=== PATIENT | female | born 1950 | race Caucasian/White ===

== ENCOUNTER 2020-01-30 09:11 | Outpatient (CLI) | payer MEDICARE, SELFPAY ==
--- NOTE | ~2020-01-30 | NM_ITS ---
NM stress w perf spect multi Procedure: The patient was stressed using Modified Stephon protocol. Prior to the end of exercise 30.8 mCi Tc 99m IV administered. Rest imaging performed following administration of 10.5 mCi Tc 99m IV. Images were reformatted into short axis, horizontal and vertical long axis sections for visual and q uantitative analysis. Indication: Chest pain Comparison: None Findings: Computer assisted qualitative and quantitative analysis of the immediate and delayed images revealed normal left ventricular perfusion without evidence of fixed or reversible perfusion abnorma lity to suggest ischemia or infarction. Normal left ventricular cavity size, wall motion and ejectio n fraction. Left ventricular ejection fraction measures 82%. Impression: 1: No scintigraphic evidence of resting or stress induced perfusion abnormality. 2: Normal left ventricle ejection fraction measuring 82%. Reviewed, dictated and finalized at location B. F NUCLEAR MEDICINE TECHNOLOGIST Impression: 1: No scintigraphic evidence of resting or stress induced perfusion abnormality . 2: Normal left ventricle ejection fraction measuring 82%.
--- NOTE | 2020-01-30 09:55 | EST_ITS ---
Patient Info Name: Vanessa Pak Age: 70 years : 1950 Gender: Female Ht: 66 in Wt: 174 lbs BSA: 1.94 m2 Exam Date: 01/30/2020 11:11 AM Exam Location: [facility] Stress Patient Status: Outpatient Admit Date: 01/30/2020 Staff Ordering Physician: Anjum Ball PA-C Attending Provider: Anjum Ball PA-C Exercise Technologist: Mayra Easton RDCS Exercise Physician: Uriah Sawyer DO Exam Type: CA stress test treadmill w NM Study Info Indications R07.9 - Chest pain, unspecified R42 - Dizziness and giddiness A pharmacological stress test was performed. Summary 1. 1. Negative Stephon exercise stress test for ischemic ST changes by ECG criteria. 2. 2. Mildly reduced functional capacity, achieving 7 METs of workload. 3. 3. Baseline hypertension. 4. 4. Appropriate HR response to exercise. 5. 5. Appropriate HR recovery at 1 minute post exercise. 6. 6. Nuclear scan to follow and will be reported separately. Please correlate with it. 7. 7. Patient informed of the above results. Protocol: Stephon Stress ECG Details Stage: REST Duration (min): 3 min : 13 sec Speed (mph): 0.0 Grade (%): 0 HR (bpm): 59 SBP (mmHg): 144 DBP (mmHg): 83 METS: --- Stage: REST Duration (min): 21 min : 32 sec Speed (mph): 0.0 Grade (%): 0 HR (bpm): 80 SBP (mmHg): 144 DBP (mmHg): 83 METS: --- Stage: STAGE 1 Duration (min): 1 min : 0 sec Speed (mph): 1.7 Grade (%): 10 HR (bpm): 105 SBP (mmHg): 144 DBP (mmHg): 83 METS: --- Stage: STAGE 1 Duration (min): 2 min : 0 sec Speed (mph): 1.7 Grade (%): 10 HR (bpm): 123 SBP (mmHg): 144 DBP (mmHg): 83 METS: --- Stage: STAGE 1 Duration (min): 3 min : 0 sec Speed (mph): 1.7 Grade (%): 10 HR (bpm): 128 SBP (mmHg): 196 DBP (mmHg): 92 METS: --- Stage: STAGE 2 Duration (min): 1 min : 0 sec Speed (mph): 2.5 Grade (%): 12 HR (bpm): 139 SBP (mmHg): 196 DBP (mmHg): 92 METS: --- Stage: STAGE 2 Duration (min): 2 min : 0 sec Speed (mph): 2.5 Grade (%): 12 HR (bpm): 147 SBP (mmHg): 192 DBP (mmHg): 91 METS: --- Stage: STAGE 2 Duration (min): 2 min : 0 sec Speed (mph): 2.5 Grade (%): 12 HR (bpm): 147 SBP (mmHg): 192 DBP (mmHg): 91 METS: --- Stage: RECOVERY Duration (min): 0 min : 59 sec Speed (mph): 0.0 Grade (%): 0 HR (bpm): 117 SBP (mmHg): 190 DBP (mmHg): 93 METS: --- Stage: RECOVERY Duration (min): 1 min : 59 sec Speed (mph): 0.0 Grade (%): 0 HR (bpm): 86 SBP (mmHg): 190 DBP (mmHg): 93 METS: --- Stage: RECOVERY Duration (min): 2 min : 59 sec Speed (mph): 0.0 Grade (%): 0 HR (bpm): 61 SBP (mmHg): 171 DBP (mmHg): 93 METS: --- Stage: RECOVERY Duration (min): 3 min : 59 sec Speed (mph): 0.0 Grade (%): 0 HR (bpm): 88 SBP (mmHg): 171 DBP (mmHg):
== END 2020-01-30 09:12 | disposition home or self-care (01) ==
PROVIDERS: PCP Internal Medicine; Visit Provider Physician Assistant
DX: R42 Dizziness and giddiness (principal); R07.9 Chest pain, unspecified; I10 Essential (primary) hypertension
CPT/HCPCS: 78452; 93017; A9502

== ENCOUNTER 2020-01-31 14:24 | Outpatient (CLI) | payer MEDICARE, SELFPAY ==
--- NOTE | ~2020-01-31 | XR_ITS ---
XR hip BI 2V w AP pelvis 01/31/2020 15:03 Indication: Lower abdominal pain Procedure: AP view pelvis and 3 views each hip Comparison: 04/20/2016 Findings: There is mild osteoarthritis of the hips. Pelvic rings are intact. No fracture or traumatic malalignment. Sacral foramen are symmetric. Impression: 1: Mild osteoarthritis of the hips. Reviewed, dictated and finalized at location B. RING MANAGER Impression: 1: Mild osteoarthritis of the hips.
--- NOTE | ~2020-01-31 | XR_ITS ---
EXAMINATION: XR lumbar spine 6V w bending EXAM DATE: 01/31/2020 15:03 INDICATION: Lumbar radiculopathy. TECHNIQUE: Lumber spine frontal, lateral, bilateral oblique projections. Coned down frontal and lat eral L5-S1 lumbar projections for interpretation. Additional lateral flexion and lateral extension pr ojections obtained. There is no prior study for comparison. FINDINGS: There is 3 mm retrolisthesis L1 on L2 on all the lateral projections. The vertebral bodies are otherwise aligned. There is no spondylolysis. There is mild to moderate disc disease T12-L3 and at L5-S1. There is moderate mid and lower lumbar facet arthropathy. There are no acute fractures iden tified. No spondylolysis. Paraspinal soft tissue is unremarkable. Sacrum, sacroiliac joints, sacral a rcuate lines are intact. IMPRESSION: 1. Moderate arthropathy. 2. Mild to moderate disc disease. Reviewed, dictated and finalized at location A. TE SENSING TECHNICIAN
== END 2020-01-31 14:25 | disposition home or self-care (01) ==
PROVIDERS: PCP Internal Medicine; Visit Provider Physician Assistant
DX: M54.16 Radiculopathy, lumbar region (principal); M51.36 Other intervertebral disc degeneration, lumbar region; M16.0 Bilateral primary osteoarthritis of hip
CPT/HCPCS: 72114; 73521

== ENCOUNTER 2020-04-16 08:38 | Outpatient (CLI) | payer MEDICARE, SELFPAY ==
--- NOTE | ~2020-04-16 | MM_ITS ---
EXAMINATION: MM screening diaz BI w pat HISTORY: Screening mammogram TECHNIQUE: Craniocaudal and mediolateral oblique 3-D tomosynthesis images were obtained and synthetic 2-D images were generated. CAD analysis was submitted and interpreted. COMPARISON: 03/28/2019, 03/21/2018, 03/18/2017 bilateral digital screening mammogram examinations BREAST PARENCHYMAL COMPOSITION: There are scattered areas of fibroglandular density. FINDINGS: Stable benign intramammary lymph nodes are noted. There is no evidence of suspicious mass, calcification, or architectural distortion to suggest malignancy in either breast. There has been no suspicious interval change. IMPRESSION: 1. No mammographic evidence of malignancy. 2. Recommend routine screening mammography in one year. BI-RADS Category 2: Benign finding(s). Reviewed, dictated and finalized at location A.
== END 2020-04-16 08:39 | disposition home or self-care (01) ==
LOC: ANHIMG 08:42
PROVIDERS: PCP Physician Assistant; Visit Provider Physician Assistant
DX: Z12.31 Encounter for screening mammogram for malignant neoplasm of breast (principal)
CPT/HCPCS: 77063; 77067

== ENCOUNTER 2020-11-25 11:24 | Outpatient (CLI) | payer MEDICARE, SELFPAY ==
--- NOTE | ~2020-11-25 | XR_ITS ---
XR thoracic spine min 4V DATE: 11/25/2020 11:46 INDICATION: Mid back pain. No injury TECHNIQUE: AP, lateral, swimmer views COMPARISON: None FINDINGS: Moderate degenerative disc disease at C5-6 and C6-7. There is minimal levoscoliosis of the thoracic spine. Moderate osteopenia. There is mild degenerative spurring of the thoracic spine. No fracture or dislocation or bone destruc tion. The thoracic pedicles are intact. No paraspinal soft tissue thickening. IMPRESSION: Osteopenia Mild degenerative change of the thoracic spine Reviewed, dictated and finalized at location A. ITURE SALESPERSON
== END 2020-11-25 11:25 | disposition home or self-care (01) ==
PROVIDERS: PCP Physician Assistant; Visit Provider Physician Assistant
DX: M47.813 Spondylosis without myelopathy or radiculopathy, cervicothoracic region (principal); M41.9 Scoliosis, unspecified
CPT/HCPCS: 72074

== ENCOUNTER 2021-04-18 14:35 | Outpatient (CLI) | payer MEDICARE, SELFPAY ==
--- NOTE | ~2021-04-18 | MM_ITS ---
EXAMINATION: MM screening diaz BI w pat HISTORY: Screening TECHNIQUE: Craniocaudal and mediolateral oblique 3-D tomosynthesis images were obtained and synthetic 2-D images were generated. CAD analysis was submitted and interpreted. COMPARISON: Comparison to multiple prior studies sequentially, with oldest reviewed study dated 02/22. BREAST PARENCHYMAL COMPOSITION: There are scattered areas of fibroglandular density. FINDINGS: There is no evidence of suspicious mass, calcification, or architectural distortion to sugg est malignancy in either breast. There has been no suspicious interval change. IMPRESSION: 1. No mammographic evidence of malignancy. 2. Recommend routine screening mammography in one year. BI-RADS Category 1: Negative Reviewed, dictated and finalized at location A.
== END 2021-04-18 14:36 | disposition home or self-care (01) ==
LOC: ANHIMG 14:37
PROVIDERS: PCP Physician Assistant; Visit Provider Physician Assistant
DX: Z12.31 Encounter for screening mammogram for malignant neoplasm of breast (principal)
CPT/HCPCS: 77063; 77067

== ENCOUNTER 2021-09-15 14:15 | Outpatient (CLI) | payer MEDICARE, SELFPAY ==
--- NOTE | 2021-09-15 14:51 | ECHO_ITS ---
Patient Info Name: Vanessa Pak Age: 71 years : 1950 Gender: Female Ht: 66 in Wt: 168 lbs BSA: 1.90 m2 HR: 68 bpm BP: 138 / 83 mmHg Technical Quality: Good Exam Date: 09/15/2021 2:57 PM Exam Location: [facility] Patient Status: Outpatient Admit Date: 09/15/2021 Staff Ordering Physician: Uriah Sawyer DO Public Finance Specialist: Rebecca Swenson RDCS Attending Provider: Uriah Sawyer DO Referring Physician: Silverio VILLARREAL; Exam Type: CA echo doppler color flow Study Info Indications - DYSPNEA Complete two-dimensional, color flow and Doppler transthoracic echocardiogram is performed. Summary 1. Complete two-dimensional, color flow and Doppler transthoracic echocardiogram is performed. 2. Left ventricular chamber dimension is normal. 3. Ventricular septum is sigmoid shaped. No LVOT obstuction. 4. Left ventricular systolic function is normal, estimated at 60-65%. 5. The left ventricular diastolic function is grade I diastolic dysfunction. 6. E/e' 12 is mildly elevated. 7. There is trace mitral valve regurgitation. 8. There is trace tricuspid valve regurgitation. 9. No pulmonary hypertension, estimated pulmonary arterial systolic pressure is 26 mmHg. Left Ventricle E/e' 12 is mildly elevated. Ventricular septum is sigmoid shaped. No LVOT obstuction. Left ventricular chamber dimension is normal. Left ventricular systolic function is normal, estimated at 60-65%. The left ventricular diastolic function is grade I diastolic dysfunction. Right Ventricle Right ventricular chamber dimension is normal. Right ventricular systolic function is normal. Left Atria Left atrial chamber dimension is normal. Right Atria Right atrial chamber dimension is normal. Aortic Valve The aortic valve is trileaflet. There is no aortic valve stenosis. There is no aortic valve regurgitation. Pulmonic Valve There is no pulmonic regurgitation. Mitral Valve There is no mitral valve stenosis. There is trace mitral valve regurgitation. Tricuspid Valve There is trace tricuspid valve regurgitation. No pulmonary hypertension, estimated pulmonary arterial systolic pressure is 26 mmHg. Pericardium/Pleural There is no pericardial effusion. Inferior Vena Cava Normal inferior vena cava with >50% collapse upon inspiration consistent with normal right atrial pressure, 5 mmHg. Aorta The aortic root size at the sinus of Valsalva is normal. Left Ventricular Outflow Tract Name Value Normal LVOT 2D LVOT Diameter 2.0 cm LVOT Doppler LVOT Peak Gradient 7 mmHg LVOT Mean Gradient 4 mmHg LVOT VTI 30 cm LVOT VTI/AV VTI Ratio 1.0 LVOT Stroke Volume 94 ml LVOT CO 17.4 l/min LVOT CI 9.1 l/min/m2 Pulmonic Valve Name Value Normal
== END 2021-09-15 14:16 | disposition home or self-care (01) ==
LOC: ANHCARD 14:16
PROVIDERS: PCP Physician Assistant; Visit Provider Internal Medicine Cardiovascular Disease
DX: R06.00 Dyspnea, unspecified (principal)
CPT/HCPCS: 93306

== ENCOUNTER 2021-11-17 07:51 | Outpatient (CLI) | payer MEDICARE, SELFPAY ==
--- NOTE | 2021-11-24 11:41 | WPDHOMESLEEP ---
Sleep Study - Home Unattended Date of Study: 11/17/21 <Monica Jo DO - Last Filed: 11/24/21 11:52> Ordering Provider: Uriah Sawyer DO <Monica Jo DO - Last Filed: 11/24/21 11:52> Interpreting Provider: Monica Jo DO <Monica Jo DO - Last Filed: 11/24/21 11:52> Home Sleep Study Type: Apnea Link Air <Monica Jo DO - Last Filed: 11/24/21 11:52> Height: 1.68 m <Monica Jo DO - Last Filed: 11/24/21 11:52> Weight: 77.111 kg <Monica Jo DO - Last Filed: 11/24/21 11:52> Body Mass Index: 27.4 <Monica Jo DO - Last Filed: 11/24/21 11:52> Neck Circumference (inches): 17 <Monica Jo DO - Last Filed: 11/24/21 11:52> Silt: 3 <Monica Jo DO - Last Filed: 11/24/21 11:52> Reason for Sleep Study Snoring, heart palpitations <Monica Jo DO - Last Filed: 11/24/21 11:52> Sleep History The patient is a 71-year-old female with hypertension, heart palpitations, hyperlipidemia, hypothyroidism, GERD, seasonal allergies that had a home sleep study ordered by her front desk team member due to hypersomnia. The patient denies awakening from sleep short of breath. She occasionally awakens at night with heartburn, belching or cough. She frequently snores but is rarely loud enough that others complain. She denies waking up gasping for air throughout the night. She denies having breathing problems at night observed by others. She rarely sweats excessively at night. She occasionally notices heart palpitations or irregular heartbeats during the night. She denies falling asleep during the day and while driving. She denies sleep paralysis, cataplexy and hypnagogic / hypnopompic hallucinations. She denies having trouble during the day due to sleepiness. She denies feeling afraid to fall asleep. She rarely has nightmares. She rarely remembers her dreams. She occasionally has thoughts racing through her mind. She rarely feels sad or depressed. She occasionally has anxiety. She occasionally has muscular tension in notices parts of her body jerk. She occasionally kicks during the night. She occasionally has crawling and aching feelings in her legs as well as leg pain during the night. She occasionally grinds her teeth during sleep and occasionally awakens with morning jaw pain. She is occasionally bothered by pain during the day but rarely awakened by pain during the night. She occasionally wakes up feeling stiff in the morning with sore and achy muscles. She goes to bed between 9 and 10:00 p.m. on weekdays and between 10 and 11:00 p.m. on the weekends. It takes her 30 minutes to fall asleep. She wakes up once throughout the night to urinate. She can fall back asleep within 30 minutes. She awakens at 7:30 a.m. on both weekdays and weekends. She typically gets 7 hours of sleep per night. She will not stay in bed after waking up in the morning. She is currently living alone. She is retired. She does not consume any caffeinated beverages within 2 hours of bedtime. She does not engage in physical exercise before bedtime. She will watch television before falling asleep. She will occasionally take a nap in the afternoon or the evening and is refreshing. She quit smoking cigarettes 20 years ago. She has 3 caffeinated beverages per day. She denies alcohol recreational drug use. <Monica Jo DO - Last Filed: 11/24/21 11:52> [facility] Family History Family History: Family History Sibling Family history of diabetes mellitus in first degree relative Patient's brother is in good health Mother Patient's mother is Father Patient's father is <Monica Jo DO - Last Filed: 11/24/21 11:52> Social History Social History: Social History (Reviewed 11/24/21 @ 11:46 by Monica Oliveira
[2021-11-24 11:52] VITALS: BMI 27.4
== END 2021-11-18 14:25 | disposition home or self-care (01) ==
LOC: ANHCSM 07:51
PROVIDERS: PCP Physician Assistant; Visit Provider Internal Medicine Cardiovascular Disease
DX: G47.33 Obstructive sleep apnea (adult) (pediatric) (principal); G47.10 Hypersomnia, unspecified
CPT/HCPCS: 95806

== ENCOUNTER 2021-12-22 14:42 | Emergency (ER) | payer MEDICARE, SELFPAY ==
--- NOTE | ~2021-12-22 | XR_ITS ---
XR chest 1V portable DATE: 12/22/2021 23:05 INDICATION: Weakness. Increased pressure in head and neck. TECHNIQUE: Portable upright AP chest on 12/18/2021 at 2302 hours COMPARISON: 07/26/2019 PA and lateral chest FINDINGS: Normal heart size. Is aortic tortuosity. No hilar or mediastinal enlargement. Possible 7 mm mass of right midlung, likely present on 07/18/2019. Probable calcified granuloma left upper lobe. There are calcified left hilar and aortopulmonary windo w nodes consistent with old granulomatous disease. No pulmonary infiltrate or consolidation, pleural effusion or pulmonary vascular congestion or pneumo thorax. Diffuse osteopenia. 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 ACTORY MIXER
--- NOTE | ~2021-12-22 | CT_ITS ---
EXAMINATION: CTA brain carotid EXAM DATE: 12/23/2021 00:10 INDICATION: Dizziness, worse with turning neck X 2 WEEKS. TECHNIQUE: Noncontrast head CT. Spiral CTA of the carotid arteries was performed with intravenous i njection 100 cc of Omnipaque 350. Axial, coronal, sagittal reformatted images reviewed. Additional r eformatted images created on dedicated 3-D workstation. NASCET comparable standard used to assess th e degree of arterial stenosis. Spiral CT angiogram cerebral arteries performed with the same intrave nous injection of contrast. Source images of the brain CTA transferred to dedicated workstation for 3 -D rotational image creation. Coronal, sagittal maximum intensity pixel images also reviewed. The d ose-length product (DLP) for this examination was 1721.98 mGy-cm. The exposure was tailored accordi ng to patient size, and iterative reconstruction (ASIR) was used as additional dose reduction techniq ue. There is no prior study for comparison. FINDINGS: The left vertebral artery is dominant. There is minimal right carotid arterial sclerosis. 0 % carotid bulb stenosis bilaterally. Small basilar tip infundibulum. There is no carotid or vertebral basilar arterial dissection or fibromuscular dysplasia. There are no cerebral artery aneurysms. Ther e is symmetric cerebral artery arborization. The sagittal, transverse and sigmoid sinuses enhance nor binu, no venous sinus thrombosis. Internal cerebral veins also enhance normally. There is no acute intraparenchymal hemorrhage. No evidence of intraparenchymal brain mass lesion. N o evidence of acute infarction. There is mild to moderate periventricular and subcortical hypodensity , nonspecific but probably related to small vessel ischemic disease. There is mild prominence of th e sulci and ventricles related to cerebral atrophy. There is no mass effect or midline shift. Ther e is no obstructive hydrocephalus suspected. There are no extra-axial collections. Incidental Findings: Mild to moderate cervical spondylosis. IMPRESSION: 1. No acute carotid or intracranial findings. 2. Bilateral carotid 0% stenosis. Reviewed, dictated and finalized at location A. CONDITIONING MECHANIC
[2021-12-22 14:46] VITALS: BP 176/107; PULSE 85; RESP 20; TEMP 36.3; O2SAT 100
[2021-12-22 16:39] VITALS: BP 150/83; PULSE 80; RESP 16; TEMP 36.8; O2SAT 100
[2021-12-22 20:40] VITALS: BP 149/90; PULSE 68; TEMP 37.1; O2SAT 100
--- NOTE | 2021-12-22 22:53 | ECG_ITS ---
Measurements Intervals [place] Rate: 79 P: 48 PA: 151 QRS: 3 QRSD: 83 T: 24 QT: 387 QTc: 444 Interpretive Statements SINUS RHYTHM LOW QRS VOLTAGE IN PRECORDIAL LEADS MINIMAL Q WAVES- HIGH LATERAL LEADS BASELINE ARTIFACT- I, III, AVR, AVL, AVF BORDERLINE ECG Electronically Signed On 12-23-2021 5:45:39 [employer] by Uriah Sawyer D.O.
--- NOTE | 2021-12-22 23:12 | ED.GENADULT ---
HPI - General Adult General Chief complaint: Headache Stated complaint: head fullness and tightening Time Seen by Provider: 12/22/21 22:46 History of Present Illness HPI narrative: Patient 71-year-old female presents to emergency department with plaint of headache. Patient reports that yesterday she started having occipital headaches and reports that she is also had a feeling as though she is going to pass out patient states it is worse whenever she turns her head from side to side and puts pressure on her neck. Patient reports she has had history of cervical radiculopathy and reports she had history of vertigo as well patient states this feels a little different the patient states that pain is more of an aching-like sensation reports that is not improved by anything and reports that she also noticed that her vision was a little off states that whenever she looks with both of her eyes things are little blurry but when she looks with just one eye it is normal Related Data Allergies Allergy/AdvReac Type Severity Reaction Status Date / Time sertraline Allergy Unknown Fatigue Verified 10/07/21 10:12 Review of Systems Review of Systems: A 10 system review of systems was completed on the patient and is negative except for what is stated in the HPI. Nursing and ancillary documentation was reviewed. [facility] Family History Family History Sibling Family history of diabetes mellitus in first degree relative Patient's brother is in good health Mother Patient's mother is Father Patient's father is Social History Social History Smoking status: Never smoker Second hand tobacco smoke exposure: No Alcohol intake: current Exam Narrative: GENERAL: Well-appearing, well-nourished, and in no acute distress. HEAD: Normocephalic, atraumatic. EYES: PERRLA and EOMI. ENT: Nares clear, no rhinorrhea or epistaxis. Mucous membranes moist. NECK: Supple. CHEST: Clear to auscultation. No respiratory distress. HEART: Regular rate and rhythm. No murmur heard. Normal peripheral pulses. ABDOMEN: Soft, nontender, nondistended, normal active bowel sounds. EXTREMITIES: Normal range of motion. No edema. SKIN: Warm, dry, no rash. NEURO: No focal deficits. Alert and oriented x3. PSYCH: Normal mood and affect. Course Course Emergency Course: CT head is negative CT angio head and neck is negative Patient is feeling much better at this time Vital Signs Vital signs: Vital Signs Temperature 36.3 C L 12/22/21 14:46 Pulse Rate 85 12/22/21 14:46 Respiratory Rate 20 12/22/21 14:46 Blood Pressure 176/107 H 12/22/21 14:46 Pulse Oximetry 100 12/22/21 14:46 Temperature 37.1 C 12/22/21 20:40 Pulse Rate 66 12/23/21 00:47 Respiratory Rate 16 12/23/21 00:47 Blood Pressure 125/78 12/23/21 00:47 Pulse Oximetry 100 12/23/21 00:47 Medical Decision Making Vital Signs Vital Signs: Vital Signs Temperature 36.3 C L 12/22/21 14:46 Pulse Rate 85 12/22/21 14:46 Respiratory Rate 20 12/22/21 14:46 Blood Pressure 176/107 H 12/22/21 14:46 Pulse Oximetry 100 12/22/21 14:46 Temperature 37.1 C 12/22/21 20:40 Pulse Rate 66 12/23/21 00:47 Respiratory Rate 16 12/23/21 00:47 Blood Pressure 125/78 12/23/21 00:47 Pulse Oximetry 100 12/23/21 00:47 Lab Data Result diagrams: 12/22/21 23:08 12/22/21 23:08 Labs: Lab Results 12/22/21 12/22/21 12/22/21 Range/Units 23:08 23:08 23:08 WBC 7.3 (4.5-10.0) K/mm3 RBC 4.47 (4.2-5.4) M/mm3 Hgb 14.6 (12.0-15.0) g/dL Hct 43.4 (37.0-47.0) % MCV 97.1 (80-100) fl MCH 32.7 (26-34) pg MCHC 33.6 (32-36) g/dl RDW 12.3 (11.5-14.5) % Plt Count 287 (150-375) k/mm3 MPV 9.5 (7.4-10.4) fl Immature Gran % (Auto) 0.4 (0-0.5)
[2021-12-22 23:13] VITALS: BP 144/93; PULSE 77; RESP 16; O2SAT 99
[2021-12-22] MEDS: METOCLOPRAMIDE HCL INJ 10 MG/2 ML VIAL IV PUSH (23:22)
[2021-12-22] MEDS: diphenhydrAMINE HCl INJ 50 MG/ML VIAL IV PUSH (23:22)
[2021-12-22 23:24] LABS: Basophils Percent Auto 0.6 % (0.2-1.2); Eosinophils Absolute Auto 0.1 K/mm3 (0-0.3); Hematocrit 43.4 % (37.0-47.0); Hemoglobin 14.6 g/dL (12.0-15.0); Immature Granulocyte Absolute 0.03 K/mm3 (0.00-0.031); Immature Granulocyte Percent A 0.4 % (0-0.5); Lymphocytes Absolute Auto 2.95 K/mm3 (0.9-3.2); Lymphocytes Percent Auto 40.7 % (18.3-44.2); Mean Corpuscular HGB Conc 33.6 g/dl (32-36); Mean Corpuscular Hemoglobin 32.7 pg (26-34); Mean Corpuscular Volume 97.1 fl (80-100); Mean Platelet Volume 9.5 fl (7.4-10.4); Monocytes Absolute Auto 0.5 K/mm3 (0.1-0.6); Monocytes Percent Auto 6.3 % (2.6-8.5); Neutrophils Absolute Auto 3.7 K/mm3 (1.3-6.7); Platelet Count Result 287 k/mm3 (150-375); Red Blood Count 4.47 M/mm3 (4.2-5.4); Red Cell Distribution Width 12.3 % (11.5-14.5); White Blood Count 7.3 K/mm3 (4.5-10.0)
[2021-12-22 23:26] LABS: Add Urine Microscopic? NO; Appearance Urine Clear (Clear); Bilirubin Urine Negative (Negative); Blood Urine Negative (Negative); Color Urine Yellow (Yellow); Glucose Urine UA Negative (Negative); Ketones Urine Negative (Negative); Leukocyte Esterase Ur Negative LEU/UL (Negative); Nitrate Urine Negative (Negative); Protein Urine Negative (Negative); Specific Grav Ur 1.009 (1.001-1.035); Urobilinogen Urine Negative mg/dL (<2.0)
[2021-12-22] MEDS: SODIUM CHLORIDE 0.9% IV 1,000 ML 999 ML IV CONT (23:26)
[2021-12-22 23:33] LABS: Alanine Aminotransferase 22 U/L (4-35); Alkaline Phosphatase 77 U/L (38-126); Anion Gap 10 mmol/L (8-16); Aspartate Amino Transferase 26 U/L (14-36); Bilirubin,Total 0.7 mg/dL (0.2-1.3); Blood Urea Nitrogen 10 mg/dL (7-17); Calcium 9.8 mg/dL (8.4-10.2); Carbon Dioxide 27 mmol/L (22-30); Chloride 103 mmol/L (98-107); Estimated CRCL calculation 58 ml/min; Estimated Glomerular Filt Rate > 60; Glucose 155 mg/dL (65-110); Magnesium 2.3 mg/dL (1.6-2.3); Potassium 3.3 mmol/L (3.4-5.0); Sodium 140 mmol/L (137-145)
[2021-12-22 23:36] LABS: Prothrombin Time 13.3 Seconds (11.1-14.7)
[2021-12-22 23:37] LABS: Partial Thromboplastin Time 26.6 SECONDS (22.3-36.8)
[2021-12-22 23:45] LABS: Troponin I < 0.012 ng/mL (0.000-0.034)
[2021-12-23 00:47] VITALS: BP 125/78; PULSE 66; RESP 16; O2SAT 100
[2021-12-23 01:31] VITALS: BP 131/78; PULSE 66; RESP 16; O2SAT 100
== END 2021-12-23 01:31 | disposition home or self-care (01) ==
PROVIDERS: Emergency Provider Emergency Medicine; PCP Physician Assistant
DX: R51.9 Headache, unspecified (principal)
CPT/HCPCS: 36415; 70496; 70498; 71045; 80053; 81003; 83735; 84484; 85025; 85610; 85730; 93005; 96361; 96374; 96375; 99284; J1200; J2765; J7030; Q9967

== ENCOUNTER → 2022-01-06 11:23 | Outpatient (CLI) | payer MEDICARE, SELFPAY ==
--- NOTE | ~2022-01-06 | US_ITS ---
EXAMINATION: US soft tissue upper back EXAM DATE: 01/06/2022 11:43 INDICATION: R22.2 - Localized swelling, mass and lump, trunk TECHNIQUE: Multiple grayscale and Doppler images of the right upper back area of patient's concern we re obtained (by a technologist who performed the scan) and subsequently reviewed. There is no prior study for comparison. FINDINGS: Scanning in the area of patient's concern demonstrates uniform skin thickness, unremarkable subcutane ous fat and underlying musculature. Artifact from some ribs demonstrated. IMPRESSION: 1. Unremarkable ultrasound exam. Reviewed, dictated and finalized at location B. NESS CONTINUITY CONSULTANT
== END ==
PROVIDERS: Visit Provider Physician Assistant
DX: R22.2 Localized swelling, mass and lump, trunk (principal)
CPT/HCPCS: 76604

== ENCOUNTER → 2022-02-11 09:02 | Outpatient (CLI) | payer MEDICARE, SELFPAY ==
--- NOTE | ~2022-02-11 | XR_ITS ---
EXAMINATION:XR cervical spine 4-5V DATE: 02/11/2022 09:21 INDICATION: Cervicalgia TECHNIQUE: AP, lateral, lateral swimmers, left and right oblique and odontoid views of the cervical s pine are provided. COMPARISON: None FINDINGS: Alignment is normal. Odontoid is intact. Moderate atlantoaxial osteoarthritis. Vertebral body heights are normal. Moderate disc height loss at C5-C6 and C6-C7 with small posterior endplate osteophytes r esulting in mild central canal stenosis and moderate uncovertebral osteoarthritis resulting in mild b ilateral neural foraminal stenosis at both levels. Mild disc height loss at C3-C4. Severe facet osteo arthritis on the left at C7-T1. Mild facet osteoarthritis throughout the remainder of the cervical sp ine. Prevertebral soft tissues are normal. IMPRESSION: 1. Mild to moderate cervical spondylosis. Reviewed, dictated and finalized at location A.
== END ==
PROVIDERS: PCP Physician Assistant; Visit Provider Physician Assistant
DX: M54.2 Cervicalgia (principal); M47.816 Spondylosis without myelopathy or radiculopathy, lumbar region
CPT/HCPCS: 72050

== ENCOUNTER 2022-02-20 15:47 | Outpatient (CLI) | payer MEDICARE, SELFPAY ==
--- NOTE | ~2022-02-20 | MR_ITS ---
EXAMINATION: MR cervical spine wo con EXAM DATE: 02/20/2022 16:57 INDICATION: M54.12 - Radiculopathy, cervical region. TECHNIQUE: Multi-sequential, multiplanar MR images of the cervical spine were obtained without contra st. Axial T2, axial T2 MERGE sequence. Sagittal T1, T2, T2 fat saturation images also obtained. Th ere is no prior study for comparison. FINDINGS: There is moderate disc disease at C5-6 and 6-7, mild to moderate at C3-4. The vertebral joss dies are aligned in the AP dimension. The spinal cord signal intensity and intrinsic morphology is no rmal. Cervicomedullary junction is normal in appearance. There is a small bone island in the T3 verte bral body. Level by level evaluation: C2-C3: Disc does not extend beyond the endplate margin. Uncovertebral joint arthropathy: None. Facet joint arthropathy: Mild. Neural foraminal stenosis: No stenosis. Central canal stenosis: No stenosis. C3-C4: Mild to moderate left, mild right Uncovertebral joint arthropathy: Mild to moderate. Facet joint arthropathy: Mild to moderate left, mild right. Neural foraminal stenosis: No stenosis. Central canal stenosis: No stenosis. C4-C5: There is a mild diffuse disc bulge. Uncovertebral joint arthropathy: Mild bilateral. Facet joint arthropathy: Moderate right, mild to moderate left. Neural foraminal stenosis: No stenosis. Central canal stenosis: No stenosis. C5-C6: There is a mild diffuse disc bulge. Uncovertebral joint arthropathy: Mild to moderate right, mild left. Facet joint arthropathy: Mild bilateral. Neural foraminal stenosis: Mild bilateral. Central canal stenosis: No stenosis. C6-C7: There is a mild diffuse disc bulge. Uncovertebral joint arthropathy: Mild to moderate left, mild right. Facet joint arthropathy: Mild to moderate left, mild right. Neural foraminal stenosis: Moderate left. Central canal stenosis: No stenosis. C7-T1: Disc does not extend beyond the endplate margin. Uncovertebral joint arthropathy: Moderate left, mild right. Facet joint arthropathy: Moderate left, mild right. Neural foraminal stenosis: Mild to moderate left. Central canal stenosis: No stenosis. IMPRESSION: 1. Mild to moderate cervical spondylosis as detailed above. Reviewed, dictated and finalized at location G.
== END 2022-02-20 15:48 | disposition home or self-care (01) ==
LOC: ANHIMG 15:54
PROVIDERS: PCP Physician Assistant; Visit Provider Physician Assistant
DX: M54.12 Radiculopathy, cervical region (principal); M47.812 Spondylosis without myelopathy or radiculopathy, cervical region
CPT/HCPCS: 72141

== ENCOUNTER 2022-05-19 09:10 | Outpatient (CLI) | payer MEDICARE, SELFPAY ==
--- NOTE | ~2022-05-19 | MM_ITS ---
EXAMINATION: MM screening [facility] BI w pat HISTORY: Screening mammogram TECHNIQUE: Craniocaudal and mediolateral oblique 3-D tomosynthesis images were obtained and synthetic 2-D images were generated. CAD analysis was submitted and interpreted. COMPARISON: 04/18/2021, 04/16/2020, 03/28/2019 bilateral screening mammogram examinations BREAST PARENCHYMAL COMPOSITION: There are scattered areas of fibroglandular density. FINDINGS: There is no evidence of suspicious mass, calcification, or architectural distortion to sugg est malignancy in either breast. There has been no suspicious interval change. IMPRESSION: 1. No mammographic evidence of malignancy. 2. Recommend routine screening mammography in one year. BI-RADS Category 1: Negative Reviewed, dictated and finalized at location A.
== END 2022-05-19 09:11 | disposition home or self-care (01) ==
PROVIDERS: PCP Physician Assistant; Visit Provider Physician Assistant
DX: Z12.31 Encounter for screening mammogram for malignant neoplasm of breast (principal)
CPT/HCPCS: 77063; 77067

== ENCOUNTER → 2022-07-30 07:10 | Outpatient (CLI) | payer MEDICARE, SELFPAY ==
--- NOTE | ~2022-07-30 | MR_ITS ---
EXAMINATION: MR brain/brain stem wo/w con DATE: 07/30/2022 08:52 INDICATION: Right occipital headache. Cerebral infarction, unspecified. TECHNIQUE: Magnetic resonance imaging (MRI) of the brain and brainstem was performed without and with 15 mL MultiHance intravenous contrast. COMPARISON: Head CT 12/22/2021 FINDINGS: There is a developmental venous anomaly in left frontal lobe. There are scattered areas of nonspecific increased T2-weighted signal intensity in the cerebral white matter. There is no intracra nial hemorrhage, acute infarction, or abnormal intracranial mass lesion. The ventricles are normal in size. The orbits are normal. There is mild mucosal thickening in the ethmoid sinuses. The mastoid ai r cells are normal. IMPRESSION: 1. Moderate nonspecific cerebral white matter disease, which likely represents chronic small vessel i schemic disease. Reviewed, dictated and finalized at location A. IMPRESSION: 1. Moderate nonspecific cerebral white matter disease, which likely represents chronic small vessel ischemic disease.
== END ==
PROVIDERS: PCP Physician Assistant
DX: Z86.73 Personal history of transient ischemic attack (TIA), and cerebral infarction without residual deficits (principal); R90.82 White matter disease, unspecified
CPT/HCPCS: 70553; A9577

== ENCOUNTER 2023-02-15 00:25 | Day surgery (SDC) | payer MEDICARE, SELFPAY ==
[2023-02-03 12:43] VITALS: BMI 27.0
[2023-02-15 09:27] VITALS: BP 138/75; PULSE 68; RESP 20; TEMP 36.3; O2SAT 99
[2023-02-15] MEDS: LACTATED RINGERS 1,000 ML 150 ML IV CONT (09:36)
--- NOTE | 2023-02-15 09:54 | WPDANESEPPF ---
Anes - Initial Pre Proc Eval Procedure: Operation Date: 02/15/23 10:30 Proposed Procedures p Screening Colonoscopy - Jos Perry MD Date/Time: 02/15/23 09:54 Surgeon: Jos Perry MD Pre Op Diagnosis: neoplasm screening Patient Data Age: 73 Gender: F Height: 1.68 m Weight: 75 kg Last Vital Signs Temp 97.4 F L 02/15/23 09:27 Pulse 68 02/15/23 09:27 Resp 20 02/15/23 09:27 BP 138/75 02/15/23 09:27 Pulse Ox 99 02/15/23 09:27 O2 Del Method Room Air 02/15/23 09:27 Allergies Allergy/AdvReac Type Severity Reaction Status Date / Time sertraline Allergy Unknown Fatigue Verified 02/15/23 09:23 Home Medications Medication Instructions Recorded Confirmed Type loratadine 10 mg tablet (Claritin) 10 mg PO DAILY 02/11/22 02/03/23 History pravastatin 40 mg tablet 40 mg PO DAILY #90 tabs 05/06/22 02/03/23 Rx omeprazole 20 mg capsule,delayed See Rx Instructions .Route 08/13/22 02/03/23 Rx release .COMPLEX #90 caps levothyroxine 50 mcg tablet 50 mcg PO DAILY #90 tabs 09/18/22 02/03/23 Rx lisinopril 20 mg tablet See Rx Instructions .Route 12/15/22 02/03/23 Rx .COMPLEX #90 tabs aspirin 81 mg tablet,delayed 81 mg PO DAILY 12/28/22 02/03/23 History release (Adult Low Dose Aspirin) Patient hx anesthesia problems: none Family hx anesthesia problems: none Results Review: All pre-operative results and documents have been reviewed as part of the pre-operative evaluation. [facility] Family History Family History Sibling Family history of diabetes mellitus in first degree relative Patient's brother is in good health Mother Patient's mother is Father Patient's father is Social History Social History Smoking status: Former smoker Second hand tobacco smoke exposure: No Alcohol intake: current Lack of Transportation: No Lack of Food: Never True Current Housing: I Have Housing Concerned About Future Housing: No Difficulty Paying Gas/Electric Bills: No Difficulty Paying for Meds: No Currently Unemployed: No Education: High School Diploma/GED Difficulty w/ Childcare or Family Care: No Anes - Eval Final PreProcedure Day of Procedure 02/15/23 09:54 Patient weight: normal Heart: regular rate and rhythm Lungs: clear to auscultation Airway: Mallampati scale class II Neurological: alert and oriented Last oral intake: >/= 8 hours ASA classification: III Emergent: no Anesthetic plan: proceed Anesthesia type and monitoring: general GIVS and standard monitoring Results Review: All pre-operative results and documents have been reviewed as part of the pre-operative evaluation. Informed Consent: The patient's anesthetic plan and its attendant risks and benefits were discussed with the patient/family/POA. Questions were solicited and answers provided to the satisfaction of the patient/family/POA.
--- NOTE | 2023-02-15 09:56 | PM.HPGS ---
History of Present Illness History of Present Illness Consent: Risks, benefits, and alternatives have been discussed and questions answered. Patient agrees to proceed with procedure. Chief complaint: neoplasm screening Narrative: Vanessa Pak is a 73 year old female with colon polyp in 2018 Review of Systems Constitutional: Constitutional: Denies headache(s) and Denies weakness Eyes: Eyes: Denies blurry vision ENT: Reports Normal hearing present, Denies headache(s) and Denies neck pain Cardiovascular: Cardiovascular: Denies chest pain and Denies dyspnea Respiratory: Respiratory: Denies dyspnea Gastrointestinal: Gastrointestinal: Reports no additional gastrointestinal complaints Genitourinary: Genitourinary: Denies dysuria Musculoskeletal: Musculoskeletal: Denies neck pain Integumentary/Breasts: Skin/Breast: Denies dry skin Neurologic: Reports Normal hearing present, Denies headache(s) and Denies weakness Psychiatric: Psychiatric: Denies anxiety Endocrine: Endocrine: Denies change in body appearance Hematologic/Lymphatic: Hematologic/Lymphatic: Denies easy bleeding Allergic/Immunologic: Allergic/Immunologic: Denies urticaria [facility] Past Medical History Medical History (Updated 02/15/23 @ 09:57 by Jos Perry MD) Colon cancer screening Family History Family History Sibling Family history of diabetes mellitus in first degree relative Patient's brother is in good health Mother Patient's mother is Father Patient's father is Social History Social History Smoking status: Former smoker Second hand tobacco smoke exposure: No Alcohol intake: current Lack of Transportation: No Lack of Food: Never True Current Housing: I Have Housing Concerned About Future Housing: No Difficulty Paying Gas/Electric Bills: No Difficulty Paying for Meds: No Currently Unemployed: No Education: High School Diploma/GED Difficulty w/ Childcare or Family Care: No Meds Home Medications and Allergies Home Medications Medication Instructions Recorded Confirmed Type loratadine 10 mg tablet (Claritin) 10 mg PO DAILY 02/11/22 02/03/23 History pravastatin 40 mg tablet 40 mg PO DAILY #90 tabs 05/06/22 02/03/23 Rx omeprazole 20 mg capsule,delayed See Rx Instructions .Route 08/13/22 02/03/23 Rx release .COMPLEX #90 caps levothyroxine 50 mcg tablet 50 mcg PO DAILY #90 tabs 09/18/22 02/03/23 Rx lisinopril 20 mg tablet See Rx Instructions .Route 12/15/22 02/03/23 Rx .COMPLEX #90 tabs aspirin 81 mg tablet,delayed 81 mg PO DAILY 12/28/22 02/03/23 History release (Adult Low Dose Aspirin) Allergies Allergy/AdvReac Type Severity Reaction Status Date / Time sertraline Allergy Unknown Fatigue Verified 02/15/23 09:23 Vital Signs Vital Signs - 24 hr 02/15/23 09:27 Temperature 97.4 F L Pulse Rate 68 Respiratory Rate 20 Blood Pressure 138/75 Pulse Oximetry 99 Oxygen Delivery Room Air Exam Const: General: comfortable and no acute distress HENMT: Face/Nose/Sinus: Normal nares present Eyes: General: appearance normal, both eyes and all related structures Neck: Neck: no JVD Resp: Auscultation: clear to auscultation bilaterally Cardio: Rate: regular rate Rhythm: regular rhythm GI: Inspection: non-distended GI Palp: Yes Soft to palpation Skin: General skin exam: normal color Neuro: General: gait normal Speech: normal speech Extrem: General: normal to inspection Psych: Mental Status: mental status grossly normal Assessment and Plan Assessment and plan (1) Colon cancer screening: Code(s): Z12.11 - Encounter for screening for malignant neoplasm of colon Status: Acute Assessment and Plan: colonoscopy
[2023-02-15 10:18] VITALS: BP 100/53; PULSE 70; RESP 20; O2SAT 98
[2023-02-15 10:28] VITALS: BP 106/55; PULSE 64; RESP 20; O2SAT 100
[2023-02-15 10:38] VITALS: BP 108/67; PULSE 62; RESP 20; O2SAT 99
== END 2023-02-15 10:56 | disposition home or self-care (01) ==
PROVIDERS: PCP Physician Assistant; Visit Provider Internal Medicine Gastroenterology
PROC: 0DJD8ZZ Inspection of Lower Intestinal Tract, Via Natural or Artificial Opening Endoscopic (ICD-10-PCS; CPT 45378; principal; 2023-02-15 10:30)
DX: Z12.11 Encounter for screening for malignant neoplasm of colon (principal); D12.5 Benign neoplasm of sigmoid colon; K57.30 Diverticulosis of large intestine without perforation or abscess without bleeding; K64.8 Other hemorrhoids; Z79.82 Long term (current) use of aspirin; Z87.891 Personal history of nicotine dependence
CPT/HCPCS: 45380; 88305; J2704; J7120

== ENCOUNTER → 2023-09-20 11:39 | Outpatient (CLI) | payer MEDICARE, SELFPAY ==
--- NOTE | ~2023-09-20 | XR_ITS ---
Left Knee Technique: AP, lateral, and sunrise views were obtained. Clinical History: Pain Findings: No fracture or dislocation is seen. Osseous alignment is anatomic. There is minimal spurrin g at the patella and intercondylar notch. Soft tissues are unremarkable. No joint effusion is seen. Impression: Minimal degenerative spurring, as above. Reviewed, dictated and finalized at location M. Impression: Minimal degenerative spurring, as above.
== END ==
PROVIDERS: PCP Physician Assistant; Visit Provider Physician Assistant
DX: M25.762 Osteophyte, left knee (principal)
CPT/HCPCS: 73562

== ENCOUNTER 2023-12-01 08:05 | Outpatient (CLI) | payer MEDICARE, SELFPAY ==
--- NOTE | ~2023-12-01 | MM_ITS ---
EXAMINATION: MM screening [facility] BI w pat HISTORY: Screening mammogram TECHNIQUE: Craniocaudal and mediolateral oblique 3-D tomosynthesis images were obtained and synthetic 2-D images were generated. CAD analysis was submitted and interpreted. COMPARISON: 05/19/2022, 04/18/2021, 04/16/2020 BREAST PARENCHYMAL COMPOSITION: There are scattered areas of fibroglandular density. FINDINGS: No suspicious mass, calcification, or architectural distortion are identified in either blaise ast to suggest malignancy. There has been no suspicious interval change. IMPRESSION: 1. No mammographic evidence of malignancy. 2. Recommend routine screening mammography in one year. BI-RADS Category 1: Negative Reviewed, dictated and finalized at location A. 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
== END 2023-12-01 08:06 | disposition home or self-care (01) ==
LOC: ANHIMG 08:09
PROVIDERS: PCP Physician Assistant; Visit Provider Physician Assistant
DX: Z12.31 Encounter for screening mammogram for malignant neoplasm of breast (principal)
CPT/HCPCS: 77063; 77067

== ENCOUNTER 2024-02-15 07:59 | Outpatient (CLI) | payer MEDICARE, SELFPAY ==
--- NOTE | ~2024-02-15 | MR_ITS ---
MRI of the left knee Clinical history: Medial meniscal tear Technique: Coronal proton density and proton density-weighted images, sagittal proton-density and T2 fat-sat images, and axial proton-density fat-saturated images were acquired. Findings: Anterior and posterior cruciate ligaments are intact. Medial collateral ligament and the la teral collateral ligament complex are intact. Popliteus tendon is intact. Medial and lateral menisci are intact, without definite tear. There is mild diffuse chondral thinning of the medial compartment. Articular cartilage in the lateral compartment is well preserved. There is extensive grade IV chondromalacia patella at the apex and la teral facet. Femoral trochlear cartilage is well preserved. Extensor mechanism intact. No significant joint effusion or Anderson's cyst. 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 No definite ligamentous injury or meniscal tear seen. Reviewed, dictated and finalized at [facility]. 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 No definite ligamentous injury or meniscal tear seen.
== END 2024-02-15 08:00 ==
LOC: MICIMG 08:00
PROVIDERS: PCP Physician Assistant; Visit Provider Orthopaedic Surgery
DX: M22.42 Chondromalacia patellae, left knee (principal)
CPT/HCPCS: 73721

== ENCOUNTER 2024-06-30 07:25 | Outpatient (CLI) | payer MEDICARE, SELFPAY ==
--- NOTE | ~2024-06-30 | XR_ITS ---
EXAMINATION: XR thoracic spine 2V DATE: 06/30/2024 07:53 INDICATION: Upper back pain. TECHNIQUE: 2 views of the thoracic spine were obtained. COMPARISON: Thoracic spine radiographs 11/25/2020 FINDINGS: There is 7 degrees levocurvature of thoracic spine. Vertebral body heights are normal. Ther e is mildly decreased disc height at many levels. There are endplate osteophytes at most levels. IMPRESSION: 1. Mild thoracic spondylosis. Reviewed, dictated and finalized at location A.
[2024-06-30 08:09] LABS: Cholesterol 198 mg/dL (0-200); HDL Direct 50 mg/dL; Triglycerides 147 mg/dL (<150)
[2024-06-30 08:20] LABS: LDL Cholesterol Direct 115 mg/dL
[2024-07-03 19:48] LABS: Red Blood Cell Folate 497 ng/mL RBC (>280)
[2024-07-05 09:44] LABS: Methylmalonic Acid 201 nmol/L (69-390)
[2024-07-05 13:13] LABS: Vitamin D 1,25 (OH)2 Total 40 pg/mL (18-72); Vitamin D2 1,25 (OH)2 14 pg/mL; Vitamin D3 1,25 (OH)2 26 pg/mL
== END 2024-06-30 07:26 | disposition home or self-care (01) ==
PROVIDERS: PCP Physician Assistant; Visit Provider Psychiatry & Neurology Neurology
DX: R06.00 Dyspnea, unspecified (principal); M43.04 Spondylolysis, thoracic region; E55.9 Vitamin D deficiency, unspecified; G44.209 Tension-type headache, unspecified, not intractable; G47.33 Obstructive sleep apnea (adult) (pediatric); M18.11 Unilateral primary osteoarthritis of first carpometacarpal joint, right hand; M54.81 Occipital neuralgia; E66.3 Overweight
CPT/HCPCS: 36415; 72070; 80061; 82607; 82652; 82747; 83921; 84443

== ENCOUNTER 2024-07-11 13:47 | Outpatient (CLI) | payer MEDICARE, SELFPAY ==
--- NOTE | ~2024-07-11 | US_ITS ---
EXAMINATION: US carotid duplex BI DATE: 07/11/2024 14:59 INDICATION: Cervicalgia TECHNIQUE: Grayscale, color Doppler, and pulsed Doppler images of the cervical carotid arteries were obtained. The degree of vessel stenosis is placed in one of the following categories: normal, <50%, 5 0-69%, >=70% but less than near-occlusion, near-occlusion, or total occlusion. Note that percent sten osis relative to normal distal artery lumen diameter is indirectly measured from velocity measurement s as described by Shilo, et al. Radiology 2003; 229:340-346. Notes: Normal: Peak systolic velocity <125 centimeters/sec and no plaque <50%. Peak systolic velocity <125 ( EDV <40; ICA/CCA PSV ratio <2.0; used these factors only a tandem lesions or low cardiac output or co ntralateral disease) 50-69 %: PSV 125-230 (EDV 40-100; ratio 2-4) >= 70% but less than near occlusion: PSV greater than 230 (EDV > 100; ratio> 4.0) Near Occlusion: PSV that is variable; markedly narrowed lumen Occlusion: Absent flow on color/spectral Doppler and no lumen on little scale. COMPARISON: None. FINDINGS: RIGHT: The right common carotid artery (CCA) peak systolic velocity (PSV) is 87 cm/s. The right internal car otid artery (ICA) PSV is 63 cm/s. The right ICA end-diastolic velocity (EDV) is 22 cm/s. The right IC A/CCA PSV ratio is 0.7. The external carotid artery (ECA) PSV is 93 cm/s. There is antegrade flow in the right vertebral artery. LEFT: The left CCA PSV is 74 cm/s. The left ICA PSV is 62 cm/s. The left ICA EDV is 20 cm/s. The left ICA/C CA PSV ratio is 0.8. The ECA PSV is 67 cm/s. There is antegrade flow in the left vertebral artery. IMPRESSION: 1. Less than 50% stenosis in the right internal carotid artery by sonographic criteria. 2. Less than 50% stenosis in the left internal carotid artery by sonographic criteria. Reviewed, dictated and finalized at location B. IMPRESSION: 1. Less than 50% stenosis in the right internal carotid artery by sonographic yessica galo. 2. Less than 50% stenosis in the left internal carotid artery by sonographic nikunj [place].
== END 2024-07-11 13:48 | disposition home or self-care (01) ==
PROVIDERS: PCP Physician Assistant; Visit Provider Psychiatry & Neurology Neurology
DX: I65.23 Occlusion and stenosis of bilateral carotid arteries (principal); G47.33 Obstructive sleep apnea (adult) (pediatric); G44.209 Tension-type headache, unspecified, not intractable; M18.11 Unilateral primary osteoarthritis of first carpometacarpal joint, right hand; M54.81 Occipital neuralgia; M54.2 Cervicalgia
CPT/HCPCS: 93880

== ENCOUNTER 2024-08-29 12:27 | Outpatient (CLI) | payer MEDICARE, SELFPAY ==
--- NOTE | ~2024-08-29 | MM_ITS ---
EXAMINATION: MM diagnostic diaz LT w pat HISTORY: Left breast pain TECHNIQUE: Additional 3-D tomosynthesis images of the left breast were performed and synthetic 2-D im ages were generated. CAD analysis was submitted and interpreted. COMPARISON: Comparison to multiple prior studies sequentially, with oldest reviewed study dated 03/21. BREAST PARENCHYMAL COMPOSITION: Not dense: There are scattered areas of fibroglandular density. FINDINGS: There are no suspicious masses, calcifications or architectural distortion in the left trang st suggest malignancy. IMPRESSION: 1. No evidence for malignancy in the left breast. 2. Routine yearly screening mammogram and regular clinical breast examination are recommended. BI-RADS CATEGORY 1 - NEGATIVE Reviewed, dictated and finalized at location B. IMPRESSION: 1. No evidence for malignancy in the left breast. 2. Routine yearly screening mammogram and regular clinical breast examination a re recommended. BI-RADS CATEGORY 1 - NEGATIVE
== END 2024-08-29 12:28 | disposition home or self-care (01) ==
LOC: ANHIMG 12:29
PROVIDERS: PCP Nurse Practitioner; Visit Provider Nurse Practitioner
DX: N64.4 Mastodynia (principal)
CPT/HCPCS: 77061; 77065; G0279

== ENCOUNTER 2025-01-22 09:46 | Outpatient (CLI) | payer MEDICARE, SELFPAY ==
--- NOTE | ~2025-01-22 | MM_ITS ---
EXAMINATION: MM screening [facility] BI w pat HISTORY: Screening mammogram TECHNIQUE: Craniocaudal and mediolateral oblique 3-D tomosynthesis images were obtained and synthetic 2-D images were generated. CAD analysis was submitted and interpreted. COMPARISON: 08/29/2024, 12/01/2023, 05/19/2022 BREAST PARENCHYMAL COMPOSITION:Not Dense. There are scattered areas of fibroglandular density. FINDINGS: No suspicious mass, calcification, or architectural distortion are identified in either blaise ast to suggest malignancy. There has been no suspicious interval change. IMPRESSION: No mammographic evidence of malignancy. Recommend routine screening mammography in one year. BI-RADS Category 2: Benign finding(s). Reviewed, dictated and finalized at location . RENAL
--- OUTSIDE RECORDS SUMMARY | 2025-01-22 10:42 | XMS_ITS | Encounter Summary ---
Author Organization [facility] Address 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
--- OUTSIDE RECORDS SUMMARY | 2025-01-22 10:42 | XMS_ITS | Encounter Summary ---
Author Organization [facility] Address [address] [place] [address] Care Team Providers Care Java Web Services Developer Name Role Phone Yolie Johnson MD Primary Care Provider [phone] Encounter Details Date Type Department Care Team (Late st Contact Info) Description 03/21/2008 Outpatient Historical [facility] Internal Medicine - [facility] [id number] [facility] [address] [place] [address] Yolie Johnson MD Proteinuria Social History Tobacco Use Types Packs/Day Years Used Date Smoking Tobacco: Never Assessed Comments Unknown Sex and Gender Information Value Date Recorded Sex Assigned at Not on file 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 [facility] 03/21/2008 9:27 PM CDT 03/21/2008 10:15 PM CDT us Yolie Johnson MD MICROBIOLOGY - GENERAL ORDERABLE S Final Result [facility] [address] [place] [address] documented in this encounter Visit Diagnoses Diagnosis Proteinuria documented in this encounter Care Teams Java Web Services Developer Relationship Specialty Start Date End Date Yolie Johnson MD PCP - General 04/24/08 documented as of this encounter
--- OUTSIDE RECORDS SUMMARY | 2025-01-22 10:42 | XMS_ITS | Encounter Summary ---
Author Organization [facility] Address [address] [place] [address] Care Team Providers Care Trash Hauler Name Role Phone Yolie Johnson MD Primary Care Provider [phone] Encounter Details Date Type Department Care Team (Late st Contact Info) Description 03/21/2008 Outpatient Historical [facility] Internal Medicine - [facility] [address] [id number] [facility] [address] [place] [address] Yolie Johnson MD Social History Tobacco Use Types Packs/Day Years Used Date Smoking Tobacco: Never Assessed Comments Unknown Sex and Gender Information Value Date Recorded Sex Assigned at Not on file 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
--- OUTSIDE RECORDS SUMMARY | 2025-01-22 10:42 | XMS_ITS | Encounter Summary ---
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 [address] D.O.B: 1950 SSN: [id number] Parent/Guardian if applicable: Patient Insurance: BLUE CROSS BLUE SHIELD ID#: [id number] Group#: ORDER(S) #: [id number] density/mammogram bi-lat-2 views BEST TO CALL WORK. BEST TIME TO CALL: ANYTIME. MAY WE LEAVE MESSAGE AT THAT NUMBER: YES, LEAVE MESSAGE. PLEASE SCHEDULE THE APPOINTMENT AT THE FOLLOWING LOCATION: [facility]. TEST PRIORITY: 2 - 7 DAYS. ORDERING PHYSICIAN: TAZ JOHNSON MD OFFICE SUPERVISOR HISTOLOGY & PHONE: Vianney Miner ORDER PRINTED BY: JUL 05, 2007 Giulia Chopra T 11:41 a FOR SCHEDULING USE ONLY: FIRST ATTEMPT Date:JUL 05, 2007 Giulia Chopra T 12:24 p Spoke with Patient. JUL 05, 2007 Giulia Chopra T 12:24 p TEST SCHEDULE [facility] LOCATION. APPOINTMENT DATE : 08/17/2007 The appointment was scheduled by Giulia Chopra T at [phone] JUL 05, 2007 Giulia Chopra T 12:24 p Pre-authorization number: BC/BS NN documented in this encounter Plan of Treatment Not on file documented as of this encounter Visit Diagnoses Not on filedocumented in this encounter Care Teams Adobe Cq Developer Relationship Specialty Start Date End Date Taz Johnson MD PCP - General 04/24/08 documented as of this encounter
--- OUTSIDE RECORDS SUMMARY | 2025-01-22 10:42 | XMS_ITS | Encounter Summary ---
Author Organization [facility] Address [address] [place] [address] Care Team Providers Care Build Technician Name Role Phone Yolie Johnson MD Primary Care Provider [phone] Encounter Details Date Type Department Care Team (Late st Contact Info) Description 11/30/2006 Outpatient Historical [facility] ([facility] Internal Medicine - [facility] [address] [id number] [facility] [address] [place] [address] Yolie Johnson MD Social History Tobacco Use Types Packs/Day Years Used Date Smoking Tobacco: Never Assessed Comments Unknown Sex and Gender Information Value Date Recorded Sex Assigned at Not on file 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 Gender Identity Not on file Sexual Orientation Not on file documented as of this encounter Last Filed Vital Signs Vital Sign Reading Time Taken Comments Blood Pressure 130/78 11/30/2006 1:45 PM PAINT PREP TECHNICIAN Pulse 84 11/30/2006 1:45 PM PAINT PREP TECHNICIAN Temperature - - Respiratory Rate - - Oxygen Saturation - - Inhaled Oxygen Concentration - - Weight 78.9 kg (174 lb) 11/30/2006 1:45 PM PAINT PREP TECHNICIAN Height - - Body Mass Index - - documented in this encounter Plan of Treatment Not on file documented as of this encounter Visit Diagnoses Not on filedocumented in this encounter Care Teams Build Technician Relationship Specialty Start Date End Date Yolie Johnson MD PCP - General 04/24/08 documented as of this encounter
--- OUTSIDE RECORDS SUMMARY | 2025-01-22 10:42 | XMS_ITS | Referral Summary ---
Author Organization [facility] Address [address] [place] [address] Care Team Providers Care Enterprise Software Engineer Name Role Phone Anjum Ball PA-C Primary Care Provide r Source Comments [facility] and Associated Physician Practices is amultiple site organization consisting of ambulatory clinics and hospital sitesin [place], [place] and [place]. This disclosure is being madepursuant to the Care Everywhere program and may not contain all information available regarding this patient. Last updated 18.[facility] [employer] Social History Tobacco Use Types Packs/Day Years Used Date Smoking Tobacco: Never Assessed Sex and Gender Information Value Date Recorded Sex Assigned at Not on file Gender Identity Not on file Sexual Orientation Not on file Last Filed Vital Signs Vital Sign Reading Time Taken Comments Blood Pressure 103/66 08/14/2014 10:25 AM CDT Pulse - - Temperature - - Respiratory Rate - - Oxygen Saturation - - Inhaled Oxygen Concentration - - Weight 83 kg (183 lb) 08/14/2014 10:25 AM CDT Height 167.6 cm (5' 6 ) 08/14/2014 10:25 AM CDT Body Mass Index 29.54 08/14/2014 10:25 AM CDT Plan of Treatment Not on file Care Teams Enterprise Software Engineer Relationship Specialty Start Date End Date Anjum Ball PA-C [address] [place] [address] PCP - General 03/04/23
--- OUTSIDE RECORDS SUMMARY | 2025-01-22 10:42 | XMS_ITS | Encounter Summary ---
Author Organization [facility] Address [address] [place] [address] Care Team Providers Care Cdl Instructor Name Role Phone Yolie Johnson MD Primary Care Provider [phone] Encounter Details Date Type Department Care Team (Late st Contact Info) Description 03/21/2008 Outpatient Historical [facility] Internal Medicine - [facility] [address] [address] [facility] [address] [place] [address] Yolie Johnson MD Social History Tobacco Use Types Packs/Day Years Used Date Smoking Tobacco: Never Assessed Comments Unknown Sex and Gender Information Value Date Recorded Sex Assigned at Not on file 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
--- OUTSIDE RECORDS SUMMARY | 2025-01-22 10:42 | XMS_ITS | Encounter Summary ---
Author Organization [facility] Address [address] [place] [address] Care Team Providers Care Granulator Machine Operator Name Role Phone Yolie Johnson MD Primary Care Provider [phone] Encounter Details Date Type Department Care Team (Late st Contact Info) Description 06/24/2007 Outpatient Historical [facility] Internal Medicine - 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 Gender Identity Not on file Sexual Orientation Not on file documented as of this encounter Last Filed Vital Signs Vital Sign Reading Time Taken Comments Blood Pressure 130/84 06/24/2007 8:20 AM CDT Pulse 68 06/24/2007 8:20 AM CDT Temperature 36.6 C (97.8 F) 06/24/2007 8:20 AM CDT Respiratory Rate - - Oxygen Saturation - - Inhaled Oxygen Concentration - - Weight 79.8 kg (176 lb) 06/24/2007 8:20 AM CDT Height - - Body Mass Index - - documented in this encounter Plan of Treatment Not on file documented as of this encounter Visit Diagnoses Not on filedocumented in this encounter Care Teams Granulator Machine Operator Relationship Specialty Start Date End Date Yolie Johnson MD PCP - General 04/24/08 documented as of this encounter
--- OUTSIDE RECORDS SUMMARY | 2025-01-22 10:42 | XMS_ITS | Encounter Summary ---
Author Organization [facility] Address [address] Attn: Epic Prelude ADT [place] [address] Care Team Providers Care Family Practice Physician Assistant Name Role Phone Yolie Johnson MD Primary Care Provider [phone] Encounter Details Date Type Department Care Team (Latest Contact Info) Description 03/21/2008 Orders Only Yolie Johnson MD Social History Tobacco Use Types Packs/Day Years Used Date Smoking Tobacco: Never Assessed Comments Unknown Sex and Gender Information Value Date Recorded Sex Assigned at Not on file 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 NITRITE: nitrites were negative. UROBILINOGEN urobilinogen was normal. PROTEIN: protein was trace. pH: pH was 7. U/A BLOOD: blood was negative. SPECIFIC GRAVITY: specific gravity was 1.015. KETONES: ketones were negative. BILIRUBIN: bilirubin was negative. GLUCOSE: glucose was negative. MILO- notify OK. Have symptoms subsided? If so, OK to close out note Electronically Signed by: Mira Ramsey on Wednesday, April 02, 2008 * Smartzer cortical[employer]io Transcriptions - 05/04/2008 11:11 AM CDT PULSE: 70 Right Radial, Regular BLOOD PRESSURE: 128/90 Right Arm Sitting TEMPERATURE: 98.7??f Oral WEIGHT: 187lbs NURSE NAME: Mira Ramsey ALLERGIES: Allergies are as listed. TOBACCO USE Patient does not currently use tobacco. MEDICATIONS: Medication list current. CHIEF COMPLAINT dizzy HISTORY: HISTORY OF PRESENT ILLNESS: DIZZINESS: The onset of symptoms have been acute. The frequency is variable. The symptoms began approximately 1 to 2 weeks ago. The duration is for only few minutes. The patient feels the surroundings are spinning, feels of balance. No obvious triggers. sometimes associated with nausea. Had severe episode today- 9 hours ago - still with slight residual. Todays is the first time associated with visual distortion. Left eye- looked like yellow jagged lines. right eye felt like being pulled. UTI: The symptoms began days ago. increased odor to urine, darker. Occasional burning with urination CURRENT MEDICATION LIST: CALCIUM + D ORAL TABLET 600-200 MG-UNIT, 1 Every Day ACIPHEX ORAL TABLET ENTERIC COATED 20 MG, 1 Every Day CLARITIN ORAL TABLET 10 MG, 1 po qd prn ALEVE ORAL TABLET 220 MG, prn ROS: EYES: HAS VISUAL DISTORTION OF LINES OR OBJECTS, see HISTORY OF PRESENT ILLNESS. ENT: TINNITUS NOTED ON THE RIGHT, VERTIGO NOTED, no significant sinus congestion or pain, no epistaxis, soreness of the tongue, dysphagia, or hoarseness. gradual decrease in hearing CARDIAC: No chest pain, palpitations, orthopnea, dyspnea on exertion, or paroxysmal nocturnal dyspnea. RESPIRATORY: No dyspnea, cough, hemoptysis or wheezing. : See HISTORY OF PRESENT ILLNESS. NEUROLOGIC: See HISTORY OF PRESENT ILLNESS. PAST MEDICAL HISTORY: Hx of Migraines SOCIAL HISTORY: PHYSICAL EXAMINATION: CONSTITUTIONAL: GENERAL APPEARANCE: In no acute distress. EYES: PUPILS: Pupils equal and reactive. small but room bright FUNDUSCOPIC EXAM: FUNDUS POORLY VISUALIZED BILATERALLY DUE TO SMALL PUPILS. EARS, NOSE, MOUTH AND THROAT: EARS: Tympanic membranes shiny without retraction. Canals unremarkable. Hearing grossly normal. NOSE (AND SINUS): No abnormality of the nose or sinuses is noted. ORAL: Normal oropharynx. NECK/THYROID: No enlargement, tenderness, or mass in the thyroid noted. RESPIRATORY: Clear to auscultation and percussion. Normal respiratory effort. CARDIOVASCULAR: CARDIAC: Regular rhythm. No murmurs, rubs, or gallops. EDEMA/VARICOSITIES OF EXTREMITIES: No edema. GASTROINTESTINAL: ABDOMEN: No CVA tenderness. LIVER/SPLEEN/KIDNEY: No hepatomegaly or tenderness is noted, no splenomegaly. NEUROLOGIC: CRANIAL NERVES: propulsion motor and generator repairer II-XII grossly intact. DEEP TENDON REFLEXES: Deep tendon reflexes 2+/4 and symmetrical. No cerebellar signs present. Positive George Alphonso Lillye PSYCHIATRIC: Judgment appropriate. Oriented. Normal memory. Mood and affect appropriate. ASSESSMENT/PLAN: 780.4-VERTIGO/DIZZINESS /tinnitus MEDICATIONS: MECLIZINE HCL ORAL TABLET 25 MG, 1 Every Eight Hours, 30 Dispensed, status: NEW PRESCRIPTION, 03/21/2008. LAB ORDERS: Order number: [id number] Test Ordered: MRI BRAIN W/CONTRAST 599.0-URINARY TRACT INFECTION MEDICATIONS: BACTRIM DS ORAL TABLET 800-160 MG, 1 Two Times A Day, 14 Dispensed, status: NEW PRESCRIPTION, 03/21/2008. Electronically Signed by: Yolie Johnson MD on Friday, March 21, 2008 documented in this encounter Plan of Treatment Not on file documented as of this encounter Visit Diagnoses Not on filedocumented in this encounter Care Teams Family Practice Physician Assistant Relationship Specialty Start Date End Date Yolie Johnson MD PCP - General 04/24/08 documented as of this encounter
--- OUTSIDE RECORDS SUMMARY | 2025-01-22 10:42 | XMS_ITS | Encounter Summary ---
Author Organization [facility] Address [address] [place] [address] Care Team Providers Care Slasher Operator Name Role Phone Yolie Johnson MD Primary Care Provider [phone] Encounter Details Date Type Department Care Team (Latest Contact Info) Description 06/24/[address] 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 Gender Identity Not on file Sexual Orientation Not on file documented as of this encounter Plan of Treatment Not on file documented as of this encounter Procedures Procedure Name Priority Date/Time Associated Diagnosis Comments URINALYSIS W/REFLEX MICROSCOPIC Routine 06/24/2007 9:20 AM CDT TSH Routine 06/24/2007 9:20 AM CDT GLUCOSE LEVEL Routine 06/24/2007 9:20 AM CDT LIPID PANEL Routine 06/24/2007 9:20 AM CDT documented in this encounter Results * URINALYSIS (06/24/2007 9:20 AM CDT) COLOR UA Pale Yellow INTERFAC E SYSTEM CLARITY UA Clear Clear INTERFACE SYSTEM SPECIFIC GRAVITY UA 1.005 1.001 - 1.035 INTERFACE SYSTEM PH UA 7.5 5.0 - 8.0 INTERFACE SYSTEM LEUKOCYTE ESTERASE UA Negative Negative INTERFACE SYSTEM NITRITE UA Negative Negative INTERFACE SYSTEM PROTEIN UA Negative Negative INTERFACE SYSTEM GLUCOSE UA Negative Negative INTERFACE SYSTEM KETONES UA Negative Negative INTERFACE SYSTEM UROBILINOGEN UA <1 <=1 mg/dL INTE RFACE SYSTEM BILIRUBIN UA Negative Negative INTERFA CE SYSTEM BLOOD UA Negative Negative INTERFACE SYSTEM 06/24/2007 9:20 AM CDT Yolie Johnson MD URINE ORDERABLES Edited Performing Organization Address City/[facility] Phone Number INTERFACE SYSTEM Refer to clinic/hospital department * TSH (06/24/2007 9:20 AM CDT) TSH 3.56 0.27 - 4.20 uU/mL INTERFACE SYSTEM 06/24/2007 9:20 AM CDT Yolie Johnson MD CHEMISTRY ORDERABLES Edited Performing Organization Address [facility] Phone Number INTERFACE SYSTEM Refer to clinic/hospital department * (ABNORMAL) GLUCOSE LEVEL (06/24/2007 9:20 AM CDT) GLUCOSE 107(H) 65 - 99 mg/dL INTERFACE SYSTEM 06/24/2007 9:20 AM CDT Yolie Johnson MD CHEMISTRY ORDERABLES Edited Performing Organization Address [facility] Phone Number INTERFACE SYSTEM Refer to clinic/hospital department * (ABNORMAL) LIPID PANEL (06/24/2007 9:20 AM CDT) CHOLESTEROL 254(H) 100 - 199 mg/dL INTERFACE SYSTEM TRIGLYCERIDE 194(H) 10 - 149 mg/dL INTERFACE SYSTEM HDL 48 40 - 59 mg/dL INTERFACE SYSTEM CHOL/HDL RATIO 5.3(H) 2.0 - 5.0 INTER FACE SYSTEM LDL CALCULATED 167(H) <=99 mg/dL INTERFACE SYSTEM LIPID PANEL COMMENT See Below INTERFACE SYSTEM Comment: The adult ATP and pediatric NCEP classifications for lipids are available on the [facility] Intranet at: http://lyman school for boysHihoCodereast georgia regional medical centerVipshop/unity/sjmmclab.nsf Select: Lab Policies and Procedures Select: Reference Ranges - Lipids 06/24/2007 9:20 AM CDT us Yolie Johnson MD CHEMISTRY ORDERABLES Edited INTERFACE SYSTEM Refer to clinic/hospital department documented in this encounter Visit Diagnoses Diagnosis Other and unspecified hyperlipidemia- Primary documented in this encounter Care Teams Slasher Operator Relationship Specialty Start Date End Date Yolie Johnson MD PCP - General 04/24/08 documented as of this encounter
--- OUTSIDE RECORDS SUMMARY | 2025-01-22 10:42 | XMS_ITS | Encounter Summary ---
Author Organization [facility] Address [address] [place] [address] Care Team Providers Care Shoes Hand Sewer Name Role Phone Yolie Johnson MD Primary Care Provider [phone] Encounter Details Date Type Department Care Team (Latest Contact Info) Description 12/05/2007 Outpatient Historical [facility] Yolie Johnson MD Pathologic Fracture, Unspecified Site; Unspecified Osteoporosis Social History Tobacco Use Types Packs/Day Years Used Date Smoking Tobacco: Never Assessed Comments Unknown Sex and Gender Information Value Date Recorded Sex Assigned at Not on file Legal Sex Female 3:30 AM SAFETY SPEC Gender Identity Not on file Sexual Orientation Not on file documented as of this encounter Plan of Treatment Not on file documented as of this encounter Visit Diagnoses Diagnosis Pathologic fracture, unspecified site Osteoporosis, unspecified documented in this encounter Care Teams Shoes Hand Sewer Relationship Specialty Start Date End Date Yolie Johnson MD PCP - General 04/24/08 documented as of this encounter
--- OUTSIDE RECORDS SUMMARY | 2025-01-22 10:42 | XMS_ITS | Encounter Summary ---
Author Organization [facility] Address [address] [facility] Attn: Epic Prelude ADT [place] [address] Care Team Providers Care Commercial Housekeeper Name Role Phone Yolie Johnson MD Primary Care Provider [phone] Encounter Details Date Type Department Care Team (Latest Contact Info) Description 11/30/2006 Orders Only Yolie Johnson MD Social History Tobacco Use Types Packs/Day Years Used Date Smoking Tobacco: Never Assessed Comments Unknown Sex and Gender Information Value Date Recorded Sex Assigned at Not on file 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 MEDICATIONS: Medication list current. CHIEF COMPLAINT Complains of abdominal pain located in the left upper quadrant. HISTORY: HISTORY OF PRESENT ILLNESS: denisse shopping several days before xmas- sofia t over and felt a tearing sensation like tearing paper in right upper abdominal area. Very painful- had to go home and lie down. Still having intermittently with certain movements, rolling over in bed, sometimes after eating. ABDOMINAL PAIN: The abdominal pain began approximately 2 weeks ago. The location of the pain is in the left upper quadrant. The quality is tearing. The severity is marked. The symptoms are improving.Pain is associated with eating, is associated with emotional upset. Pain is relieved by resting. The patient has associated symptoms of bowel changes, has associated symptoms of loose stools. Therapies tried include Tylenol. did not try Aleve- has been having indigestion and reflux CURRENT MEDICATION LIST: CALCIUM + D ORAL TABLET 600-200 MG-UNIT, 1 Every Day FOSAMAX ORAL TABLET 70 MG, once weekly as directed with 8 oz water. Remain uprigh, and no other oral intaket for 30 minutes,-STOPPED TAKING DUE TO INDIGESTION AND REFLUX WITH ONLY PARTIAL RELIEVE CURRENT ALLERGY LIST: ANTIHISTAMINE ROS: GENERAL: No change in weight, no change in appetite. CARDIAC: No chest pain, palpitations, orthopnea, dyspnea on exertion, or paroxysmal nocturnal dyspnea. RESPIRATORY: No dyspnea, cough, hemoptysis or wheezing. GI: HAS ABDOMINAL PAIN, HAS FREQUENT HEARTBURN, HAS HEPATITIS, HAS BEEN REGURGITATING, no pain on swallowing, no trouble swallowing. PHYSICAL EXAMINATION: CONSTITUTIONAL: GENERAL APPEARANCE: In no acute distress. NECK/THYROID: Trachea midline. No thyroid enlargement, tenderness, or mass. No supraclavicular or cervical adenopathy. RESPIRATORY: Clear to auscultation and percussion. Normal respiratory effort. CARDIOVASCULAR: CARDIAC: Regular rhythm. No murmurs, rubs, or gallops. LYMPHATICS: No lymphadenopathy in the neck. GASTROINTESTINAL: ABDOMEN: Normal bowel sounds, No CVA tenderness, no masses are noted, TENDERNESS NOTED IN THE EPIGASTRIC AREA, no left upper quadrant tenderness. MUSCULOSKELETAL EXAM: SPINE/RIBS/PELVIS: TENDER LEFT RIBS.ANTERIOR JUST BELOW BREAST ASSESSMENT/PLAN: 530.81-GASTROESOPHAGEAL REFLUX (GERD) intolerant to Prilosec- caused abdominal pain in past. MEDICATIONS: ACIPHEX ORAL TABLET ENTERIC COATED 20 MG, 1 Every Day, 30 Dispensed, 30 samples given, status: NEW PRESCRIPTION, 11/30/2006. 733.00-OSTEOPOROSIS Hold Fosamax for now. consider alternative such as Actonel if Gerd resolves on Aciphex or other PPI 789.02-ABDOMINAL PAIN, LEFT UPPER QUADRANT muscular vs rib. Recommend Tylenol, restricting activities. Give a few weeks to resolve Electronically Signed by: Yolie Johnson MD on Thursday, November 30, 2006 documented in this encounter Plan of Treatment Not on file documented as of this encounter Visit Diagnoses Not on filedocumented in this encounter Care Teams Commercial Housekeeper Relationship Specialty Start Date End Date Yolie Johnson MD PCP - General 04/24/08 documented as of this encounter
--- OUTSIDE RECORDS SUMMARY | 2025-01-22 10:42 | XMS_ITS | Encounter Summary ---
Author Organization [facility] Address [address] [place] [address] Care Team Providers Care Editor Magazine Name Role Phone Yolie Johnson MD Primary Care Provider [phone] Encounter Details Date Type Department Care Team (Late st Contact Info) Description 12/20/2006 Orders Only [facility] Internal Medicine - [facility] [address] [address] [facility] [address] [place] [address] Leila Mackey, ANP [address] [place] [address] Social History Tobacco Use Types Packs/Day Years Used Date Smoking Tobacco: Never Assessed Comments Unknown Sex and Gender Information Value Date Recorded Sex Assigned at Not on file 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 LAST VISIT: 11/30/06 ALTERNATIVE PHONE NUMBER: [phone] work WHO CALLED: Patient called. CURRENT ALLERGY LIST: ANTIHISTAMINE SECTION 1: REQUESTED ACTION ted 12/20/06 at 12:26 pm: MEDICATION REQUEST: MEDICATIONS: ACIPHEX ORAL TABLET ENTERIC COATED 20 MG, 1 Every Day, 30 Dispensed, 30 samples given, status: NEW PRESCRIPTION, 11/30/2006. Written prescription for 90 day supply.Please mail to pt. DOCTOR`S RESPONSE: [email or web address] 12/20/06 at 12:43 pm MEDICATIONS: Call in to Pharmacy ACIPHEX ORAL TABLET ENTERIC COATED 20 MG, 1 Every Day, 90 Dispensed, 3 Fills, status: CONTINUED, 12/20/2006. printed and signed. FINAL ACTION: dg 12/20/06 at 01:34 pm ADDITIONAL COMMENTS: mailed Electronically Signed by: Sabra Painting on Wednesday, December 20, 2006 documented in this encounter Plan of Treatment Not on file documented as of this encounter Visit Diagnoses Not on filedocumented in this encounter Care Teams Editor Magazine Relationship Specialty Start Date End Date Yolie Johnson MD PCP - General 04/24/08 documented as of this encounter
--- OUTSIDE RECORDS SUMMARY | 2025-01-22 10:42 | XMS_ITS | Clinical Summary ---
Author Organization [facility] Address [address] [facility] [place] [address] Care Team Providers Care Historian Research Assistant Name Role Phone Anjum Ball PA-C Primary Care Provide r Source Comments [facility],non-owned Affiliates and Associated Physician Practices is amultiple site organization consisting of ambulatory clinics and hospital sitesin [place], [place], [place] and [place]. This disclosure is being madepursuant to the Care Everywhere program and may not contain all information available regarding this patient. Last updated 18.[facility] [place] [facility] Social History Tobacco Use Types Packs/Day Years [...] 08/14/2014 10:25 AM CDT Plan of Treatment Health Maintenance Due Date Last Done Comments BONE DENSITY TESTING 1950 COLOGUARD (AGES 45-75) - COL ON CA SCREENING 1949 COLON MONITORING 1949 COLONOSCOPY - COLON CA SCREENING 1949 CT COLONOGRAPHY - COLON CA SCREENING 1950 Colorectal Cancer Screening 1949 FIT - COLON CA SCREENING 1949 FLEX SIG - COLON CA SCREENING 1949 LIPID TESTING 1949 MAMMOGRAM 1949 HEPATITIS C SCREENING 01/23/1967 DTAP/TDAP/TD VACCINES (1 - Tdap) 01/28/1968 PNEUMOCOCCAL VACCINE 50+ (1 of 1 - PCV) 1999 ZOSTER VACCINE (1 of 2) 1999 Respiratory Syncytial Virus (RSV) Vaccine Pt: or over 60 yrs (1 - 1-dose 75+ series) 01/28/2024 COVID-19 VACCINE (1 - 2023-2 5 season) 2024 INFLUENZA VACCINE (#1) 2024 DEPRESSION SCREENING 11/29/2024 HEPATITIS B VACCINE Aged Out No longe r eligible based on patient's age to complete this topic HIB VACCINE Aged Out No longer eligi ble based on patient's age to complete this topic HPV VACCINE Aged Out No longer eligi ble based on patient's age to complete this topic MENINGOCOCCAL (Group B) VACCINE Aged Out No longer eligible based on patient's age to complete this topic MENINGOCOCCAL VACCINE Aged Out No roderick miguelito eligible based on patient's age to complete this topic Care Teams Historian Research Assistant Relationship Specialty Start Date End Date Anjum Ball PA-C [address] [place] [address] PCP - General 03/04/23
--- OUTSIDE RECORDS SUMMARY | 2025-01-22 10:42 | XMS_ITS | Encounter Summary ---
Author Organization [facility] Address [address] [place] [address] Care Team Providers Care Lithographic Artist Name Role Phone Justin Barreto MD Primary Care Provider Unavail Anjum Grubbs PA-C Primary Care Provide r Encounter Details Date Type Department Care Team (Late st Contact Info) Description 07/29/2022 Lab Requisition [facility] [address] [place] [address] [place] [address] Social History Tobacco Use Types Packs/Day Years Used Date Smoking Tobacco: Never Assessed Sex and Gender Information Value Date Recorded Sex Assigned at Not on file Gender Identity Not on file Sexual Orientation Not on file documented as of this encounter Plan of Treatment Not on file documented as of this encounter Procedures Procedure Name Priority Date/Time Associated Diagnosis Comments DERMATOPATHOLOGY Routine 07/28/2022 3:33 AM CDT documented in this encounter Results * DERMATOPATHOLOGY (07/28/2022 3:33 AM CDT) Case Report Dermatopathology Report Case: [id number] Authorizing Provider: Milton Burns MD Collected: 07/28/2022 03:33 AM Ordering Location: [facility] Received: 07/29/2022 12:18 PM Pathologist: Pooja Thacker MD Specimen: Skin, right med cheek 2:08 PM CDT DERMATOPATHOLOGY LABORATORY Final Diagnosis Specimen A. SKIN, right med cheek: INTRADERMAL MELANOCYTIC NEVUS (D22.39) 2 2:08 PM CDT DERMATOPATHOLOGY LABORATORY Clinical History R/O Dysplastic Nevus 2 2:08 PM CDT DERMATOPATHOLOGY LABORATORY Gross Description Specimen A: Received is one formalin filled container labeled with the patient's name and designated right med cheek. The specimen consists of a shave biopsy measuring [id number]. Jar 0. 2 2:08 PM CDT DERMATOPATHOLOGY LABORATORY Microscopic Description Specimen A. SKIN, right med cheek: There are nests of cytologically bland melanocytes within the dermis that mature with depth. 2 2:08 PM CDT DERMATOPATHOLOGY LABORATORY Disclaimer An external and internal positive and negative controls are appropriate for the histochemical, immunohistochemical and immunofluorescence stain(s) in this case (if any), except where stated explicitly. The performance characteristics of the stain(s) cited in this report were developed and its performance characteristic determined by the Dermatopathology Laboratory at [facility], directed by Dr. Koki Benjamin. These tests need not be, and therefore are not, approved by the [place] Food and Drug Administration. The tests are used for clinical purposes. Billing Codes Specimen Charges Stain Charges 77655 1 2 2:08 PM CDT DERMATOPATHOLOGY LABORATORY Embedded Images 2 2:08 PM CDT DERMATOPATHOLOGY LABORATORY Pathology/Cytolo gy TISSUE SPECIMEN FROM SKIN / Unknown 07/28/2022 3:33 AM CDT 07/29/2022 12:18 PM CDT Milton Burns MD LAB - PATHOLOGY/CYTO LOGY ORDERABLES DERMATOPATHOLOGY LABORATORY [facility] - Department of Dermatology [address], [address] [phone] documented in this encounter Visit Diagnoses Not on filedocumented in this encounter Care Teams Lithographic Artist Relationship Specialty Start Date End Date Justin Barreto MD NEED INFORMATION UPDATED PCP - General 12/07/19 03/03/23 Anjum Ball PA-C [address] [place] [address] PCP - General 03/04/23 documented as of this encounter
--- OUTSIDE RECORDS SUMMARY | 2025-01-22 10:42 | XMS_ITS | Patient Health Summary ---
Author Organization [facility] Address [address] [place] [address] Care Team Providers Care Account Specialist Name Role Phone Anjum Ball PA-C Primary Care Provide r Note from [facility],non-owned Affiliates and Associated Physician Practices is amultiple site organization consisting of ambulatory clinics and hospital sitesin [place], [place], [place] and [place]. This disclosure is being madepursuant to the Care Everywhere program and may not contain all information available regarding this patient. Last updated 18.[facility] [employer] Social History Tobacco Use Types Packs/Day Years [...] Mass Index 29.54 08/14/2014 10:25 AM CDT Procedures * DERMATOPATHOLOGY(Performed 07/28/2022) * DERMATOPATHOLOGY(Performed 09/07/2017) * DERMATOPATHOLOGY(Performed 06/21/2013) Results * DERMATOPATHOLOGY (07/28/2022 3:33 AM CDT) Only the most recent of3 resultswithin the time period is included. Case Report Dermatopathology Report Case: [id number] Authorizing Provider: Milton Burns MD Collected: 07/28/2022 03:33 AM Ordering Location: [facility] Received: 07/29/2022 12:18 PM Pathologist: Pooja Thacker MD Specimen: Skin, right med cheek 2 2:08 PM CDT DERMATOPATHOLOGY LABORATORY Final Diagnosis Specimen A. SKIN, right med cheek: INTRADERMAL MELANOCYTIC NEVUS (D22.39) 2 2:08 PM CDT DERMATOPATHOLOGY LABORATORY Clinical History R/O Dysplastic Nevus 2 2:08 PM CDT DERMATOPATHOLOGY LABORATORY Gross Description Specimen A: Received is one formalin filled container labeled with the patient's name and designated right med cheek. The specimen consists of a shave biopsy measuring [id number]. Jar 0. 2 2:08 PM CDT DERMATOPATHOLOGY [...] characteristic determined by the Dermatopathology Laboratory at [facility], directed by Dr. Koki Benjamin. These tests need not be, and therefore are not, approved by the [place] Food and Drug Administration. The tests are used for clinical purposes. Billing Codes Specimen Charges Stain Charges 13516 1 2 2:08 PM CDT DERMATOPATHOLOGY LABORATORY Embedded Images 2 2:08 PM CDT DERMATOPATHOLOGY LABORATORY Pathology/Cytolo gy TISSUE SPECIMEN FROM SKIN / Unknown 07/28/2022 3:33 AM CDT 07/29/2022 12:18 PM CDT Milton Burns MD LAB - PATHOLOGY/CYTO LOGY ORDERABLES DERMATOPATHOLOGY LABORATORY [facility] - Department of Dermatology [address] [place] [address], [facility] [phone] Care Teams Account Specialist Relationship Specialty Start Date End Date Anjum Ball PA-C [address] [place] [address] PCP - General 03/04/23
--- OUTSIDE RECORDS SUMMARY | 2025-01-22 10:42 | XMS_ITS | Encounter Summary ---
Author Organization [facility] Address 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
--- OUTSIDE RECORDS SUMMARY | 2025-01-22 10:43 | XMS_ITS | Encounter Summary ---
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
--- OUTSIDE RECORDS SUMMARY | 2025-01-22 10:43 | XMS_ITS | Encounter Summary ---
Author Organization [employer] Address [address] [place] [address] Care Team Providers Care Private Pilot Name Role Phone Yolie Johnson MD Primary Care Provider Encounter Details Date Type Department Care Team (Late st Contact Info) Description 10/14/2005 Outpatient Historical [facility] [place] [address] [id number] [place] [address] [place] [address] Social History Tobacco Use Types Packs/Day Years Used Date Smoking Tobacco: Never Assessed Comments Unknown Sex and Gender Information Value Date Recorded Sex Assigned at Not on file 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
--- OUTSIDE RECORDS SUMMARY | 2025-01-22 10:43 | XMS_ITS | Encounter Summary ---
Author Organization [facility] Address [address] [place] [address] Care Team Providers Care Design Printing Machine Set Up Operator Name Role Phone Yolie Johnson MD Primary Care Provider [phone] Encounter Details Date Type Department Care Team (Late st Contact Info) Description 01/12/2003 Outpatient Historical [facility] Internal Medicine - [facility] [address] [place] [address] Yolie Johnson MD Social History Tobacco Use Types Packs/Day Years Used Date Smoking Tobacco: Never Assessed Comments Unknown Sex and Gender Information Value Date Recorded Sex Assigned at Not on file 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
--- OUTSIDE RECORDS SUMMARY | 2025-01-22 10:43 | XMS_ITS | Encounter Summary ---
Author Organization [facility] Address 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
--- OUTSIDE RECORDS SUMMARY | 2025-01-22 10:43 | XMS_ITS | CONTINUITY OF CARE DOCUMENT ---
Author Name gee, gee Address Unknown Organization [facility] Address [address] [address] [place] [address] Phone [phone] Care Team Providers Care Rock Loader Name Role Phone David Hancock MD Unavailable SHEMAR BETANCOURT MD Unavailable SHEMAR BETANCOURT MD Unavailable [phone] PROBLEMS Condition Status Date Provider Notes VERTIGO-02/05 CAROTID NEG active ? Mathew Huerta RN HTN-02/05 NUC NEG active ? Mathew Huerta RN SHORTNESS OF BREATH-02/05 ECHO EF 60 active ? Mathew Huerta RN HYPERCHOLESTEROLEMIA active David Hancock MD CHEST PAIN-NORMAL STRESS TEST active David Hancock MD HYPOTHYROIDISM active ? David Hancock MD ENCOUNTERS Date Type Provider Location Encounter Diag nosis - In-person encounter Office Visit David Hancock MD [facility] - In-person encounter Office Visit David Hancock MD [facility] CHEST PAIN-NORMAL STRESS TEST - In-person encounter Office Visit David Hancock MD [facility] CHEST PAIN-NORMAL STRESS TESTHYPERCHOLESTEROLEMIA - In-person encounter Office Visit David Hancock MD [facility] - In-person encounter Office Visit David Hancock MD [facility] - In-person encounter Office Visit David Hancock MD [facility] - In-person encounter Office Visit David Hancock MD [facility] - In-person encounter Office Visit David Hancock MD [facility] HYPOTHYROIDISMVERTIGO-02/05 CAROTID NEGHTN-02/05 NUC NEGSHORTNESS OF BREATH-02/05 ECHO EF 60 VITAL SIGNS Date Observation Value Provider blood pressure, diastolic 96 mm[Hg] Chavez Huerta RN blood pressure, systolic 141 mm[Hg] Mathew Huerta RN pulse rate 76 /min Mathew Huerta RN oxygen saturation, oximetry 98 % Mathew Huerta RN respiratory rate E&M 16 /min Mathew otero RN Body Mass Index (Ratio) 30.40 kg/m2 Mathew Huerta RN weight E&M 182 [lb_av] Mathew Huerta RN Body Mass Index (Ratio) 30.06 kg/m2 Todd i Jess blood pressure, diastolic 88 mm[Hg] Ke rri Jess blood pressure, systolic 133 mm[Hg] Benja ri Taylorer pulse rate 82 /min Lian Estefany lder oxygen saturation, oximetry 98 % Lian Jess respiratory rate E&M 17 /min Lian G yasmin weight E&M 180 [lb_av] Lian Estefany lder Body Mass Index (Ratio) 29.56 kg/m2 Todd i Uriahnephoebe blood pressure, diastolic 77 mm[Hg] Ke rri Froylanuenenfelder blood pressure, systolic 126 mm[Hg] Benja ri Froylanuenenfelder pulse rate 69 /min Lian Maurie lder oxygen saturation, oximetry 98 % Lian Taylorer respiratory rate E&M 17 /min Lian G ninfanfkatieer weight E&M 177 [lb_av] Lian Maurie lder height E&M 65 [in_i] Lian Merazrafaelguy lder blood pressure, diastolic 92 mm[Hg] Isidro gacria Jess blood pressure, systolic 132 mm[Hg] Benja sheldon Uriahluisphoebe pulse rate 64 /min Lian Allison lder oxygen saturation, oximetry 98 % iLan Jess respiratory rate E&M 18 /min Lian Morillo daviefuentesphoebe weight E&M 177.0 [lb_av] Lian Froylanjerodabby worthington blood pressure, diastolic 84 mm[Hg] Chavez Huerta RN blood pressure, systolic 136 mm[Hg] Mathew Huerta RN pulse rate 79 /min Mathew Huerta RN oxygen saturation, oximetry 96 % Mathew Huerta RN respiratory rate E&M 16 /min Mathew otero RN weight E&M 182 [lb_av] Mathew Huerta RN blood pressure, diastolic, left arm 96 mm [Hg] Mathew Huerta RN blood pressure, systolic, left arm 137 mm [Hg] Mathew Huerta RN blood pressure, diastolic, right arm 81 m m[Hg] Mathew Huerta RN blood pressure, systolic, right arm 119 m m[Hg] Mathew Huerta RN blood pressure, diastolic 96 mm[Hg] Chavez Huerta RN blood pressure, systolic 137 mm[Hg] Mathew Huerta RN pulse rate 76 /min Mathew Huerta RN oxygen saturation, oximetry 98 % Mathew Huerta RN respiratory rate E&M 16 /min Mathew otero RN weight E&M 180 [lb_av] Mathew Huerta RN blood pressure, diastolic, left arm 81 mm [Hg] Blas Mandmitry blood pressure, systolic, left arm 119 mm [Hg] Blas Manacop blood pressure, diastolic 81 mm[Hg] Lima boyce [place] blood pressure, systolic 119 mm[Hg] Aubrey nikhil [facility] pulse rate 87 /min [facility], [facility]xim[facility] 97 % [facility] respiratory rate E&M 16 /min [facility] weight E&M 188 [lb_av] Blas Zamudio blood pressure, diastolic 85 mm[Hg] Chavez Huerta RN blood pressure, systolic 127 mm[Hg] Mathew Huerta RN pulse rate 85 /min Mathew Huerta RN oxygen saturation, oximetry 97 % Mathew Huerta RN respiratory rate E&M 16 /min Mathew otero RN weight E&M 187 [lb_av] Mathew Huerta RN RESULTS Date Observation Value Provider Reference Range Interpretation Location platelet count 337 10*3/mm3 [facility] hematocrit, blood 42.7 % [facility] thyroid stimulating hormone, serum 2.730 u[IU]/mL [facility] alanine aminotransferase (SGPT), serum 36 1/L [facility] aspartate aminotransferase (SGOT), serum 47 1/L [facility] blood glucose, random 92 mg/dL [facility] creatinine, serum 0.77 mg/dL [facility] urea nitrogen, blood 16 mg/dL [facility] potassium, serum 4.2 mmol/L [facility] sodium, serum 144 mmol/L [facility] platelet count 289 10*3/mm3 [facility] hematocrit, blood 41.9 % [facility] triglyceride, serum, fasting 110 mg/dL [facility] HDL cholesterol, serum 45 mg/dL [facility] lipoprotein, beta, serum, point, quantitative, calculated 109 mg/dL [facility] cholesterol, serum 176 mg/dL [facility] alanine aminotransferase (SGPT), serum 32 1/L [facility] aspartate aminotransferase (SGOT), serum 23 1/L [facility] creatinine, serum 0.77 mg/dL [facility] potassium, serum 4.8 mmol/L [facility] sodium, serum 147 mmol/L [facility] platelet count 284 10*3/mm3 [facility] hematocrit, blood 41.3 % [facility] HISTORY OF MEDICATION USE Medication Status Instructions Dates Provider Indications Com ments DICLOFENAC SODIUM 50 MG ORAL TABLET DELAYED RELEASE active daily Mathew Huerta RN MULTIVITAMINS TABS active take one a day Lian Mercado CYCLOBENZAPRINE HCL 10 MG ORAL TABLET completed one tab at hs - Lian Mercado ETODOLAC 400 MG ORAL TABLET completed one tab twice daily - Lian Mercado PRAVASTATIN SODIUM 40 MG ORAL TABLET completed ONE TAB. DAILY - Mathew Huerta RN NORVASC 5 MG ORAL TABLET completed one tablet daily - Mathew Huerta RN CALCIUM CARBONATE TABLET completed one tab. daily - Mathew Huerta RN MECLIZINE HCL TABS completed 25 mg tid - Blas Manacogamaliel CALCIUM TABS completed 1 tablet by mouth daily - Blas Manacogamaliel VITAMIN D TABS completed 1 tablet by mouth daily - Mathwe Huerta RN VITAMIN E CAPSULE completed 1 capsule by mouth daily - Mathew Huerta RN CLARITIN TABLET completed as directed - Mathew Huerta RN AMLODIPINE BESYLATE 5 MG ORAL TABLET completed 1 tablet by mouth daily - Mathew Huerta RN LEVOTHYROXINE SODIUM 50 MCG ORAL TABLET active 1 tablet by mouth daily Blas Zamudio NAPROXEN TABS completed 2 tablets by mouth daily - Mathew Huerta RN OMEPRAZOLE 20 MG ORAL CAPSULE DELAYED RELEASE active 1 capsule by mouth daily Blas Zamudio SOCIAL HISTORY Date Observation Value Provider social history reviewed E&M reviewed Mathew Huerta RN social history reviewed E&M reviewed David Hancock MD drug use none David Hancock MD smoking status never smoker Lian Kruseluisstevie herrera social history reviewed E&M reviewed David Hancock MD drug use none David Hancock MD passive cigarette sm [place] exposure no Lian Mercado smoking status former smoker David Hancock MD social history reviewed E&M reviewed Mathew Huerta RN social history reviewed E&M reviewed Mathew Huerta RN social history reviewed E&M reviewed Mathew Huerta RN social history reviewed E&M reviewed Mathew Huerta RN drug use none David Hancock MD social history E&M Marital Statu s: L che alone E thnicity: Mathew Huerta RN social history reviewed E&M reviewed Mathew Huerta RN physical exercise, frequency, days per week no [employer] caffeine use, averag e drinks per day yes [employer] alcohol use, average drinks per day social basis only [employer] number of years as a smoker less than 10 years [facility] smoking status Quit [facility] MENTAL STATUS Date Observation Value Provider assessment of judgme nt and insight E&M Alert and oriented to time, place and person. Mood and affect are normal. Mathew Huerta RN assessment of judgme nt and insight E&M Alert and oriented to time, place and person. Mood and affect are normal. David Hancock MD assessment of judgme nt and insight E&M Alert and oriented to time, place and person. Mood and affect are normal. David Hancock MD assessment of judgme nt and insight E&M Alert and oriented to time, place and person. Mood and affect are normal. Mathew Huerta RN assessment of judgme nt and insight E&M Alert and oriented to time, place and person. Mood and affect are normal. Mathew Huerta RN assessment of judgme nt and insight E&M Alert and oriented to time, place and person. Mood and affect are normal. Mathew Huerta RN assessment of judgme nt and insight E&M Alert and oriented to time, place and person. Mood and affect are normal. Mathew Huerta RN assessment of judgme nt and insight E&M Alert and oriented to time, place and person. Mood and affect are normal. Mathew Huerta RN INSURANCE PROVIDERS Payer name Policy type / Coverage type [place] [employer] party ID [facility] [id number] TREATMENT PLAN Date Name Performer chest pain : B P today: 141/96 P rior BP: 133/88 (07/10/2013) Labs Reviewed: C reat: 0.77 (07/12/2013) C hol: 176 (07/12/2013) HDL: 45 (07/12/2013) LDL: 109 (07/12/2013) T (07/12/2013) David Hancock MD chest pain : B P today: 141/96 Prior BP: 133/88 (07/10/2013) N uclear Stress Findings: 1. Normal Stephon protocol exercise tolerance test. 2 . Normal left ventricular size and function with a calculated ejection fraction of 73%. 3 . Myocardial scintigraphy is normal without evidence for previous myocardial infarction or reversible ischemia. - GC (04/25/2013) C arotid Doppler/Duplex: Normal GC (02/12/2010) C HOL: 176 (07/12/2013) LDL: 109 (07/12/2013) HDL: 45 (07/12/2013) T (07/12/2013) H CT: 41.9 (07/12/2013) Platelets: 289 (07/12/2013) C reat: 0.77 (07/12/2013) Na+: 147 (07/12/2013) K+: 4.8 (07/12/2013) David Hancock MD chest pain : T he following medications were removed from the medication list: Pravastatin Sodium 40 Mg Tabs (Pravastatin sodium) ..... One tab. daily BP today: 141/96 Prior BP: 133/88 (07/10/2013) C HOL: 176 (07/12/2013) LDL: 109 (07/12/2013) HDL: 45 (07/12/2013) T (07/12/2013) David Hancock MD Follow Up: H er updated medication list for this problem includes: Levothyroxine Sodium 50 Mcg Tabs (Levothyroxine sodium) ..... 1 tablet by mouth daily David Hancock MD Follow Up: H er updated medication list for this problem includes: Pravastatin Sodium 40 Mg Tabs (Pravastatin sodium) ..... One tab. daily BP today: 133/88 Prior BP: 126/77 (04/17/2013) David Hancock MD follow up: H er updated medication list for this problem includes: Pravastatin Sodium 40 Mg Tabs (Pravastatin sodium) ..... One tab. daily BP today: 126/77 Prior BP: 132/92 (07/04/2012) David Hancock MD follow up: B P today: 126/77 P rior BP: 132/92 (07/04/2012) David Hancock MD follow up: H er updated medication list for this problem includes: Levothyroxine Sodium 50 Mcg Tabs (Levothyroxine sodium) ..... 1 tablet by mouth daily David Hancock MD follow up David Hancock MD follow up: O rders: E KG ([id number]) BP today: 126/77 Prior BP: 132/92 (07/04/2012) N uclear Stress Findings: 1. Normal Stephon protocol exercise tolerance test. 2 . Normal left ventricular size and function with a calculated ejection fraction of 50%. 3 . Myocardial scintigraphy is normal without evidence for previous myocardial infarction or reversible ischemia. GC (02/12/2010) H CT: 41.3 (04/15/2012) Platelets: 284 (04/15/2012) David Hancock MD routine-echo prior : H er updated medication list for this problem includes: Levothyroxine Sodium 50 Mcg Tabs (Levothyroxine sodium) ..... 1 tablet by mouth daily David Hancock MD routine-echo prior : B P today: 132/92 Prior BP: 136/84 (04/11/2012) H CT: 41.3 (04/15/2012) Platelets: 284 (04/15/2012) N uclear Stress Findings: 1. Normal Stephon protocol exercise tolerance test. 2 . Normal left ventricular size and function with a calculated ejection fraction of 50%. 3 . Myocardial scintigraphy is normal without evidence for previous myocardial infarction or reversible ischemia. (02/12/2010) E chocardiogram: Normal left ventricular size. Normal left ventricular systolic function. Left ventricular ejection fraction is estimated at 60%. Normal left ventricular wall thickness. There is E to A wave reversal consistent with impaired LV relaxation. There is trace mitral valve regurgitation. There is mild tricuspid regurgitation. Estimated peak pulmonary artery systolic pressure is 26 mmHg. IVC is normal in size. (02/12/2010) David Hancock MD routine-echo prior : B P today: 132/92 P rior BP: 136/84 (04/11/2012) David Hancock MD routine-echo prior : B P today: 132/92 Prior BP: 136/84 (04/11/2012) N uclear Stress Findings: 1. Normal Stephon protocol exercise tolerance test. 2 . Normal left ventricular size and function with a calculated ejection fraction of 50%. 3 . Myocardial scintigraphy is normal without evidence for previous myocardial infarction or reversible ischemia. (02/12/2010) E chocardiogram: Normal left ventricular size. Normal left ventricular systolic function. Left ventricular ejection fraction is estimated at 60%. Normal left ventricular wall thickness. There is E to A wave reversal consistent with impaired LV relaxation. There is trace mitral valve regurgitation. There is mild tricuspid regurgitation. Estimated peak pulmonary artery systolic pressure is 26 mmHg. IVC is normal in size. (02/12/2010) H CT: 41.3 (04/15/2012) Platelets: 284 (04/15/2012) David Hancock MD routine: H er updated medication list for this problem includes: Levothyroxine Sodium 50 Mcg Tabs (Levothyroxine sodium) ..... 1 tablet by mouth daily David Hancock MD routine: T he following medications were removed from the medication list: Norvasc 5 Mg Tabs (Amlodipine besylate) ..... One tablet daily BP today: / Prior BP: 137/96 (04/06/2011) Nuclear Stress Findings: 1. Normal Stephon protocol exercise tolerance test. 2 . Normal left ventricular size and function with a calculated ejection fraction of 50%. 3 . Myocardial scintigraphy is normal without evidence for previous myocardial infarction or reversible ischemia. (02/12/2010) E chocardiogram: Normal left ventricular size. Normal left ventricular systolic function. Left ventricular ejection fraction is estimated at 60%. Normal left ventricular wall thickness. There is E to A wave reversal consistent with impaired LV relaxation. There is trace mitral valve regurgitation. There is mild tricuspid regurgitation. Estimated peak pulmonary artery systolic pressure is 26 mmHg. IVC is normal in size. (02/12/2010) David Hancock MD routine: T he following medications were removed from the medication list: Norvasc 5 Mg Tabs (Amlodipine besylate) ..... One tablet daily Prior BP: 137/96 (04/06/2011) Orders: Guy KG ([id number]) David Hancock MD routine: T he following medications were removed from the medication list: Calcium Tabs (Calcium carbonate tabs) ..... One tab. daily Norvasc 5 Mg Tabs (Amlodipine besylate) ..... One tablet daily BP today: / Prior BP: 137/96 (04/06/2011) N uclear Stress Findings: 1. Normal Stephon protocol exercise tolerance test. 2 . Normal left ventricular size and function with a calculated ejection fraction of 50%. 3 . Myocardial scintigraphy is normal without evidence for previous myocardial infarction or reversible ischemia. (02/12/2010) E chocardiogram: Normal left ventricular size. Normal left ventricular systolic function. Left ventricular ejection fraction is estimated at 60%. Normal left ventricular wall thickness. There is E to A wave reversal consistent with impaired LV relaxation. There is trace mitral valve regurgitation. There is mild tricuspid regurgitation. Estimated peak pulmonary artery systolic pressure is 26 mmHg. IVC is normal in size. (02/12/2010) David Hancock MD follow up: H er updated medication list for this problem includes: Levothyroxine Sodium 50 Mcg Tabs (Levothyroxine sodium) ..... 1 tablet by mouth daily David Hancock MD follow up: T he following medications were removed from the medication list: Amlodipine Besylate 5 Mg Tabs (Amlodipine besylate) ..... 1 tablet by mouth daily BP today: 137/96 Prior BP: 119/81 (02/18/2010) N uclear Stress Findings: 1. Normal Stephon protocol exercise tolerance test. 2 . Normal left ventricular size and function with a calculated ejection fraction of 50%. 3 . Myocardial scintigraphy is normal without evidence for previous myocardial infarction or reversible ischemia. (02/12/2010) E chocardiogram: Normal left ventricular size. Normal left ventricular systolic function. Left ventricular ejection fraction is estimated at 60%. Normal left ventricular wall thickness. There is E to A wave reversal consistent with impaired LV relaxation. There is trace mitral valve regurgitation. There is mild tricuspid regurgitation. Estimated peak pulmonary artery systolic pressure is 26 mmHg. IVC is normal in size. (02/12/2010) David Hancock MD follow up: T he following medications were removed from the medication list: Amlodipine Besylate 5 Mg Tabs (Amlodipine besylate) ..... 1 tablet by mouth daily BP today: 137/96 P rior BP: 119/81 (02/18/2010) David Hancock MD follow up: T he following medications were removed from the medication list: Amlodipine Besylate 5 Mg Tabs (Amlodipine besylate) ..... 1 tablet by mouth daily Her updated medication list for this problem includes: Calcium Tabs (Calcium carbonate tabs) ..... One tab. daily BP today: 137/96 Prior BP: 119/81 (02/18/2010) N uclear Stress Findings: 1. Normal Stephon protocol exercise tolerance test. 2 . Normal left ventricular size and function with a calculated ejection fraction of 50%. 3 . Myocardial scintigraphy is normal without evidence for previous myocardial infarction or reversible ischemia. (02/12/2010) E chocardiogram: Normal left ventricular size. Normal left ventricular systolic function. Left ventricular ejection fraction is estimated at 60%. Normal left ventricular wall thickness. There is E to A wave reversal consistent with impaired LV relaxation. There is trace mitral valve regurgitation. There is mild tricuspid regurgitation. Estimated peak pulmonary artery systolic pressure is 26 mmHg. IVC is normal in size. (02/12/2010) David Hancock MD Test results: H er updated medication list for this problem includes: Levothyroxine Sodium 50 Mcg Tabs (Levothyroxine sodium) ..... 1 tablet by mouth daily David Hancock MD Test results: H er updated medication list for this problem includes: Amlodipine Besylate 5 Mg Tabs (Amlodipine besylate) ..... 1 tablet by mouth daily BP today: 119/81 Prior BP: 127/85 (2010) N uclear Stress Findings: 1. Normal Stephon protocol exercise tolerance test. 2 . Normal left ventricular size and function with a calculated ejection fraction of 50%. 3 . Myocardial scintigraphy is normal without evidence for previous myocardial infarction or reversible ischemia. (02/12/2010) E chocardiogram: Normal left ventricular size. Normal left ventricular systolic function. Left ventricular ejection fraction is estimated at 60%. Normal left ventricular wall thickness. There is E to A wave reversal consistent with impaired LV relaxation. There is trace mitral valve regurgitation. There is mild tricuspid regurgitation. Estimated peak pulmonary artery systolic pressure is 26 mmHg. IVC is normal in size. (02/12/2010) David Hancock MD Test results: H er updated medication list for this problem includes: Amlodipine Besylate 5 Mg Tabs (Amlodipine besylate) ..... 1 tablet by mouth daily BP today: 119/81 P rior BP: 127/85 (2010) David Hancock MD Test results: T he following medications were removed from the medication list: Calcium Tabs (Calcium tabs) ..... 1 tablet by mouth daily Her updated medication list for this problem includes: Amlodipine Besylate 5 Mg Tabs (Amlodipine besylate) ..... 1 tablet by mouth daily BP today: 119/81 Prior BP: 127/85 (2010) N uclear Stress Findings: 1. Normal Stephon protocol exercise tolerance test. 2 . Normal left ventricular size and function with a calculated ejection fraction of 50%. 3 . Myocardial scintigraphy is normal without evidence for previous myocardial infarction or reversible ischemia. (02/12/2010) E chocardiogram: Normal left ventricular size. Normal left ventricular systolic function. Left ventricular ejection fraction is estimated at 60%. Normal left ventricular wall thickness. There is E to A wave reversal consistent with impaired LV relaxation. There is trace mitral valve regurgitation. There is mild tricuspid regurgitation. Estimated peak pulmonary artery systolic pressure is 26 mmHg. IVC is normal in size. GC (02/12/2010) David Hancock MD vertigo: H er updated medication list for this problem includes: Amlodipine Besylate 5 Mg Tabs (Amlodipine besylate) ..... 1 tablet by mouth daily BP today: 127/85 David Hancock MD vertigo: H er updated medication list for this problem includes: Amlodipine Besylate 5 Mg Tabs (Amlodipine besylate) ..... 1 tablet by mouth daily BP today: 127/85 Prior BP: / () David Hancock MD vertigo: H er updated medication list for this problem includes: Levothyroxine Sodium 50 Mcg Tabs (Levothyroxine sodium) ..... 1 tablet by mouth daily David Hancock MD Date Name Carotid Duplex Bilat eral Stress Test - Nuclea r Complete Echo HISTORY OF PROCEDURES Procedure Date Procedure Name Provider Procedure Notes S tatus EKG David Hancock MD completed EKG David Hancock MD completed
--- OUTSIDE RECORDS SUMMARY | 2025-01-22 10:43 | XMS_ITS | Encounter Summary ---
Author Organization [facility] Address [address] [place] [address] Care Team Providers Care Drywall Taper Helper Name Role Phone Yolie Johnson MD Primary Care Provider [phone] Encounter Details Date Type Department Care Team (Late st Contact Info) Description 01/13/2006 Outpatient Historical [facility] Internal Medicine - [facility] [id number] [facility] [address] [place] [address] Yolie Johnson MD Social History Tobacco Use Types Packs/Day Years Used Date Smoking Tobacco: Never Assessed Comments Unknown Sex and Gender Information Value Date Recorded Sex Assigned at Not on file Legal Sex 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 Gender Identity Not on file Sexual Orientation Not on file documented as of this encounter Last Filed Vital Signs Vital Sign Reading Time Taken Comments Blood Pressure 130/74 01/13/2006 1:50 PM METAL TECHNICIAN Pulse 76 01/13/2006 1:50 PM METAL TECHNICIAN Temperature - - Respiratory Rate - - Oxygen Saturation - - Inhaled Oxygen Concentration - - Weight 77.1 kg (170 lb) 01/13/2006 1:50 PM METAL TECHNICIAN Height - - Body Mass Index - - documented in this encounter Plan of Treatment Not on file documented as of this encounter Visit Diagnoses Not on filedocumented in this encounter Care Teams Drywall Taper Helper Relationship Specialty Start Date End Date Yolie Johnson MD PCP - General 04/24/08 documented as of this encounter
--- OUTSIDE RECORDS SUMMARY | 2025-01-22 10:43 | XMS_ITS | Encounter Summary ---
Author Organization [facility] Address [address] [place] [address] Care Team Providers Care Newspaper Publisher Name Role Phone Yolie Johnson MD Primary Care Provider [phone] Encounter Details Date Type Department Care Team (Late st Contact Info) Description 01/25/2001 Outpatient Historical [facility] Internal Medicine - [facility] [address] [address] [facility] [address] [place] [address] Yolie Johnson MD Social History Tobacco Use Types Packs/Day Years Used Date Smoking Tobacco: Never Assessed Comments Unknown Sex and Gender Information Value Date Recorded Sex Assigned at Not on file Legal Sex Female 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
--- OUTSIDE RECORDS SUMMARY | 2025-01-22 10:43 | XMS_ITS | Encounter Summary ---
Author Organization [facility] [employer] Address [address] [place] [address] Care Team Providers Care Demonstrator Sewing Techniques Name Role Phone Yolie Johnson MD Primary Care Provider [phone] Encounter Details Date Type Department Care Team (Late st Contact Info) Description 12/15/2008 Outpatient Historical [facility] Yolie Johnson MD [facility] [employer] [place] [address] Abdominal Pain, Epigastric Social History Tobacco Use Types Packs/Day Years Used Date Smoking Tobacco: Never Assessed Comments No Sex and Gender Information Value Date Recorded Sex Assigned at Not on file Legal Sex Female 3:30 AM CONNIE SCRATCHER Gender Identity Not on file Sexual Orientation Not on file documented as of this encounter Plan of Treatment Not on file documented as of this encounter Visit Diagnoses Diagnosis Abdominal pain, epigastric documented in this encounter Care Teams Demonstrator Sewing Techniques Relationship Specialty Start Date End Date Yolie Johnson MD PCP - General 04/24/08 documented as of this encounter
--- OUTSIDE RECORDS SUMMARY | 2025-01-22 10:43 | XMS_ITS | Encounter Summary ---
Author Organization [facility] Address [address] [place] [address] Care Team Providers Care Negative Checker Name Role Phone Taz Johnson MD Primary Care Provider [phone] Encounter Details Date Type Department Care Team (Late st Contact Info) Description 12/13/2008 Outpatient Historical [facility] Taz Johnson MD [facility] [place] [address] Other Screening Mammogram Social History Tobacco Use Types Packs/Day Years Used Date Smoking Tobacco: Never Assessed Comments No Sex and Gender Information Value Date Recorded Sex Assigned at Not on file Legal Sex Female 3:30 AM FOAM RUBBER MIXER Gender Identity Not on file Sexual Orientation Not on file documented as of this encounter Plan of Treatment Not on file documented as of this encounter Procedures Procedure Name Priority Date/Time Associated Diagnosis Comments MAMMO SCREEN BILAT W OR WO CAD Routine 12/13/2008 2:42 PM FOAM RUBBER MIXER documented in this encounter Results * MAMMO DIGITAL SCREEN BILAT (12/13/2008 2:42 PM FOAM RUBBER MIXER) Anatomical Region Laterality Modality Breast Bilateral Other 12/13/2008 2:42 PM FOAM RUBBER MIXER Narrative 12/17/2008 10:50 PM FOAM RUBBER MIXER [facility] [address] [place], [place] [address] Admit Date: 12/13/2008 VANESSA PAK Sex: F Admit Prov: TAZ JOHNSON Date: 1950 Primary Care Prov: TAZ JOHNSON CMRN: [id number] [id number] Ordering Prov: TAZ JOHNSON Accession Number: [id number] Interpretation BILATERAL SCREENING DIGITAL MAMMOGRAMS WITH COMPUTER ASSISTED DIAGNOSIS History: Annual screening study. Comparison is made to 02/21/04. The images were reviewed using the CAD system. The breast parenchyma has scattered fibroglandular densities. No new dominant masses, suspicious calcifications or areas of parenchymal asymmetry or distortion are identified. Impression: Stable screening mammogram Recommend routine followup Overall assessment: BIRADS category 1 - Negative Assessment BIRADS: 1-Negative Recommendation: Normal interval follow-up Dictated by: YANE POSADA Electronically signed by: YANE POSADA 12/17/2008 22:49 Transcribed: 12/17/2008 22:32 AMK Procedure Note Yane Posada - 12/17/[address] [address] Admit Date: 12/13/2008 VANESSA PAK Sex: F Admit Prov: TAZ JOHNSON Date: 1950 Primary Care Prov: TAZ JOHNSON Tamra CMRN: [id number] [id number] [facility] Ordering Prov: TAZ JOHNSON Interpretation BILATERAL SCREENING DIGITAL MAMMOGRAMS WITH COMPUTER ASSISTEDDIAGNOSIS History: Annual screening study. Comparison is made to 02/21/04. The images were reviewed using theCAD system. The breast parenchyma has scattered fibroglandulardensities. No new dominant masses, suspicious calcifications or areas ofparenchymal asymmetry or distortion are identified. Impression: Stable screening mammogram Recommend routine followup Overall assessment: BIRADS category 1 - Negative Assessment BIRADS: 1-Negative Recommendation: Normal interval follow-up Dictated by: YANE POSADA Electronically signed by: YANE POSADA 12/17/2008 22:49 Transcribed: 12/17/2008 22:32 AMK us Taz Johnson MD MAMMO ORDERABLES Final Result documented in this encounter Visit Diagnoses Diagnosis Other screening mammogram documented in this encounter Care Teams Negative Checker Relationship Specialty Start Date End Date Taz Johnson MD PCP - General 04/24/08 documented as of this encounter
--- OUTSIDE RECORDS SUMMARY | 2025-01-22 10:43 | XMS_ITS | Encounter Summary ---
Author Organization [facility] Address [address] [place] [address] Care Team Providers Care Casting Machine Operator Automatic Name Role Phone Yolie Johnson MD Primary Care Provider [phone] Encounter Details Date Type Department Care Team (Late st Contact Info) Description 02/21/1999 Outpatient Historical [facility] Internal Medicine - [facility] [address] [address] [facility] [address] [place] [address] Yolie Johnson MD Social History Tobacco Use Types Packs/Day Years Used Date Smoking Tobacco: Never Assessed Comments Unknown Sex and Gender Information Value Date Recorded Sex Assigned at Not on file Legal Sex Female 3:30 AM MEDICAL CHEMIST Gender Identity Not on file Sexual Orientation Not on file documented as of this encounter Plan of Treatment Not on file documented as of this encounter Visit Diagnoses Not on filedocumented in this encounter Care Teams Casting Machine Operator Automatic Relationship Specialty Start Date End Date Yolie Johnson MD PCP - General 04/24/08 documented as of this encounter
--- OUTSIDE RECORDS SUMMARY | 2025-01-22 10:43 | XMS_ITS | Encounter Summary ---
Author Organization [facility] Address [address] [place] [address] Care Team Providers Care Machine Scallop Cutter Name Role Phone Yolie Johnson MD Primary Care Provider [phone] Encounter Details Date Type Department Care Team (Late st Contact Info) Description 04/03/2003 Outpatient Historical [facility] Internal Medicine - [facility] [address] [id number] [facility] [address] [place] [address] Yolie Johnson MD Social History Tobacco Use Types Packs/Day Years Used Date Smoking Tobacco: Never Assessed Comments Unknown Sex and Gender Information Value Date Recorded Sex Assigned at Not on file Legal Sex Female 3:30 AM CIVIL ENGINEERING PROFESSOR Gender Identity Not on file Sexual Orientation Not on file documented as of this encounter Plan of Treatment Not on file documented as of this encounter Visit Diagnoses Not on filedocumented in this encounter Care Teams Machine Scallop Cutter Relationship Specialty Start Date End Date Yolie Johnson MD PCP - General 04/24/08 documented as of this encounter
--- OUTSIDE RECORDS SUMMARY | 2025-01-22 10:43 | XMS_ITS | Encounter Summary ---
Author Organization [facility] Address [address] [place] [address] Care Team Providers Care Department Store General Manager Name Role Phone Yolie Johnson MD Primary Care Provider [phone] Encounter Details Date Type Department Care Team (Late st Contact Info) Description 07/19/2000 Outpatient Historical [facility] Internal Medicine - [facility] [address] [address] [facility] [address] [place] [address] Yolie Johnson MD Social History Tobacco Use Types Packs/Day Years Used Date Smoking Tobacco: Never Assessed Comments Unknown Sex and Gender Information Value Date Recorded Sex Assigned at Not on file Legal Sex Female 3:30 AM MACHINE OPERATIONS SUPERVISOR Gender Identity Not on file Sexual Orientation Not on file documented as of this encounter Plan of Treatment Not on file documented as of this encounter Visit Diagnoses Not on filedocumented in this encounter Care Teams Department Store General Manager Relationship Specialty Start Date End Date Yolie Johnson MD PCP - General 04/24/08 documented as of this encounter
--- OUTSIDE RECORDS SUMMARY | 2025-01-22 10:43 | XMS_ITS | Encounter Summary ---
Author Organization [facility] Address [address] [place] [address] Care Team Providers Care Commercial Attache Name Role Phone Yolie Johnson MD Primary Care Provider [phone] Encounter Details Date Type Department Care Team (Late st Contact Info) Description 03/17/1999 Outpatient Historical [facility] Internal Medicine - [place] [address] [address] [facility] [address] [place] [address] Yolie Johnson MD Social History Tobacco Use Types Packs/Day Years Used Date Smoking Tobacco: Never Assessed Comments Unknown Sex and Gender Information Value Date Recorded Sex Assigned at Not on file Legal Sex Female 3:30 AM IRRIGATION FOREMAN Gender Identity Not on file Sexual Orientation Not on file documented as of this encounter Plan of Treatment Not on file documented as of this encounter Visit Diagnoses Not on filedocumented in this encounter Care Teams Commercial Attache Relationship Specialty Start Date End Date Yolie Johnson MD PCP - General 04/24/08 documented as of this encounter
--- OUTSIDE RECORDS SUMMARY | 2025-01-22 10:43 | XMS_ITS | Encounter Summary ---
Author Organization [facility] Address [address] [place] [address] Care Team Providers Care Manager Public Name Role Phone Yolie Johnson MD Primary Care Provider [phone] Encounter Details Date Type Department Care Team (Late st Contact Info) Description 05/18/2000 Outpatient Historical [facility] Internal Medicine - [facility] [address] [address] [facility] [address] [place] [address] Yolie Johnson MD Social History Tobacco Use Types Packs/Day Years Used Date Smoking Tobacco: Never Assessed Comments Unknown Sex and Gender Information Value Date Recorded Sex Assigned at Not on file Legal Sex Female 3:30 AM CUSTOMER ENERGY SPECIALIST Gender Identity Not on file Sexual Orientation Not on file documented as of this encounter Plan of Treatment Not on file documented as of this encounter Visit Diagnoses Not on filedocumented in this encounter Care Teams Manager Public Relationship Specialty Start Date End Date Yolie Johnson MD PCP - General 04/24/08 documented as of this encounter
--- OUTSIDE RECORDS SUMMARY | 2025-01-22 10:43 | XMS_ITS | Encounter Summary ---
Author Organization [facility] Address [address] [place] [address] Care Team Providers Care Watch Electrician Name Role Phone Yolie Johnson MD Primary Care Provider [phone] Encounter Details Date Type Department Care Team (Late st Contact Info) Description 06/30/2001 Outpatient Historical [facility] Internal Medicine - [facility] [address] [address] [facility] [address] [place] [address] Yolie Johnson MD Social History Tobacco Use Types Packs/Day Years Used Date Smoking Tobacco: Never Assessed Comments Unknown Sex and Gender Information Value Date Recorded Sex Assigned at Not on file Legal Sex Female 3:30 AM SOCIAL WORKER PSYCHIATRIC Gender Identity Not on file Sexual Orientation Not on file documented as of this encounter Plan of Treatment Not on file documented as of this encounter Visit Diagnoses Not on filedocumented in this encounter Care Teams Watch Electrician Relationship Specialty Start Date End Date Yolie Johnson MD PCP - General 04/24/08 documented as of this encounter
--- OUTSIDE RECORDS SUMMARY | 2025-01-22 10:43 | XMS_ITS | Encounter Summary ---
Author Organization [facility] Address [address] [place] [address] Care Team Providers Care Data Typist Name Role Phone Yolie Johnson MD Primary Care Provider [phone] Encounter Details Date Type Department Care Team (Late st Contact Info) Description 05/18/2000 Outpatient Historical [facility] Internal Medicine - [facility] [address] [address] [facility] [address] [place] [address] Yolie Johnson MD Social History Tobacco Use Types Packs/Day Years Used Date Smoking Tobacco: Never Assessed Comments Unknown Sex and Gender Information Value Date Recorded Sex Assigned at Not on file Legal Sex Female 3:30 AM BEAD WIRE INSULATOR Gender Identity Not on file Sexual Orientation Not on file documented as of this encounter Plan of Treatment Not on file documented as of this encounter Visit Diagnoses Not on filedocumented in this encounter Care Teams Data Typist Relationship Specialty Start Date End Date Yolie Johnson MD PCP - General 04/24/08 documented as of this encounter
--- OUTSIDE RECORDS SUMMARY | 2025-01-22 10:43 | XMS_ITS | Encounter Summary ---
Author Organization [facility] Address [address] [place] [address] Care Team Providers Care Vibration Engineer Name Role Phone Yolie Johnson MD Primary Care Provider [phone] Encounter Details Date Type Department Care Team (Latest Contact Info) Description 12/14/2002 Outpatient Historical [facility] Yolie Johnson MD BONE & CARTILAGE DIS NOS (Primary Dx) Social History Tobacco Use Types Packs/Day Years Used Date Smoking Tobacco: Never Assessed Comments Unknown Sex and Gender Information Value Date Recorded Sex Assigned at Not on file Legal Sex Female 3:30 AM COMIC WRITER Gender Identity Not on file Sexual Orientation Not on file documented as of this encounter Plan of Treatment Not on file documented as of this encounter Visit Diagnoses Diagnosis Disorder of bone and cartilage, unspecified- Primary documented in this encounter Care Teams Vibration Engineer Relationship Specialty Start Date End Date Yolie Johnson MD PCP - General 04/24/08 documented as of this encounter
--- OUTSIDE RECORDS SUMMARY | 2025-01-22 10:43 | XMS_ITS | Encounter Summary ---
Author Organization [facility] Address [address] [place] [address] Care Team Providers Care Filter Worker Name Role Phone Yolie Johnson MD Primary Care Provider [phone] Encounter Details Date Type Department Care Team (Late st Contact Info) Description 12/27/2001 Outpatient Historical [facility] Internal Medicine - [facility] [address] [address] [facility] [address] [place] [address] Yolie Johnson MD Social History Tobacco Use Types Packs/Day Years Used Date Smoking Tobacco: Never Assessed Comments Unknown Sex and Gender Information Value Date Recorded Sex Assigned at Not on file Legal Sex Female 3:30 AM BUILDING SERVICEMAN Gender Identity Not on file Sexual Orientation Not on file documented as of this encounter Plan of Treatment Not on file documented as of this encounter Visit Diagnoses Not on filedocumented in this encounter Care Teams Filter Worker Relationship Specialty Start Date End Date Yolie Johnson MD PCP - General 04/24/08 documented as of this encounter
--- OUTSIDE RECORDS SUMMARY | 2025-01-22 10:43 | XMS_ITS | Encounter Summary ---
Author Organization [facility] Address [address] [place] [address] Care Team Providers Care Cd Manufacturing Supervisor Name Role Phone Yolie Johnson MD Primary Care Provider [phone] Encounter Details Date Type Department Care Team (Late st Contact Info) Description 06/23/[address] [facility] Internal Medicine - [facility] [address] [address] [facility] [address] [place] [address] Yolie Johnson MD Social History Tobacco Use Types Packs/Day Years Used Date Smoking Tobacco: Never Assessed Comments Unknown Sex and Gender Information Value Date Recorded Sex Assigned at Not on file Legal Sex Female 3:30 AM HEATING UNIT MECHANIC Gender Identity Not on file Sexual Orientation Not on file documented as of this encounter Plan of Treatment Not on file documented as of this encounter Visit Diagnoses Not on filedocumented in this encounter Care Teams Cd Manufacturing Supervisor Relationship Specialty Start Date End Date Yolie Johnson MD PCP - General 04/24/08 documented as of this encounter
--- OUTSIDE RECORDS SUMMARY | 2025-01-22 10:43 | XMS_ITS | Encounter Summary ---
Author Organization [facility] Address [address] [place] [address] Care Team Providers Care Tennis Coach Name Role Phone Yolie Johnson MD Primary Care Provider [phone] Encounter Details Date Type Department Care Team (Late st Contact Info) Description 01/17/1999 Outpatient Historical [facility] Internal Medicine - [facility] [address] [address] [facility] [address] [place] [address] Yolie Johnson MD Social History Tobacco Use Types Packs/Day Years Used Date Smoking Tobacco: Never Assessed Comments Unknown Sex and Gender Information Value Date Recorded Sex Assigned at Not on file Legal Sex Female 3:30 AM LEAD CUSTOMER SERVICE REPRESENTATIVE Gender Identity Not on file Sexual Orientation Not on file documented as of this encounter Plan of Treatment Not on file documented as of this encounter Visit Diagnoses Not on filedocumented in this encounter Care Teams Tennis Coach Relationship Specialty Start Date End Date Yolie Johnson MD PCP - General 04/24/08 documented as of this encounter
--- OUTSIDE RECORDS SUMMARY | 2025-01-22 10:43 | XMS_ITS | Encounter Summary ---
Author Organization [facility] Address [address] [place] [address] Care Team Providers Care Best Second Jobs Name Role Phone Yolie Johnson MD Primary Care Provider [phone] Encounter Details Date Type Department Care Team (Late st Contact Info) Description 06/30/2006 Outpatient Historical [facility] Internal Medicine - [facility] [address] [address] [facility] [address] [place] [address] Yolie Johnson MD Social History Tobacco Use Types Packs/Day Years Used Date Smoking Tobacco: Never Assessed Comments Unknown Sex and Gender Information Value Date Recorded Sex Assigned at Not on file Legal Sex Female 3:30 AM UNDERBASTER Gender Identity Not on file Sexual Orientation Not on file documented as of this encounter Last Filed Vital Signs Vital Sign Reading Time Taken Comments Blood Pressure 132/82 06/30/2006 3:30 PM CDT Pulse 72 06/30/2006 3:30 PM CDT Temperature - - Respiratory Rate - - Oxygen Saturation - - Inhaled Oxygen Concentration - - Weight 78.9 kg (174 lb) 06/30/2006 3:30 PM CDT Height - - Body Mass Index - - documented in this encounter Plan of Treatment Not on file documented as of this encounter Visit Diagnoses Not on filedocumented in this encounter Care Teams Best Second Jobs Relationship Specialty Start Date End Date Yolie Johnson MD PCP - General 04/24/08 documented as of this encounter
--- OUTSIDE RECORDS SUMMARY | 2025-01-22 10:43 | XMS_ITS | Encounter Summary ---
Author Organization [facility] Address [address] [place] [address] Care Team Providers Care Block Machine Operator Name Role Phone Yolie Johnson MD Primary Care Provider [phone] Encounter Details Date Type Department Care Team (Late st Contact Info) Description 09/30/1999 Outpatient Historical [facility] Internal Medicine - [facility] [address] [address] [facility] [address] [place] [address] Yolie Johnson MD Social History Tobacco Use Types Packs/Day Years Used Date Smoking Tobacco: Never Assessed Comments Unknown Sex and Gender Information Value Date Recorded Sex Assigned at Not on file Legal Sex Female 3:30 AM INSTRUMENT TECH Gender Identity Not on file Sexual Orientation Not on file documented as of this encounter Plan of Treatment Not on file documented as of this encounter Visit Diagnoses Not on filedocumented in this encounter Care Teams Block Machine Operator Relationship Specialty Start Date End Date Yolie Johnson MD PCP - General 04/24/08 documented as of this encounter
--- OUTSIDE RECORDS SUMMARY | 2025-01-22 10:43 | XMS_ITS | Encounter Summary ---
Author Organization [facility] Address [address] [place] [address] Care Team Providers Care Business Initiatives Manager Name Role Phone Yolie Johnson MD Primary Care Provider [phone] Encounter Details Date Type Department Care Team (Late st Contact Info) Description 11/18/2004 Outpatient Historical [facility] Internal Medicine - [facility] [address] [address] [facility] [address] [place] [address] Yolie Johnson MD Social History Tobacco Use Types Packs/Day Years Used Date Smoking Tobacco: Never Assessed Comments Unknown Sex and Gender Information Value Date Recorded Sex Assigned at Not on file Legal Sex Female 3:30 AM BERRY PICKER Gender Identity Not on file Sexual Orientation Not on file documented as of this encounter Plan of Treatment Not on file documented as of this encounter Visit Diagnoses Not on filedocumented in this encounter Care Teams Business Initiatives Manager Relationship Specialty Start Date End Date Yolie Johnson MD PCP - General 04/24/08 documented as of this encounter
--- OUTSIDE RECORDS SUMMARY | 2025-01-22 10:43 | XMS_ITS | Encounter Summary ---
Author Organization [facility] Address [address] [place] [address] Care Team Providers Care Retail And Promotions Coordinator Name Role Phone Yolie Johnson MD Primary Care Provider [phone] Encounter Details Date Type Department Care Team (Late st Contact Info) Description 12/18/2008 Outpatient Historical [facility] Yolie Johnson MD [facility] [employer] [place] [address] Abdominal Pain, Epigastric Social History Tobacco Use Types Packs/Day Years Used Date Smoking Tobacco: Never Assessed Comments No Sex and Gender Information Value Date Recorded Sex Assigned at Not on file Legal Sex Female 3:30 AM BOAT DIESEL MOTOR MECHANIC Gender Identity Not on file Sexual Orientation Not on file documented as of this encounter Plan of Treatment Not on file documented as of this encounter Visit Diagnoses Diagnosis Abdominal pain, epigastric documented in this encounter Care Teams Retail And Promotions Coordinator Relationship Specialty Start Date End Date Yolie Johnson MD PCP - General 04/24/08 documented as of this encounter
--- OUTSIDE RECORDS SUMMARY | 2025-01-22 10:43 | XMS_ITS | Encounter Summary ---
Author Organization [facility] Address [address] [place] [address] Care Team Providers Care Digital Content Producer Name Role Phone Yolie Johnson MD Primary Care Provider [phone] Encounter Details Date Type Department Care Team (Late st Contact Info) Description 04/17/2005 Outpatient Historical [facility] Internal Medicine - [facility] [address] [id number] [facility] [address] [place] [address] Yolie Johnson MD Social History Tobacco Use Types Packs/Day Years Used Date Smoking Tobacco: Never Assessed Comments Unknown Sex and Gender Information Value Date Recorded Sex Assigned at Not on file Legal Sex Female 3:30 AM INTERVENTIONAL CARDIOLOGIST Gender Identity Not on file Sexual Orientation Not on file documented as of this encounter Plan of Treatment Not on file documented as of this encounter Visit Diagnoses Not on filedocumented in this encounter Care Teams Digital Content Producer Relationship Specialty Start Date End Date Yolie Johnson MD PCP - General 04/24/08 documented as of this encounter
--- OUTSIDE RECORDS SUMMARY | 2025-01-22 10:43 | XMS_ITS | Encounter Summary ---
Author Organization [facility] Address [address] [place] [address] Care Team Providers Care Dumping Machine Operator Name Role Phone Yolie Johnson MD Primary Care Provider [phone] Encounter Details Date Type Department Care Team (Latest Contact Info) Description 10/14/2005 Outpatient Historical [facility] Yolie Johnson MD OSTEOPOROSIS NOS (Primary Dx) Social History Tobacco Use Types Packs/Day Years Used Date Smoking Tobacco: Never Assessed Comments Unknown Sex and Gender Information Value Date Recorded Sex Assigned at Not on file Legal Sex Female 3:30 AM DRAPERY INSPECTOR Gender Identity Not on file Sexual Orientation Not on file documented as of this encounter Plan of Treatment Not on file documented as of this encounter Visit Diagnoses Diagnosis Osteoporosis, unspecified- Primary documented in this encounter Care Teams Dumping Machine Operator Relationship Specialty Start Date End Date Yolie Johnson MD PCP - General 04/24/08 documented as of this encounter
--- OUTSIDE RECORDS SUMMARY | 2025-01-22 10:43 | XMS_ITS | Encounter Summary ---
Author Organization [facility] Address [address] [place] [address] Care Team Providers Care Regional Planner Name Role Phone oYlie Johnson MD Primary Care Provider [phone] Encounter Details Date Type Department Care Team (Late st Contact Info) Description 03/16/2001 Outpatient Historical Division of Neurology [address] [place], [place] [id number] Eros Hood MD [address] [facility] [address] [place] [address] Social History Tobacco Use Types Packs/Day Years Used Date Smoking Tobacco: Never Assessed Comments Unknown Sex and Gender Information Value Date Recorded Sex Assigned at Not on file Legal Sex Female 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
--- OUTSIDE RECORDS SUMMARY | 2025-01-22 10:43 | XMS_ITS | Encounter Summary ---
Author Organization [facility] Address [address] [place] [address] Care Team Providers Care Veterinary Hospital Attendant Name Role Phone Yolie Johnson MD Primary Care Provider [phone] Encounter Details Date Type Department Care Team (Late st Contact Info) Description 12/08/2002 Outpatient Historical [facility] Internal Medicine - [facility] [address] [address] [facility] [address] [place] [address] Yolie Johnson MD Social History Tobacco Use Types Packs/Day Years Used Date Smoking Tobacco: Never Assessed Comments Unknown Sex and Gender Information Value Date Recorded Sex Assigned at Not on file Legal Sex Female 3:30 AM WASTEWATER SUPERVISOR Gender Identity Not on file Sexual Orientation Not on file documented as of this encounter Plan of Treatment Not on file documented as of this encounter Visit Diagnoses Not on filedocumented in this encounter Care Teams Veterinary Hospital Attendant Relationship Specialty Start Date End Date Yolie Johnson MD PCP - General 04/24/08 documented as of this encounter
--- OUTSIDE RECORDS SUMMARY | 2025-01-22 10:43 | XMS_ITS | Encounter Summary ---
Author Organization [facility] Address [address] [place] [address] Care Team Providers Care Senior Chemical Process Engineer Name Role Phone Yolie Johnson MD Primary Care Provider [phone] Encounter Details Date Type Department Care Team (Late st Contact Info) Description 09/14/2000 Outpatient Historical [facility] Internal Medicine - [facility] [address] [address] [facility] [address] [place] [address] Yolie Johnson MD Social History Tobacco Use Types Packs/Day Years Used Date Smoking Tobacco: Never Assessed Comments Unknown Sex and Gender Information Value Date Recorded Sex Assigned at Not on file Legal Sex Female 3:30 AM TRIMMING DEPARTMENT BLOCKER Gender Identity Not on file Sexual Orientation Not on file documented as of this encounter Plan of Treatment Not on file documented as of this encounter Visit Diagnoses Not on filedocumented in this encounter Care Teams Senior Chemical Process Engineer Relationship Specialty Start Date End Date Yolie Johnson MD PCP - General 04/24/08 documented as of this encounter
--- OUTSIDE RECORDS SUMMARY | 2025-01-22 10:43 | XMS_ITS | Encounter Summary ---
Author Organization [facility] Address [address] [place] [address] Care Team Providers Care Strategic Sourcing Specialist Name Role Phone Yolie Johnson MD Primary Care Provider [phone] Encounter Details Date Type Department Care Team (Late st Contact Info) Description 02/24/2005 Outpatient Historical [facility] Yolie Johnson MD SCREENING MAMM-MAILG NEOPL-OTHER (Primary Dx) Social History Tobacco Use Types Packs/Day Years Used Date Smoking Tobacco: Never Assessed Comments Unknown Sex and Gender Information Value Date Recorded Sex Assigned at Not on file Legal Sex Female 3:30 AM SALES SERVICE SUPERVISOR Gender Identity Not on file Sexual Orientation Not on file documented as of this encounter Plan of Treatment Not on file documented as of this encounter Visit Diagnoses Diagnosis Other screening mammogram- Primary documented in this encounter Care Teams Strategic Sourcing Specialist Relationship Specialty Start Date End Date Yolie Johnosn MD PCP - General 04/24/08 documented as of this encounter
--- OUTSIDE RECORDS SUMMARY | 2025-01-22 10:43 | XMS_ITS | Encounter Summary ---
Author Organization [facility] Address [address] [place] [address] Care Team Providers Care Printed Products Assembler Name Role Phone Yolie Johnson MD Primary Care Provider [phone] Encounter Details Date Type Department Care Team (Late st Contact Info) Description 11/04/2005 Outpatient Historical [facility] Yolie Johnson MD CERVICAL DISC DISPLACMNT (Primary Dx) Social History Tobacco Use Types Packs/Day Years Used Date Smoking Tobacco: Never Assessed Comments Unknown Sex and Gender Information Value Date Recorded Sex Assigned at Not on file Legal Sex Female 3:30 AM MANAGER CONTINUOUS IMPROVEMENT Gender Identity Not on file Sexual Orientation Not on file documented as of this encounter Plan of Treatment Not on file documented as of this encounter Visit Diagnoses Diagnosis Displacement of cervical intervertebral disc without myelopathy- Primary documented in this encounter Care Teams Printed Products Assembler Relationship Specialty Start Date End Date Yolie Johnson MD PCP - General 04/24/08 documented as of this encounter
--- OUTSIDE RECORDS SUMMARY | 2025-01-22 10:43 | XMS_ITS | Encounter Summary ---
Author Organization [facility] Address [address] [place] [address] Care Team Providers Care Flow Worker Name Role Phone Yolie Johnson MD Primary Care Provider [phone] Encounter Details Date Type Department Care Team (Late st Contact Info) Description 10/31/2002 Outpatient Historical [facility] Internal Medicine - [facility] [address] [address] [facility] [address] [place] [address] Yolie Johnson MD Social History Tobacco Use Types Packs/Day Years Used Date Smoking Tobacco: Never Assessed Comments Unknown Sex and Gender Information Value Date Recorded Sex Assigned at Not on file Legal Sex Female 3:30 AM NETWORK ACCOUNT MANAGER Gender Identity Not on file Sexual Orientation Not on file documented as of this encounter Plan of Treatment Not on file documented as of this encounter Visit Diagnoses Not on filedocumented in this encounter Care Teams Flow Worker Relationship Specialty Start Date End Date Yolie Johnson MD PCP - General 04/24/08 documented as of this encounter
--- OUTSIDE RECORDS SUMMARY | 2025-01-22 10:43 | XMS_ITS | Encounter Summary ---
Author Organization [facility] Address [address] [place] [address] Care Team Providers Care Cigarette Tester Name Role Phone Yolie Johnson MD Primary Care Provider [phone] Encounter Details Date Type Department Care Team (Late st Contact Info) Description 10/14/2005 Outpatient Historical [facility] Yolie Ortega MD Social History Tobacco Use Types Packs/Day Years Used Date Smoking Tobacco: Never Assessed Comments Unknown Sex and Gender Information Value Date Recorded Sex Assigned at Not on file Legal Sex Female 3:30 AM INVENTORY AUDIT CLERK Gender Identity Not on file Sexual Orientation Not on file documented as of this encounter Plan of Treatment Not on file documented as of this encounter Visit Diagnoses Not on filedocumented in this encounter Care Teams Cigarette Tester Relationship Specialty Start Date End Date Yolie Johnson MD PCP - General 04/24/08 documented as of this encounter
--- OUTSIDE RECORDS SUMMARY | 2025-01-22 10:43 | XMS_ITS | Encounter Summary ---
Author Organization [facility] Address [address] [place] [address] Care Team Providers Care Skiver Machine Name Role Phone Yolie Johnson MD Primary Care Provider [phone] Encounter Details Date Type Department Care Team (Late st Contact Info) Description 03/03/2005 Outpatient Historical [facility] Dev Marquez MD [address] [place] [address] [place] [address] SCREENING MAL NEOP-COLON (Primary Dx) Social History Tobacco Use Types Packs/Day Years Used Date Smoking Tobacco: Never Assessed Comments Unknown Sex and Gender Information Value Date Recorded Sex Assigned at Not on file Legal Sex Female 3:30 AM SUPERVISOR POST WAVE Gender Identity Not on file Sexual Orientation Not on file documented as of this encounter Plan of Treatment Not on file documented as of this encounter Visit Diagnoses Diagnosis Special screening for malignant neoplasms, colon- Primary documented in this encounter Care Teams Skiver Machine Relationship Specialty Start Date End Date Yolie Johnson MD PCP - General 04/24/08 documented as of this encounter
--- OUTSIDE RECORDS SUMMARY | 2025-01-22 10:43 | XMS_ITS | Clinical Summary ---
Author Organization [facility] Address [facility] [place] [address] Care Team Providers Care Industrial Furnace Fabricator Name Role Phone Anjum Ball PA-C Primary Care Provider [phone] Allergies No known active allergies Medications levothyroxine (SYNTHROID) 50 MCG tablet Take 1 tablet (50 mcg total) by mouth daily. 06/02/2022 Active lisinopril (PRINIVIL) 20 MG tablet Take 1 tablet (20 mg total) by mouth daily. 07/03/2022 Active omeprazole (PRILOSEC) 20 MG capsule Take 1 capsule (20 mg total) by mouth daily. 05/16/2022 Active pravastatin (PRAVACHOL) 40 MG tablet Take 1 tablet (40 mg total) by mouth daily. 05/06/2022 Active ASPIRIN LOW DOSE 81 MG tabletIndication s:Cerebrovascula r accident (CVA), unspecified mechanism (CMS/HCC HHS/HCC) TAKE 1 TABLET BY MOUTH EVERY DAY 90 tablet 3 05/26/2023 Active Active Problems Problem Noted Date Diagnosed Date Myofascial pain syndrome 10/06/2022 Family History Medical History Relation Comments Stroke Neg Hx Social History Tobacco Use Types Packs/Day Years Used Date Smoking Tobacco: Former Cigarettes Q uit: 1970 Passive Smoke Exposure: Past Smokeless Tobacco: Former Tobacco Cessation:Counseling Given: Yes Alcohol Use Standard Drinks/Week Comments Not Currently 0 (1 standard drink = 0.6 oz pur e alcohol) PHQ-2 Answer Date Recorded Patient Health Questionnaire-2 Score 0 01/20/2024 Comments Unknown Sex and Gender Information Value Date Recorded Sex Assigned at Not on file Legal Sex Female 11:34 AM CDT Gender Identity Not on file Sexual Orientation Not on file Last Filed Vital Signs Vital Sign Reading Time Taken Comments Blood Pressure 143/81 01/20/2024 2:14 PM HOUSE SERVANT Pulse 91 01/20/2024 2:14 PM HOUSE SERVANT Temperature 36.2 C (97.1 F) 01/20/2024 2:14 PM HOUSE SERVANT Respiratory Rate 18 10/06/2022 1:08 PM HOUSE SERVANT Oxygen Saturation 97% 01/20/2024 2:14 PM HOUSE SERVANT Inhaled Oxygen Concentration - - Weight 79.4 kg (175 lb) 01/20/2024 2:14 PM HOUSE SERVANT Height 167.6 cm (5' 6 ) 01/20/2024 2:14 PM HOUSE SERVANT Body Mass Index 28.25 01/20/2024 2:14 PM HOUSE SERVANT Plan of Treatment Health Maintenance Due Date Last Done Comments Colorectal Cancer Screening Colonoscopy (10 Years) 1950 Hepatitis C 1968 Annual Medicare Wellness Visit 2014 Zoster Vaccines (2 of 3) 09/26/2014 08/01/2014 DTaP, Tdap and Td Vaccines (2 - Td or Tdap) 11/25/2019 11/25/2009, 1999 RSV Immunization or 60+ Years (1 - 1-dose 75+ series) 01/28/2024 COVID-19 Vaccine ( season) 2024 03/16/2022, 09/22/2021, 02/11/2021, Additional history exists Influenza Adult (#1) 2024 08/08/2019, 07/26/2017, 07/30/2015, Additional history exists PHQ-2 (Physician [place]) 11/29/2024 01/20/2024 PHQ-2 (Physician [place]) 01/20/2025 01/20/2024 Dexa Scan (General) Completed 12/02/2009 Pneumococcal Vaccine: 65+ Years Completed 03/16/2022 Meningococcal B Vaccine Aged Out No l onger eligible based on patient's age to complete this topic Meningococcal Vaccine Aged Out No roderick miguelito eligible based on patient's age to complete this topic RSV Immunizations Under 20 Months Aged Out No longer eligible based on patient's age to complete this topic Insurance [employer] Care Teams Industrial Furnace Fabricator Relationship Specialty Start Date End Date Anjum Ball PA-C [address] [facility] [address] [place] [address] PCP - General PHYSICIAN MARKER DELIVERY 07/20/22
--- OUTSIDE RECORDS SUMMARY | 2025-01-22 10:43 | XMS_ITS | Encounter Summary ---
Author Organization [facility] Address 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
--- OUTSIDE RECORDS SUMMARY | 2025-01-22 10:43 | XMS_ITS | Encounter Summary ---
Author Organization [facility] Address [address] [place] [address] Care Team Providers Care Lamination Builder Name Role Phone Yolie Johnson MD Primary Care Provider [phone] Encounter Details Date Type Department Care Team (Late st Contact Info) Description 01/31/2002 Outpatient Historical [facility] Internal Medicine - [facility] [address] [address] [facility] [address] [place] [address] Yolie Johnson MD Social History Tobacco Use Types Packs/Day Years Used Date Smoking Tobacco: Never Assessed Comments Unknown Sex and Gender Information Value Date Recorded Sex Assigned at Not on file Legal Sex Female 3:30 AM PEDIATRIC PHYSICIAN ASSISTANT Gender Identity Not on file Sexual Orientation Not on file documented as of this encounter Plan of Treatment Not on file documented as of this encounter Visit Diagnoses Not on filedocumented in this encounter Care Teams Lamination Builder Relationship Specialty Start Date End Date Yolie Johnson MD PCP - General 04/24/08 documented as of this encounter
--- OUTSIDE RECORDS SUMMARY | 2025-01-22 10:43 | XMS_ITS | Encounter Summary ---
Author Organization [facility] Address [address] [place] [address] Care Team Providers Care Sole Leveler Name Role Phone Yolie Johnson MD Primary Care Provider [phone] Encounter Details Date Type Department Care Team (Late st Contact Info) Description 02/03/2006 Outpatient Historical [facility] Internal Medicine - [facility] [address] [address] [facility] [address] [place] [address] Yolie Johnson MD Social History Tobacco Use Types Packs/Day Years Used Date Smoking Tobacco: Never Assessed Comments Unknown Sex and Gender Information Value Date Recorded Sex Assigned at Not on file Legal Sex Female 3:30 AM SUPERVISOR INSECTICIDE Gender Identity Not on file Sexual Orientation Not on file documented as of this encounter Last Filed Vital Signs Vital Sign Reading Time Taken Comments Blood Pressure 132/82 02/03/2006 1:50 PM SUPERVISOR INSECTICIDE Pulse 82 02/03/2006 1:50 PM SUPERVISOR INSECTICIDE Temperature - - Respiratory Rate - - Oxygen Saturation - - Inhaled Oxygen Concentration - - Weight 78 kg (172 lb) 02/03/2006 1:50 PM SUPERVISOR INSECTICIDE Height - - Body Mass Index - - documented in this encounter Plan of Treatment Not on file documented as of this encounter Visit Diagnoses Not on filedocumented in this encounter Care Teams Sole Leveler Relationship Specialty Start Date End Date Yolie Johnson MD PCP - General 04/24/08 documented as of this encounter
--- OUTSIDE RECORDS SUMMARY | 2025-01-22 10:43 | XMS_ITS | Encounter Summary ---
Author Organization [facility] Address [address] [place] [address] Care Team Providers Care Waterproofer Helper Name Role Phone Yolie Johnson MD Primary Care Provider [phone] Encounter Details Date Type Department Care Team (Late st Contact Info) Description 02/21/2004 Outpatient Historical [facility] Yolie Johnson MD SCREENING MAMM-MAILG NEOPL-OTHER (Primary Dx) Social History Tobacco Use Types Packs/Day Years Used Date Smoking Tobacco: Never Assessed Comments Unknown Sex and Gender Information Value Date Recorded Sex Assigned at Not on file Legal Sex Female 3:30 AM INTERVENTION SPECIALIST Gender Identity Not on file Sexual Orientation Not on file documented as of this encounter Plan of Treatment Not on file documented as of this encounter Visit Diagnoses Diagnosis Other screening mammogram- Primary documented in this encounter Care Teams Waterproofer Helper Relationship Specialty Start Date End Date Yolie Johnson MD PCP - General 04/24/08 documented as of this encounter
--- OUTSIDE RECORDS SUMMARY | 2025-01-22 10:43 | XMS_ITS | Encounter Summary ---
Author Organization [facility] Address [address] [place] [address] Care Team Providers Care Business Continuity Manager Name Role Phone Taz Johnson MD Primary Care Provider [phone] Encounter Details Date Type Department Care Team (Latest Contact Info) Description 03/28/2008 Outpatient Historical [facility] Taz Johnson MD Dizziness and Giddiness Social History Tobacco Use Types Packs/Day Years Used Date Smoking Tobacco: Never Assessed Comments Unknown Sex and Gender Information Value Date Recorded Sex Assigned at Not on file Legal Sex Female 3:30 AM TUNNEL FORM PLACING SUPERVISOR Gender Identity Not on file Sexual Orientation Not on file documented as of this encounter Plan of Treatment Not on file documented as of this encounter Procedures Procedure Name Priority Date/Time Associated Diagnosis Comments MRI BRAIN W WO CONTRAST Routine 03/28/2008 4:04 PM CDT POC CREATININE Routine 03/28/2008 3:59 PM CDT documented in this encounter Results * MRI BRAIN W WO CONTRAST (03/28/2008 4:04 PM CDT) Anatomical Region Laterality Modality Head Other 03/28/2008 4:04 PM CDT Narrative 03/29/2008 12:55 PM CDT [facility] [address], [place] [address] Admit Date: 03/28/2008 VANESSA PARRY Sex: F Admit Prov: TAZ JOHNSON Date: 1950 Primary Care Prov: TAZ JOHNSON CMRN: [id number] Room: [facility] SSN: [id number] IMAGING SERVICES Ordering Prov: N/A Accession Number: [id number] Interpretation MRI OF BRAIN WITHOUT AND WITH IV CONTRAST 03/28/2008 History: Dizziness, vertigo, bilateral intermittent hearing loss. Findings: Routine brain and dedicated IAC sequences were performed demonstrating normal signal and appearance of the brain parenchyma, with normal sized ventricles. No mass, shift, ischemia, or abnormal enhancement is seen, including in the temporal bone regions. The major arterial flow voids are present. Impression: Exam within normal limits. . Dictated by: KATE CASTILLO 03/28/2008 16:51 Electronically signed by: KATE CASTILLO 03/29/2008 12:55 Transcribed: 03/28/2008 21:09 SJ Procedure Note Kate Castillo - 03/29/2008 [facility] [address], [place] [address] Admit Date: 03/28/2008 MELLISA VANESSA M Sex: F Admit Prov: TAZ JOHNSON Date: 1950 Primary Care Prov: TAZ JOHNSON CMRN: [id number] [id number] IM[facility] Ordering Prov: N/A Interpretation MRI OF BRAIN WITHOUT AND WITH IV CONTRAST 03/28/2008 History: Dizziness, vertigo, bilateral intermittent hearing loss. Findings: Routine brain and dedicated IAC sequences were performed demonstrating normal signal and appearance of the brain parenchyma,with normal sized ventricles. No mass, shift, ischemia, or abnormalenhancement is seen, including in the temporal bone regions. The major arterialflow voids are present. Impression: Exam within normal limits. . Dictated by: KATE CASTILLO 03/28/2008 16:51 Electronically signed by: KATE CASTILLO 03/29/2008 12:55 Transcribed: 03/28/2008 21:09 SJ us Taz Johnson MD MR ORDERABLES Final Result * POC CREATININE (03/28/2008 3:59 PM CDT) CREATININE POC 1.1 0.6 - 1.3 mg/dL [facility] Capillary blood specimen (specimen) 03/28/2008 3:59 PM CDT 03/28/2008 3:59 PM CDT us Taz Johnson MD POINT OF CARE TESTING Final Resu lt [facility] [address] [place] [address] documented in this encounter Visit Diagnoses Diagnosis Dizziness and giddiness documented in this encounter Care Teams Business Continuity Manager Relationship Specialty Start Date End Date Taz Johnson MD PCP - General 04/24/08 documented as of this encounter
--- OUTSIDE RECORDS SUMMARY | 2025-01-22 10:43 | XMS_ITS | Encounter Summary ---
Author Organization [facility] Address [address] [place] [address] Care Team Providers Care Paper Final Inspector Name Role Phone Yolie Johnson MD Primary Care Provider [phone] Encounter Details Date Type Department Care Team (Latest Contact Info) Description 12/11/1999 Outpatient Historical [facility] Jose Eden Unspecified hearing loss (Primary Dx) Social History Tobacco Use Types Packs/Day Years Used Date Smoking Tobacco: Never Assessed Comments Unknown Sex and Gender Information Value Date Recorded Sex Assigned at Not on file Legal Sex Female 3:30 AM MARKET RESEARCH ASSOCIATE Gender Identity Not on file Sexual Orientation Not on file documented as of this encounter Plan of Treatment Not on file documented as of this encounter Visit Diagnoses Diagnosis Unspecified hearing loss- Primary documented in this encounter Care Teams Paper Final Inspector Relationship Specialty Start Date End Date Yolie Johnson MD PCP - General 04/24/08 documented as of this encounter
--- OUTSIDE RECORDS SUMMARY | 2025-01-22 10:43 | XMS_ITS | Clinical Summary ---
Author Organization [facility] [facility] Address [address] [facility] [place] [address] Phone Care Team Providers Care [employer] Principal Name Role Phone Yolie Johnson MD Primary Care Provider [phone] Allergies Active Allergy Reactions Criticality Noted Date Comments Antihistamines Other (See Comments) 05/15/2005 Medications CLARITIN 10 MG TAB 1 po qd prn 30.00 0 7 Active naproxen (NAPROSYN) 500 mg Oral tablet Take 1 Tab by mouth 2 times daily with meals. 30 Tab 2 1 Active fluticasone (FLONASE) 50 mcg/spray Both Nostril SpSnIndications :Allergic rhinitis Administer 2 Sprays in each nostril daily. 1 Bottle 1 1 Active levothyroxine (SYNTHROID) 50 mcg Oral tablet Take 1 Tab by mouth daily. 90 Tab 3 1 Active omeprazole (PRILOSEC) 20 mg Oral CpDR Take 1 Cap by mouth daily. 90 Cap 3 1 Active pravastatin (PRAVACHOL) 40 mg Oral tablet Take 1 Tab by mouth Daily LATE. 90 Tab 3 1 Active Active Problems Patient Care Coordination No te Formatting of this note migh t be different from the original. GI: Dr. Marquez Problem Noted Date Diagnosed Date Stress incontinence 02/16/2011 Vitamin D deficiency 02/05/2010 Hypothyroidism 01/08/2010 Proteinuria 03/21/2008 Allergic rhinitis, cause unspecified 10/07/2005 Esophageal reflux 05/15/2005 Other and unspecified hyperlipidemia 05/15/2005 Osteoporosis, unspecified 05/15/2005 Resolved Problems Problem Noted Date Diagnosed Date Resolved Date Colon polyp 10/09/2010 01/13/2011 Overview (10/13/2010): Tubular adenoma Urinary tract infection, site not specified 03/21/2008 12/12/2008 Breast screening, unspecified 06/24/2007 12/12/2008 Routine gynecological examination 06/24/2007 12/12/2008 Screening examination for venereal disease 06/24/2007 12/12/2008 Abdominal pain, left upper quadrant 11/30/2006 12/12/2008 Dizziness and giddiness 06/30/200611/29 Glossitis 02/03/2006 12/12/2008 Encounter for long-term (cur rent) use of other medications 02/03/2006 12/12/2008 Acute conjunctivitis, unspecified 01/13/2006 12/12/2008 Overview (03/19/2008): OS Examination for medicolegal reason 10/07/2005 12/12/2008 Disturbance of skin sensation 05/15/2005 12/12/2008 Carpal tunnel syndrome 05/15/200512/12 Chest pain, unspecified 05/15/200508/29 Diverticulosis of colon (wit hoflorencia mention of hemorrhage) 05/15/2005 01/08/2010 Unspecified hemorrhoids with out mention of complication 05/15/2005 12/12/2008 Immunizations Immunization Administration Dates Next Due (ADACEL/BOOSTRIX)(10 YR UP) TDAP VACCINE, 0.5ML, IM 11/25/2009 (TDVAX)(7 YRS UP) TETANUS AN D DIPHTHERIA TOXOIDS, ADSORBED (2 LF OF TETANUS TOXOID AND 2 LF OF DIPHTHERIA TOXOID), 0.5ML (PF), IM 1999 Influenza Seasonal Unspecified Formulation IM Family History Medical History Relation Name Comments Heart Disease Brother 1 Cancer Brother 2 cancer polyps i n colon Healthy Daughter Cancer Father Other Father Cancer Mother lymphoma Diabetes Sister Hypertension Sister Relation Name Status Comments Brother 1 Alive Brother 2 Alive Daughter Alive Father Mother Sister Alive Social History Tobacco Use Types Packs/Day Years Used Date Smoking Tobacco: Former Smokeless Tobacco: Never Alcohol Use Standard Drinks/Week Comments Yes 0.8 (1 standard drink = 0.6 oz p ure alcohol) Comments No Sex and Gender Information Value Date Recorded Sex Assigned at Not on file Legal Sex Female 3:30 AM CABLE BRAIDER Gender Identity Not on file Sexual Orientation Not on file Last Filed Vital Signs Vital Sign Reading Time Taken Comments Blood Pressure 126/88 02/16/2011 12:05 PM CDT Pulse 80 02/16/2011 12:05 PM CDT Temperature 37.1 C (98.7 F) 01/13/2011 12:48 PM CABLE BRAIDER Respiratory Rate - - Oxygen Saturation - - Inhaled Oxygen Concentration - - Weight 83.9 kg (185 lb) 02/16/2011 12:05 PM CDT Height 165.1 cm (5' 5 ) 02/16/2011 12:05 PM CDT Body Mass Index 30.79 02/16/2011 12:05 PM CDT Plan of Treatment Health Maintenance Due Date Last Done Comments FIT-DNA Q 3 years 1994 FIT/FOBT Q 1 year 1994 Flex Sig/CT Colonography Q 5 years 1994 PNEUMOCOCCAL VACCINE 65+ YEA RS (1 of 1 - PCV) 1999 ZOSTER VACCINE (1 of 2) 1999 OSTEOPOROSIS SCREENING 12/02/2011 12/02/2009 COLORECTAL SCREENING 10/18/2013 10/18/2010, 11/29/19 03 Colorectal Cancer Screening 10/18/2013 DTAP/TDAP/TD VACCINES (2 - Td or Tdap) 11/25/2019, 1999 RSV VACCINE (60+ or ) (1 - 1-dose 75+ series) 01/28/2024 INFLUENZA VACCINE (#1) 2024 09/05/2010 Preventative Visit- Commercial 11/29/2024 02/16/2011 , 09/14/2000 Procedures Procedure Name Priority Date/Time Associated Diagnosis Comments XR DEXA BONE DENSITY AXIAL 1 OR MORE SITES Routine 12/02/2009 10:42 AM CABLE BRAIDER Unspecified Osteoporosis from Last 3 Months or Most Recently Relevant to Health Maintenance Results * XR DEXA BONE DENSITY AXIAL 1 OR MORE SITES (12/02/2009 10:42 AM CABLE BRAIDER) Anatomical Region Laterality Modality Digital Radiogra phy 12/02/2009 10:4 1 AM CABLE BRAIDER Impressions 12/02/2009 10:52 AM CABLE BRAIDER IMPRESSION: Lumbar spine: This patient's bone mineral density of the spine is osteoporotic when compared to the normal range of young adults and present fracture risk is considered to be moderate. Hips: This patient's bone mineral density of the hip is osteopenic but normal for age when compared to the normal range of young adults and present fracture risk is considered to be low. Comments: None. Detailed report to follow. Dictated by Dr. Twin Thao MD FAC Narrative 12/02/2009 10:52 AM CABLE BRAIDER Examination: Bone Density Study (DEXA) Clinical History: 59 year-old postmenopausal female with osteoporosis. Monitor for change in bone density. Findings: Comparison values to prior exams: Lumbar Spine ( L 1-4 ) bone mineral density is 0.83 g/sq cm and corresponds to a T-score of -2.9. The prior spine bone mineral density on 12/05/2007 was 0.82 g/sq cm and represents an increase of 0.01 g/sq cm or 1.2 %. Left femoral neck bone mineral density is 0.85 g/sq cm and corresponds to a T- score of -1.4. The prior femoral neck bone mineral density on 12/05/2007 was 0.83 g/sq cm and represents an increase of 0.017 g/sq cm or 2.1 %. Right femoral neck bone mineral density is 0.83 g/sq cm and corresponds to a T- score of -1.5. The prior femoral neck bone mineral density on 12/05/2007 was 0.82 g/sq cm and represents an increase of 0.003 g/sq cm or point for %. Average femoral neck bone mineral density is 0.84 g/sq cm and corresponds to a T-score of -1.4. Procedure Note Twin Thao MD - 12/02/2009 Examination: Bone Density Study (DEXA) Clinical History: 59 year-old postmenopausal female with osteoporosis.Monitor for change in bone density. Findings: Comparison values to prior exams: Lumbar Spine ( L 1-4 ) bone mineral density is 0.83 g/sq cm andcorresponds to a T-score of -2.9. The prior spine bone mineral density on 12/05/2007 was 0.82 g/sq cm andrepresents an increase of 0.01 g/sq cm or 1.2 %. Left femoral neck bone mineral density is 0.85 g/sq cm and corresponds toa T- score of -1.4. The prior femoral neck bone mineral density on 12/05/2007 was 0.83 g/sq cm andrepresents an increase of 0.017 g/sq cm or 2.1 %. Right femoral neck bone mineral density is 0.83 g/sq cm and corresponds toa T- score of -1.5. The prior femoral neck bone mineral density on 12/05/2007 was 0.82 g/sq cm andrepresents an increase of 0.003 g/sq cm or point for %. Average femoral neck bone mineral density is 0.84 g/sq cm and correspondsto a T- score of -1.4. IMPRESSION IMPRESSION: Lumbar spine: This patient's bone mineral density of the spine isosteoporotic when compared to the normal range of young adults and present fracture risk is considered to bemoderate. Hips: This patient's bone mineral density of the hip is osteopenic butnormal for age when compared to the normal range of young adults and present fracture risk is consideredto be low. Comments: None. Detailed report to follow. Dictated by Dr. Twin Thao MD [facility] us Yolie Johnson MD DIAGNOSTIC IMAGING ORDERABLES Final Result from Last 3 Months or Most Recently Relevant to Health Maintenance Insurance Care Teams [employer] Principal Relationship Specialty Start Date End Date Yolie Johnson MD PCP - General 04/24/08
--- OUTSIDE RECORDS SUMMARY | 2025-01-22 10:43 | XMS_ITS | Encounter Summary ---
Author Organization [employer] Address [address] [place] [address] Care Team Providers Care Horticultural Farm Manager Name Role Phone Yolie Johnson MD Primary Care Provider [phone] Encounter Details Date Type Department Care Team (Late st Contact Info) Description 12/01/1999 Outpatient [facility] Division of Neurology [address] [place] [address]., [address] [address] Jose Penaloza Social History Tobacco Use Types Packs/Day Years Used Date Smoking Tobacco: Never Assessed Comments Unknown Sex and Gender Information Value Date Recorded Sex Assigned at Not on file Legal Sex Female 3:30 AM GAUGE CHECKER Gender Identity Not on file Sexual Orientation Not on file documented as of this encounter Plan of Treatment Not on file documented as of this encounter Visit Diagnoses Not on filedocumented in this encounter Care Teams Horticultural Farm Manager Relationship Specialty Start Date End Date Yolie Johnson MD PCP - General 04/24/08 documented as of this encounter
--- OUTSIDE RECORDS SUMMARY | 2025-01-22 10:43 | XMS_ITS | Encounter Summary ---
Author Organization [facility] Address [address] [place] [address] Care Team Providers Care Office Machine Servicer Name Role Phone Yolie Johnson MD Primary Care Provider [phone] Encounter Details Date Type Department Care Team (Late st Contact Info) Description 09/10/2000 Outpatient Historical [facility] Internal Medicine - [facility] [address] [id number] [facility] [address] [place] [address] Yolie Johnson MD Social History Tobacco Use Types Packs/Day Years Used Date Smoking Tobacco: Never Assessed Comments Unknown Sex and Gender Information Value Date Recorded Sex Assigned at Not on file Legal Sex Female 3:30 AM INSULATION ESTIMATOR Gender Identity Not on file Sexual Orientation Not on file documented as of this encounter Plan of Treatment Not on file documented as of this encounter Visit Diagnoses Not on filedocumented in this encounter Care Teams Office Machine Servicer Relationship Specialty Start Date End Date Yolie Johnson MD PCP - General 04/24/08 documented as of this encounter
--- OUTSIDE RECORDS SUMMARY | 2025-01-22 10:43 | XMS_ITS | Encounter Summary ---
Author Organization [facility] Address [address] [place] [address] Care Team Providers Care Sweatband Shaper Name Role Phone Yolie Johnson MD Primary Care Provider Encounter Details Date Type Department Care Team (Late st Contact Info) Description 06/08/2003 Outpatient Historical [facility] Internal Medicine - [facility] [address] [address] [facility] [address] [place] [address] Yolie Johnson MD Social History Tobacco Use Types Packs/Day Years Used Date Smoking Tobacco: Never Assessed Comments Unknown Sex and Gender Information Value Date Recorded Sex Assigned at Not on file Legal Sex Female 3:30 AM WEB PRODUCTION DESIGNER Gender Identity Not on file Sexual Orientation Not on file documented as of this encounter Plan of Treatment Not on file documented as of this encounter Visit Diagnoses Not on filedocumented in this encounter Care Teams Sweatband Shaper Relationship Specialty Start Date End Date Yolie Johnson MD PCP - General 04/24/08 documented as of this encounter
--- OUTSIDE RECORDS SUMMARY | 2025-01-22 10:43 | XMS_ITS | Encounter Summary ---
Author Organization [facility] Address [address] [place] [address] Care Team Providers Care Cold Mill Operator Name Role Phone Yolie Johnson MD Primary Care Provider Encounter Details Date Type Department Care Team (Late st Contact Info) Description 05/16/2004 Outpatient Historical [facility] Internal Medicine - [facility] [address] [address] [facility] [address] [place] [address] Yolie Johnson MD Social History Tobacco Use Types Packs/Day Years Used Date Smoking Tobacco: Never Assessed Comments Unknown Sex and Gender Information Value Date Recorded Sex Assigned at Not on file Legal Sex Female 3:30 AM INSTRUCTIONAL SYSTEMS SPECIALIST Gender Identity Not on file Sexual Orientation Not on file documented as of this encounter Plan of Treatment Not on file documented as of this encounter Visit Diagnoses Not on filedocumented in this encounter Care Teams Cold Mill Operator Relationship Specialty Start Date End Date Yolie Johnson MD PCP - General 04/24/08 documented as of this encounter
--- OUTSIDE RECORDS SUMMARY | 2025-01-22 10:43 | XMS_ITS | Encounter Summary ---
Author Organization [facility] Address [address] [place] [address] Care Team Providers Care Teradata Solution Architect Name Role Phone Yolie Johnson MD Primary Care Provider [phone] Encounter Details Date Type Department Care Team (Late st Contact Info) Description 05/22/2003 Outpatient Historical [facility] Internal Medicine - [facility] [address] [address] [facility] [address] [place] [address] Yolie Johnson MD Social History Tobacco Use Types Packs/Day Years Used Date Smoking Tobacco: Never Assessed Comments Unknown Sex and Gender Information Value Date Recorded Sex Assigned at Not on file Legal Sex Female 3:30 AM WATCHMAKING TEACHER Gender Identity Not on file Sexual Orientation Not on file documented as of this encounter Plan of Treatment Not on file documented as of this encounter Visit Diagnoses Not on filedocumented in this encounter Care Teams Teradata Solution Architect Relationship Specialty Start Date End Date Yolie Johnson MD PCP - General 04/24/08 documented as of this encounter
--- OUTSIDE RECORDS SUMMARY | 2025-01-22 10:43 | XMS_ITS | Encounter Summary ---
Author Organization [facility] Address [address] [place] [address] Care Team Providers Care Candle Molder Machine Name Role Phone Yolie Johnson MD Primary Care Provider [phone] Encounter Details Date Type Department Care Team (Late st Contact Info) Description 10/07/2005 Outpatient Historical [facility] Internal Medicine - [facility] [address] [address] [facility] [address] [place] [address] Yolie Johnson MD Social History Tobacco Use Types Packs/Day Years Used Date Smoking Tobacco: Never Assessed Comments Unknown Sex and Gender Information Value Date Recorded Sex Assigned at Not on file Legal Sex Female 3:30 AM TANK WASHER Gender Identity Not on file Sexual Orientation Not on file documented as of this encounter Last Filed Vital Signs Vital Sign Reading Time Taken Comments Blood Pressure 124/76 10/07/2005 2:15 PM TANK WASHER Pulse 68 10/07/2005 2:15 PM TANK WASHER Temperature - - Respiratory Rate - - Oxygen Saturation - - Inhaled Oxygen Concentration - - Weight 74.4 kg (164 lb) 10/07/2005 2:15 PM TANK WASHER Height - - Body Mass Index - - documented in this encounter Plan of Treatment Not on file documented as of this encounter Visit Diagnoses Not on filedocumented in this encounter Care Teams Candle Molder Machine Relationship Specialty Start Date End Date Yolie Johnson MD PCP - General 04/24/08 documented as of this encounter
== END 2025-01-22 09:47 | disposition home or self-care (01) ==
LOC: ANHIMG 09:48
PROVIDERS: PCP Internal Medicine; Visit Provider Nurse Practitioner
DX: Z12.31 Encounter for screening mammogram for malignant neoplasm of breast (principal)
CPT/HCPCS: 77063; 77067

== ENCOUNTER 2025-01-24 14:28 | Outpatient (CLI) | payer MEDICARE, SELFPAY ==
--- NOTE | ~2025-01-24 | XR_ITS ---
EXAMINATION: XR chest 2V Exam Date/Time: 01/24/2025 14:35 TENON MACHINE OPERATOR HISTORY: R07.9 - Chest pain, unspecified Comparison: 12/22/2021. RESULT: Lines, tubes, and devices: None. Lungs and pleura: Scattered calcified granulomas, otherwise clear. Cardiomediastinal silhouette: Stable. Cause for lymph node. Other: No acute osseous or upper abdominal finding. IMPRESSION: No acute cardiopulmonary process. Reviewed, dictated and finalized at location K. N MACHINE OPERATOR
--- OUTSIDE RECORDS SUMMARY | 2025-01-24 16:36 | XMS_ITS | Encounter Summary ---
Author Organization [facility] Address [address] [place] [address] Care Team Providers Care Edge Trimming Machine Operator Name Role Phone Yolie Johnson MD Primary Care Provider [phone] Encounter Details Date Type Department Care Team (Late st Contact Info) Description 07/19/2000 Outpatient Historical [facility] Internal Medicine - [facility] [address] [address] [facility] [address] [place] [address] Yolie Johnson MD Social History Tobacco Use Types Packs/Day Years Used Date Smoking Tobacco: Never Assessed Comments Unknown Sex and Gender Information Value Date Recorded Sex Assigned at Not on file Legal Sex Female 3:30 AM ATHLETE MARKETING AGENT Gender Identity Not on file Sexual Orientation Not on file documented as of this encounter Plan of Treatment Not on file documented as of this encounter Visit Diagnoses Not on filedocumented in this encounter Care Teams Edge Trimming Machine Operator Relationship Specialty Start Date End Date Yolie Johnson MD PCP - General 04/24/08 documented as of this encounter
--- OUTSIDE RECORDS SUMMARY | 2025-01-24 16:36 | XMS_ITS | Encounter Summary ---
Author Organization [facility] Address [address] [facility] [place] [address] Care Team Providers Care Funeral Prearrangement Counselor Name Role Phone Justin Barreto MD Primary Care Provider Unavail Anjum Grubbs PA-C Primary Care Provide r Encounter Details Date Type Department Care Team (Late st Contact Info) Description 07/29/2022 Lab Requisition [facility] DermPath Lab [address] [place] [address] [place] [address] Social History Tobacco Use Types Packs/Day Years [...] AM CDT) Case Report Dermatopathology Report Case: [id number] Authorizing Provider: Milton Burns MD Collected: 07/28/2022 03:33 AM Ordering Location: [facility] Received: 07/29/2022 12:18 PM Pathologist: [...] specimen consists of a shave biopsy measuring [id number]. Jar 0. 2 2:08 PM CDT DERMATOPATHOLOGY [...] characteristic determined by the Dermatopathology Laboratory at [facility], directed by Dr. Koki Benjamin. These tests need not be, and therefore are not, approved by the [place] Food and Drug Administration. The tests are used for clinical purposes. Billing Codes Specimen Charges Stain Charges 71723 1 2 2:08 PM CDT DERMATOPATHOLOGY LABORATORY Embedded Images 2 2:08 PM CDT DERMATOPATHOLOGY LABORATORY Pathology/Cytolo gy TISSUE SPECIMEN FROM SKIN / Unknown 07/28/2022 3:33 AM CDT 07/29/2022 12:18 PM CDT Milton Burns MD LAB - PATHOLOGY/CYTO LOGY ORDERABLES DERMATOPATHOLOGY LABORATORY [facility] - Department of Dermatology [address], [address] [phone] documented in this encounter Visit Diagnoses Not on filedocumented in this encounter Care Teams Funeral Prearrangement Counselor Relationship Specialty Start Date End Date Justin Barreto MD NEED INFORMATION UPDATED PCP - General 12/07/19 03/03/23 Anjum Ball PA-C [address] [place] [address] PCP - General 03/04/23 documented as of this encounter
--- OUTSIDE RECORDS SUMMARY | 2025-01-24 16:36 | XMS_ITS | Clinical Summary ---
Author Organization [facility] Address [address] [facility] [place] [address] Care Team Providers Care Rehabilitation Aide Name Role Phone Anjum Ball PA-C Primary Care Provide r Source Comments [facility],non-owned Affiliates and Associated Physician Practices is amultiple site organization consisting of ambulatory clinics and hospital sitesin [place], [place], [place] and [place]. This disclosure is being madepursuant to the Care Everywhere program and may not contain all information available regarding this patient. Last updated 18.[facility] [place] Social History Tobacco Use Types Packs/Day Years [...] age to complete this topic Care Teams Rehabilitation Aide Relationship Specialty Start Date End Date Anjum Ball PA-C [address] [place] [address] PCP - General 03/04/23
--- OUTSIDE RECORDS SUMMARY | 2025-01-24 16:36 | XMS_ITS | Encounter Summary ---
Author Organization [facility] Address [address] [place] [address] Care Team Providers Care Director Of Ancillary Services Name Role Phone Yolie Johnson MD Primary Care Provider [phone] Encounter Details Date Type Department Care Team (Late st Contact Info) Description 03/17/1999 Outpatient Historical [facility] Internal Medicine - [facility] [address] [address] [facility] [address] [place] [address] Yolie Johnson MD Social History Tobacco Use Types Packs/Day Years Used Date Smoking Tobacco: Never Assessed Comments Unknown Sex and Gender Information Value Date Recorded Sex Assigned at Not on file Legal Sex Female 3:30 AM SPRING REPAIRER HELPER HAND Gender Identity Not on file Sexual Orientation Not on file documented as of this encounter Plan of Treatment Not on file documented as of this encounter Visit Diagnoses Not on filedocumented in this encounter Care Teams Director Of Ancillary Services Relationship Specialty Start Date End Date Yolie Johnson MD PCP - General 04/24/08 documented as of this encounter
--- OUTSIDE RECORDS SUMMARY | 2025-01-24 16:36 | XMS_ITS | Continuity of Care Document ---
Author Organization [facility] Address [address] [facility] [address] [place] [address] Phone Care Team Providers Care Chemical Tank Worker Name Role Phone Sherry PT, MSSilvestre Unavailable Unavailable Procedures Procedure Date PT RE-EVALUATION THERAPEUTIC EXERCISES MANUAL THERAPY HOT/COLD PACK ELECTRIC STIMULATION UNATT Theraband, per yard THERAPEUTIC EXERCISES MANUAL THERAPY ELECTRIC STIMULATION UNATT THERAPEUTIC EXERCISES MANUAL THERAPY ELECTRIC STIMULATION UNATT Advance Directives Directive Yes / No Effective Date File Name No Information Encounters Encounter Description Practice Location Reason(s) For Visit Diagnoses Date Provider Providers Copied on Encounter [facility], [address] [place] [address], [id number], tel:[phone] [place] No Information 2 Sherry Rivers. [address] [facility], [facility] [address], [place], [place], [facility], [place]. tel: [phone] Referring Provider: Curt Cao, [address] [place] [address], [address]. tel:[phone] [facility], [address] [place] [address], [id number], tel:[phone] [place] No Information 2 Sherry Rivers. [address] [facility], [address], [place], [address], . tel:[phone] Referring Provider: Curt Cao, [address] [place], [address]. tel:[phone] [place] [place], [address] [facility] [address], [place], [place], [id number], [place] tel:[phone] [place] Cervicalgia 2 Sherry Rivers. [address] [facility], [facility] [address], [place], [address], . tel:[phone] Referring Provider: Curt Cao, [address] [place], [address]. tel:[phone] Family History Family Member Type Diagnosis Age At Onset No Information Payers Payer name Insurance type Covered democrat ID Authormary rodríguez(s) [facility] [id number] Social History Type Description Quantity Date Captured Comments Sex Female Smoking Status No Information Chief Complaint And Reason For Visit No Information Reason For Referral Reason For Referral No Information History Of Present Illness Encounter Date Complaint History Of Prese nt Illness No Information Functional Status Date Functional Assessmen t No Information Instructions Date Instruction Additional Infor mation No Information Assessments Type Assessment Date No Information Patient Care Teams Name Effective Dates (start - stop) Status Members No Information
--- OUTSIDE RECORDS SUMMARY | 2025-01-24 16:36 | XMS_ITS | Referral Summary ---
Author Organization [facility] Address [address] [facility] [place] [address] Care Team Providers Care Oracle Ebs Developer Name Role Phone Anjum Ball PA-C Primary Care Provide r Source Comments [facility] Affiliates and Associated Physician Practices is amultiple site organization consisting of ambulatory clinics and hospital sitesin [place], [place], [place] and [place]. This disclosure is being madepursuant to the Care Everywhere program and may not contain all information available regarding this patient. Last updated 18.[facility] [employer] Social History Tobacco Use Types Packs/Day Years [...] of Treatment Not on file Care Teams Oracle Ebs Developer Relationship Specialty Start Date End Date Anjum Ball PA-C [address] [place] [address] PCP - General 03/04/23
--- OUTSIDE RECORDS SUMMARY | 2025-01-24 16:36 | XMS_ITS | Encounter Summary ---
Author Organization [facility] Address [address] [place] [address] Care Team Providers Care Bull Float Finisher Name Role Phone Yolie Johnson MD Primary Care Provider [phone] Encounter Details Date Type Department Care Team (Late st Contact Info) Description 03/21/2008 Outpatient Historical [facility] Internal Medicine - [facility] [address] [address] [facility] [address] [place] [address] Yolie Johnson MD Social History Tobacco Use Types Packs/Day Years Used Date Smoking Tobacco: Never Assessed Comments Unknown Sex and Gender Information Value Date Recorded Sex Assigned at Not on file Legal Sex Female 3:30 AM LAWNMOWER 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
--- OUTSIDE RECORDS SUMMARY | 2025-01-24 16:36 | XMS_ITS | Encounter Summary ---
Author Organization [facility] Address [address] [place] [address] Care Team Providers Care Handkerchief Folder Name Role Phone Yolie Johnson MD Primary Care Provider [phone] Encounter Details Date Type Department Care Team (Late st Contact Info) Description 11/30/2006 Outpatient Historical [facility] Internal Medicine - [facility] [address] [address] [facility] [address] [place] [address] Yolie Johnson MD Social History Tobacco Use Types Packs/Day Years Used Date Smoking Tobacco: Never Assessed Comments Unknown Sex and Gender Information Value Date Recorded Sex Assigned at Not on file Legal Sex Female 3:30 AM SAFETY INSPECTOR Gender Identity Not on file Sexual Orientation Not on file documented as of this encounter Last Filed Vital Signs Vital Sign Reading Time Taken Comments Blood Pressure 130/78 11/30/2006 1:45 PM SAFETY INSPECTOR Pulse 84 11/30/2006 1:45 PM SAFETY INSPECTOR Temperature - - Respiratory Rate - - Oxygen Saturation - - Inhaled Oxygen Concentration - - Weight 78.9 kg (174 lb) 11/30/2006 1:45 PM SAFETY INSPECTOR Height - - Body Mass Index - - documented in this encounter Plan of Treatment Not on file documented as of this encounter Visit Diagnoses Not on filedocumented in this encounter Care Teams Handkerchief Folder Relationship Specialty Start Date End Date Yolie Johnson MD PCP - General 04/24/08 documented as of this encounter
--- OUTSIDE RECORDS SUMMARY | 2025-01-24 16:36 | XMS_ITS | Clinical Summary ---
Author Organization [facility] Address [facility] [place] [address] Care Team Providers Care Shagger Name Role Phone Anjum Ball PA-C Primary Care Provider [phone] Allergies No known active allergies Medications levothyroxine [...] Comments Blood Pressure 143/81 01/20/2024 2:14 PM SEMICONDUCTOR WAFERS MARKER Pulse 91 01/20/2024 2:14 PM SEMICONDUCTOR WAFERS MARKER Temperature 36.2 C (97.1 F) 01/20/2024 2:14 PM SEMICONDUCTOR WAFERS MARKER Respiratory Rate 18 10/06/2022 1:08 PM SEMICONDUCTOR WAFERS MARKER Oxygen Saturation 97% 01/20/2024 2:14 PM SEMICONDUCTOR WAFERS MARKER Inhaled Oxygen Concentration - - Weight 79.4 kg (175 lb) 01/20/2024 2:14 PM SEMICONDUCTOR WAFERS MARKER Height 167.6 cm (5' 6 ) 01/20/2024 2:14 PM SEMICONDUCTOR WAFERS MARKER Body Mass Index 28.25 01/20/2024 2:14 PM SEMICONDUCTOR WAFERS MARKER Plan of Treatment Health Maintenance Due Date [...] 07/26/2017, 07/30/2015, Additional history exists PHQ-2 (Physician Ambler) 11/29/2024 01/20/2024 PHQ-2 (Physician Ambler) 01/20/2025 01/20/2024 Dexa Scan (General) Completed 12/02/2009 [...] complete this topic Insurance AET[employer] Care Teams Shagger Relationship Specialty Start Date End Date Anjum Ball PA-C [address] [facility] [address] [place] [address] PCP - General PHYSICIAN CVT RN 07/20/22
--- OUTSIDE RECORDS SUMMARY | 2025-01-24 16:36 | XMS_ITS | Encounter Summary ---
Author Organization [facility] Address [address] [place] [address] Care Team Providers Care Welding Equipment Repairer Name Role Phone Yolie Johnson MD Primary Care Provider [phone] Encounter Details Date Type Department Care Team (Late st Contact Info) Description 03/21/2008 Outpatient Historical [facility] Internal Medicine - [facility] [address] [address] [facility] [address] [place] [address] Yolie Johnson MD Social History Tobacco Use Types Packs/Day Years Used Date Smoking Tobacco: Never Assessed Comments Unknown Sex and Gender Information Value Date Recorded Sex Assigned at Not on file Legal Sex Female 3:30 AM EQUIPMENT OPERATOR Gender Identity Not on file Sexual Orientation Not on file documented as of this encounter Plan of Treatment Not on file documented as of this encounter Visit Diagnoses Not on filedocumented in this encounter Care Teams Welding Equipment Repairer Relationship Specialty Start Date End Date Yolie Johnson MD PCP - General 04/24/08 documented as of this encounter
--- OUTSIDE RECORDS SUMMARY | 2025-01-24 16:36 | XMS_ITS | Encounter Summary ---
Author Organization [facility] Address [address] [facility] Attn: Epic Prelude ADT [place] [address] Care Team Providers Care Chip Tester Name Role Phone Yolie Johnson MD Primary Care Provider [phone] Encounter Details Date Type Department Care Team (Latest Contact Info) Description 03/21/2008 Orders Only Yolie Johnson MD Social History Tobacco Use Types Packs/Day Years Used Date Smoking Tobacco: Never Assessed Comments Unknown Sex and Gender Information Value Date Recorded Sex Assigned at Not on file Legal Sex Female 3:30 AM PRIMARY CARE PHYSICIAN Gender Identity Not on file Sexual Orientation Not on file documented as of this encounter Progress Notes * [facility], [employer] Transcriptions - 05/04/2008 11:11 AM CDT NURSE [...] Ramsey on Wednesday, April 02, 2008 * [facility] [employer] Transcriptions - 05/04/2008 11:11 AM CDT PULSE: [...] is noted, no splenomegaly. NEUROLOGIC: CRANIAL NERVES: pick pulling machine tender II-XII grossly intact. DEEP TENDON REFLEXES: Deep tendon reflexes 2+/4 and symmetrical. No cerebellar signs present. Positive George Alphonso Lillye PSYCHIATRIC: Judgment appropriate. Oriented. Normal memory. Mood and affect appropriate. ASSESSMENT/PLAN: 780.4-VERTIGO/DIZZINESS /tinnitus MEDICATIONS: MECLIZINE HCL ORAL TABLET 25 MG, 1 Every Eight Hours, 30 Dispensed, status: NEW PRESCRIPTION, 03/21/2008. LAB ORDERS: Order number: [id number] Test Ordered: MRI BRAIN W/CONTRAST 599.0-URINARY TRACT INFECTION MEDICATIONS: BACTRIM DS ORAL TABLET 800-160 MG, 1 Two Times A Day, 14 Dispensed, status: NEW PRESCRIPTION, 03/21/2008. Electronically Signed by: Yolie Johnson MD on Friday, March 21, 2008 documented in this encounter Plan of Treatment Not on file documented as of this encounter Visit Diagnoses Not on filedocumented in this encounter Care Teams Chip Tester Relationship Specialty Start Date End Date Yolie Johnson MD PCP - General 04/24/08 documented as of this encounter
--- OUTSIDE RECORDS SUMMARY | 2025-01-24 16:36 | XMS_ITS | Encounter Summary ---
Author Organization [employer] Address [address] [place] [address] Care Team Providers Care Lawyers Name Role Phone Yolie Johnson MD Primary Care Provider [phone] Encounter Details Date Type Department Care Team (Late st Contact Info) Description 12/18/2008 Outpatient Historical [facility] Yolie Johnson MD [employer] [facility] [place] [place] [address] Abdominal Pain, Epigastric Social History Tobacco Use Types Packs/Day Years Used Date Smoking Tobacco: Never Assessed Comments No Sex and Gender Information Value Date Recorded Sex Assigned at Not on file Legal Sex Female 3:30 AM COUNTER INTELLIGENCE AGENT Gender Identity Not on file Sexual Orientation Not on file documented as of this encounter Plan of Treatment Not on file documented as of this encounter Visit Diagnoses Diagnosis Abdominal pain, epigastric documented in this encounter Care Teams Lawyers Relationship Specialty Start Date End Date Yolie Johnson MD PCP - General 04/24/08 documented as of this encounter
--- OUTSIDE RECORDS SUMMARY | 2025-01-24 16:36 | XMS_ITS | Encounter Summary ---
Author Organization [facility] Address [address] [place] [address] Care Team Providers Care Educational Aid Name Role Phone Yolie Johnson MD Primary Care Provider [phone] Encounter Details Date Type Department Care Team (Late st Contact Info) Description 06/30/2006 Outpatient Historical [facility] Internal Medicine - [facility] [address] [address] [facility] [address] [place] [address] Yolie Johnson MD Social History Tobacco Use Types Packs/Day Years Used Date Smoking Tobacco: Never Assessed Comments Unknown Sex and Gender Information Value Date Recorded Sex Assigned at Not on file Legal Sex Female 3:30 AM SENIOR UNIX ADMINISTRATOR Gender Identity Not on file Sexual Orientation [...] on filedocumented in this encounter Care Teams Educational Aid Relationship Specialty Start Date End Date Yolie Johnson MD PCP - General 04/24/08 documented as of this encounter
--- OUTSIDE RECORDS SUMMARY | 2025-01-24 16:36 | XMS_ITS | Encounter Summary ---
Author Organization [employer] [facility] Address [address] [place] [address] Care Team Providers Care Monument Carver Name Role Phone Yolie Johnson MD Primary [...] on file Legal Sex Female 3:30 AM CAR MANAGER Gender Identity Not on file Sexual Orientation Not on file documented as of this encounter Plan of Treatment Not on file documented as of this encounter Visit Diagnoses Diagnosis Pathologic fracture, unspecified site Osteoporosis, unspecified documented in this encounter Care Teams Monument Carver Relationship Specialty Start Date End Date Yolie Johnson MD PCP - General 04/24/08 documented as of this encounter
--- OUTSIDE RECORDS SUMMARY | 2025-01-24 16:36 | XMS_ITS | Encounter Summary ---
Author Organization [facility] Address [address] [place] [address] Care Team Providers Care Executive Account Manager Name Role Phone Yolie Johnson MD Primary Care Provider [phone] Encounter Details Date Type Department Care Team (Late st Contact Info) Description 06/24/2007 Outpatient Historical [facility] Internal Medicine - [facility] [address] [address] [facility] [address] [place] [address] Yolie Johnson MD Social History Tobacco Use Types Packs/Day Years Used Date Smoking Tobacco: Never Assessed Comments Unknown Sex and Gender Information Value Date Recorded Sex Assigned at Not on file Legal Sex Female 3:30 AM DRUM SPRAYER Gender Identity Not on file Sexual Orientation [...] on filedocumented in this encounter Care Teams Executive Account Manager Relationship Specialty Start Date End Date Yolie Johnson MD PCP - General 04/24/08 documented as of this encounter
--- OUTSIDE RECORDS SUMMARY | 2025-01-24 16:36 | XMS_ITS | Encounter Summary ---
Author Organization [facility] Address [address] [place] [address] Care Team Providers Care Nutrition Aide Name Role Phone Yolie Johnson MD Primary Care Provider Encounter Details Date Type Department Care Team (Late st Contact Info) Description 03/21/2008 Outpatient Historical [facility] Internal Medicine - [facility] [address] [address] [facility] [address] [place] [address] Yolie Johnson MD Proteinuria Social History Tobacco Use Types Packs/Day Years Used Date Smoking Tobacco: Never Assessed Comments Unknown Sex and Gender Information Value Date Recorded Sex Assigned at Not on file Legal Sex Female 3:30 AM ADAPTIVE PHYSICAL EDUCATION TEACHER Gender Identity Not on file Sexual Orientation Not on file documented as of this encounter Plan of Treatment Not on file documented as of this encounter Procedures Procedure Name Priority Date/Time Associated Diagnosis Comments URINE CULTURE Routine 03/21/2008 9:27 PM CDT documented in this encounter Results * URINE CULTURE (03/21/2008 9:27 PM CDT) PRELIMINARY REPORT Pending [facility] FINAL REPORT Polymicrobial growth present consistent with urethral elizabeth and/or colonizing bacteria. [facility] 03/21/2008 9:27 PM CDT 03/21/2008 10:15 PM CDT us Yolie Johnson MD MICROBIOLOGY - GENERAL ORDERABLE S Final Result [facility] [address] [place] [address] documented in this encounter Visit Diagnoses Diagnosis Proteinuria documented in this encounter Care Teams Nutrition Aide Relationship Specialty Start Date End Date Yolie Johnson MD PCP - General 04/24/08 documented as of this encounter
--- OUTSIDE RECORDS SUMMARY | 2025-01-24 16:36 | XMS_ITS | Continuity of Care Document ---
Author Organization [facility] Address [address] [place] [address] Phone Care Team Providers Care Cnc Field Service Engineer Name Role Phone Martinez OD, Twin Unavailable Unavailable Advance Directives Directive Yes / No Effective Date File Name No Information Encounters Encounter Description Practice Location Reason(s) For Visit Diagnoses Date Provider Providers Copied on Encounter [facility], [address], [place], [place], [id number], [place] tel:[phone] No Information 5-200 6 Martinez OD Twin. [address] [facility] , [address], [place], [address], [place]. tel:[phone] Family History Family Member Type Diagnosis Age At Onset No Information Payers Payer name Insurance type Covered libertarian ID Authoriza tion(s) No Information Social History Type Description Quantity Date Captured [...]
--- OUTSIDE RECORDS SUMMARY | 2025-01-24 16:36 | XMS_ITS | Encounter Summary ---
Author Organization [facility] Address [address] [place] [address] Care Team Providers Care Blast Furnace Checker Name Role Phone Yolie Johnson MD Primary Care Provider [phone] Encounter Details Date Type Department Care Team (Late st Contact Info) Description 01/17/[address] [facility] Internal Medicine - [facility] [address] [address] [facility] [address] [place] [address] Yolie Johnson MD Social History Tobacco Use Types Packs/Day Years Used Date Smoking Tobacco: Never Assessed Comments Unknown Sex and Gender Information Value Date Recorded Sex Assigned at Not on file Legal Sex Female 3:30 AM EMERGENCY DETAIL DRIVER Gender Identity Not on file Sexual Orientation Not on file documented as of this encounter Plan of Treatment Not on file documented as of this encounter Visit Diagnoses Not on filedocumented in this encounter Care Teams Blast Furnace Checker Relationship Specialty Start Date End Date Yolie Johnson MD PCP - General 04/24/08 documented as of this encounter
--- OUTSIDE RECORDS SUMMARY | 2025-01-24 16:36 | XMS_ITS | Encounter Summary ---
Author Organization [facility] Address [address] [place] [address] Care Team Providers Care Director Of Collections Name Role Phone Taz Johnson MD Primary Care Provider [phone] Encounter Details Date Type Department Care Team (Late st Contact Info) Description 12/13/2008 Outpatient Historical [facility] Taz Johnson MD [facility] [place] [address] Other Screening Mammogram Social History Tobacco Use Types Packs/Day Years Used Date Smoking Tobacco: Never Assessed Comments No Sex and Gender Information Value Date Recorded Sex Assigned at Not on file Legal Sex Female 3:30 AM HARMONICA MAKER Gender Identity Not on file Sexual Orientation Not on file documented as of this encounter Plan of Treatment Not on file documented as of this encounter Procedures Procedure Name Priority Date/Time Associated Diagnosis Comments MAMMO SCREEN BILAT W OR WO CAD Routine 12/13/2008 2:42 PM HARMONICA MAKER documented in this encounter Results * MAMMO DIGITAL SCREEN BILAT (12/13/2008 2:42 PM HARMONICA MAKER) Anatomical Region Laterality Modality Breast Bilateral Other 12/13/2008 2:42 PM HARMONICA MAKER Narrative 12/17/2008 10:50 PM HARMONICA MAKER [facility] [address] [place], [place] [address] Admit Date: 12/13/2008 VANESSA PAK Sex: F Admit Prov: TAZ JOHNSON Date: 1950 Primary Care Prov: TAZ JOHNSON CMRN: [id number] [id number] [facility] Ordering Prov: TAZ JOHNSON Accession Number: [id number] Interpretation BILATERAL SCREENING DIGITAL MAMMOGRAMS WITH COMPUTER [...] AMK Procedure Note Yane Posada - 12/17/[address] [address] Admit Date: 12/13/2008 VANESSA PAK Sex: F Admit Prov: TAZ JOHNSON Date: 1950 Primary Care Prov: TAZ JOHNSON Tamra CMRN: [id number] [facility] [id number] IM[facility]ING SERVICES Ordering Prov: TAZ JOHNSON Interpretation [...] mammogram documented in this encounter Care Teams Director Of Collections Relationship Specialty Start Date End Date Taz Johnson MD PCP - General 04/24/08 documented as of this encounter
--- OUTSIDE RECORDS SUMMARY | 2025-01-24 16:36 | XMS_ITS | Encounter Summary ---
Author Organization [facility] Address [address] [facility] Attn: Epic Prelude ADT [place] [address] Care Team Providers Care Case Making Machine Operator Name Role Phone Yolie Johnson MD Primary Care Provider [phone] Encounter Details Date Type Department Care Team (Latest Contact Info) Description 11/30/2006 Orders Only Yolie Johnson MD Social History Tobacco Use Types Packs/Day Years Used Date Smoking Tobacco: Never Assessed Comments Unknown Sex and Gender Information Value Date Recorded Sex Assigned at Not on file Legal Sex Female 3:30 AM MANAGER MEMBERSHIP Gender Identity Not on file Sexual Orientation [...] on filedocumented in this encounter Care Teams Case Making Machine Operator Relationship Specialty Start Date End Date Yolie Johnson MD PCP - General 04/24/08 documented as of this encounter
--- OUTSIDE RECORDS SUMMARY | 2025-01-24 16:36 | XMS_ITS | Encounter Summary ---
Author Organization [facility] Address [address] [place] [address] Care Team Providers Care Automation Architect Name Role Phone Yolie Johnson MD Primary Care Provider [phone] Encounter Details Date Type Department Care Team (Late st Contact Info) Description 01/24/2007 Outpatient Historical [facility] Yolie Johnson MD Abdominal Pain, Left Upper Quadrant (Primary Dx) Social History Tobacco Use Types Packs/Day Years Used Date Smoking Tobacco: Never Assessed Comments Unknown Sex and Gender Information Value Date Recorded Sex Assigned at Not on file Legal Sex Female 3:30 AM LEADLIGHTER Gender Identity Not on file Sexual Orientation Not on file documented as of this encounter Plan of Treatment Not on file documented as of this encounter Visit Diagnoses Diagnosis Abdominal pain, left upper quadrant- Primary documented in this encounter Care Teams Automation Architect Relationship Specialty Start Date End Date Yolie Johnson MD PCP - General 04/24/08 documented as of this encounter
--- OUTSIDE RECORDS SUMMARY | 2025-01-24 16:36 | XMS_ITS | Encounter Summary ---
Author Organization [facility] Address [address] [place] [address] Care Team Providers Care Control Room Supervisor Name Role Phone Yolie Johnson MD Primary Care Provider Encounter Details Date Type Department Care Team (Late st Contact Info) Description 12/20/2006 Orders Only [facility] Internal Medicine - [facility] [address] [address] [facility] [address] [place] [address] Leila Mackey, ANP [address] [facility] [address] [place] [address] Social History Tobacco Use Types Packs/Day Years Used Date Smoking Tobacco: Never Assessed Comments Unknown Sex and Gender Information Value Date Recorded Sex Assigned at Not on file Legal Sex Female 3:30 AM HEAD PUMPER Gender Identity Not on file Sexual Orientation Not on file documented as of this encounter Progress Notes * Leila Mackey, AJAY - 04/24/2008 1:24 PM CDT TIME:12:25 pm PATIENT`S HOME PHONE: PATIENT`S WORK PHONE: PATIENT`S INSURANCE: [facility] WHO TOOK THE CALL: Adali Delgado GENERAL INFORMATION PATIENT STATUS: Established Patient. LAST VISIT: 11/30/06 ALTERNATIVE PHONE NUMBER: [phone] work WHO CALLED: Patient called. CURRENT ALLERGY [...] on filedocumented in this encounter Care Teams Control Room Supervisor Relationship Specialty Start Date End Date Yolie Johnson MD PCP - General 04/24/08 documented as of this encounter
--- OUTSIDE RECORDS SUMMARY | 2025-01-24 16:36 | XMS_ITS | Encounter Summary ---
Author Organization [facility] Address [address] [place] [address] Care Team Providers Care Ironing Machine Operator Name Role Phone Yolie Johnson MD Primary Care Provider [phone] Encounter Details Date Type Department Care Team (Latest Contact Info) Description 12/11/1999 Outpatient Historical [facility] Jose Eden Unspecified hearing loss (Primary Dx) Social History Tobacco Use Types Packs/Day Years Used Date Smoking Tobacco: Never Assessed Comments Unknown Sex and Gender Information Value Date Recorded Sex Assigned at Not on file Legal Sex Female 3:30 AM GOLF COURSE SUPERINTENDENT Gender Identity Not on file Sexual Orientation Not on file documented as of this encounter Plan of Treatment Not on file documented as of this encounter Visit Diagnoses Diagnosis Unspecified hearing loss- Primary documented in this encounter Care Teams Ironing Machine Operator Relationship Specialty Start Date End Date Yolie Johnson MD PCP - General 04/24/08 documented as of this encounter
--- OUTSIDE RECORDS SUMMARY | 2025-01-24 16:36 | XMS_ITS | Encounter Summary ---
Author Organization [facility] Address [address] [place] [address] Care Team Providers Care Farm Equipment Operator Name Role Phone Yolie Johnson MD Primary Care Provider [phone] Encounter Details Date Type Department Care Team (Latest Contact Info) Description 06/24/2007 Outpatient Historical [facility] Internal Medicine - [facility] [address] [address] [facility] [address] [place] [address] Yolie Johnson MD Other and Unspecified Hyperlipidemia (Primary Dx) Social History Tobacco Use Types Packs/Day Years Used Date Smoking Tobacco: Never Assessed Comments Unknown Sex and Gender Information Value Date Recorded Sex Assigned at Not on file Legal Sex Female 3:30 AM SMOKING PIPES CLEANER Gender Identity Not on file Sexual Orientation [...] MD URINE ORDERABLES Edited Performing Organization Address [facility] Phone Number INTERFACE SYSTEM Refer to clinic/hospital department * TSH (06/24/2007 9:20 AM CDT) TSH 3.56 0.27 - 4.20 uU/mL INTERFACE SYSTEM 06/24/2007 9:20 AM CDT Yolie Johnson MD CHEMISTRY ORDERABLES Edited Performing Organization Address [facility] Phone Number INTERFACE SYSTEM Refer to clinic/hospital department * (ABNORMAL) GLUCOSE LEVEL (06/24/2007 9:20 AM CDT) GLUCOSE 107(H) 65 - 99 mg/dL INTERFACE SYSTEM 06/24/2007 9:20 AM CDT Yolie Johnson MD CHEMISTRY ORDERABLES Edited Performing Organization Address [facility] Phone Number INTERFACE SYSTEM Refer to [...] classifications for lipids are available on the [facility] Intranet at: [email or web address] Select: Lab Policies and Procedures Select: Reference Ranges - Lipids 06/24/2007 9:20 AM CDT us Yolie Johnson MD CHEMISTRY ORDERABLES Edited INTERFACE SYSTEM Refer to clinic/hospital department documented in this encounter Visit Diagnoses Diagnosis Other and unspecified hyperlipidemia- Primary documented in this encounter Care Teams Farm Equipment Operator Relationship Specialty Start Date End Date Yolie Johnson MD PCP - General 04/24/08 documented as of this encounter
--- OUTSIDE RECORDS SUMMARY | 2025-01-24 16:36 | XMS_ITS | Encounter Summary ---
Author Organization [facility] Address [address] [place] [address] Care Team Providers Care Child Life Assistant Name Role Phone Yolie Johnson MD Primary Care Provider [phone] Encounter Details Date Type Department Care Team (Late st Contact Info) Description 05/18/2000 Outpatient Historical [facility] Internal Medicine - [facility] [address] [address] [facility] [address] [place] [address] Yolie Johnson MD Social History Tobacco Use Types Packs/Day Years Used Date Smoking Tobacco: Never Assessed Comments Unknown Sex and Gender Information Value Date Recorded Sex Assigned at Not on file 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
--- OUTSIDE RECORDS SUMMARY | 2025-01-24 16:36 | XMS_ITS | Encounter Summary ---
Author Organization 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 [address] D.O.B: 1950 SSN: [id number] Parent/Guardian if applicable: Patient Insurance: BLUE CROSS BLUE SHIELD ID#: [id number] Group#: ORDER(S) #: [id number] density/mammogram bi-lat-2 views BEST TO CALL WORK. BEST TIME TO CALL: ANYTIME. MAY WE LEAVE MESSAGE AT THAT NUMBER: YES, LEAVE MESSAGE. PLEASE SCHEDULE THE APPOINTMENT AT THE FOLLOWING LOCATION: [facility]. TEST PRIORITY: 2 - 7 DAYS. ORDERING PHYSICIAN: TAZ JOHNSON MD OFFICE GERMAN INSTRUCTOR & PHONE: Vianney Miner ORDER PRINTED BY: JUL 05, 2007 Giulia Chopra T 11:41 a FOR SCHEDULING USE ONLY: FIRST ATTEMPT Date:JUL 05, 2007 Giulia Chopra T 12:24 p Spoke with Patient. JUL 05, 2007 Giulia Chopra T 12:24 p TEST SCHEDULE [facility] LOCATION. APPOINTMENT DATE : 08/17/2007 The appointment was scheduled by Giulia Chopra T at [phone] JUL 05, 2007 Giulia Chopra T 12:24 p Pre-authorization number: BC/BS NN documented in this encounter Plan of Treatment Not on file documented as of this encounter Visit Diagnoses Not on filedocumented in this encounter Care Teams Ceo & Founder Relationship Specialty Start Date End Date Taz Johnson MD PCP - General 04/24/08 documented as of this encounter
--- OUTSIDE RECORDS SUMMARY | 2025-01-24 16:36 | XMS_ITS | Encounter Summary ---
Author Organization [facility] Address [address] [facility] Attn: Epic Prelude ADT [place] [address] Care Team Providers Care Oil Operator Name Role Phone Yolie Johnson MD Primary Care Provider [phone] Encounter Details Date Type Department Care Team (Latest Contact Info) Description 04/17/2008 Orders Only Yolie Johnson MD Social History Tobacco Use Types Packs/Day Years Used Date Smoking Tobacco: Never Assessed Comments Unknown Sex and Gender Information Value Date Recorded Sex Assigned at Not on file Legal Sex Female 3:30 AM ACADEMIC INTERN Gender Identity Not on file Sexual Orientation Not on file documented as of this encounter Plan of Treatment Not on file documented as of this encounter Visit Diagnoses Not on filedocumented in this encounter Care Teams Oil Operator Relationship Specialty Start Date End Date Yolie Johnson MD PCP - General 04/24/08 documented as of this encounter
--- OUTSIDE RECORDS SUMMARY | 2025-01-24 16:36 | XMS_ITS | Encounter Summary ---
Author Organization [employer] Address [address] [place] [address] Care Team Providers Care Roofing Tile Sorter Name Role Phone Yolie Johnson MD Primary Care Provider [phone] Encounter Details Date Type Department Care Team (Late st Contact Info) Description 12/01/1999 Outpatient [facility] Division of Neurology [address] [place] [address]., [address] [address] Jose Penaloza Social History Tobacco Use Types Packs/Day Years Used Date Smoking Tobacco: Never Assessed Comments Unknown Sex and Gender Information Value Date Recorded Sex Assigned at Not on file Legal Sex Female 3:30 AM BUSINESS SUPPORT COORDINATOR Gender Identity Not on file Sexual Orientation Not on file documented as of this encounter Plan of Treatment Not on file documented as of this encounter Visit Diagnoses Not on filedocumented in this encounter Care Teams Roofing Tile Sorter Relationship Specialty Start Date End Date Yolie Johnson MD PCP - General 04/24/08 documented as of this encounter
--- OUTSIDE RECORDS SUMMARY | 2025-01-24 16:36 | XMS_ITS | Patient Health Summary ---
Author Organization [facility] Address [address] [place] [address] Care Team Providers Care Babcock Tester Name Role Phone Anjum Ball PA-C Primary Care Provide r Note from [facility],non-owned Affiliates and Associated Physician Practices is amultiple site organization consisting of ambulatory clinics and hospital sitesin [place], [place], [place] and [place]. This disclosure is being madepursuant to the Care Everywhere program and may not contain all information available regarding this patient. Last updated 18.[facility] [employer] Social History Tobacco Use Types Packs/Day Years [...] is included. Case Report Dermatopathology Report Case: [id number] Authorizing Provider: Milton Burns MD Collected: 07/28/2022 03:33 AM Ordering Location: [facility] DermPath Lab Received: 07/29/2022 12:18 PM [...] specimen consists of a shave biopsy measuring [id number]. Jar 0. 2 2:08 PM CDT DERMATOPATHOLOGY [...] characteristic determined by the Dermatopathology Laboratory at [facility], directed by Dr. Koki Benjamin. These tests need not be, and therefore are not, approved by the [place] Food and Drug Administration. The tests are used for clinical purposes. Billing Codes Specimen Charges Stain Charges 62518 1 2 2:08 PM CDT DERMATOPATHOLOGY LABORATORY Embedded Images 2 2:08 PM CDT DERMATOPATHOLOGY LABORATORY Pathology/Cytolo gy TISSUE SPECIMEN FROM SKIN / Unknown 07/28/2022 3:33 AM CDT 07/29/2022 12:18 PM CDT Milton Burns MD LAB - PATHOLOGY/CYTO LOGY ORDERABLES DERMATOPATHOLOGY LABORATORY [facility] - Department of Dermatology [address] [place] [address], [facility] [phone] Care Teams Babcock Tester Relationship Specialty Start Date End Date Anjum Ball PA-C [address] [place] [address] PCP - General 03/04/23
--- OUTSIDE RECORDS SUMMARY | 2025-01-24 16:36 | XMS_ITS | Encounter Summary ---
Author Organization [facility] Address 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 OPERATOR Gender Identity Not on file Sexual [...] PM CDT Narrative 03/29/2008 12:55 PM CDT [facility] [address], [place] [address] Admit Date: 03/28/2008 VANESSA PARRY Sex: F Admit Prov: TAZ JOHNSON Date: 1950 Primary Care Prov: TAZ OJHNSON CMRN: [id number] Room: [facility] SSN: [id number] IMAGING SERVICES Ordering Prov: N/A Accession Number: [id number] Interpretation MRI OF BRAIN WITHOUT AND WITH [...] SJ Procedure Note Kate Castillo - 03/29/2008 [facility] [address], [place] [address] Admit Date: 03/28/2008 MELLISA VANESSA M Sex: F Admit Prov: TAZ JOHNSON Date: 1950 Primary Care Prov: TAZ JOHNSON CMRN: [id number] [id number] IM[facility] Ordering Prov: N/A Interpretation MRI [...] CREATININE POC 1.1 0.6 - 1.3 mg/dL [facility] Capillary blood specimen (specimen) 03/28/2008 3:59 PM CDT 03/28/2008 3:59 PM CDT us Taz Johnson MD POINT OF CARE TESTING Final Resu lt [facility] [address] [place] [address] documented in this encounter Visit Diagnoses Diagnosis Dizziness and giddiness documented in this encounter Care Teams Front Maker Lockstitch Relationship Specialty Start Date End Date Taz Johnson MD PCP - General 04/24/08 documented as of this encounter
--- OUTSIDE RECORDS SUMMARY | 2025-01-24 16:36 | XMS_ITS | Encounter Summary ---
Author Organization [facility] Address [address] [place] [address] Care Team Providers Care Program Clerk Name Role Phone Yolie Johnson MD Primary Care Provider [phone] Encounter Details Date Type Department Care Team (Late st Contact Info) Description 02/03/2006 Outpatient Historical [facility] Internal Medicine - [facility] [address] [address] [facility] [address] [place] [address] Yolie Johnson MD Social History Tobacco Use Types Packs/Day Years Used Date Smoking Tobacco: Never Assessed Comments Unknown Sex and Gender Information Value Date Recorded Sex Assigned at Not on file Legal Sex Female 3:30 AM BUTTER LIQUEFIER Gender Identity Not on file Sexual Orientation Not on file documented as of this encounter Last Filed Vital Signs Vital Sign Reading Time Taken Comments Blood Pressure 132/82 02/03/2006 1:50 PM BUTTER LIQUEFIER Pulse 82 02/03/2006 1:50 PM BUTTER LIQUEFIER Temperature - - Respiratory Rate - - Oxygen Saturation - - Inhaled Oxygen Concentration - - Weight 78 kg (172 lb) 02/03/2006 1:50 PM BUTTER LIQUEFIER Height - - Body Mass Index - - documented in this encounter Plan of Treatment Not on file documented as of this encounter Visit Diagnoses Not on filedocumented in this encounter Care Teams Program Clerk Relationship Specialty Start Date End Date Yolie Johnson MD PCP - General 04/24/08 documented as of this encounter
--- OUTSIDE RECORDS SUMMARY | 2025-01-24 16:36 | XMS_ITS | Encounter Summary ---
Author Organization [employer] Address [address] [place] [address] Care Team Providers Care Tablet Tester Name Role Phone Yolie Johnson MD Primary Care Provider [phone] Encounter Details Date Type Department Care Team (Late st Contact Info) Description 12/15/2008 Outpatient Historical [facility] Yolie Johnson MD [facility] [employer] [place] [address] Abdominal Pain, Epigastric Social History Tobacco Use Types Packs/Day Years Used Date Smoking Tobacco: Never Assessed Comments No Sex and Gender Information Value Date Recorded Sex Assigned at Not on file Legal Sex Female 3:30 AM 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
--- OUTSIDE RECORDS SUMMARY | 2025-01-24 16:36 | XMS_ITS | Encounter Summary ---
Author Organization [facility] Address [address] [place] [address] Care Team Providers Care Facing Baster Jumpbasting Name Role Phone Yolie Johnson MD Primary Care Provider Encounter Details Date Type Department Care Team (Latest Contact Info) Description 12/05/2007 Outpatient Historical [facility] Yolie Ortega MD Pathologic Fracture, Unspecified Site; Other Screening Mammogram Social History Tobacco Use Types Packs/Day Years Used Date Smoking Tobacco: Never Assessed Comments Unknown Sex and Gender Information Value Date Recorded Sex Assigned at Not on file Legal Sex Female 3:30 AM COMPILATION CLERK Gender Identity Not on file Sexual Orientation Not on file documented as of this encounter Plan of Treatment Not on file documented as of this encounter Visit Diagnoses Diagnosis Pathologic fracture, unspecified site Other screening mammogram documented in this encounter Care Teams Facing Baster Jumpbasting Relationship Specialty Start Date End Date Yolie Johnson MD PCP - General 04/24/08 documented as of this encounter
--- OUTSIDE RECORDS SUMMARY | 2025-01-24 16:36 | XMS_ITS | Encounter Summary ---
Author Organization [facility] Address [address] [place] [address] Care Team Providers Care Nursing Informatics Clinical Analyst Name Role Phone Yolie Johnson MD Primary Care Provider [phone] Encounter Details Date Type Department Care Team (Late st Contact Info) Description 05/18/2000 Outpatient Historical [facility] Internal Medicine - [facility] [address] [address] [facility] [address] [place] [address] Yolie Johnson MD Social History Tobacco Use Types Packs/Day Years Used Date Smoking Tobacco: Never Assessed Comments Unknown Sex and Gender Information Value Date Recorded Sex Assigned at Not on file Legal Sex Female 3:30 AM BREAKER TABLE WORKER Gender Identity Not on file Sexual Orientation Not on file documented as of this encounter Plan of Treatment Not on file documented as of this encounter Visit Diagnoses Not on filedocumented in this encounter Care Teams Nursing Informatics Clinical Analyst Relationship Specialty Start Date End Date Yolie Johnson MD PCP - General 04/24/08 documented as of this encounter
--- OUTSIDE RECORDS SUMMARY | 2025-01-24 16:36 | XMS_ITS | Encounter Summary ---
Author Organization [facility] Address [address] [place] [address] Care Team Providers Care Highway Patrol Officer Name Role Phone Yolie Johnson MD Primary Care Provider [phone] Encounter Details Date Type Department Care Team (Late st Contact Info) Description 09/10/2000 Outpatient Historical [facility] Internal Medicine - [facility] [address] [address] [facility] [address] [place] [address] Yolie Johnson MD Social History Tobacco Use Types Packs/Day Years Used Date Smoking Tobacco: Never Assessed Comments Unknown Sex and Gender Information Value Date Recorded Sex Assigned at Not on file Legal Sex Female 3:30 AM ACLS SPECIALIST Gender Identity Not on file Sexual Orientation Not on file documented as of this encounter Plan of Treatment Not on file documented as of this encounter Visit Diagnoses Not on filedocumented in this encounter Care Teams Highway Patrol Officer Relationship Specialty Start Date End Date Yolie Johnson MD PCP - General 04/24/08 documented as of this encounter
--- OUTSIDE RECORDS SUMMARY | 2025-01-24 16:36 | XMS_ITS | Encounter Summary ---
Author Organization [facility] Address [address] [place] [address] Care Team Providers Care Snowboard Designer Name Role Phone Yolie Johnson MD Primary Care Provider [phone] Encounter Details Date Type Department Care Team (Late st Contact Info) Description 02/21/1999 Outpatient Historical [facility] Internal Medicine - [facility] [address] [address] [facility] [address] [place] [address] Yolie Johnson MD Social History Tobacco Use Types Packs/Day Years Used Date Smoking Tobacco: Never Assessed Comments Unknown Sex and Gender Information Value Date Recorded Sex Assigned at Not on file Legal Sex Female 3:30 AM PADDING MACHINE OPERATOR Gender Identity Not on file Sexual Orientation Not on file documented as of this encounter Plan of Treatment Not on file documented as of this encounter Visit Diagnoses Not on filedocumented in this encounter Care Teams Snowboard Designer Relationship Specialty Start Date End Date Yolie Johnson MD PCP - General 04/24/08 documented as of this encounter
--- OUTSIDE RECORDS SUMMARY | 2025-01-24 16:37 | XMS_ITS | Encounter Summary ---
Author Organization [facility] Address [address] [place] [address] Care Team Providers Care Machine Printer Hose Name Role Phone Yolie Johnson MD Primary Care Provider [phone] Encounter Details Date Type Department Care Team (Late st Contact Info) Description 03/16/2001 Outpatient Historical Division of Neurology [address] [place], [place] [id number] Eros Hood MD [address] [facility] [address] [place] [address] Social History Tobacco Use Types Packs/Day Years Used Date Smoking Tobacco: Never Assessed Comments Unknown Sex and Gender Information Value Date Recorded Sex Assigned at Not on file Legal Sex Female 3:30 AM PROJECT ASSISTANT Gender Identity Not on file Sexual Orientation Not on file documented as of this encounter Plan of Treatment Not on file documented as of this encounter Visit Diagnoses Not on filedocumented in this encounter Care Teams Machine Printer Hose Relationship Specialty Start Date End Date Yolie Johnson MD PCP - General 04/24/08 documented as of this encounter
--- OUTSIDE RECORDS SUMMARY | 2025-01-24 16:37 | XMS_ITS | Encounter Summary ---
Author Organization [facility] Address [address] [place] [address] Care Team Providers Care Mural Painter Name Role Phone Yolie Johnson MD Primary Care Provider [phone] Encounter Details Date Type Department Care Team (Late st Contact Info) Description 10/07/2005 Outpatient Historical [facility] Internal Medicine - [facility] [address] [address] [facility] [address] [place] [address] Yolie Johnson MD Social History Tobacco Use Types Packs/Day Years Used Date Smoking Tobacco: Never Assessed Comments Unknown Sex and Gender Information Value Date Recorded Sex Assigned at Not on file Legal Sex Female 3:30 AM FINISH SPECIALIST Gender Identity Not on file Sexual Orientation Not on file documented as of this encounter Last Filed Vital Signs Vital Sign Reading Time Taken Comments Blood Pressure 124/76 10/07/2005 2:15 PM FINISH SPECIALIST Pulse 68 10/07/2005 2:15 PM FINISH SPECIALIST Temperature - - Respiratory Rate - - Oxygen Saturation - - Inhaled Oxygen Concentration - - Weight 74.4 kg (164 lb) 10/07/2005 2:15 PM FINISH SPECIALIST Height - - Body Mass Index - - documented in this encounter Plan of Treatment Not on file documented as of this encounter Visit Diagnoses Not on filedocumented in this encounter Care Teams Mural Painter Relationship Specialty Start Date End Date Yolie Johnson MD PCP - General 04/24/08 documented as of this encounter
--- OUTSIDE RECORDS SUMMARY | 2025-01-24 16:37 | XMS_ITS | Encounter Summary ---
Author Organization [facility] Address [address] [place] [address] Care Team Providers Care Waterproofing Machine Operator Name Role Phone Yolie Johnson MD Primary Care Provider [phone] Encounter Details Date Type Department Care Team (Late st Contact Info) Description 01/12/2003 Outpatient Historical [facility] Internal Medicine - [facility] [address] [address] [facility] [address] [place] [address] Yolie Johnson MD Social History Tobacco Use Types Packs/Day Years Used Date Smoking Tobacco: Never Assessed Comments Unknown Sex and Gender Information Value Date Recorded Sex Assigned at Not on file Legal Sex Female 3:30 AM SUPERVISOR GARMENT MANUFACTURING Gender Identity Not on file Sexual Orientation Not on file documented as of this encounter Plan of Treatment Not on file documented as of this encounter Visit Diagnoses Not on filedocumented in this encounter Care Teams Waterproofing Machine Operator Relationship Specialty Start Date End Date Yolie Johnson MD PCP - General 04/24/08 documented as of this encounter
--- OUTSIDE RECORDS SUMMARY | 2025-01-24 16:37 | XMS_ITS | Encounter Summary ---
Author Organization [employer] Address [address] [place] [address] Care Team Providers Care Industrial Electrical Engineer Name Role Phone Yolie Johnson MD Primary Care Provider [phone] Encounter Details Date Type Department Care Team (Late st Contact Info) Description 10/14/2005 Outpatient Historical [facility] [place] [address] [address] [place] [address] [place] [address] Social History Tobacco Use Types Packs/Day Years Used Date Smoking Tobacco: Never Assessed Comments Unknown Sex and Gender Information Value Date Recorded Sex Assigned at Not on file Legal Sex Female 3:30 AM ART MUSEUM AIDE Gender Identity Not on file Sexual Orientation Not on file documented as of this encounter Plan of Treatment Not on file documented as of this encounter Visit Diagnoses Not on filedocumented in this encounter Care Teams Industrial Electrical Engineer Relationship Specialty Start Date End Date Yolie Johnson MD PCP - General 04/24/08 documented as of this encounter
--- OUTSIDE RECORDS SUMMARY | 2025-01-24 16:37 | XMS_ITS | Encounter Summary ---
Author Organization [facility] Address [address] [place] [address] Care Team Providers Care Small Electric Engine Technician Name Role Phone Yolie Johnson MD Primary Care Provider [phone] Encounter Details Date Type Department Care Team (Late st Contact Info) Description 01/13/2006 Outpatient Historical [facility] Internal Medicine - [facility] [address] [address] [facility] [address] [place] [address] Yolie Johnson MD Social History Tobacco Use Types Packs/Day Years Used Date Smoking Tobacco: Never Assessed Comments Unknown Sex and Gender Information Value Date Recorded Sex Assigned at Not on file Legal Sex Female 3:30 AM INSPECTOR MOTOR VEHICLES Gender Identity Not on file Sexual Orientation Not on file documented as of this encounter Last Filed Vital Signs Vital Sign Reading Time Taken Comments Blood Pressure 130/74 01/13/2006 1:50 PM INSPECTOR MOTOR VEHICLES Pulse 76 01/13/2006 1:50 PM INSPECTOR MOTOR VEHICLES Temperature - - Respiratory Rate - - Oxygen Saturation - - Inhaled Oxygen Concentration - - Weight 77.1 kg (170 lb) 01/13/2006 1:50 PM INSPECTOR MOTOR VEHICLES Height - - Body Mass Index - - documented in this encounter Plan of Treatment Not on file documented as of this encounter Visit Diagnoses Not on filedocumented in this encounter Care Teams Small Electric Engine Technician Relationship Specialty Start Date End Date Yolie Johnson MD PCP - General 04/24/08 documented as of this encounter
--- OUTSIDE RECORDS SUMMARY | 2025-01-24 16:37 | XMS_ITS | Encounter Summary ---
Author Organization [facility] Address [address] [place] [address] Care Team Providers Care Senior Quality Control Inspector Name Role Phone Yolie Johnson MD Primary Care Provider [phone] Encounter Details Date Type Department Care Team (Late st Contact Info) Description 12/27/2001 Outpatient Historical [facility] Internal Medicine - [facility] [address] [address] [facility] [address] [place] [address] Yolie Johnson MD Social History Tobacco Use Types Packs/Day Years Used Date Smoking Tobacco: Never Assessed Comments Unknown Sex and Gender Information Value Date Recorded Sex Assigned at Not on file Legal Sex Female 3:30 AM COOK'S ASSISTANT Gender Identity Not on file Sexual Orientation Not on file documented as of this encounter Plan of Treatment Not on file documented as of this encounter Visit Diagnoses Not on filedocumented in this encounter Care Teams Senior Quality Control Inspector Relationship Specialty Start Date End Date Yolie Johnson MD PCP - General 04/24/08 documented as of this encounter
--- OUTSIDE RECORDS SUMMARY | 2025-01-24 16:37 | XMS_ITS | Encounter Summary ---
Author Organization [facility] Address [address] [place] [address] Care Team Providers Care Construction Equipment Operator Name Role Phone Yolie Johnson MD Primary Care Provider [phone] Encounter Details Date Type Department Care Team (Late st Contact Info) Description 04/03/2003 Outpatient Historical [facility] Internal Medicine - [facility] [address] [address] [facility] [address] [place] [address] Yolie Johnson MD Social History Tobacco Use Types Packs/Day Years Used Date Smoking Tobacco: Never Assessed Comments Unknown Sex and Gender Information Value Date Recorded Sex Assigned at Not on file Legal Sex Female 3:30 AM ENGINEER OPERATIONS AND MAINTENANCE Gender Identity Not on file Sexual Orientation Not on file documented as of this encounter Plan of Treatment Not on file documented as of this encounter Visit Diagnoses Not on filedocumented in this encounter Care Teams Construction Equipment Operator Relationship Specialty Start Date End Date Yolie Johnson MD PCP - General 04/24/08 documented as of this encounter
--- OUTSIDE RECORDS SUMMARY | 2025-01-24 16:37 | XMS_ITS | Encounter Summary ---
Author Organization [facility] Address [address] [place] [address] Care Team Providers Care Roller Skate Assembler Name Role Phone Yolie Johnson MD Primary Care Provider [phone] Encounter Details Date Type Department Care Team (Late st Contact Info) Description 12/08/2002 Outpatient Historical [facility] Internal Medicine - [facility] [address] [address] [facility] [address] [place] [address] Yolie Johnson MD Social History Tobacco Use Types Packs/Day Years Used Date Smoking Tobacco: Never Assessed Comments Unknown Sex and Gender Information Value Date Recorded Sex Assigned at Not on file Legal Sex Female 3:30 AM SOFTWARE ASSET MANAGEMENT ANALYST Gender Identity Not on file Sexual Orientation Not on file documented as of this encounter Plan of Treatment Not on file documented as of this encounter Visit Diagnoses Not on filedocumented in this encounter Care Teams Roller Skate Assembler Relationship Specialty Start Date End Date Yolie Johnsno MD PCP - General 04/24/08 documented as of this encounter
--- OUTSIDE RECORDS SUMMARY | 2025-01-24 16:37 | XMS_ITS | Encounter Summary ---
Author Organization [facility] Address [address] [place] [address] Care Team Providers Care Senior Graphic Designer Name Role Phone Yolie Johnson MD Primary Care Provider [phone] Encounter Details Date Type Department Care Team (Late st Contact Info) Description 05/16/2004 Outpatient Historical [facility] Internal Medicine - [facility] [address] [address] [facility] [address] [place] [address] Yolie Johnson MD Social History Tobacco Use Types Packs/Day Years Used Date Smoking Tobacco: Never Assessed Comments Unknown Sex and Gender Information Value Date Recorded Sex Assigned at Not on file Legal Sex Female 3:30 AM MEDICINE ASSISTANT Gender Identity Not on file Sexual Orientation Not on file documented as of this encounter Plan of Treatment Not on file documented as of this encounter Visit Diagnoses Not on filedocumented in this encounter Care Teams Senior Graphic Designer Relationship Specialty Start Date End Date Yolie Johnson MD PCP - General 04/24/08 documented as of this encounter
--- OUTSIDE RECORDS SUMMARY | 2025-01-24 16:37 | XMS_ITS | Encounter Summary ---
Author Organization [employer] [facility] Address [address] [place] [address] Care Team Providers Care Director Packaging Name Role Phone Yolie Johnson MD Primary Care Provider [phone] Encounter Details Date Type Department Care Team (Late st Contact Info) Description 03/03/2005 Outpatient Historical [facility] Dev Marquez MD [address] [place] [address] [place] [address] SCREENING MAL NEOP-COLON (Primary Dx) Social History Tobacco Use Types Packs/Day Years Used Date Smoking Tobacco: Never Assessed Comments Unknown Sex and Gender Information Value Date Recorded Sex Assigned at Not on file Legal Sex Female 3:30 AM SHIP STEWARD Gender Identity Not on file Sexual Orientation Not on file documented as of this encounter Plan of Treatment Not on file documented as of this encounter Visit Diagnoses Diagnosis Special screening for malignant neoplasms, colon- Primary documented in this encounter Care Teams Director Packaging Relationship Specialty Start Date End Date Yolie Johnson MD PCP - General 04/24/08 documented as of this encounter
--- OUTSIDE RECORDS SUMMARY | 2025-01-24 16:37 | XMS_ITS | Encounter Summary ---
Author Organization [facility] Address [address] [place] [address] Care Team Providers Care Kennel Supervisor Name Role Phone Yolie Johnson MD Primary Care Provider [phone] Encounter Details Date Type Department Care Team (Late st Contact Info) Description 06/08/2003 Outpatient Historical [facility] Internal Medicine - [facility] [address] [address] [facility] [address] [place] [address] Yolie Johnson MD Social History Tobacco Use Types Packs/Day Years Used Date Smoking Tobacco: Never Assessed Comments Unknown Sex and Gender Information Value Date Recorded Sex Assigned at Not on file Legal Sex Female 3:30 AM VISUAL MERCHANDISING MANAGER Gender Identity Not on file Sexual Orientation Not on file documented as of this encounter Plan of Treatment Not on file documented as of this encounter Visit Diagnoses Not on filedocumented in this encounter Care Teams Kennel Supervisor Relationship Specialty Start Date End Date Yolie Johnson MD PCP - General 04/24/08 documented as of this encounter
--- OUTSIDE RECORDS SUMMARY | 2025-01-24 16:37 | XMS_ITS | Encounter Summary ---
Author Organization [facility] Address [address] [place] [address] Care Team Providers Care Interactive Media Marketing Director Name Role Phone Yolie Johnson MD Primary Care Provider [phone] Encounter Details Date Type Department Care Team (Late st Contact Info) Description 06/23/2005 Outpatient Historical [facility] Internal Medicine - [facility] [address] [address] [facility] [address] [place] [address] Yolie Johnson MD Social History [...] on filedocumented in this encounter Care Teams Interactive Media Marketing Director Relationship Specialty Start Date End Date Yolie Johnson MD PCP - General 04/24/08 documented as of this encounter
--- OUTSIDE RECORDS SUMMARY | 2025-01-24 16:37 | XMS_ITS | Encounter Summary ---
Author Organization [facility] Address [address] [place] [address] Care Team Providers Care Snowmobile Mechanic Name Role Phone Yolie Johnson MD Primary Care Provider [phone] Encounter Details Date Type Department Care Team (Late st Contact Info) Description 09/14/2000 Outpatient Historical [facility] Internal Medicine - [facility] [address] [address] [facility] [address] [place] [address] Yolie Johnson MD Social History Tobacco Use Types Packs/Day Years Used Date Smoking Tobacco: Never Assessed Comments Unknown Sex and Gender Information Value Date Recorded Sex Assigned at Not on file Legal Sex Female 3:30 AM PERFORATOR LOADER Gender Identity Not on file Sexual Orientation Not on file documented as of this encounter Plan of Treatment Not on file documented as of this encounter Visit Diagnoses Not on filedocumented in this encounter Care Teams Snowmobile Mechanic Relationship Specialty Start Date End Date Yolie Johnson MD PCP - General 04/24/08 documented as of this encounter
--- OUTSIDE RECORDS SUMMARY | 2025-01-24 16:37 | XMS_ITS | Encounter Summary ---
Author Organization [facility] Address [address] [place] [address] Care Team Providers Care Revenue Field Auditor Name Role Phone Yolie Johnson MD Primary Care Provider [phone] Encounter Details Date Type Department Care Team (Late st Contact Info) Description 06/30/2001 Outpatient Historical [facility] Internal Medicine - [facility] [address] [address] [facility] [address] [place] [address] Yolie Johnson MD Social History Tobacco Use Types Packs/Day Years Used Date Smoking Tobacco: Never Assessed Comments Unknown Sex and Gender Information Value Date Recorded Sex Assigned at Not on file Legal Sex Female 3:30 AM CONSULTING TECHNICAL DIRECTOR Gender Identity Not on file Sexual Orientation Not on file documented as of this encounter Plan of Treatment Not on file documented as of this encounter Visit Diagnoses Not on filedocumented in this encounter Care Teams Revenue Field Auditor Relationship Specialty Start Date End Date Yolie Johnson MD PCP - General 04/24/08 documented as of this encounter
--- OUTSIDE RECORDS SUMMARY | 2025-01-24 16:37 | XMS_ITS | Encounter Summary ---
Author Organization [facility] Address [address] [place] [address] Care Team Providers Care Senior Windows Administrator Name Role Phone Yolie Johnson MD Primary Care Provider [phone] Encounter Details Date Type Department Care Team (Late st Contact Info) Description 04/17/2005 Outpatient Historical [facility] Internal Medicine - [facility] [address] [address] [facility] [address] [place] [address] Yolie Johnson MD Social History Tobacco Use Types Packs/Day Years Used Date Smoking Tobacco: Never Assessed Comments Unknown Sex and Gender Information Value Date Recorded Sex Assigned at Not on file Legal Sex Female 3:30 AM COUNTRY PRINTER APPRENTICE Gender Identity Not on file Sexual Orientation Not on file documented as of this encounter Plan of Treatment Not on file documented as of this encounter Visit Diagnoses Not on filedocumented in this encounter Care Teams Senior Windows Administrator Relationship Specialty Start Date End Date Yolie Johnson MD PCP - General 04/24/08 documented as of this encounter
--- OUTSIDE RECORDS SUMMARY | 2025-01-24 16:37 | XMS_ITS | CONTINUITY OF CARE DOCUMENT ---
Author Name gee, sravanser Address Unknown Organization [facility] Address [address] [facility] [address] [place] [address] Phone [phone] Care Team Providers Care Setter Molding And Coremaking Machines Name Role Phone David Hancock MD Unavailable [phone] SHEMAR BETANCOURT MD Unavailable SHEMAR BETANCOURT MD Unavailable [phone] PROBLEMS Condition Status Date Provider Notes [...] In-person encounter Office Visit David Hancock MD [facility] - In-person encounter Office Visit David Hancock MD [facility] CHEST PAIN-NORMAL STRESS TEST - In-person encounter Office Visit David Hancock MD [facility] CHEST PAIN-NORMAL STRESS TESTHYPERCHOLESTEROLEMIA - In-person encounter Office Visit David Hancock MD [facility] - In-person encounter Office Visit David Hancock MD [facility] - In-person encounter Office Visit David Hancock MD [facility] - In-person encounter Office Visit David Hancock MD [facility] - In-person encounter Office Visit David Hancock MD [facility] HYPOTHYROIDISMVERTIGO-02/05 CAROTID NEGHTN-02/05 NUC NEGSHORTNESS OF [...] lder blood pressure, diastolic 92 mm[Hg] Isidro garcia Jess blood pressure, systolic 132 mm[Hg] Benja sheldon Uriahluisphoebe pulse rate 64 /min Lian Allison lder oxygen saturation, oximetry 98 % Lian Jess respiratory rate E&M 18 /min Lian [...] diastolic, left arm 81 mm [Hg] Blas Manmditry blood pressure, systolic, left arm 119 mm [Hg] Blas Man[place] blood pressure, diastolic 81 mm[Hg] Lima boyce [place] blood pressure, systolic 119 mm[Hg] Aubrey nikhil [place] pulse rate 87 /min [facility], [facility]xim[facility] 97 % [facility] respiratory rate E&M 16 /min [facility] weight E&M 188 [lb_av] Blas Zamudio [...] Range Interpretation Location platelet count 337 10*3/mm3 [facility] hematocrit, blood 42.7 % [facility] thyroid stimulating hormone, serum 2.730 u[IU]/mL [facility] alanine aminotransferase (SGPT), serum 36 1/L [facility] aspartate aminotransferase (SGOT), serum 47 1/L [facility] blood glucose, random 92 mg/dL [facility] creatinine, serum 0.77 mg/dL [facility] urea nitrogen, blood 16 mg/dL [facility] potassium, serum 4.2 mmol/L [facility] sodium, serum 144 mmol/L [facility] platelet count 289 10*3/mm3 [facility] hematocrit, blood 41.9 % [facility] triglyceride, serum, fasting 110 mg/dL [facility] HDL cholesterol, serum 45 mg/dL [facility] lipoprotein, beta, serum, point, quantitative, calculated 109 mg/dL [facility] cholesterol, serum 176 mg/dL [facility] alanine aminotransferase (SGPT), serum 32 1/L [...] by mouth daily - Mathew Huerta RN VITAMIN E CAPSULE completed 1 [...] as a smoker less than 10 years [facility] smoking status Quit [facility] MENTAL STATUS Date Observation Value [...] Payer name Policy type / Coverage type [employer] red [employer] ID [facility] [id number] TREATMENT PLAN Date Name Performer chest pain [...] MD follow up: O rders: E KG ([id number]) BP today: 126/77 Prior BP: 132/92 (07/04/2012) [...] Prior BP: 137/96 (04/06/2011) Orders: Guy KG ([id number]) David Hancock MD routine: T he following [...]
--- OUTSIDE RECORDS SUMMARY | 2025-01-24 16:37 | XMS_ITS | Encounter Summary ---
Author Organization [facility] Address [address] [place] [address] Care Team Providers Care Circulation Worker Name Role Phone Yolie Johnson MD Primary Care Provider [phone] Encounter Details Date Type Department Care Team (Latest Contact Info) Description 12/14/2002 Outpatient Historical [facility] Yolie Johnson MD BONE & CARTILAGE DIS NOS (Primary Dx) Social History Tobacco Use Types Packs/Day Years Used Date Smoking Tobacco: Never Assessed Comments Unknown Sex and Gender Information Value Date Recorded Sex Assigned at Not on file Legal Sex Female 3:30 AM PORTER USED CAR LOT Gender Identity Not on file Sexual Orientation Not on file documented as of this encounter Plan of Treatment Not on file documented as of this encounter Visit Diagnoses Diagnosis Disorder of bone and cartilage, unspecified- Primary documented in this encounter Care Teams Circulation Worker Relationship Specialty Start Date End Date Yolie Johnson MD PCP - General 04/24/08 documented as of this encounter
--- OUTSIDE RECORDS SUMMARY | 2025-01-24 16:37 | XMS_ITS | Encounter Summary ---
Author Organization [facility] Address [address] [place] [address] Care Team Providers Care Automotive Sales Executive Name Role Phone Yolie Johnson MD Primary Care Provider [phone] Encounter Details Date Type Department Care Team (Late st Contact Info) Description 01/25/2001 Outpatient Historical [facility] Internal Medicine - [facility] [address] [address] [facility] [address] [place] [address] Yolie Johnson MD Social History Tobacco Use Types Packs/Day Years Used Date Smoking Tobacco: Never Assessed Comments Unknown Sex and Gender Information Value Date Recorded Sex Assigned at Not on file Legal Sex Female 3:30 AM RENAL MEDICINE PHYSICIAN Gender Identity Not on file Sexual Orientation Not on file documented as of this encounter Plan of Treatment Not on file documented as of this encounter Visit Diagnoses Not on filedocumented in this encounter Care Teams Automotive Sales Executive Relationship Specialty Start Date End Date Yolie Johnson MD PCP - General 04/24/08 documented as of this encounter
--- OUTSIDE RECORDS SUMMARY | 2025-01-24 16:37 | XMS_ITS | Encounter Summary ---
Author Organization [facility] Address [address] [place] [address] Care Team Providers Care Recording Clerk Name Role Phone Yolie Johnson MD Primary Care Provider [phone] Encounter Details Date Type Department Care Team (Late st Contact Info) Description 12/11/2002 Outpatient Historical [facility] Yolie Johnson MD SCREENING MAMM-MAILG NEOPL-OTHER (Primary Dx) Social History Tobacco Use Types Packs/Day Years Used Date Smoking Tobacco: Never Assessed Comments Unknown Sex and Gender Information Value Date Recorded Sex Assigned at Not on file Legal Sex Female 3:30 AM SAFE AND VAULT INSTALLER Gender Identity Not on file Sexual Orientation Not on file documented as of this encounter Plan of Treatment Not on file documented as of this encounter Visit Diagnoses Diagnosis Other screening mammogram- Primary documented in this encounter Care Teams Recording Clerk Relationship Specialty Start Date End Date Yolie Johnson MD PCP - General 04/24/08 documented as of this encounter
--- OUTSIDE RECORDS SUMMARY | 2025-01-24 16:37 | XMS_ITS | Encounter Summary ---
Author Organization [facility] Address [address] [place] [address] Care Team Providers Care Cloud Consultant Name Role Phone Yolie Johnson MD Primary Care Provider [phone] Encounter Details Date Type Department Care Team (Late st Contact Info) Description 05/22/2003 Outpatient Historical [facility] Internal [facility] - [facility] [address] [id number] [facility] [address] [place] [address] Yolie Johnson MD Social History Tobacco Use Types Packs/Day Years Used Date Smoking Tobacco: Never Assessed Comments Unknown Sex and Gender Information Value Date Recorded Sex Assigned at Not on file Legal Sex Female 3:30 AM AUDITOR APPRAISER Gender Identity Not on file Sexual Orientation Not on file documented as of this encounter Plan of Treatment Not on file documented as of this encounter Visit Diagnoses Not on filedocumented in this encounter Care Teams Cloud Consultant Relationship Specialty Start Date End Date Yolie Johnson MD PCP - General 04/24/08 documented as of this encounter
--- OUTSIDE RECORDS SUMMARY | 2025-01-24 16:37 | XMS_ITS | Encounter Summary ---
Author Organization [facility] Address [address] [place] [address] Care Team Providers Care Painter Aircraft Name Role Phone Yolie Johnson MD Primary Care Provider Encounter Details Date Type Department Care Team (Late st Contact Info) Description 11/18/2004 Outpatient Historical [facility] Internal Medicine - [facility] [address] [address] [facility] [address] [place] [address] Yolie Johnson MD Social History Tobacco Use Types Packs/Day Years Used Date Smoking Tobacco: Never Assessed Comments Unknown Sex and Gender Information Value Date Recorded Sex Assigned at Not on file Legal Sex Female 3:30 AM RESTAURANT GREETER Gender Identity Not on file Sexual Orientation Not on file documented as of this encounter Plan of Treatment Not on file documented as of this encounter Visit Diagnoses Not on filedocumented in this encounter Care Teams Painter Aircraft Relationship Specialty Start Date End Date Yolie Johnson MD PCP - General 04/24/08 documented as of this encounter
--- OUTSIDE RECORDS SUMMARY | 2025-01-24 16:37 | XMS_ITS | Encounter Summary ---
Author Organization [facility] Address [address] [place] [address] Care Team Providers Care Contact Lens Lathe Operator Name Role Phone Yolie Johnson MD Primary Care Provider [phone] Encounter Details Date Type Department Care Team (Late st Contact Info) Description 02/24/2005 Outpatient Historical [facility] Yolie Johnson MD SCREENING MAMM-MAILG NEOPL-OTHER (Primary Dx) Social History Tobacco Use Types Packs/Day Years Used Date Smoking Tobacco: Never Assessed Comments Unknown Sex and Gender Information Value Date Recorded Sex Assigned at Not on file Legal Sex Female 3:30 AM RESIDENT ADVISOR Gender Identity Not on file Sexual Orientation Not on file documented as of this encounter Plan of Treatment Not on file documented as of this encounter Visit Diagnoses Diagnosis Other screening mammogram- Primary documented in this encounter Care Teams Contact Lens Lathe Operator Relationship Specialty Start Date End Date Yolie Johnson MD PCP - General 04/24/08 documented as of this encounter
--- OUTSIDE RECORDS SUMMARY | 2025-01-24 16:37 | XMS_ITS | Clinical Summary ---
Author Organization [facility] Address [address] [facility] [place] [address] Phone Care Team Providers Care Concrete Floater Name Role Phone Yolie Johnson MD Primary Care Provider [phone] Allergies Active Allergy Reactions Criticality Noted Date [...] on file Legal Sex Female 3:30 AM ULTRASOUND SPEC Gender Identity Not on file Sexual Orientation Not on file Last Filed Vital Signs Vital Sign Reading Time Taken Comments Blood Pressure 126/88 02/16/2011 12:05 PM CDT Pulse 80 02/16/2011 12:05 PM CDT Temperature 37.1 C (98.7 F) 01/13/2011 12:48 PM ULTRASOUND SPEC Respiratory Rate - - Oxygen Saturation - [...] OR MORE SITES Routine 12/02/2009 10:42 AM ULTRASOUND SPEC Unspecified Osteoporosis from Last 3 Months or Most Recently Relevant to Health Maintenance Results * XR DEXA BONE DENSITY AXIAL 1 OR MORE SITES (12/02/2009 10:42 AM ULTRASOUND SPEC) Anatomical Region Laterality Modality Digital Radiogra phy 12/02/2009 10:4 1 AM ULTRASOUND SPEC Impressions 12/02/2009 10:52 AM ULTRASOUND SPEC IMPRESSION: Lumbar spine: This patient's bone mineral [...] Thao MD FAC Narrative 12/02/2009 10:52 AM ULTRASOUND SPEC Examination: Bone Density Study (DEXA) Clinical History: [...] follow. Dictated by Dr. Twin Thao MD [facility] us Yolie Johnson MD DIAGNOSTIC IMAGING ORDERABLES Final Result from Last 3 Months or Most Recently Relevant to Health Maintenance Insurance Care Teams Concrete Floater Relationship Specialty Start Date End Date Yolie Johnson MD PCP - General 04/24/08
--- OUTSIDE RECORDS SUMMARY | 2025-01-24 16:37 | XMS_ITS | Encounter Summary ---
Author Organization [facility] Address [address] [place] [address] Care Team Providers Care Sterilization Specialist Name Role Phone Yolie Johnson MD Primary Care Provider [phone] Encounter Details Date Type Department Care Team (Late st Contact Info) Description 11/04/2005 Outpatient Historical [facility] Yolie Johnson MD CERVICAL DISC DISPLACMNT (Primary Dx) Social History Tobacco Use Types Packs/Day Years Used Date Smoking Tobacco: Never Assessed Comments Unknown Sex and Gender Information Value Date Recorded Sex Assigned at Not on file Legal Sex Female 3:30 AM ASIC ENGINEER Gender Identity Not on file Sexual Orientation Not on file documented as of this encounter Plan of Treatment Not on file documented as of this encounter Visit Diagnoses Diagnosis Displacement of cervical intervertebral disc without myelopathy- Primary documented in this encounter Care Teams Sterilization Specialist Relationship Specialty Start Date End Date Yolie Johnson MD PCP - General 04/24/08 documented as of this encounter
--- OUTSIDE RECORDS SUMMARY | 2025-01-24 16:37 | XMS_ITS | Encounter Summary ---
Author Organization [facility] Address [address] [place] [address] Care Team Providers Care Insulation Foreman Name Role Phone Yolie Johnson MD Primary Care Provider [phone] Encounter Details Date Type Department Care Team (Late st Contact Info) Description 01/31/2002 Outpatient Historical [facility] Internal Medicine - [facility] [address] [address] [facility] [address] [place] [address] Yolie Johnson MD Social History Tobacco Use Types Packs/Day Years Used Date Smoking Tobacco: Never Assessed Comments Unknown Sex and Gender Information Value Date Recorded Sex Assigned at Not on file Legal Sex Female 3:30 AM BROWNFIELD PROGRAM COORDINATOR Gender Identity Not on file Sexual Orientation Not on file documented as of this encounter Plan of Treatment Not on file documented as of this encounter Visit Diagnoses Not on filedocumented in this encounter Care Teams Insulation Foreman Relationship Specialty Start Date End Date Yolie Johnson MD PCP - General 04/24/08 documented as of this encounter
--- OUTSIDE RECORDS SUMMARY | 2025-01-24 16:37 | XMS_ITS | Encounter Summary ---
Author Organization [facility] Address [address] [place] [address] Care Team Providers Care Nurse Practitioner Manager Name Role Phone Yolie Johnson MD Primary Care Provider [phone] Encounter Details Date Type Department Care Team (Late st Contact Info) Description 09/30/[address] [facility] Internal Medicine - [facility] [address] [id number] [facility] [address] [place] [address] Yolie Johnson MD Social History Tobacco Use Types Packs/Day Years Used Date Smoking Tobacco: Never Assessed Comments Unknown Sex and Gender Information Value Date Recorded Sex Assigned at Not on file Legal Sex Female 3:30 AM AIRPORT RAMP SUPERVISOR Gender Identity Not on file Sexual Orientation Not on file documented as of this encounter Plan of Treatment Not on file documented as of this encounter Visit Diagnoses Not on filedocumented in this encounter Care Teams Nurse Practitioner Manager Relationship Specialty Start Date End Date Yolie Johnson MD PCP - General 04/24/08 documented as of this encounter
--- OUTSIDE RECORDS SUMMARY | 2025-01-24 16:37 | XMS_ITS | Encounter Summary ---
Author Organization [facility] Address [address] [place] [address] Care Team Providers Care Photography Spotter Name Role Phone Yolie Johnson MD Primary Care Provider [phone] Encounter Details Date Type Department Care Team (Late st Contact Info) Description 02/21/2004 Outpatient Historical [facility] Yolie Johnson MD SCREENING MAMM-MAILG NEOPL-OTHER (Primary Dx) Social History Tobacco Use Types Packs/Day Years Used Date Smoking Tobacco: Never Assessed Comments Unknown Sex and Gender Information Value Date Recorded Sex Assigned at Not on file Legal Sex Female 3:30 AM PLASTICS ENGINEER Gender Identity Not on file Sexual Orientation Not on file documented as of this encounter Plan of Treatment Not on file documented as of this encounter Visit Diagnoses Diagnosis Other screening mammogram- Primary documented in this encounter Care Teams Photography Spotter Relationship Specialty Start Date End Date Yolie Johnson MD PCP - General 04/24/08 documented as of this encounter
--- OUTSIDE RECORDS SUMMARY | 2025-01-24 16:37 | XMS_ITS | Encounter Summary ---
Author Organization [facility] Address 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
--- OUTSIDE RECORDS SUMMARY | 2025-01-24 16:37 | XMS_ITS | Encounter Summary ---
Author Organization [employer] Address 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
--- OUTSIDE RECORDS SUMMARY | 2025-01-24 16:37 | XMS_ITS | Encounter Summary ---
Author Organization [facility] Address [address] [place] [address] Care Team Providers Care Communications Station Manager Name Role Phone Yolie Johnson MD Primary Care Provider [phone] Encounter Details Date Type Department Care Team (Late st Contact Info) Description 10/31/2002 Outpatient Historical [facility] Internal Medicine - 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
--- OUTSIDE RECORDS SUMMARY | 2025-01-24 16:37 | XMS_ITS | Encounter Summary ---
Author Organization [facility] Address 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
== END 2025-01-24 14:29 | disposition home or self-care (01) ==
PROVIDERS: PCP Internal Medicine; Visit Provider Internal Medicine
DX: R07.9 Chest pain, unspecified (principal)
CPT/HCPCS: 71046

== ENCOUNTER 2025-02-22 07:43 | Outpatient (CLI) | payer MEDICARE, SELFPAY ==
--- OUTSIDE RECORDS SUMMARY | 2025-02-22 07:48 | XMS_ITS | Encounter Summary ---
Author Organization [facility] Address [address] [place] [address] Care Team Providers Care Electric Lineman Name Role Phone Yolie Johnson MD Primary Care Provider Encounter Details Date Type Department Care Team (Late st Contact Info) Description 11/30/2006 Outpatient Historical [facility] Internal Medicine - [facility] [address] [address] [facility] [address] [place] [address] Yolie Johnson MD Social History Tobacco Use Types Packs/Day Years Used Date Smoking Tobacco: Never Assessed Comments Unknown Sex and Gender Information Value Date Recorded Sex Assigned at Not on file 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 Sex Female 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 Gender Identity Not on file Sexual Orientation Not on file documented as of this encounter Last Filed Vital Signs Vital Sign Reading Time Taken Comments Blood Pressure 130/78 11/30/2006 1:45 PM ASSISTANT PRODUCTION EDITOR Pulse 84 11/30/2006 1:45 PM ASSISTANT PRODUCTION EDITOR Temperature - - Respiratory Rate - - Oxygen Saturation - - Inhaled Oxygen Concentration - - Weight 78.9 kg (174 lb) 11/30/2006 1:45 PM ASSISTANT PRODUCTION EDITOR Height - - Body Mass Index - - documented in this encounter Plan of Treatment Not on file documented as of this encounter Visit Diagnoses Not on filedocumented in this encounter Care Teams Electric Lineman Relationship Specialty Start Date End Date Yolie Johnson MD PCP - General 04/24/08 documented as of this encounter
--- OUTSIDE RECORDS SUMMARY | 2025-02-22 07:48 | XMS_ITS | Encounter Summary ---
Author Organization [facility] Address [address] [place] [address] Care Team Providers Care House Furnishings Supervisor Name Role Phone Yolie Johnson MD Primary Care Provider [phone] Encounter Details Date Type Department Care Team (Late st Contact Info) Description 05/18/2000 Outpatient Historical [facility] Internal Medicine - [facility] [address] [address] [facility] [address] [place] [address] Yolie Johnson MD Social History Tobacco Use Types Packs/Day Years Used Date Smoking Tobacco: Never Assessed Comments Unknown Sex and Gender Information Value Date Recorded Sex Assigned at Not on file 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
--- OUTSIDE RECORDS SUMMARY | 2025-02-22 07:48 | XMS_ITS | Encounter Summary ---
Author Organization [facility] Address [address] [place] [address] Care Team Providers Care Real Estate Acquisition Analyst Name Role Phone Yolie Johnson MD Primary Care Provider [phone] Encounter Details Date Type Department Care Team (Late st Contact Info) Description 03/17/1999 Outpatient Historical [facility] Internal Medicine - [facility] [address] [address] [facility] [address] [place] [address] Yolie Johnson MD Social History Tobacco Use Types Packs/Day Years Used Date Smoking Tobacco: Never Assessed Comments Unknown Sex and Gender Information Value Date Recorded Sex Assigned at Not on file 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
--- OUTSIDE RECORDS SUMMARY | 2025-02-22 07:48 | XMS_ITS | Encounter Summary ---
Author Organization [facility] Address 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
--- OUTSIDE RECORDS SUMMARY | 2025-02-22 07:48 | XMS_ITS | Clinical Summary ---
Author Organization [facility] Address [address] [facility] [place] [address] Care Team Providers Care Customs Opener Verifier Packer Name Role Phone Anjum Ball PA-C Primary Care Provide r Source Comments [facility],non-owned Affiliates and Associated Physician Practices is amultiple site organization consisting of ambulatory clinics and hospital sitesin [place], [place], [place] and [place]. This disclosure is being madepursuant to the Care Everywhere program and may not contain all information available regarding this patient. Last updated 18.[facility] Social History Tobacco Use Types Packs/Day Years [...] to complete this topic MENINGOCOCCAL (Group B) VACC INE SHARED DECISION-MAKING Aged Out No longer eligibl e based on patient's age to complete this topic MENINGOCOCCAL GROUPS A/C/Y/W VACCINE Aged Out No longer eligible b ased on patient's age to complete this topic Care Teams Customs Opener Verifier Packer Relationship Specialty Start Date End Date Anjum Ball PA-C [address] [place] [address] PCP - General 03/04/23
--- OUTSIDE RECORDS SUMMARY | 2025-02-22 07:48 | XMS_ITS | Encounter Summary ---
Author Organization [facility] Address [address] [place] [address] Care Team Providers Care Director Of Diagnostic Imaging Name Role Phone Yolie Johnson MD Primary Care Provider [phone] Encounter Details Date Type Department Care Team (Late st Contact Info) Description 11/04/2005 Outpatient Historical [facility] Yolie Johnson MD CERVICAL DISC DISPLACMNT (Primary Dx) Social History Tobacco Use Types Packs/Day Years Used Date Smoking Tobacco: Never Assessed Comments Unknown Sex and Gender Information Value Date Recorded Sex Assigned at Not on file Legal Sex Female 3:30 AM HOOP RIVETING MACHINE OPERATOR HELPER Gender Identity Not on file Sexual Orientation Not on file documented as of this encounter Plan of Treatment Not on file documented as of this encounter Visit Diagnoses Diagnosis Displacement of cervical intervertebral disc without myelopathy- Primary documented in this encounter Care Teams Director Of Diagnostic Imaging Relationship Specialty Start Date End Date Yolie Johnson MD PCP - General 04/24/08 documented as of this encounter
--- OUTSIDE RECORDS SUMMARY | 2025-02-22 07:48 | XMS_ITS | Encounter Summary ---
Author Organization [facility] Address [address] [place] [address] Care Team Providers Care Net Developer Architect Name Role Phone Yolie Johnson MD Primary Care Provider [phone] Encounter Details Date Type Department Care Team (Late st Contact Info) Description 07/19/2000 Outpatient Historical [facility] Internal Medicine - [facility] [address] [address] [facility] [address] [place] [address] Yolie Johnson MD Social History Tobacco Use Types Packs/Day Years Used Date Smoking Tobacco: Never Assessed Comments Unknown Sex and Gender Information Value Date Recorded Sex Assigned at Not on file Legal Sex Female 3:30 AM INDUSTRIAL RELATIONS WORKER Gender Identity Not on file Sexual Orientation Not on file documented as of this encounter Plan of Treatment Not on file documented as of this encounter Visit Diagnoses Not on filedocumented in this encounter Care Teams Net Developer Architect Relationship Specialty Start Date End Date Yolie Johnson MD PCP - General 04/24/08 documented as of this encounter
--- OUTSIDE RECORDS SUMMARY | 2025-02-22 07:48 | XMS_ITS | Encounter Summary ---
Author Organization [facility] Address [address] [place] [address] Care Team Providers Care Meat Team Member Name Role Phone Yolie Johnson MD Primary Care Provider [phone] Encounter Details Date Type Department Care Team (Latest Contact Info) Description 12/05/2007 Outpatient Historical [facility] Yloie Ortega MD Pathologic Fracture, Unspecified Site; Other Screening Mammogram Social History Tobacco Use Types Packs/Day Years Used Date Smoking Tobacco: Never Assessed Comments Unknown Sex and Gender Information Value Date Recorded Sex Assigned at Not on file Legal Sex Female 3:30 AM PRINCIPAL BIOSTATISTICIAN Gender Identity Not on file Sexual Orientation Not on file documented as of this encounter Plan of Treatment Not on file documented as of this encounter Visit Diagnoses Diagnosis Pathologic fracture, unspecified site Other screening mammogram documented in this encounter Care Teams Meat Team Member Relationship Specialty Start Date End Date Yolie Johnson MD PCP - General 04/24/08 documented as of this encounter
--- OUTSIDE RECORDS SUMMARY | 2025-02-22 07:48 | XMS_ITS | Encounter Summary ---
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
--- OUTSIDE RECORDS SUMMARY | 2025-02-22 07:48 | XMS_ITS | Encounter Summary ---
Author Organization [facility] Address [address] [place] [address] Care Team Providers Care Stemhole Borer Name Role Phone Yolie Johnson MD Primary Care Provider [phone] Encounter Details Date Type Department Care Team (Late st Contact Info) Description 03/21/2008 Outpatient Historical [facility] Internal Medicine - [facility] [address] [address] [facility] [address] [place] [address] Yolie Johnson MD Social History Tobacco Use Types Packs/Day Years Used Date Smoking Tobacco: Never Assessed Comments Unknown Sex and Gender Information Value Date Recorded Sex Assigned at Not on file 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
--- OUTSIDE RECORDS SUMMARY | 2025-02-22 07:48 | XMS_ITS | Encounter Summary ---
Author Organization [facility] Address [address] [place] [address] Care Team Providers Care Senior It Architect Name Role Phone Yolie Johnson MD Primary Care Provider [phone] Encounter Details Date Type Department Care Team (Late st Contact Info) Description 12/20/2006 Orders Only [facility] Internal Medicine - [facility] [address] [address] [facility] [address] [place] [address] Leila Mackey, ANP 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 LAST VISIT: 11/30/06 ALTERNATIVE PHONE NUMBER: [phone] work WHO CALLED: Patient called. CURRENT ALLERGY [...] filedocumented in this encounter Care Teams Senior It Architect Relationship Specialty Start Date End Date Yolie Johnson MD PCP - General 04/24/08 documented as of this encounter
--- OUTSIDE RECORDS SUMMARY | 2025-02-22 07:48 | XMS_ITS | Encounter Summary ---
Author Organization [facility] Address [address] [place] [address] Care Team Providers Care Supervisor Continuous Weld Pipe Mill Name Role Phone Yolie Johnson MD Primary Care Provider [phone] Encounter Details Date Type Department Care Team (Late st Contact Info) Description 01/25/2001 Outpatient Historical [facility] Internal Medicine - [facility] [address] [address] [facility] [address] [place] [address] Yolie Johnson MD Social History Tobacco Use Types Packs/Day Years Used Date Smoking Tobacco: Never Assessed Comments Unknown Sex and Gender Information Value Date Recorded Sex Assigned at Not on file 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
--- OUTSIDE RECORDS SUMMARY | 2025-02-22 07:48 | XMS_ITS | Encounter Summary ---
Author Organization [facility] Address [address] [place] [address] Care Team Providers Care Food Safety Coordinator Name Role Phone Yolie Johnson MD Primary Care Provider [phone] Encounter Details Date Type Department Care Team (Late st Contact Info) Description 12/01/1999 Outpatient [facility] Division of Neurology [address] [place] [address]., [address] [address] Jose Penaloza Social History Tobacco Use Types Packs/Day Years Used Date Smoking Tobacco: Never Assessed Comments Unknown Sex and Gender Information Value Date Recorded Sex Assigned at Not on file 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
--- OUTSIDE RECORDS SUMMARY | 2025-02-22 07:48 | XMS_ITS | Encounter Summary ---
Author Organization [facility] Address [address] [place] [address] Care Team Providers Care Band Cutting Machine Operator Name Role Phone Yolie Johnson MD Primary Care Provider [phone] Encounter Details Date Type Department Care Team (Late st Contact Info) Description 09/10/2000 Outpatient Historical [facility] Internal Medicine - 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
--- OUTSIDE RECORDS SUMMARY | 2025-02-22 07:48 | XMS_ITS | Encounter Summary ---
Author Organization [facility] Address [address] [place] [address] Care Team Providers Care Machine Tool Dresser Name Role Phone Yolie Johnson MD Primary Care Provider [phone] Encounter Details Date Type Department Care Team (Late st Contact Info) Description 03/21/2008 Outpatient Historical [facility] Internal Medicine - 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 [facility] 03/21/2008 9:27 PM CDT 03/21/2008 10:15 PM CDT us Yolie Johnson MD MICROBIOLOGY - GENERAL ORDERABLE S Final Result [facility] [address] [place] [address] documented in this encounter Visit Diagnoses Diagnosis Proteinuria documented in this encounter Care Teams Machine Tool Dresser Relationship Specialty Start Date End Date Yolie Johnson MD PCP - General 04/24/08 documented as of this encounter
--- OUTSIDE RECORDS SUMMARY | 2025-02-22 07:48 | XMS_ITS | Encounter Summary ---
Author Organization [facility] Address [address] 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 [address] D.O.B: 1950 SSN: [id number] Parent/Guardian if applicable: Patient Insurance: BLUE CROSS BLUE SHIELD ID#: [id number] Group#: ORDER(S) #: [id number] density/mammogram bi-lat-2 views BEST TO CALL WORK. BEST TIME TO CALL: ANYTIME. MAY WE LEAVE MESSAGE AT THAT NUMBER: YES, LEAVE MESSAGE. PLEASE SCHEDULE THE APPOINTMENT AT THE FOLLOWING LOCATION: [facility]. TEST PRIORITY: 2 - 7 DAYS. ORDERING PHYSICIAN: TAZ JOHNSON MD OFFICE MACHINE SET UP TECHNICIAN & PHONE: Vianney Miner ORDER PRINTED BY: JUL 05, 2007 Giulia Chopra T 11:41 a FOR SCHEDULING USE ONLY: FIRST ATTEMPT Date:JUL 05, 2007 Giulia Chopra T 12:24 p Spoke with Patient. JUL 05, 2007 Giulia Chopra T 12:24 p TEST SCHEDULE [facility] LOCATION. APPOINTMENT DATE : 08/17/2007 The appointment was scheduled by Giulia Chopra T at [phone] JUL 05, 2007 Giulia Chopra T 12:24 p Pre-authorization number: BC/BS NN documented in this encounter Plan of Treatment Not on file documented as of this encounter Visit Diagnoses Not on filedocumented in this encounter Care Teams China Painter Relationship Specialty Start Date End Date Taz Johnson MD PCP - General 04/24/08 documented as of this encounter
--- OUTSIDE RECORDS SUMMARY | 2025-02-22 07:48 | XMS_ITS | Encounter Summary ---
Author Organization [facility] Address 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
--- OUTSIDE RECORDS SUMMARY | 2025-02-22 07:48 | XMS_ITS | Encounter Summary ---
Author Organization [facility] Address [address] [place] [address] Care Team Providers Care Whitewasher Name Role Phone Yolie Johnson MD Primary Care Provider [phone] Encounter Details Date Type Department Care Team (Latest Contact Info) Description 06/24/[address] 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 Gender Identity Not on file Sexual [...] URINE ORDERABLES Edited Performing Organization Address [facility] Phone Number INTERFACE SYSTEM Refer to clinic/hospital department * TSH (06/24/2007 9:20 AM CDT) TSH 3.56 0.27 - 4.20 uU/mL INTERFACE SYSTEM 06/24/2007 9:20 AM CDT Yolie Johnson MD CHEMISTRY ORDERABLES Edited Performing Organization Address [facility] Phone Number INTERFACE SYSTEM Refer to clinic/hospital department * (ABNORMAL) GLUCOSE LEVEL (06/24/2007 9:20 AM CDT) GLUCOSE 107(H) 65 - 99 mg/dL INTERFACE SYSTEM 06/24/2007 9:20 AM CDT Yolie Johnson MD CHEMISTRY ORDERABLES Edited Performing Organization Address [facility] Phone Number INTERFACE SYSTEM Refer to [...] classifications for lipids are available on the [facility] Intranet at: [email or web address] [email or web address] Mediumatrium health navicent the medical centerDirect [email or web address] Select: Lab Policies and Procedures Select: Reference Ranges - Lipids 06/24/2007 9:20 AM CDT us Yolie Johnson MD CHEMISTRY ORDERABLES Edited INTERFACE SYSTEM Refer to clinic/hospital department documented in this encounter Visit Diagnoses Diagnosis Other and unspecified hyperlipidemia- Primary documented in this encounter Care Teams Whitewasher Relationship Specialty Start Date End Date Yolie Johnson MD PCP - General 04/24/08 documented as of this encounter
--- OUTSIDE RECORDS SUMMARY | 2025-02-22 07:48 | XMS_ITS | Encounter Summary ---
Author Organization [facility] Address [address] [place] [address] Care Team Providers Care Varitype Operator Name Role Phone Yolie Johnson MD Primary Care Provider [phone] Encounter Details Date Type Department Care Team (Late st Contact Info) Description 05/18/2000 Outpatient Historical [facility] Internal Medicine - [facility] [address] [address] [facility] [address] [place] [address] Yolie Johnson MD Social History Tobacco Use Types Packs/Day Years Used Date Smoking Tobacco: Never Assessed Comments Unknown Sex and Gender Information Value Date Recorded Sex Assigned at Not on file Legal Sex Female 3:30 AM RADIOLOGY ASSISTANT Gender Identity Not on file Sexual Orientation Not on file documented as of this encounter Plan of Treatment Not on file documented as of this encounter Visit Diagnoses Not on filedocumented in this encounter Care Teams Varitype Operator Relationship Specialty Start Date End Date Yolie Johnson MD PCP - General 04/24/08 documented as of this encounter
--- OUTSIDE RECORDS SUMMARY | 2025-02-22 07:48 | XMS_ITS | Encounter Summary ---
Author Organization [facility] Address [address] [facility] [place] [address] Care Team Providers Care Automatic Toe Laster Name Role Phone Justin Barreto MD Primary Care Provider Unavail Anjum Grubbs PA-C Primary Care Provide r Encounter Details Date Type Department Care Team (Late st Contact Info) Description 07/29/2022 Lab Requisition [facility] [address] [place] [address] [place] [address] Social History Tobacco Use Types Packs/Day Years [...] AM CDT) Case Report Dermatopathology Report Case: [id number] Authorizing Provider: Milton Burns MD Collected: 07/28/2022 03:33 AM Ordering Location: [facility] Received: 07/29/2022 12:18 PM Pathologist: [...] specimen consists of a shave biopsy measuring [id number]. Jar 0. 2 2:08 PM CDT DERMATOPATHOLOGY [...] characteristic determined by the Dermatopathology Laboratory at [facility], directed by Dr. Koki Benjamin. These tests need not be, and therefore are not, approved by the [place] Food and Drug Administration. The tests are used for clinical purposes. Billing Codes Specimen Charges Stain Charges 30487 1 2 2:08 PM CDT DERMATOPATHOLOGY LABORATORY Embedded Images 2 2:08 PM CDT DERMATOPATHOLOGY LABORATORY Pathology/Cytolo gy TISSUE SPECIMEN FROM SKIN / Unknown 07/28/2022 3:33 AM CDT 07/29/2022 12:18 PM CDT Milton Burns MD LAB - PATHOLOGY/CYTO LOGY ORDERABLES DERMATOPATHOLOGY LABORATORY [facility] - Department of Dermatology [address] [phone] documented in this encounter Visit Diagnoses Not on filedocumented in this encounter Care Teams Automatic Toe Laster Relationship Specialty Start Date End Date Justin Barreto MD NEED INFORMATION UPDATED PCP - General 12/07/19 03/03/23 Anjum Ball PA-C [address] [place] [address] PCP - General 03/04/23 documented as of this encounter
--- OUTSIDE RECORDS SUMMARY | 2025-02-22 07:48 | XMS_ITS | Encounter Summary ---
Author Organization [facility] Address [address] [place] [address] Care Team Providers Care Medical Communication Specialist Name Role Phone Yolie Johnson MD Primary Care Provider [phone] Encounter Details Date Type Department Care Team (Late st Contact Info) Description 03/21/2008 Outpatient Historical [facility] Internal Medicine - [facility] [address] [address] [facility] [address] [place] [address] Yolie Johnson MD Social History Tobacco Use Types Packs/Day Years Used Date Smoking Tobacco: Never Assessed Comments Unknown Sex and Gender Information Value Date Recorded Sex Assigned at Not on file 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
--- OUTSIDE RECORDS SUMMARY | 2025-02-22 07:48 | XMS_ITS | Encounter Summary ---
Author Organization [facility] Address [address] [place] [address] Care Team Providers Care Wet Pan Mixer Name Role Phone Yolie Johnson MD Primary Care Provider [phone] Encounter Details Date Type Department Care Team (Late st Contact Info) Description 06/30/2006 Outpatient Historical [facility] Internal Medicine - [facility] [address] [address] [facility] [address] [place] [address] oYlie Johnson MD Social History Tobacco Use Types Packs/Day Years Used Date Smoking Tobacco: Never Assessed Comments Unknown Sex and Gender Information Value Date Recorded Sex Assigned at Not on file Legal Sex Female 3:30 AM CLEANING HANDYMAN Gender Identity Not on file Sexual Orientation [...] on filedocumented in this encounter Care Teams Wet Pan Mixer Relationship Specialty Start Date End Date Yolie Johnson MD PCP - General 04/24/08 documented as of this encounter
--- OUTSIDE RECORDS SUMMARY | 2025-02-22 07:48 | XMS_ITS | Encounter Summary ---
Author Organization [facility] Address [address] [place] [address] Care Team Providers Care Supervisor Kennel Name Role Phone Yolie Johnson MD Primary Care Provider [phone] Encounter Details Date Type Department Care Team (Late st Contact Info) Description 09/30/1999 Outpatient Historical [facility] Internal Medicine - [facility] [address] [address] [facility] [address] [place] [address] Yolie Johnson MD Social History Tobacco Use Types Packs/Day Years Used Date Smoking Tobacco: Never Assessed Comments Unknown Sex and Gender Information Value Date Recorded Sex Assigned at Not on file 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
--- OUTSIDE RECORDS SUMMARY | 2025-02-22 07:48 | XMS_ITS | Encounter Summary ---
Author Organization [employer] [facility] Address 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
--- OUTSIDE RECORDS SUMMARY | 2025-02-22 07:48 | XMS_ITS | Encounter Summary ---
Author Organization [facility] Address [address] [place] [address] Care Team Providers Care Reporting Specialist Name Role Phone Yolie Johnson MD Primary Care Provider [phone] Encounter Details Date Type Department Care Team (Late st Contact Info) Description 09/14/2000 Outpatient Historical [facility] Internal Medicine - 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
--- OUTSIDE RECORDS SUMMARY | 2025-02-22 07:48 | XMS_ITS | Encounter Summary ---
Author Organization [facility] Address [address] [facility] Attn: Epic Prelude ADT DARSHAN RANDALL [address] Care Team Providers Care Clinic Licensed Practical Nurse Name Role Phone Yolie Johnson MD Primary Care Provider [phone] Encounter Details Date Type Department Care Team (Latest Contact Info) Description 03/21/2008 Orders Only Yolie Johnson MD Social History Tobacco Use Types Packs/Day Years Used Date Smoking Tobacco: Never Assessed Comments Unknown Sex and Gender Information Value Date Recorded Sex Assigned at Not on file Legal Sex Female 3:30 AM TRANSFER COORDINATOR Gender Identity Not on file Sexual Orientation Not on file documented as of this encounter Progress Notes * Nasty Gal, [employer] Transcriptions - 05/04/2008 11:11 AM CDT NURSE [...] Ramsey on Wednesday, April 02, 2008 * Nasty Gal [employer] Transcriptions - 05/04/2008 11:11 AM CDT PULSE: [...] is noted, no splenomegaly. NEUROLOGIC: CRANIAL NERVES: java xml developer II-XII grossly intact. DEEP TENDON REFLEXES: Deep tendon reflexes 2+/4 and symmetrical. No cerebellar signs present. Positive George Alphonso Lillye PSYCHIATRIC: Judgment appropriate. Oriented. Normal memory. Mood and affect appropriate. ASSESSMENT/PLAN: 780.4-VERTIGO/DIZZINESS /tinnitus MEDICATIONS: MECLIZINE HCL ORAL TABLET 25 MG, 1 Every Eight Hours, 30 Dispensed, status: NEW PRESCRIPTION, 03/21/2008. LAB ORDERS: Order number: [id number] Test Ordered: MRI BRAIN W/CONTRAST 599.0-URINARY TRACT INFECTION MEDICATIONS: BACTRIM DS ORAL TABLET 800-160 MG, 1 Two Times A Day, 14 Dispensed, status: NEW PRESCRIPTION, 03/21/2008. Electronically Signed by: Yolie Johnson MD on Friday, March 21, 2008 documented in this encounter Plan of Treatment Not on file documented as of this encounter Visit Diagnoses Not on filedocumented in this encounter Care Teams Clinic Licensed Practical Nurse Relationship Specialty Start Date End Date Yolie Johnson MD PCP - General 04/24/08 documented as of this encounter
--- OUTSIDE RECORDS SUMMARY | 2025-02-22 07:48 | XMS_ITS | Encounter Summary ---
Author Organization [facility] Address [address] [place] [address] Care Team Providers Care Veterinary Practice Manager Name Role Phone Yolie Johnson MD Primary Care Provider [phone] Encounter Details Date Type Department Care Team (Late st Contact Info) Description 01/13/2006 Outpatient Historical [facility] Internal Medicine - [facility] [address] [address] [facility] [address] [place] [address] Yolie Johnson MD Social History Tobacco Use Types Packs/Day Years Used Date Smoking Tobacco: Never Assessed Comments Unknown Sex and Gender Information Value Date Recorded Sex Assigned at Not on file Legal Sex Female 3:30 AM CREDIT CONSULTANT Gender Identity Not on file Sexual Orientation Not on file documented as of this encounter Last Filed Vital Signs Vital Sign Reading Time Taken Comments Blood Pressure 130/74 01/13/2006 1:50 PM CREDIT CONSULTANT Pulse 76 01/13/2006 1:50 PM CREDIT CONSULTANT Temperature - - Respiratory Rate - - Oxygen Saturation - - Inhaled Oxygen Concentration - - Weight 77.1 kg (170 lb) 01/13/2006 1:50 PM CREDIT CONSULTANT Height - - Body Mass Index - - documented in this encounter Plan of Treatment Not on file documented as of this encounter Visit Diagnoses Not on filedocumented in this encounter Care Teams Veterinary Practice Manager Relationship Specialty Start Date End Date Yolie Johnson MD PCP - General 04/24/08 documented as of this encounter
--- OUTSIDE RECORDS SUMMARY | 2025-02-22 07:48 | XMS_ITS | Encounter Summary ---
Author Organization [facility] Address [address] [place] [address] Care Team Providers Care Associate Vice President Name Role Phone Yolie Johnson MD Primary Care Provider [phone] Encounter Details Date Type Department Care Team (Late st Contact Info) Description 02/21/1999 Outpatient Historical [facility] Internal Medicine - [facility] [address] [address] [facility] [address] [place] [address] Yolie Johnson MD Social History Tobacco Use Types Packs/Day Years Used Date Smoking Tobacco: Never Assessed Comments Unknown Sex and Gender Information Value Date Recorded Sex Assigned at Not on file Legal Sex Female 3:30 AM FLEX O WRITER OPERATOR Gender Identity Not on file Sexual Orientation Not on file documented as of this encounter Plan of Treatment Not on file documented as of this encounter Visit Diagnoses Not on filedocumented in this encounter Care Teams Associate Vice President Relationship Specialty Start Date End Date Yolie Johnson MD PCP - General 04/24/08 documented as of this encounter
--- OUTSIDE RECORDS SUMMARY | 2025-02-22 07:48 | XMS_ITS | Encounter Summary ---
Author Organization [facility] Address [address] [place] [address] Care Team Providers Care Environmental Protection Officer Name Role Phone Yolie Johnson MD Primary Care Provider [phone] Encounter Details Date Type Department Care Team (Late st Contact Info) Description 06/24/[address] 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
--- OUTSIDE RECORDS SUMMARY | 2025-02-22 07:48 | XMS_ITS | Encounter Summary ---
Author Organization [facility] Address [address] [place] [address] Care Team Providers Care Covered Buckle Assembler Name Role Phone Yolie Johnson MD Primary Care Provider [phone] Encounter Details Date Type Department Care Team (Late st Contact Info) Description 02/03/2006 Outpatient Historical [facility] Internal Medicine - 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/OUTBOARD Gender Identity Not on file Sexual Orientation Not on file documented as of this encounter Last Filed Vital Signs Vital Sign Reading Time Taken Comments Blood Pressure 132/82 02/03/2006 1:50 PM MOTORBOAT MECHANIC INBOARD/OUTBOARD Pulse 82 02/03/2006 1:50 PM MOTORBOAT MECHANIC INBOARD/OUTBOARD Temperature - - Respiratory Rate - - Oxygen Saturation - - Inhaled Oxygen Concentration - - Weight 78 kg (172 lb) 02/03/2006 1:50 PM MOTORBOAT MECHANIC INBOARD/OUTBOARD Height - - Body Mass Index - - documented in this encounter Plan of Treatment Not on file documented as of this encounter Visit Diagnoses Not on filedocumented in this encounter Care Teams Covered Buckle Assembler Relationship Specialty Start Date End Date Yolie Johnson MD PCP - General 04/24/08 documented as of this encounter
--- OUTSIDE RECORDS SUMMARY | 2025-02-22 07:49 | XMS_ITS | Encounter Summary ---
Author Organization [facility] Address [address] [place] [address] Care Team Providers Care Photoengraving Apprentice Name Role Phone Yolie Johnson MD Primary Care Provider [phone] Encounter Details Date Type Department Care Team (Late st Contact Info) Description 10/14/2005 Outpatient Historical [facility] Yolie Ortega MD Social History Tobacco Use Types Packs/Day Years Used Date Smoking Tobacco: Never Assessed Comments Unknown Sex and Gender Information Value Date Recorded Sex Assigned at Not on file Legal Sex Female 3:30 AM SCREEN ROLLER Gender Identity Not on file Sexual Orientation Not on file documented as of this encounter Plan of Treatment Not on file documented as of this encounter Visit Diagnoses Not on filedocumented in this encounter Care Teams Photoengraving Apprentice Relationship Specialty Start Date End Date Yolie Johnson MD PCP - General 04/24/08 documented as of this encounter
--- OUTSIDE RECORDS SUMMARY | 2025-02-22 07:49 | XMS_ITS | Encounter Summary ---
Author Organization [employer] Address [address] [place] [address] Care Team Providers Care Scrum Master Name Role Phone Yolie Johnson MD Primary Care Provider [phone] Encounter Details Date Type Department Care Team (Late st Contact Info) Description 10/14/2005 Outpatient Historical [facility] [place] [address] [place] [address] [place] [address] [place] [address] Social History Tobacco Use Types Packs/Day Years Used Date Smoking Tobacco: Never Assessed Comments Unknown Sex and Gender Information Value Date Recorded Sex Assigned at Not on file 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
--- OUTSIDE RECORDS SUMMARY | 2025-02-22 07:49 | XMS_ITS | Encounter Summary ---
Author Organization [facility] Address 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
--- OUTSIDE RECORDS SUMMARY | 2025-02-22 07:50 | XMS_ITS | Encounter Summary ---
Author Organization [employer] Address [address] [place] [address] Care Team Providers Care Fiber Optics Engineer Name Role Phone Yolie Johnson MD Primary Care Provider [phone] Encounter Details Date Type Department Care Team (Late st Contact Info) Description 12/18/2008 Outpatient Historical [facility] Yolie Johnson MD [facility] [place] [address] Abdominal Pain, Epigastric Social History Tobacco Use Types Packs/Day Years Used Date Smoking Tobacco: Never Assessed Comments No Sex and Gender Information Value Date Recorded Sex Assigned at Not on file Legal Sex Female 3:30 AM 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
--- OUTSIDE RECORDS SUMMARY | 2025-02-22 07:50 | XMS_ITS | Encounter Summary ---
Author Organization [employer] [facility] Address [address] [place] [address] Care Team Providers Care Molecular Biology Director Name Role Phone Yolie Johnson MD Primary Care Provider [phone] Encounter Details Date Type Department Care Team (Late st Contact Info) Description 03/03/2005 Outpatient Historical [facility] Dev Marquez MD [address] [place] [address] [place] [address] SCREENING MAL NEOP-COLON (Primary Dx) Social History Tobacco Use Types Packs/Day Years Used Date Smoking Tobacco: Never Assessed Comments Unknown Sex and Gender Information Value Date Recorded Sex Assigned at Not on file Legal Sex Female 3:30 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
--- OUTSIDE RECORDS SUMMARY | 2025-02-22 07:50 | XMS_ITS | Encounter Summary ---
Author Organization [facility] Address [address] [place] [address] Care Team Providers Care Inventory Control Coordinator Name Role Phone Yolie Johnson MD Primary Care Provider [phone] Encounter Details Date Type Department Care Team (Late st Contact Info) Description 01/12/2003 Outpatient Historical [facility] Internal Medicine - [facility] [address] [address] [facility] [address] [place] [address] Yolie Johnson MD Social History Tobacco Use Types Packs/Day Years Used Date Smoking Tobacco: Never Assessed Comments Unknown Sex and Gender Information Value Date Recorded Sex Assigned at Not on file Legal Sex Female 3:30 AM COLLECTION SYSTEMS FOREMAN Gender Identity Not on file Sexual Orientation Not on file documented as of this encounter Plan of Treatment Not on file documented as of this encounter Visit Diagnoses Not on filedocumented in this encounter Care Teams Inventory Control Coordinator Relationship Specialty Start Date End Date Yolie Johnson MD PCP - General 04/24/08 documented as of this encounter
--- OUTSIDE RECORDS SUMMARY | 2025-02-22 07:50 | XMS_ITS | Encounter Summary ---
Author Organization [facility] Address [address] [place] [address] Care Team Providers Care Pony Rougher Name Role Phone Yolie Johnson MD Primary Care Provider [phone] Encounter Details Date Type Department Care Team (Late st Contact Info) Description 05/16/2004 Outpatient Historical [facility] Internal Medicine - [facility] [address] [address] [facility] [address] [place] [address] Yolie Johnson MD Social History Tobacco Use Types Packs/Day Years Used Date Smoking Tobacco: Never Assessed Comments Unknown Sex and Gender Information Value Date Recorded Sex Assigned at Not on file Legal Sex Female 3:30 AM HEALTH EVALUATOR Gender Identity Not on file Sexual Orientation Not on file documented as of this encounter Plan of Treatment Not on file documented as of this encounter Visit Diagnoses Not on filedocumented in this encounter Care Teams Pony Rougher Relationship Specialty Start Date End Date Yolie Johnson MD PCP - General 04/24/08 documented as of this encounter
--- OUTSIDE RECORDS SUMMARY | 2025-02-22 07:50 | XMS_ITS | Encounter Summary ---
Author Organization [facility] Address [address] [place] [address] Care Team Providers Care Respite Coordinator Name Role Phone Yolie Johnson MD Primary Care Provider [phone] Encounter Details Date Type Department Care Team (Late st Contact Info) Description 12/27/2001 Outpatient Historical [facility] Internal Medicine - [facility] [address] [address] [facility] [address] [place] [address] Yolie Johnson MD Social History Tobacco Use Types Packs/Day Years Used Date Smoking Tobacco: Never Assessed Comments Unknown Sex and Gender Information Value Date Recorded Sex Assigned at Not on file Legal Sex Female 3:30 AM SOA ENGINEER Gender Identity Not on file Sexual Orientation Not on file documented as of this encounter Plan of Treatment Not on file documented as of this encounter Visit Diagnoses Not on filedocumented in this encounter Care Teams Respite Coordinator Relationship Specialty Start Date End Date Yolie Johnson MD PCP - General 04/24/08 documented as of this encounter
--- OUTSIDE RECORDS SUMMARY | 2025-02-22 07:50 | XMS_ITS | Encounter Summary ---
Author Organization [facility] Address [address] [place] [address] Care Team Providers Care Chemical Project Engineer Name Role Phone Yolie Johnson MD Primary Care Provider [phone] Encounter Details Date Type Department Care Team (Late st Contact Info) Description 11/18/2004 Outpatient Historical [facility] Internal Medicine - [facility] [address] [address] [facility] [address] [place] [address] Yolie Johnson MD Social History Tobacco Use Types Packs/Day Years Used Date Smoking Tobacco: Never Assessed Comments Unknown Sex and Gender Information Value Date Recorded Sex Assigned at Not on file Legal Sex Female 3:30 AM BUILDING PERFORMANCE SPECIALIST Gender Identity Not on file Sexual Orientation Not on file documented as of this encounter Plan of Treatment Not on file documented as of this encounter Visit Diagnoses Not on filedocumented in this encounter Care Teams Chemical Project Engineer Relationship Specialty Start Date End Date Yolie Johnson MD PCP - General 04/24/08 documented as of this encounter
--- OUTSIDE RECORDS SUMMARY | 2025-02-22 07:50 | XMS_ITS | Encounter Summary ---
Author Organization [facility] Address [address] [place] [address] Care Team Providers Care Manager Spring Name Role Phone Taz Johnson MD Primary Care Provider [phone] Encounter Details Date Type Department Care Team (Latest Contact Info) Description 03/28/2008 Outpatient Historical [facility] Taz Johnson MD Dizziness and Giddiness Social History Tobacco Use Types Packs/Day Years Used Date Smoking Tobacco: Never Assessed Comments Unknown Sex and Gender Information Value Date Recorded Sex Assigned at Not on file Legal Sex Female 3:30 AM ADON Gender Identity Not on file Sexual Orientation [...] PM CDT Narrative 03/29/2008 12:55 PM CDT [facility] [address] [place] [place], [place] [address] Admit Date: 03/28/2008 VANESSA PARRY Sex: F Admit Prov: TAZ JOHNSON Date: 1950 Primary Care Prov: TAZ JOHNSON CMRN: [id number] Room: [facility] SSN: [id number] IMAGING SERVICES Ordering Prov: N/A Accession Number: [id number] Interpretation MRI OF BRAIN WITHOUT AND WITH [...] SJ Procedure Note Kate Castillo - 03/29/2008 [facility] [address] [place], [place] [address] Admit Date: 03/28/2008 MELLISA VANESSA M Sex: F Admit Prov: TAZ JOHNSON Date: 1950 Primary Care Prov: TAZ JOHNSON CMRN: [id number] [id number] Ordering Prov: N/A Interpretation MRI [...] CREATININE POC 1.1 0.6 - 1.3 mg/dL [facility] Capillary blood specimen (specimen) 03/28/2008 3:59 PM CDT 03/28/2008 3:59 PM CDT us Taz Johnson MD POINT OF CARE TESTING Final Resu lt [facility] [address] [place] [address] documented in this encounter Visit Diagnoses Diagnosis Dizziness and giddiness documented in this encounter Care Teams Manager Spring Relationship Specialty Start Date End Date Taz Johnson MD PCP - General 04/24/08 documented as of this encounter
--- OUTSIDE RECORDS SUMMARY | 2025-02-22 07:50 | XMS_ITS | Encounter Summary ---
Author Organization [facility] Address [address] [place] [address] Care Team Providers Care Compliance Intern Name Role Phone Yolie Johnson MD Primary Care Provider [phone] Encounter Details Date Type Department Care Team (Late st Contact Info) Description 01/31/2002 Outpatient Historical [facility] Internal Medicine - [facility] [address] [address] [facility] [address] [place] [address] Yolie Johnson MD Social History Tobacco Use Types Packs/Day Years Used Date Smoking Tobacco: Never Assessed Comments Unknown Sex and Gender Information Value Date Recorded Sex Assigned at Not on file Legal Sex Female 3:30 AM OPERATIONAL COMMUNICATION CHIEF Gender Identity Not on file Sexual Orientation Not on file documented as of this encounter Plan of Treatment Not on file documented as of this encounter Visit Diagnoses Not on filedocumented in this encounter Care Teams Compliance Intern Relationship Specialty Start Date End Date Yolie Johnson MD PCP - General 04/24/08 documented as of this encounter
--- OUTSIDE RECORDS SUMMARY | 2025-02-22 07:50 | XMS_ITS | Encounter Summary ---
Author Organization [facility] Address [address] [place] [address] Care Team Providers Care Plastics Nurse Name Role Phone Yolie Johnson MD Primary Care Provider [phone] Encounter Details Date Type Department Care Team (Late st Contact Info) Description 12/11/2002 Outpatient Historical [facility] Yolie Johnson MD SCREENING MAMM-MAILG NEOPL-OTHER (Primary Dx) Social History Tobacco Use Types Packs/Day Years Used Date Smoking Tobacco: Never Assessed Comments Unknown Sex and Gender Information Value Date Recorded Sex Assigned at Not on file Legal Sex Female 3:30 AM CUSTOMER SERVICE ASSOCIATE Gender Identity Not on file Sexual Orientation Not on file documented as of this encounter Plan of Treatment Not on file documented as of this encounter Visit Diagnoses Diagnosis Other screening mammogram- Primary documented in this encounter Care Teams Plastics Nurse Relationship Specialty Start Date End Date Yolie Johnson MD PCP - General 04/24/08 documented as of this encounter
--- OUTSIDE RECORDS SUMMARY | 2025-02-22 07:50 | XMS_ITS | Clinical Summary ---
Author Organization [employer] Bridget Corral Address [address] [facility] [place] [address] Phone Care Team Providers Care Trimming Operator Name Role Phone Yolie Johnson MD Primary Care Provider [phone] Allergies Active Allergy Reactions Criticality Noted Date [...] on file Legal Sex Female 3:30 AM DRY HEAT ROOM ATTENDANT Gender Identity Not on file Sexual Orientation Not on file Last Filed Vital Signs Vital Sign Reading Time Taken Comments Blood Pressure 126/88 02/16/2011 12:05 PM CDT Pulse 80 02/16/2011 12:05 PM CDT Temperature 37.1 C (98.7 F) 01/13/2011 12:48 PM DRY HEAT ROOM ATTENDANT Respiratory Rate - - Oxygen Saturation - [...] Colonography Q 5 years 1994 PNEUMOCOCCAL VACCINE 50+ YEA RS (1 of 1 - PCV) [...] OR MORE SITES Routine 12/02/2009 10:42 AM DRY HEAT ROOM ATTENDANT Unspecified Osteoporosis from Last 3 Months or Most Recently Relevant to Health Maintenance Results * XR DEXA BONE DENSITY AXIAL 1 OR MORE SITES (12/02/2009 10:42 AM DRY HEAT ROOM ATTENDANT) Anatomical Region Laterality Modality Digital Radiogra phy 12/02/2009 10:4 1 AM DRY HEAT ROOM ATTENDANT Impressions 12/02/2009 10:52 AM DRY HEAT ROOM ATTENDANT IMPRESSION: Lumbar spine: This patient's bone mineral [...] Thao MD FAC Narrative 12/02/2009 10:52 AM DRY HEAT ROOM ATTENDANT Examination: Bone Density Study (DEXA) Clinical History: [...] follow. Dictated by Dr. Twin Thao MD [facility] us Yolie Johnson MD DIAGNOSTIC IMAGING ORDERABLES Final Result from Last 3 Months or Most Recently Relevant to Health Maintenance Insurance Care Teams Trimming Operator Relationship Specialty Start Date End Date Yolie Johnson MD PCP - General 04/24/08
--- OUTSIDE RECORDS SUMMARY | 2025-02-22 07:50 | XMS_ITS | Encounter Summary ---
Author Organization [facility] Address [address] [place] [address] Care Team Providers Care Margin Clerk Name Role Phone Yolie Johnson MD Primary Care Provider [phone] Encounter Details Date Type Department Care Team (Late st Contact Info) Description 12/08/2002 Outpatient Historical [facility] Internal Medicine - [facility] [address] [address] [facility] [address] [place] [address] Yolie Johnson MD Social History Tobacco Use Types Packs/Day Years Used Date Smoking Tobacco: Never Assessed Comments Unknown Sex and Gender Information Value Date Recorded Sex Assigned at Not on file Legal Sex Female 3:30 AM HEAD CHOPPER Gender Identity Not on file Sexual Orientation Not on file documented as of this encounter Plan of Treatment Not on file documented as of this encounter Visit Diagnoses Not on filedocumented in this encounter Care Teams Margin Clerk Relationship Specialty Start Date End Date Yolie Johnson MD PCP - General 04/24/08 documented as of this encounter
--- OUTSIDE RECORDS SUMMARY | 2025-02-22 07:50 | XMS_ITS | Encounter Summary ---
Author Organization [facility] Address [address] Attn: Epic Prelude ADT [place] [address] Care Team Providers Care Education Intern Name Role Phone Yolie Johnson MD Primary Care Provider [phone] Encounter Details Date Type Department Care Team (Latest Contact Info) Description 04/17/2008 Orders Only Yolie Johnson MD Social History Tobacco Use Types Packs/Day Years Used Date Smoking Tobacco: Never Assessed Comments Unknown Sex and Gender Information Value Date Recorded Sex Assigned at Not on file Legal Sex Female 3:30 AM POMOLOGY TEACHER Gender Identity Not on file Sexual Orientation Not on file documented as of this encounter Plan of Treatment Not on file documented as of this encounter Visit Diagnoses Not on filedocumented in this encounter Care Teams Education Intern Relationship Specialty Start Date End Date Yolie Johnson MD PCP - General 04/24/08 documented as of this encounter
--- OUTSIDE RECORDS SUMMARY | 2025-02-22 07:50 | XMS_ITS | Encounter Summary ---
Author Organization [facility] Address [address] [place] [address] [address] Team [address] Care Ct Manager Name Role Phone Yolie Johnson MD Primary Care Provider [phone] Encounter Details Date Type Department Care Team (Late st Contact Info) Description 06/08/2003 Outpatient Historical [facility] Internal Medicine - [facility] [address] [address] [facility] [address] [place] [address] Yolie Johnson MD Social History Tobacco Use Types Packs/Day Years Used Date Smoking Tobacco: Never Assessed Comments Unknown Sex and Gender Information Value Date Recorded Sex Assigned at Not on file Legal Sex Female 3:30 AM HEDGE FUND PRINCIPAL Gender Identity Not on file Sexual Orientation Not on file documented as of this encounter Plan of Treatment Not on file documented as of this encounter Visit Diagnoses Not on filedocumented in this encounter Care Teams Ct Manager Relationship Specialty Start Date End Date Yolie Johnson MD PCP - General 04/24/08 documented as of this encounter
--- OUTSIDE RECORDS SUMMARY | 2025-02-22 07:50 | XMS_ITS | Encounter Summary ---
Author Organization [facility] Address [address] [place] [address] Care Team Providers Care Biology Internship Name Role Phone Yolie Johnson MD Primary [...] on file Legal Sex Female 3:30 AM SEWAGE DISPOSAL ENGINEER Gender Identity Not on file Sexual Orientation Not on file documented as of this encounter Plan of Treatment Not on file documented as of this encounter Visit Diagnoses Diagnosis Other screening mammogram- Primary documented in this encounter Care Teams Biology Internship Relationship Specialty Start Date End Date Yolie Johnson MD PCP - General 04/24/08 documented as of this encounter
--- OUTSIDE RECORDS SUMMARY | 2025-02-22 07:50 | XMS_ITS | Encounter Summary ---
Author Organization [facility] Address [address] [place] [address] Care Team Providers Care Supervisor Boatbuilders Wood Name Role Phone Yolie Johnson MD Primary Care Provider Encounter Details Date Type Department Care Team (Late st Contact Info) Description 10/31/2002 Outpatient Historical [facility] Internal Medicine - [facility] [address] [facility] [address] [place] [address] Yolie oJhnson MD Social History Tobacco Use Types Packs/Day Years Used Date Smoking Tobacco: Never Assessed Comments Unknown Sex and Gender Information Value Date Recorded Sex Assigned at Not on file Legal Sex Female 3:30 AM PROFESSOR OF FOOD BIOCHEMISTRY Gender Identity Not on file Sexual Orientation Not on file documented as of this encounter Plan of Treatment Not on file documented as of this encounter Visit Diagnoses Not on filedocumented in this encounter Care Teams Supervisor [employer]builders Wood Relationship Specialty Start Date End Date Yolie Johnson MD PCP - General 04/24/08 documented as of this encounter
--- OUTSIDE RECORDS SUMMARY | 2025-02-22 07:50 | XMS_ITS | Encounter Summary ---
Author Organization [facility] Address [address] [place] [address] Care Team Providers Care Medical Device Sales Representative Name Role Phone Yolie Johnson MD Primary Care Provider [phone] Encounter Details Date Type Department Care Team (Late st Contact Info) Description 03/16/2001 Outpatient Historical Division of Neurology [address] [place], [place] [address] Eros Hood MD [address] [facility] [address] [place] [address] Social History Tobacco Use Types Packs/Day Years Used Date Smoking Tobacco: Never Assessed Comments Unknown Sex and Gender Information Value Date Recorded Sex Assigned at Not on file Legal Sex Female 3:30 AM LINING FOLDER Gender Identity Not on file Sexual Orientation Not on file documented as of this encounter Plan of Treatment Not on file documented as of this encounter Visit Diagnoses Not on filedocumented in this encounter Care Teams Medical Device Sales Representative Relationship Specialty Start Date End Date Yolie Johnson MD PCP - General 04/24/08 documented as of this encounter
--- OUTSIDE RECORDS SUMMARY | 2025-02-22 07:50 | XMS_ITS | Encounter Summary ---
Author Organization [facility] Address [address] [place] [address] Care Team Providers Care Analog Design Engineer Name Role Phone Yolie Johnson MD Primary Care Provider [phone] Encounter Details Date Type Department Care Team (Late st Contact Info) Description 04/03/2003 Outpatient Historical [facility] Internal Medicine - [facility] [address] [address] [facility] [address] [place] [address] Yolie Johnson MD Social History Tobacco Use Types Packs/Day Years Used Date Smoking Tobacco: Never Assessed Comments Unknown Sex and Gender Information Value Date Recorded Sex Assigned at Not on file Legal Sex Female 3:30 AM THEOLOGY TEACHER Gender Identity Not on file Sexual Orientation Not on file documented as of this encounter Plan of Treatment Not on file documented as of this encounter Visit Diagnoses Not on filedocumented in this encounter Care Teams Analog Design Engineer Relationship Specialty Start Date End Date Yolie Johnson MD PCP - General 04/24/08 documented as of this encounter
--- OUTSIDE RECORDS SUMMARY | 2025-02-22 07:50 | XMS_ITS | Encounter Summary ---
Author Organization [employer] [facility] Address [address] [place] [address] Care Team Providers Care Ecological Modeler Name Role Phone Yolie Johnson MD Primary [...] on file Legal Sex Female 3:30 AM PLUNGER SCOOP OPERATOR Gender Identity Not on file Sexual Orientation Not on file documented as of this encounter Plan of Treatment Not on file documented as of this encounter Visit Diagnoses Diagnosis Disorder of bone and cartilage, unspecified- Primary documented in this encounter Care Teams Ecological Modeler Relationship Specialty Start Date End Date Yolie Johnson MD PCP - General 04/24/08 documented as of this encounter
--- OUTSIDE RECORDS SUMMARY | 2025-02-22 07:50 | XMS_ITS | Encounter Summary ---
Author Organization [facility] Address [address] [place] [address] Care Team Providers Care Full Service Vending Driver Name Role Phone Yolie Johnson MD Primary Care Provider [phone] Encounter Details Date Type Department Care Team (Latest Contact Info) Description 10/14/2005 Outpatient Historical [facility] Yolie Johnson MD OSTEOPOROSIS NOS (Primary Dx) Social History Tobacco Use Types Packs/Day Years Used Date Smoking Tobacco: Never Assessed Comments Unknown Sex and Gender Information Value Date Recorded Sex Assigned at Not on file Legal Sex Female 3:30 AM CLERICAL ADJUDICATOR Gender Identity Not on file Sexual Orientation Not on file documented as of this encounter Plan of Treatment Not on file documented as of this encounter Visit Diagnoses Diagnosis Osteoporosis, unspecified- Primary documented in this encounter Care Teams Full Service Vending Driver Relationship Specialty Start Date End Date Yolie Johnson MD PCP - General 04/24/08 documented as of this encounter
--- OUTSIDE RECORDS SUMMARY | 2025-02-22 07:50 | XMS_ITS | Encounter Summary ---
Author Organization [facility] Address [address] [place] [address] Care Team Providers Care Director Oracle Database Name Role Phone Yolie Johnson MD Primary Care Provider [phone] Encounter Details Date Type Department Care Team (Late st Contact Info) Description 06/30/2001 Outpatient Historical [facility] Internal Medicine - [facility] [address] [address] [facility] [address] [place] [address] Yolie Johnson MD Social History Tobacco Use Types Packs/Day Years Used Date Smoking Tobacco: Never Assessed Comments Unknown Sex and Gender Information Value Date Recorded Sex Assigned at Not on file Legal Sex Female 3:30 AM VISUAL DESIGNER Gender Identity Not on file Sexual Orientation Not on file documented as of this encounter Plan of Treatment Not on file documented as of this encounter Visit Diagnoses Not on filedocumented in this encounter Care Teams Director Oracle Database Relationship Specialty Start Date End Date Yolie Johnson MD PCP - General 04/24/08 documented as of this encounter
--- OUTSIDE RECORDS SUMMARY | 2025-02-22 07:50 | XMS_ITS | Encounter Summary ---
Author Organization [facility] Address [address] [place] [address] Care Team Providers Care Fountain Vending Mechanic Name Role Phone Yolie Johnson MD Primary Care Provider [phone] Encounter Details Date Type Department Care Team (Late st Contact Info) Description 05/22/2003 Outpatient Historical [facility] Internal Medicine - [facility] [address] [address] [facility] [address] [place] [address] Yolie Johnson MD Social History Tobacco Use Types Packs/Day Years Used Date Smoking Tobacco: Never Assessed Comments Unknown Sex and Gender Information Value Date Recorded Sex Assigned at Not on file Legal Sex Female 3:30 AM APNS Gender Identity Not on file Sexual Orientation Not on file documented as of this encounter Plan of Treatment Not on file documented as of this encounter Visit Diagnoses Not on filedocumented in this encounter Care Teams Fountain Vending Mechanic Relationship Specialty Start Date End Date Yolie Johnson MD PCP - General 04/24/08 documented as of this encounter
--- OUTSIDE RECORDS SUMMARY | 2025-02-22 07:50 | XMS_ITS | Encounter Summary ---
Author Organization [facility] Address [address] [place] [address] Care Team Providers Care Senior Ui Web Developer Name Role Phone Taz Johnson MD Primary Care Provider [phone] Encounter Details Date Type Department Care Team (Late st Contact Info) Description 12/13/2008 Outpatient Historical [facility] Taz Johnson MD [facility] [place] [address] Other Screening Mammogram Social History Tobacco Use Types Packs/Day Years Used Date Smoking Tobacco: Never Assessed Comments No Sex and Gender Information Value Date Recorded Sex Assigned at Not on file Legal Sex Female 3:30 AM WAREHOUSE GUARD Gender Identity Not on file Sexual Orientation Not on file documented as of this encounter Plan of Treatment Not on file documented as of this encounter Procedures Procedure Name Priority Date/Time Associated Diagnosis Comments MAMMO SCREEN BILAT W OR WO CAD Routine 12/13/2008 2:42 PM WAREHOUSE GUARD documented in this encounter Results * MAMMO DIGITAL SCREEN BILAT (12/13/2008 2:42 PM WAREHOUSE GUARD) Anatomical Region Laterality Modality Breast Bilateral Other 12/13/2008 2:42 PM WAREHOUSE GUARD Narrative 12/17/2008 10:50 PM WAREHOUSE GUARD [facility] [address] [place], [place] [address] Admit Date: 12/13/2008 VANESSA PAK Sex: F Admit Prov: TAZ JOHNSON Date: 1950 Primary Care Prov: TAZ JOHNSON CMRN: [id number] [id number] [facility] Ordering Prov: TAZ JOHNSON Accession Number: [id number] Interpretation BILATERAL SCREENING DIGITAL MAMMOGRAMS WITH COMPUTER [...] AMK Procedure Note Yane Posada - 12/17/[address] [address] Admit Date: 12/13/2008 VANESSA PAK Sex: F Admit Prov: TAZ JOHNSON Date: 1950 Primary Care Prov: TAZ JOHNSON Tamra CMRN: [id number] [facility] [id number] IM[facility]ING SERVICES Ordering Prov: TAZ JOHNSON Interpretation [...] mammogram documented in this encounter Care Teams Senior Ui Web Developer Relationship Specialty Start Date End Date Taz Johnson MD PCP - General 04/24/08 documented as of this encounter
--- OUTSIDE RECORDS SUMMARY | 2025-02-22 07:50 | XMS_ITS | Encounter Summary ---
Author Organization Address [address] [place] [address] Care Team Providers Care Air Plant Engineer Name Role Phone Yolie Johnson MD Primary Care Provider [phone] Encounter Details Date Type Department Care Team (Late st Contact Info) Description 06/23/2005 Outpatient Historical [facility] Internal Medicine - [facility] [address] [address] [facility] [address] [place] [address] Yolie Johnson MD Social History Tobacco Use Types Packs/Day Years Used Date Smoking Tobacco: Never Assessed Comments Unknown Sex and Gender Information Value Date Recorded Sex Assigned at Not on file Legal Sex Female 3:30 AM STRATEGIC INTELLIGENCE OFFICER Gender Identity Not on file Sexual Orientation Not on file documented as of this encounter Plan of Treatment Not on file documented as of this encounter Visit Diagnoses Not on filedocumented in this encounter Care Teams Air Plant Engineer Relationship Specialty Start Date End Date Yolie Johnson MD PCP - General 04/24/08 documented as of this encounter
--- OUTSIDE RECORDS SUMMARY | 2025-02-22 07:50 | XMS_ITS | Encounter Summary ---
Author Organization [facility] Address [address] [place] [address] Care Team Providers Care Pole Setter Name Role Phone Yolie Johnson MD Primary Care Provider [phone] Encounter Details Date Type Department Care Team (Late st Contact Info) Description 01/17/1999 Outpatient Historical [facility] Internal [facility] - [facility] [address] [address] [facility] [address] [place] [address] Yolie Johnson MD Social History Tobacco Use Types Packs/Day Years Used Date Smoking Tobacco: Never Assessed Comments Unknown Sex and Gender Information Value Date Recorded Sex Assigned at Not on file Legal Sex Female 3:30 AM UTILITY SPECIALIST Gender Identity Not on file Sexual Orientation Not on file documented as of this encounter Plan of Treatment Not on file documented as of this encounter Visit Diagnoses Not on filedocumented in this encounter Care Teams Pole Setter Relationship Specialty Start Date End Date Yolie Johnson MD PCP - General 04/24/08 documented as of this encounter
--- OUTSIDE RECORDS SUMMARY | 2025-02-22 07:50 | XMS_ITS | Encounter Summary ---
Author Organization [facility] Address [address] [place] [address] Care Team Providers Care It Security Architect Name Role Phone Yolie Johnson MD Primary Care Provider [phone] Encounter Details Date Type Department Care Team (Late st Contact Info) Description 04/17/2005 Outpatient Historical [facility] Internal Medicine - [facility] [address] [address] [facility] [address] [place] [address] Yolie Johnson MD Social History Tobacco Use Types Packs/Day Years Used Date Smoking Tobacco: Never Assessed Comments Unknown Sex and Gender Information Value Date Recorded Sex Assigned at Not on file Legal Sex Female 3:30 AM 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
--- OUTSIDE RECORDS SUMMARY | 2025-02-22 07:50 | XMS_ITS | Encounter Summary ---
Author Organization [facility] Address [address] [place] [address] Care Team Providers Care Director Prison Name Role Phone Yolie Johnson MD Primary Care Provider [phone] Encounter Details Date Type Department Care Team (Late st Contact Info) Description 10/07/2005 Outpatient Historical [facility] Internal Medicine - [facility] [address] [address] [facility] [address] [place] [address] Yolie Johnson MD Social History Tobacco Use Types Packs/Day Years Used Date Smoking Tobacco: Never Assessed Comments Unknown Sex and Gender Information Value Date Recorded Sex Assigned at Not on file Legal Sex Female 3:30 AM AERIAL ADVERTISER Gender Identity Not on file Sexual Orientation Not on file documented as of this encounter Last Filed Vital Signs Vital Sign Reading Time Taken Comments Blood Pressure 124/76 10/07/2005 2:15 PM AERIAL ADVERTISER Pulse 68 10/07/2005 2:15 PM AERIAL ADVERTISER Temperature - - Respiratory Rate - - Oxygen Saturation - - Inhaled Oxygen Concentration - - Weight 74.4 kg (164 lb) 10/07/2005 2:15 PM AERIAL ADVERTISER Height - - Body Mass Index - - documented in this encounter Plan of Treatment Not on file documented as of this encounter Visit Diagnoses Not on filedocumented in this encounter Care Teams Director Prison Relationship Specialty Start Date End Date Yolie Johnson MD PCP - General 04/24/08 documented as of this encounter
--- OUTSIDE RECORDS SUMMARY | 2025-02-22 07:50 | XMS_ITS | Encounter Summary ---
Author Organization [employer] Address 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
--- OUTSIDE RECORDS SUMMARY | 2025-02-22 07:50 | XMS_ITS | Encounter Summary ---
Author Organization [facility] Address [address] [place] [address] Care Team Providers Care Mattress Stuffer Name Role Phone Yolie Johnson MD Primary Care Provider [phone] Encounter Details Date Type Department Care Team (Late st Contact Info) Description 02/24/2005 Outpatient Historical [facility] Yolie Johnson MD SCREENING MAMM-MAILG NEOPL-OTHER (Primary Dx) Social History Tobacco Use Types Packs/Day Years Used Date Smoking Tobacco: Never Assessed Comments Unknown Sex and Gender Information Value Date Recorded Sex Assigned at Not on file Legal Sex Female 3:30 AM SHAREPOINT CONSULTANT Gender Identity Not on file Sexual Orientation Not on file documented as of this encounter Plan of Treatment Not on file documented as of this encounter Visit Diagnoses Diagnosis Other screening mammogram- Primary documented in this encounter Care Teams Mattress Stuffer Relationship Specialty Start Date End Date Yolie Johnson MD PCP - General 04/24/08 documented as of this encounter
--- OUTSIDE RECORDS SUMMARY | 2025-02-22 07:50 | XMS_ITS | Continuity of Care Document ---
Author Organization [facility] Address [address] [place] [address] Phone Care Team Providers Care Monogram Machine Operator Name Role Phone Martinez OD, Twin Unavailable Unavailable Advance Directives Directive Yes / No Effective Date File Name No Information Encounters Encounter Description Practice Location Reason(s) For Visit Diagnoses Date Provider Providers Copied on Encounter [facility], [address] [place], [place], [id number], [place] tel:[phone] [facility] [place] No Information 5-200 6 Martinez OD Twin. [address] [place] , [address], [place], [address], [place]. tel:[phone] Family History Family Member Type Diagnosis Age At Onset No Information Payers Payer name Insurance type Covered alliance party ID Authoriza tion(s) No Information Social History [...]
--- OUTSIDE RECORDS SUMMARY | 2025-02-22 07:50 | XMS_ITS | CONTINUITY OF CARE DOCUMENT ---
Author Name gee, sravanser Address Unknown Organization [facility] Address [address] [facility] [address] [place] [address] Phone [phone] Care Team Providers Care Hack Driver Name Role Phone David Hancock MD Unavailable SHEMAR BETANCOURT MD Unavailable SHEMAR BETANCOURT MD Unavailable [phone] PROBLEMS Condition Status Date Provider Notes HYPERCHOLESTEROLEMIA active Daivd Hancock MD CHEST PAIN-NORMAL STRESS TEST active David Hancock MD SHORTNESS OF BREATH-02/05 ECHO EF 60 active ? Mathew Huerta RN HTN-02/05 NUC NEG active ? Mathew Huerta RN VERTIGO-02/05 CAROTID NEG active ? Mathew Huerta RN HYPOTHYROIDISM active ? David Hancock MD ENCOUNTERS Date Type Provider Location Encounter Diag nosis - In-person encounter Office Visit David Hancock MD [place] [facility] - In-person encounter Office Visit David Hancock MD [place] [facility] CHEST PAIN-NORMAL STRESS TEST - In-person encounter Office Visit David Hancock MD [place] [facility] CHEST PAIN-NORMAL STRESS TESTHYPERCHOLESTEROLEMIA - In-person encounter Office Visit David Hancock MD [place] [facility] - In-person encounter Office Visit David Hancock MD [place] [facility] - In-person encounter Office Visit David Hancock MD [place] [facility] - In-person encounter Office Visit David Hancock MD [place] [facility] - In-person encounter Office Visit David Hancock MD [place] [facility] HYPOTHYROIDISMVERTIGO-02/05 CAROTID NEGHTN-02/05 NUC NEGSHORTNESS OF [...] [place] blood pressure, diastolic 81 mm[Hg] Lima bocye [place] blood pressure, systolic 119 mm[Hg] Aubrey nikhil [place] pulse rate 87 /min [facility], oximetry 97 % [facility] respiratory rate E&M 16 /min [facility] weight E&M 188 [lb_av] Blas Zamudio [...] Range Interpretation Location platelet count 337 10*3/mm3 [facility] hematocrit, blood 42.7 % [facility] thyroid stimulating hormone, serum 2.730 u[IU]/mL [facility] alanine aminotransferase (SGPT), serum 36 1/L [facility] aspartate aminotransferase (SGOT), serum 47 1/L [facility] blood glucose, random 92 mg/dL [facility] creatinine, serum 0.77 mg/dL [facility] urea nitrogen, blood 16 mg/dL [facility] potassium, serum 4.2 mmol/L [facility] sodium, serum 144 mmol/L [facility] platelet count 289 10*3/mm3 [facility] hematocrit, blood 41.9 % [facility] triglyceride, serum, fasting 110 mg/dL [facility] HDL cholesterol, serum 45 mg/dL [facility] lipoprotein, beta, serum, point, quantitative, calculated 109 mg/dL [facility] cholesterol, serum 176 mg/dL [facility] alanine aminotransferase (SGPT), serum 32 1/L [...] as a smoker less than 10 years [facility] smoking status Quit [facility] MENTAL STATUS Date Observation Value Provider assessment [...] Payer name Policy type / Coverage type Dille red green party ID [facility] [id number] TREATMENT PLAN Date Name Performer chest pain [...] MD follow up: O rders: E KG ([id number]) BP today: 126/77 Prior BP: 132/92 (07/04/2012) [...] Prior BP: 137/96 (04/06/2011) Orders: Guy KG ([id number]) David Hancock MD routine: T he following [...]
[2025-02-22 08:14] LABS: Hematocrit 39.7 % (37.0-47.0); Hemoglobin 13.3 g/dL (12.0-15.0); Mean Corpuscular HGB Conc 33.5 g/dl (32-36); Mean Corpuscular Hemoglobin 32.8 pg (26-34); Mean Platelet Volume 9.6 fl (7.4-10.4); Platelet Count Result 239 k/mm3 (150-375); Red Blood Count 4.05 M/mm3 (4.2-5.4); Red Cell Distribution Width 12.4 % (11.5-14.5)
[2025-02-22 08:26] LABS: Alanine Aminotransferase 21 U/L (6-35); Albumin Level 4.5 g/dL (3.5-5.1); Alkaline Phosphatase 81 U/L (38-126); Anion Gap 9 mmol/L (4-12); Aspartate Amino Transferase 22 U/L (14-36); Bilirubin,Total 0.6 mg/dL (0.2-1.3); Blood Urea Nitrogen 7 mg/dL (7-17); Calcium 9.6 mg/dL (8.4-10.2); Carbon Dioxide 28 mmol/L (22-30); Chloride 106 mmol/L (98-107); Cholesterol 163 mg/dL (0-200); Estimated Glomerular Filt Rate > 60; Glucose 107 mg/dL (65-110); HDL Direct 44 mg/dL; Potassium 3.8 mmol/L (3.4-5.0); Sodium 143 mmol/L (137-145); Triglycerides 149 mg/dL (<150)
[2025-02-22 08:37] LABS: LDL Cholesterol Direct 83 mg/dL
[2025-02-22 08:43] LABS: Free T4 Free Thyroxine 1.32 ng/dL (0.78-2.19)
== END 2025-02-22 07:44 | disposition home or self-care (01) ==
PROVIDERS: PCP Internal Medicine; Visit Provider Nurse Practitioner
DX: E03.9 Hypothyroidism, unspecified (principal); E78.5 Hyperlipidemia, unspecified; I10 Essential (primary) hypertension
CPT/HCPCS: 36415; 80053; 80061; 84439; 84443; 85027

== ENCOUNTER 2025-05-07 07:21 | Outpatient (CLI) | payer MEDICARE, SELFPAY ==
--- NOTE | ~2025-05-07 | US_ITS ---
US ART. DOPPLER LOWER - JULISSA Procedure: Bilateral lower extremity arterial Doppler examination. Indication: Peripheral vascular disease Comparison: No prior studies for comparison. Findings: Normal pressures are present throughout the lower extremity arteries bilaterally without ev idence for hemodynamically significant pressure gradient. Normal biphasic and triphasic triphasic wa veform is present. Ankle-brachial indices within normal limits measuring 1.23 on the right and 1.2 o n the left. No brachial indices are normal. Impression: 1: Normal bilateral lower extremity arterial Doppler. Reviewed, dictated and finalized at location B. Impression: 1: Normal bilateral lower extremity arterial Doppler.
--- OUTSIDE RECORDS SUMMARY | 2025-05-07 07:28 | XMS_ITS | Encounter Summary ---
Author Organization [employer] [facility] Address 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
--- OUTSIDE RECORDS SUMMARY | 2025-05-07 07:28 | XMS_ITS | Encounter Summary ---
Author Organization [facility] Address [address] Attn: Epic Prelude ADT DARSHAN RANDALL [address] Care Team Providers Care Emergency Physician Name Role Phone Yolie Johnson MD Primary Care Provider [phone] Encounter Details Date Type Department Care Team (Latest Contact Info) Description 03/21/2008 Orders Only Yolie Johnson MD Social History Tobacco Use Types Packs/Day Years Used Date Smoking Tobacco: Never Assessed Comments Unknown Sex and Gender Information Value Date Recorded Sex Assigned at Not on file Legal Sex Female 3:30 AM BURIAL VAULT MAKER Gender Identity Not on file Sexual Orientation Not on file documented as of this encounter Progress Notes * [employer], [employer] Transcriptions - 05/04/2008 11:11 AM CDT NURSE [...] Ramsey on Wednesday, April 02, 2008 * [employer] Transcriptions - 05/04/2008 11:11 AM CDT PULSE: [...] is noted, no splenomegaly. NEUROLOGIC: CRANIAL NERVES: curriculum coordinator II-XII grossly intact. DEEP TENDON REFLEXES: Deep tendon reflexes 2+/4 and symmetrical. No cerebellar signs present. Positive George Alphonso Lillye PSYCHIATRIC: Judgment appropriate. Oriented. Normal memory. Mood and affect appropriate. ASSESSMENT/PLAN: 780.4-VERTIGO/DIZZINESS /tinnitus MEDICATIONS: MECLIZINE HCL ORAL TABLET 25 MG, 1 Every Eight Hours, 30 Dispensed, status: NEW PRESCRIPTION, 03/21/2008. LAB ORDERS: Order number: [id number] Test Ordered: MRI BRAIN W/CONTRAST 599.0-URINARY TRACT INFECTION MEDICATIONS: BACTRIM DS ORAL TABLET 800-160 MG, 1 Two Times A Day, 14 Dispensed, status: NEW PRESCRIPTION, 03/21/2008. Electronically Signed by: Yolie Johnson MD on Friday, March 21, 2008 documented in this encounter Plan of Treatment Not on file documented as of this encounter Visit Diagnoses Not on filedocumented in this encounter Care Teams Emergency Physician Relationship Specialty Start Date End Date Yolie Johnson MD PCP - General 04/24/08 documented as of this encounter
--- OUTSIDE RECORDS SUMMARY | 2025-05-07 07:28 | XMS_ITS | Encounter Summary ---
Author Organization [facility] Address [address] [place] [address] Care Team Providers Care Seam Rubber Name Role Phone Yolie Johnson MD Primary Care Provider [phone] Encounter Details Date Type Department Care Team (Late st Contact Info) Description 03/21/2008 Outpatient Historical [facility] Internal Medicine - [facility] [address] [address] [facility] [address] [place] [address] Yolie Johnson MD Proteinuria Social History Tobacco Use Types Packs/Day Years Used Date Smoking Tobacco: Never Assessed Comments Unknown Sex and Gender Information Value Date Recorded Sex Assigned at Not on file Legal Sex Female 3:30 AM PSYCHODRAMATIST Gender Identity Not on file Sexual Orientation Not on file documented as of this encounter Plan of Treatment Not on file documented as of this encounter Procedures Procedure Name Priority Date/Time Associated Diagnosis Comments URINE CULTURE Routine 03/21/2008 9:27 PM CDT documented in this encounter Results * URINE CULTURE (03/21/2008 9:27 PM CDT) PRELIMINARY REPORT Pending [facility] FINAL REPORT Polymicrobial growth present consistent with urethral elizabeth and/or colonizing bacteria. [facility] 03/21/2008 9:27 PM CDT 03/21/2008 10:15 PM CDT us Yolie Johnson MD MICROBIOLOGY - GENERAL ORDERABLE S Final Result [facility] [address] [place] [address] documented in this encounter Visit Diagnoses Diagnosis Proteinuria documented in this encounter Care Teams Seam Rubber Relationship Specialty Start Date End Date Yloie Johnson MD PCP - General 04/24/08 documented as of this encounter
--- OUTSIDE RECORDS SUMMARY | 2025-05-07 07:28 | XMS_ITS | Encounter Summary ---
Author Organization [facility] Address [address] [place] [address] Care Team Providers Care Branch Sales Manager Name Role Phone Yolie Johnson MD Primary Care Provider Encounter Details Date Type Department Care Team (Late st Contact Info) Description 03/21/2008 Outpatient Historical [facility] Internal Medicine - [facility] [address] [address] [facility] [address] [place] [address] Yolie Johnson MD Social History Tobacco Use Types Packs/Day Years Used Date Smoking Tobacco: Never Assessed Comments Unknown Sex and Gender Information Value Date Recorded Sex Assigned at Not on file 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
--- OUTSIDE RECORDS SUMMARY | 2025-05-07 07:28 | XMS_ITS | Encounter Summary ---
Author Organization [facility] Address [address] [place] [address] Care Team Providers Care Unishear Operator Name Role Phone Yolie Johnson MD Primary Care Provider [phone] Encounter Details Date Type Department Care Team (Latest Contact Info) Description 12/05/2007 Outpatient Historical [facility] Yolie Ortega MD Pathologic Fracture, Unspecified Site; Other Screening Mammogram Social History Tobacco Use Types Packs/Day Years Used Date Smoking Tobacco: Never Assessed Comments Unknown Sex and Gender Information Value Date Recorded Sex Assigned at Not on file Legal Sex Female 3:30 AM NEWS SPECIALIST Gender Identity Not on file Sexual Orientation Not on file documented as of this encounter Plan of Treatment Not on file documented as of this encounter Visit Diagnoses Diagnosis Pathologic fracture, unspecified site Other screening mammogram documented in this encounter Care Teams Unishear Operator Relationship Specialty Start Date End Date Yolie Johnson MD PCP - General 04/24/08 documented as of this encounter
--- OUTSIDE RECORDS SUMMARY | 2025-05-07 07:28 | XMS_ITS | Encounter Summary ---
Author Organization [facility] Address [address] [place] [address] Care Team Providers Care Manager Environmental Name Role Phone Yolie Johnson MD Primary Care Provider [phone] Encounter Details Date Type Department Care Team (Late st Contact Info) Description 01/24/2007 Outpatient Historical [facility] Yolie Johnson MD Abdominal Pain, Left Upper Quadrant (Primary Dx) Social History Tobacco Use Types Packs/Day Years Used Date Smoking Tobacco: Never Assessed Comments Unknown Sex and Gender Information Value Date Recorded Sex Assigned at Not on file Legal Sex Female 3:30 AM FORK REPAIRER Gender Identity Not on file Sexual Orientation Not on file documented as of this encounter Plan of Treatment Not on file documented as of this encounter Visit Diagnoses Diagnosis Abdominal pain, left upper quadrant- Primary documented in this encounter Care Teams Manager Environmental Relationship Specialty Start Date End Date Yolie Johnson MD PCP - General 04/24/08 documented as of this encounter
--- OUTSIDE RECORDS SUMMARY | 2025-05-07 07:28 | XMS_ITS | Encounter Summary ---
Author Organization [facility] Address [address] [place] [address] Care Team Providers Care Turning Machine Operator Helper Name Role Phone Yolie Johnson MD Primary Care Provider [phone] Encounter Details Date Type Department Care Team (Latest Contact Info) Description 06/24/2007 Outpatient Historical [facility] Internal Medicine - [facility] [address] [address] [facility] [address] [place] [address] Yolie Johnson MD Other and Unspecified Hyperlipidemia (Primary Dx) Social History Tobacco Use Types Packs/Day Years Used Date Smoking Tobacco: Never Assessed Comments Unknown Sex and Gender Information Value Date Recorded Sex Assigned at Not on file Legal Sex Female 3:30 AM 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 Gender Identity Not on file Sexual Orientation [...] MD URINE ORDERABLES Edited Performing Organization Address [facility] Phone Number INTERFACE SYSTEM Refer to clinic/hospital department * TSH (06/24/2007 9:20 AM CDT) TSH 3.56 0.27 - 4.20 uU/mL INTERFACE SYSTEM 06/24/2007 9:20 AM CDT Yolie Johnson MD CHEMISTRY ORDERABLES Edited Performing Organization Address [facility] Phone Number INTERFACE SYSTEM Refer to clinic/hospital department * (ABNORMAL) GLUCOSE LEVEL (06/24/2007 9:20 AM CDT) GLUCOSE 107(H) 65 - 99 mg/dL INTERFACE SYSTEM 06/24/2007 9:20 AM CDT Yolie Johnson MD CHEMISTRY ORDERABLES Edited Performing Organization Address [facility] Phone Number INTERFACE SYSTEM Refer to [...] classifications for lipids are available on the [facility] Intranet at: [email or web address] Select: Lab Policies and Procedures Select: Reference Ranges - Lipids 06/24/2007 9:20 AM CDT us Yolie Johnson MD CHEMISTRY ORDERABLES Edited INTERFACE SYSTEM Refer to clinic/hospital department documented in this encounter Visit Diagnoses Diagnosis Other and unspecified hyperlipidemia- Primary documented in this encounter Care Teams Turning Machine Operator Helper Relationship Specialty Start Date End Date Yolie Johnson MD PCP - General 04/24/08 documented as of this encounter
--- OUTSIDE RECORDS SUMMARY | 2025-05-07 07:28 | XMS_ITS | Encounter Summary ---
Author Organization [facility] Address [address] [place] [address] Care Team Providers Care Subsurface Augmentee Elint Operator Name Role Phone Yolie Johnson MD Primary Care Provider Encounter Details Date Type Department Care Team (Late st Contact Info) Description 03/21/2008 Outpatient Historical [facility] Internal Medicine - [facility] [address] [address] [facility] [address] [place] [address] Yolie Johnson MD Social History Tobacco Use Types Packs/Day Years Used Date Smoking Tobacco: Never Assessed Comments Unknown Sex and Gender Information Value Date Recorded Sex Assigned at Not on file Legal Sex Female 3:30 AM DIE REPAIR Gender Identity Not on file Sexual Orientation Not on file documented as of this encounter Plan of Treatment Not on file documented as of this encounter Visit Diagnoses Not on filedocumented in this encounter Care Teams Subsurface Augmentee Elint Operator Relationship Specialty Start Date End Date Yolie Johnson MD PCP - General 04/24/08 documented as of this encounter
--- OUTSIDE RECORDS SUMMARY | 2025-05-07 07:28 | XMS_ITS | Encounter Summary ---
Author Organization [facility] Address [address] [place] [address] Care Team Providers Care Die Attaching Machine Tender Name Role Phone Justin Barreto MD Primary Care Provider Unavail Anjum Grubbs PA-C Primary Care Provide r Encounter Details Date Type Department Care Team (Late st Contact Info) Description 07/29/2022 Lab Requisition [facility] [address] [place] [address] [place] [address] Social History Tobacco Use Types Packs/Day Years Used Date Smoking Tobacco: Never Assessed Comments Unknown Sex and Gender Information Value Date Recorded Sex Assigned at Not on file Legal Sex Female 5:50 AM SILO FILLER Gender Identity Not on file Sexual Orientation Not on file documented as of this encounter Plan of Treatment Not on file documented as of this encounter Procedures Procedure Name Priority Date/Time Associated Diagnosis Comments DERMATOPATHOLOGY Routine 07/28/2022 3:33 AM CDT documented in this encounter Results * DERMATOPATHOLOGY (07/28/2022 3:33 AM CDT) Case Report Dermatopathology Report Case: [id number] Authorizing Provider: Milton Burns MD Collected: 07/28/2022 03:33 AM Ordering Location: [facility] Received: 07/29/2022 12:18 PM Pathologist: Pooja Thacker MD Specimen: Skin, right med cheek 2:08 PM CDT DERMATOPATHOLOGY LABORATORY Final Diagnosis Specimen A. SKIN, right med cheek: INTRADERMAL MELANOCYTIC NEVUS (D22.39) 2 2:08 PM CDT DERMATOPATHOLOGY LABORATORY at 1408 CDT Clinical History R/O Dysplastic Nevus 2 2:08 PM CDT DERMATOPATHOLOGY LABORATORY Gross Description Specimen A: Received is one formalin filled container labeled with the patient's name and designated right med cheek. The specimen consists of a shave biopsy measuring [id number]. Jar 0. 2 2:08 PM CDT DERMATOPATHOLOGY [...] characteristic determined by the Dermatopathology Laboratory at [facility], directed by Dr. Koki Benjamin. These tests need not be, and therefore are not, approved by the [place] Food and Drug Administration. The tests are used for clinical purposes. Billing Codes Specimen Charges Stain Charges 08924 1 2 2:08 PM CDT DERMATOPATHOLOGY LABORATORY Embedded Images 2 2:08 PM CDT DERMATOPATHOLOGY LABORATORY Pathology/Cytolo gy TISSUE SPECIMEN FROM SKIN / Unknown 07/28/2022 3:33 AM CDT 07/29/2022 12:18 PM CDT us Milton Burns MD LAB - PATHOLOGY/CYTOLOGY ORD ERABLES Final Result DERMATOPATHOLOGY LABORATORY [facility] - Department of Dermatology [address] [place] [address], [facility] [phone] documented in this encounter Visit Diagnoses Not on filedocumented in this encounter Care Teams Die Attaching Machine Tender Relationship Specialty Start Date End Date Justin Barreto MD NEED INFORMATION UPDATED PCP - General 12/07/19 03/03/23 Anjum Ball PA-C [address] [place], [place] [id number] PCP - General 03/04/23 documented as of this encounter
--- OUTSIDE RECORDS SUMMARY | 2025-05-07 07:28 | XMS_ITS | Continuity of Care Document ---
Author Organization [facility] Address [address] [place] [address] Phone Care Team Providers Care Assistant Unit Forester Name Role Phone Martinez OD, Twin Unavailable Unavailable Advance Directives Directive Yes / No Effective Date File Name No Information Encounters Encounter Description Practice Location Reason(s) For Visit Diagnoses Date Provider Providers Copied on Encounter [facility], [address], [place], [place], [id number], [place] tel:[phone] [facility] [place] No Information 5-200 6 Martinez OD Twin. [address] [place] , [address], [place], [address], [place]. tel:[phone] Family History Family Member Type Diagnosis Age [...]
--- OUTSIDE RECORDS SUMMARY | 2025-05-07 07:29 | XMS_ITS | Encounter Summary ---
Author Organization [facility] Address [address] [place] [address] Care Team Providers Care General Internist And Physician Leader Name Role Phone Yolie Johnson MD Primary Care Provider [phone] Encounter Details Date Type Department Care Team (Latest Contact Info) Description 12/11/1999 Outpatient Historical [facility] Jose Eden Unspecified hearing loss (Primary Dx) Social History Tobacco Use Types Packs/Day Years Used Date Smoking Tobacco: Never Assessed Comments Unknown Sex and Gender Information Value Date Recorded Sex Assigned at Not on file Legal Sex Female 3:30 AM DISTANCE LEARNING PROGRAM COORDINATOR Gender Identity Not on file Sexual Orientation Not on file documented as of this encounter Plan of Treatment Not on file documented as of this encounter Visit Diagnoses Diagnosis Unspecified hearing loss- Primary documented in this encounter Care Teams General Internist And Physician Leader Relationship Specialty Start Date End Date Yolie Johnson MD PCP - General 04/24/08 documented as of this encounter
--- OUTSIDE RECORDS SUMMARY | 2025-05-07 07:29 | XMS_ITS | Encounter Summary ---
Author Organization [facility] Address [address] [place] [address] Care Team Providers Care Procedure Rn Name Role Phone Yolie Johnson MD Primary Care Provider [phone] Encounter Details Date Type Department Care Team (Late st Contact Info) Description 07/19/2000 Outpatient Historical [facility] Internal Medicine - [facility] [address] [address] [facility] [address] [place] [address] Yolie Johnson MD Social History Tobacco Use Types Packs/Day Years Used Date Smoking Tobacco: Never Assessed Comments Unknown Sex and Gender Information Value Date Recorded Sex Assigned at Not on file Legal Sex Female 3:30 AM TRUCK SAFETY INSPECTOR Gender Identity Not on file Sexual Orientation Not on file documented as of this encounter Plan of Treatment Not on file documented as of this encounter Visit Diagnoses Not on filedocumented in this encounter Care Teams Procedure Rn Relationship Specialty Start Date End Date Yolie Johnson MD PCP - General 04/24/08 documented as of this encounter
--- OUTSIDE RECORDS SUMMARY | 2025-05-07 07:29 | XMS_ITS | Encounter Summary ---
Author Organization [facility] Address [address] [place] [address] Care Team Providers Care Process Development Manager Name Role Phone Yolie Johnson MD Primary Care Provider [phone] Encounter Details Date Type Department Care Team (Late st Contact Info) Description 01/25/2001 Outpatient Historical [facility] Internal Medicine - [facility] [address] [address] [facility] [address] [place] [address] Yolie Johnson MD Social History Tobacco Use Types Packs/Day Years Used Date Smoking Tobacco: Never Assessed Comments Unknown Sex and Gender Information Value Date Recorded Sex Assigned at Not on file Legal Sex Female 3:30 AM HOOP RIVETER Gender Identity Not on file Sexual Orientation Not on file documented as of this encounter Plan of Treatment Not on file documented as of this encounter Visit Diagnoses Not on filedocumented in this encounter Care Teams Process Development Manager Relationship Specialty Start Date End Date Yolie oJhnson MD PCP - General 04/24/08 documented as of this encounter
--- OUTSIDE RECORDS SUMMARY | 2025-05-07 07:29 | XMS_ITS | Encounter Summary ---
Author Organization [facility] Address [address] [place] [address] Care Team Providers Care Chemical Reclamation Equipment Operator Name Role Phone Yolie Johnson MD Primary Care Provider [phone] Encounter Details Date Type Department Care Team (Late st Contact Info) Description 11/30/2006 Outpatient Historical [facility] Internal Medicine - [facility] [address] [address] [facility] [address] [place] [address] Yolie Johnson MD Social History Tobacco Use Types Packs/Day Years Used Date Smoking Tobacco: Never Assessed Comments Unknown Sex and Gender Information Value Date Recorded Sex Assigned at Not on file Legal Sex Female 3:30 AM HOSPICE ADMINISTRATOR Gender Identity Not on file Sexual Orientation Not on file documented as of this encounter Last Filed Vital Signs Vital Sign Reading Time Taken Comments Blood Pressure 130/78 11/30/2006 1:45 PM HOSPICE ADMINISTRATOR Pulse 84 11/30/2006 1:45 PM HOSPICE ADMINISTRATOR Temperature - - Respiratory Rate - - Oxygen Saturation - - Inhaled Oxygen Concentration - - Weight 78.9 kg (174 lb) 11/30/2006 1:45 PM HOSPICE ADMINISTRATOR Height - - Body Mass Index - - documented in this encounter Plan of Treatment Not on file documented as of this encounter Visit Diagnoses Not on filedocumented in this encounter Care Teams Chemical Reclamation Equipment Operator Relationship Specialty Start Date End Date Yolie Johnson MD PCP - General 04/24/08 documented as of this encounter
--- OUTSIDE RECORDS SUMMARY | 2025-05-07 07:29 | XMS_ITS | Encounter Summary ---
Author Organization [facility] Address [address] [place] [address] Care Team Providers Care Foundry Engineer Name Role Phone Yolie Johnson MD Primary Care Provider [phone] Encounter Details Date Type Department Care Team (Late st Contact Info) Description 06/30/2006 Outpatient Historical [facility] Internal Medicine - [facility] [address] [address] [facility] [address] [place] [address] Yolie Johnson MD Social History Tobacco Use Types Packs/Day Years Used Date Smoking Tobacco: Never Assessed Comments Unknown Sex and Gender Information Value Date Recorded Sex Assigned at Not on file Legal Sex Female 3:30 AM CARTOGRAPHIC ENGINEER Gender Identity Not on file Sexual [...] on filedocumented in this encounter Care Teams Foundry Engineer Relationship Specialty Start Date End Date Yolie Johnson MD PCP - General 04/24/08 documented as of this encounter
--- OUTSIDE RECORDS SUMMARY | 2025-05-07 07:29 | XMS_ITS | Encounter Summary ---
Author Organization [facility] Address [address] [place] [address] Care Team Providers Care Global Director Air And Climate Change Name Role Phone Yolie Johnson MD Primary Care Provider [phone] Encounter Details Date Type Department Care Team (Late st Contact Info) Description 03/17/1999 Outpatient Historical [facility] Internal [facility] - [facility] [address] [address] [facility] [address] [place] [address] Yolie Johnson MD Social History Tobacco Use Types Packs/Day Years Used Date Smoking Tobacco: Never Assessed Comments Unknown Sex and Gender Information Value Date Recorded Sex Assigned at Not on file Legal Sex Female 3:30 AM TECHNICAL STAFF ASSISTANT Gender Identity Not on file Sexual Orientation Not on file documented as of this encounter Plan of Treatment Not on file documented as of this encounter Visit Diagnoses Not on filedocumented in this encounter Care Teams Global Director Air And Climate Change Relationship Specialty Start Date End Date Yolie Johnson MD PCP - General 04/24/08 documented as of this encounter
--- OUTSIDE RECORDS SUMMARY | 2025-05-07 07:29 | XMS_ITS | Encounter Summary ---
Author Organization [facility] Address [address] [place] [address] Care Team Providers Care Sleeping Car Service Attendant Name Role Phone Yolie Johnson MD Primary Care Provider [phone] Encounter Details Date Type Department Care Team (Late st Contact Info) Description 12/20/2006 Orders Only [facility] Internal Medicine - [facility] [address] [address] [facility] [address] [place] [address] Leila Mackey, ANP [address] [facility] [address] [place] [address] Social History Tobacco Use Types Packs/Day Years Used Date Smoking Tobacco: Never Assessed Comments Unknown Sex and Gender Information Value Date Recorded Sex Assigned at Not on file Legal Sex Female 3:30 AM PROGRAM MANAGEMENT PROFESSIONAL Gender Identity Not on file Sexual Orientation Not on file documented as of this encounter Progress Notes * Leila Mackey, AJAY - 04/24/2008 1:24 PM CDT TIME:12:25 pm PATIENT`S HOME PHONE: PATIENT`S WORK PHONE: PATIENT`S INSURANCE: [facility] WHO TOOK THE CALL: Adali Delgado GENERAL INFORMATION PATIENT STATUS: Established Patient. LAST VISIT: 11/30/06 ALTERNATIVE PHONE NUMBER: [phone] work WHO CALLED: Patient called. CURRENT ALLERGY [...] on filedocumented in this encounter Care Teams Sleeping Car Service Attendant Relationship Specialty Start Date End Date Yolie Johnson MD PCP - General 04/24/08 documented as of this encounter
--- OUTSIDE RECORDS SUMMARY | 2025-05-07 07:29 | XMS_ITS | Encounter Summary ---
Author Organization [facility] Address [address] [place] [address] Care Team Providers Care Solid Waste Analyst Name Role Phone Yolie Johnson MD Primary Care Provider [phone] Encounter Details Date Type Department Care Team (Late st Contact Info) Description 09/10/2000 Outpatient Historical [facility] Internal Medicine - [facility] [address] [facility] [address] [place] [address] Yolie Johnson MD Social History Tobacco Use Types Packs/Day Years Used Date Smoking Tobacco: Never Assessed Comments Unknown Sex and Gender Information Value Date Recorded Sex Assigned at Not on file Legal Sex Female 3:30 AM ELASTIC ASSEMBLER Gender Identity Not on file Sexual Orientation Not on file documented as of this encounter Plan of Treatment Not on file documented as of this encounter Visit Diagnoses Not on filedocumented in this encounter Care Teams Solid Waste Analyst Relationship Specialty Start Date End Date Yolie Johnson MD PCP - General 04/24/08 documented as of this encounter
--- OUTSIDE RECORDS SUMMARY | 2025-05-07 07:29 | XMS_ITS | Encounter Summary ---
Author Organization [facility] Address [address] [place] [address] Care Team Providers Care Commissioner Of Internal Revenue Name Role Phone Yolie Johnson MD Primary Care Provider [phone] Encounter Details Date Type Department Care Team (Late st Contact Info) Description 05/18/[address] [facility] Internal Medicine - [facility] [address] [address] [facility] [address] [place] [address] Yolie Johnson MD Social History Tobacco Use Types Packs/Day Years Used Date Smoking Tobacco: Never Assessed Comments Unknown Sex and Gender Information Value Date Recorded Sex Assigned at Not on file Legal Sex Female 3:30 AM RETAIL OPERATIONS SPECIALIST Gender Identity Not on file Sexual Orientation Not on file documented as of this encounter Plan of Treatment Not on file documented as of this encounter Visit Diagnoses Not on filedocumented in this encounter Care Teams Commissioner Of Internal Revenue Relationship Specialty Start Date End Date Yolie Johnson MD PCP - General 04/24/08 documented as of this encounter
--- OUTSIDE RECORDS SUMMARY | 2025-05-07 07:29 | XMS_ITS | Clinical Summary ---
Author Organization [facility] Address [address] [facility] [place] [address] Care Team Providers Care Operational Trainer Name Role Phone Anjum Ball PA-C Primary Care Provide r Source Comments [facility] Affiliates and Associated Physician Practices is amultiple site organization consisting of ambulatory clinics and hospital sitesin [place], [place]. This disclosure is being madepursuant to the Care Everywhere program and may not contain all information available regarding this patient. Last updated 18.[facility] [employer] Social History Tobacco Use Types Packs/Day Years Used Date Smoking Tobacco: Never Assessed Comments Unknown Sex and Gender Information Value Date Recorded Sex Assigned at Not on file Legal Sex Female 5:50 AM PERMACULTURE DESIGNER Gender Identity Not on file Sexual Orientation Not on file Last Filed Vital Signs Vital Sign Reading Time Taken Comments Blood Pressure 103/66 08/14/2014 10:25 AM CDT Pulse - - Temperature - - Respiratory Rate - - Oxygen Saturation - - Inhaled Oxygen Concentration - - Weight 83 kg (183 lb) 08/14/2014 10:25 AM CDT Height 167.6 cm (5' 6) 08/14/2014 10:25 AM CDT Body Mass Index 29.54 08/14/2014 10:25 AM CDT Plan of Treatment Health Maintenance Due Date Last Done Comments BONE DENSITY TESTING 1950 HEPATITIS C SCREENING 01/23/1967 DTAP/TDAP/TD VACCINES (1 - Tdap) 01/28/1968 PNEUMOCOCCAL VACCINE 50+ (1 of 1 - PCV) 1999 ZOSTER VACCINE (1 of 2) 1999 Respiratory Syncytial Virus (RSV) Vaccine Pt: or over 60 yrs (1 - 1-dose 75+ series) 01/28/2024 COVID-19 VACCINE (1 - 2023-2 5 season) 2024 DEPRESSION SCREENING 11/29/2024 INFLUENZA VACCINE (Season Ended) 2025 HEPATITIS B VACCINE Aged Out No longe [...] complete this topic Insurance AETNA Care Teams Operational Trainer Relationship Specialty Start Date End Date Anjum Ball PA-C [address] [place] [address] PCP - General 03/04/23
--- OUTSIDE RECORDS SUMMARY | 2025-05-07 07:29 | XMS_ITS | Encounter Summary ---
Author Organization [facility] Address [address] [place] [address] Care Team Providers Care Agri Business Agent Name Role Phone Yolie Johnson MD Primary Care Provider [phone] Encounter Details Date Type Department Care Team (Late st Contact Info) Description 05/18/2000 Outpatient Historical [facility] Internal Medicine - [facility] [address] [address] [facility] [address] [place] [address] Yolie Johnson MD Social History Tobacco Use Types Packs/Day Years Used Date Smoking Tobacco: Never Assessed Comments Unknown Sex and Gender Information Value Date Recorded Sex Assigned at Not on file Legal Sex Female 3:30 AM REVIEW SCHEDULING COORDINATOR Gender Identity Not on file Sexual Orientation Not on file documented as of this encounter Plan of Treatment Not on file documented as of this encounter Visit Diagnoses Not on filedocumented in this encounter Care Teams Agri Business Agent Relationship Specialty Start Date End Date Yolie Johnson MD PCP - General 04/24/08 documented as of this encounter
--- OUTSIDE RECORDS SUMMARY | 2025-05-07 07:29 | XMS_ITS | Encounter Summary ---
Author Organization [facility] Address [address] [facility] Attn: Epic Prelude ADT [place] [address] Care Team Providers Care Dental Scheduling Coordinator Name Role Phone Yolie Johnson MD Primary Care Provider [phone] Encounter Details Date Type Department Care Team (Latest Contact Info) Description 11/30/2006 Orders Only Yolie Johnson MD Social History Tobacco Use Types Packs/Day Years Used Date Smoking Tobacco: Never Assessed Comments Unknown Sex and Gender Information Value Date Recorded Sex Assigned at Not on file Legal Sex Female 3:30 AM GAMBLING BROKER Gender Identity Not on file Sexual Orientation [...] on filedocumented in this encounter Care Teams Dental Scheduling Coordinator Relationship Specialty Start Date End Date Yolie Johnson MD PCP - General 04/24/08 documented as of this encounter
--- OUTSIDE RECORDS SUMMARY | 2025-05-07 07:29 | XMS_ITS | Encounter Summary ---
Author Organization [facility] Address [address] [place] [address] Care Team Providers Care Associate Dean Name Role Phone Yolie Johnson MD Primary Care Provider Encounter Details Date Type Department Care Team (Late st Contact Info) Description 12/01/1999 Outpatient [facility] Division of Neurology [address] [place] [address]., [address] [address] Jose Penaloza Social History Tobacco Use Types Packs/Day Years Used Date Smoking Tobacco: Never Assessed Comments Unknown Sex and Gender Information Value Date Recorded Sex Assigned at Not on file Legal Sex Female 3:30 AM PIGMENT GRINDER Gender Identity Not on file Sexual Orientation Not on file documented as of this encounter Plan of Treatment Not on file documented as of this encounter Visit Diagnoses Not on filedocumented in this encounter Care Teams Associate Dean Relationship Specialty Start Date End Date Yolie Johnson MD PCP - General 04/24/08 documented as of this encounter
--- OUTSIDE RECORDS SUMMARY | 2025-05-07 07:29 | XMS_ITS | Encounter Summary ---
Author Organization [facility] Address [address] [place] [address] Care Team Providers Care Deployment Manager Name Role Phone Yolie Jonhson MD Primary Care Provider [phone] Encounter Details Date Type Department Care Team (Late st Contact Info) Description 09/30/1999 Outpatient Historical [facility] Internal Medicine - [facility] [address] [address] [facility] [address] [place] [address] Yolie Johnson MD Social History Tobacco Use Types Packs/Day Years Used Date Smoking Tobacco: Never Assessed Comments Unknown Sex and Gender Information Value Date Recorded Sex Assigned at Not on file Legal Sex Female 3:30 AM MUD JACK OPERATOR Gender Identity Not on file Sexual Orientation Not on file documented as of this encounter Plan of Treatment Not on file documented as of this encounter Visit Diagnoses Not on filedocumented in this encounter Care Teams Deployment Manager Relationship Specialty Start Date End Date Yolie Johnson MD PCP - General 04/24/08 documented as of this encounter
--- OUTSIDE RECORDS SUMMARY | 2025-05-07 07:29 | XMS_ITS | Encounter Summary ---
Author Organization [facility] Address [address] [place] [address] Care Team Providers Care Physician Scientist Name Role Phone Yolie Johnson MD Primary Care Provider [phone] Encounter Details Date Type Department Care Team (Late st Contact Info) Description 09/14/2000 Outpatient Historical [facility] Internal Medicine - [facility] [address] [address] [facility] [address] [place] [address] Yolie Johnson MD Social History Tobacco Use Types Packs/Day Years Used Date Smoking Tobacco: Never Assessed Comments Unknown Sex and Gender Information Value Date Recorded Sex Assigned at Not on file Legal Sex Female 3:30 AM TRANSFER STATION ATTENDANT Gender Identity Not on file Sexual Orientation Not on file documented as of this encounter Plan of Treatment Not on file documented as of this encounter Visit Diagnoses Not on filedocumented in this encounter Care Teams Physician Scientist Relationship Specialty Start Date End Date Yolie Johnson MD PCP - General 04/24/08 documented as of this encounter
--- OUTSIDE RECORDS SUMMARY | 2025-05-07 07:29 | XMS_ITS | Encounter Summary ---
Author Organization [facility] Address [address] [place] [address] Care Team Providers Care Stereotype Molder Name Role Phone Yolie Johnson MD Primary Care Provider [phone] Encounter Details Date Type Department Care Team (Late st Contact Info) Description 06/24/2007 Outpatient Historical [facility] Internal Medicine - [facility] [address] [address] [facility] [address] [place] [address] Yolie Johnson MD Social History Tobacco Use Types Packs/Day Years Used Date Smoking Tobacco: Never Assessed Comments Unknown Sex and Gender Information Value Date Recorded Sex Assigned at Not on file Legal Sex Female 3:30 AM CELL POURER Gender Identity Not on file Sexual Orientation [...] on filedocumented in this encounter Care Teams Stereotype Molder Relationship Specialty Start Date End Date Yolie Johnson MD PCP - General 04/24/08 documented as of this encounter
--- OUTSIDE RECORDS SUMMARY | 2025-05-07 07:29 | XMS_ITS | Encounter Summary ---
Author Organization [facility] Address [address] [place] [address] Care Team Providers Care Stiff Leg Derrick Operator Name Role Phone Yolie Johnson MD Primary Care Provider Encounter Details Date Type Department Care Team (Late st Contact Info) Description 02/03/2006 Outpatient Historical [facility] Internal Medicine - [facility] [address] [address] [facility] [address] [place] [address] Yolie Johnson MD Social History Tobacco Use Types Packs/Day Years Used Date Smoking Tobacco: Never Assessed Comments Unknown Sex and Gender Information Value Date Recorded Sex Assigned at Not on file Legal Sex Female 3:30 AM RN TELE Gender Identity Not on file Sexual Orientation Not on file documented as of this encounter Last Filed Vital Signs Vital Sign Reading Time Taken Comments Blood Pressure 132/82 02/03/2006 1:50 PM RN TELE Pulse 82 02/03/2006 1:50 PM RN TELE Temperature - - Respiratory Rate - - Oxygen Saturation - - Inhaled Oxygen Concentration - - Weight 78 kg (172 lb) 02/03/2006 1:50 PM RN TELE Height - - Body Mass Index - - documented in this encounter Plan of Treatment Not on file documented as of this encounter Visit Diagnoses Not on filedocumented in this encounter Care Teams Stiff Leg Derrick Operator Relationship Specialty Start Date End Date Yolie Johnson MD PCP - General 04/24/08 documented as of this encounter
--- OUTSIDE RECORDS SUMMARY | 2025-05-07 07:29 | XMS_ITS | Encounter Summary ---
Author Organization [facility] Address [address] [facility] Attn: Epic Prelude ADT [place] [address] Care Team Providers Care Farmer Vegetable Name Role Phone Taz Johnson MD Primary Care Provider [phone] Encounter Details Date Type Department Care Team (Latest Contact Info) Description 06/24/2007 Orders Only Taz Johnson MD Social History Tobacco Use Types Packs/Day Years Used Date Smoking Tobacco: Never Assessed Comments Unknown Sex and Gender Information Value Date Recorded Sex Assigned at Not on file Legal Sex Female 3:30 AM ANIMAL THERAPIST Gender Identity Not on file Sexual Orientation Not on file documented as of this encounter Progress Notes * Interface, Ramiro Stl Conv Transcriptions - 04/18/2008 12:45 PM CDT CENTRAL TEST SCHEDULING DATE: JUN 24, 2007 Note created by: Vianney Miner 09:21 a Patient Name : VANESSA PAK [address]: [address] [place] [address]. [address] D.O.B: 1950 SSN: [id number] Parent/Guardian if applicable: Patient Insurance: BLUE CROSS BLUE SHIELD ID#: [id number] Group#: ORDER(S) #: [id number] density/mammogram bi-lat-2 views BEST TO CALL WORK. BEST TIME TO CALL: ANYTIME. MAY WE LEAVE MESSAGE AT THAT NUMBER: YES, LEAVE MESSAGE. PLEASE SCHEDULE THE APPOINTMENT AT THE FOLLOWING LOCATION: [facility]. TEST PRIORITY: 2 - 7 DAYS. ORDERING PHYSICIAN: TAZ JOHNSON MD OFFICE FASHION JOURNALIST & PHONE: Vianney Miner ORDER PRINTED BY: JUL 05, 2007 Giulia Chopra T 11:41 a FOR SCHEDULING USE ONLY: FIRST ATTEMPT Date:JUL 05, 2007 Giulia Chopra T 12:24 p Spoke with Patient. JUL 05, 2007 Giulia Chopra T 12:24 p TEST SCHEDULE [facility] LOCATION. APPOINTMENT DATE : 08/17/2007 The appointment was scheduled by Giulia Chopra T at [phone] JUL 05, 2007 Giulia Chopra T 12:24 p Pre-authorization number: BC/BS NN documented in this encounter Plan of Treatment Not on file documented as of this encounter Visit Diagnoses Not on filedocumented in this encounter Care Teams Farmer Vegetable Relationship Specialty Start Date End Date Taz Johnson MD PCP - General 04/24/08 documented as of this encounter
--- OUTSIDE RECORDS SUMMARY | 2025-05-07 07:30 | XMS_ITS | Encounter Summary ---
Author Organization [facility] Address [address] [place] [address] Care Team Providers Care Instructional Technology Coordinator Name Role Phone Yolie Johnson MD Primary Care Provider [phone] Encounter Details Date Type Department Care Team (Late st Contact Info) Description 04/17/2005 Outpatient Historical [facility] Internal Medicine - [facility] [address] [address] [facility] [address] [place] [address] Yolie Johnson MD Social History Tobacco Use Types Packs/Day Years Used Date Smoking Tobacco: Never Assessed Comments Unknown Sex and Gender Information Value Date Recorded Sex Assigned at Not on file Legal Sex Female 3:30 AM CLAY ARTISAN Gender Identity Not on file Sexual Orientation Not on file documented as of this encounter Plan of Treatment Not on file documented as of this encounter Visit Diagnoses Not on filedocumented in this encounter Care Teams Instructional Technology Coordinator Relationship Specialty Start Date End Date Yolie Johnson MD PCP - General 04/24/08 documented as of this encounter
--- OUTSIDE RECORDS SUMMARY | 2025-05-07 07:30 | XMS_ITS | Encounter Summary ---
Author Organization [facility] Address [address] [place] [address] Care Team Providers Care News Cameraman Name Role Phone Yolie Johnson MD Primary Care Provider [phone] Encounter Details Date Type Department Care Team (Late st Contact Info) Description 05/22/2003 Outpatient Historical [facility] Internal Medicine - [facility] [address] [address] [facility] [address] [place] [address] Yolie Johnson MD Social History Tobacco Use Types Packs/Day Years Used Date Smoking Tobacco: Never Assessed Comments Unknown Sex and Gender Information Value Date Recorded Sex Assigned at Not on file Legal Sex Female 3:30 AM KILN STACKER Gender Identity Not on file Sexual Orientation Not on file documented as of this encounter Plan of Treatment Not on file documented as of this encounter Visit Diagnoses Not on filedocumented in this encounter Care Teams News Cameraman Relationship Specialty Start Date End Date Yolie Johnson MD PCP - General 04/24/08 documented as of this encounter
--- OUTSIDE RECORDS SUMMARY | 2025-05-07 07:30 | XMS_ITS | Encounter Summary ---
Author Organization [facility] Address [address] [place] [address] Care Team Providers Care Coating Inspector Name Role Phone Yolie Johnson MD Primary Care Provider [phone] Encounter Details Date Type Department Care Team (Late st Contact Info) Description 02/21/[address] [facility] Internal Medicine - [facility] [address] [address] [facility] [address] [place] [address] Yolie Johnson MD Social History Tobacco Use Types Packs/Day Years Used Date Smoking Tobacco: Never Assessed Comments Unknown Sex and Gender Information Value Date Recorded Sex Assigned at Not on file Legal Sex Female 3:30 AM BAND SAW MARKER Gender Identity Not on file Sexual Orientation Not on file documented as of this encounter Plan of Treatment Not on file documented as of this encounter Visit Diagnoses Not on filedocumented in this encounter Care Teams Coating Inspector Relationship Specialty Start Date End Date Yolie Johnson MD PCP - General 04/24/08 documented as of this encounter
--- OUTSIDE RECORDS SUMMARY | 2025-05-07 07:30 | XMS_ITS | Encounter Summary ---
Author Organization [facility] Address [address] [place] [address] Care Team Providers Care Wooden Box Maker Name Role Phone Yolie Johnson MD Primary Care Provider [phone] Encounter Details Date Type Department Care Team (Late st Contact Info) Description 02/21/2004 Outpatient Historical [facility] Yolie Johnson MD SCREENING MAMM-MAILG NEOPL-OTHER (Primary Dx) Social History Tobacco Use Types Packs/Day Years Used Date Smoking Tobacco: Never Assessed Comments Unknown Sex and Gender Information Value Date Recorded Sex Assigned at Not on file Legal Sex Female 3:30 AM FAMILY DAY CARE PROVIDER Gender Identity Not on file Sexual Orientation Not on file documented as of this encounter Plan of Treatment Not on file documented as of this encounter Visit Diagnoses Diagnosis Other screening mammogram- Primary documented in this encounter Care Teams Wooden Box Maker Relationship Specialty Start Date End Date Yolie Johnson MD PCP - General 04/24/08 documented as of this encounter
--- OUTSIDE RECORDS SUMMARY | 2025-05-07 07:30 | XMS_ITS | Encounter Summary ---
Author Organization [facility] Address [address] [place] [address] Care Team Providers Care Bee Worker Name Role Phone Yolie Johnson MD Primary Care Provider [phone] Encounter Details Date Type Department Care Team (Late st Contact Info) Description 05/16/2004 Outpatient Historical [facility] Internal Medicine - [facility] [address] [address] [facility] [address] [place] [address] Yolie Johnson MD Social History Tobacco Use Types Packs/Day Years Used Date Smoking Tobacco: Never Assessed Comments Unknown Sex and Gender Information Value Date Recorded Sex Assigned at Not on file Legal Sex Female 3:30 AM GUARD DRIVER Gender Identity Not on file Sexual Orientation Not on file documented as of this encounter Plan of Treatment Not on file documented as of this encounter Visit Diagnoses Not on filedocumented in this encounter Care Teams Bee Worker Relationship Specialty Start Date End Date Yolie Johnson MD PCP - General 04/24/08 documented as of this encounter
--- OUTSIDE RECORDS SUMMARY | 2025-05-07 07:30 | XMS_ITS | Encounter Summary ---
Author Organization [facility] Address [address] [place] [address] Care Team Providers Care Pipefitter Name Role Phone Yolie Johnson MD Primary Care Provider [phone] Encounter Details Date Type Department Care Team (Late st Contact Info) Description 02/24/2005 Outpatient Historical [facility] Yolie Johnson MD SCREENING MAMM-MAILG NEOPL-OTHER (Primary Dx) Social History Tobacco Use Types Packs/Day Years Used Date Smoking Tobacco: Never Assessed Comments Unknown Sex and Gender Information Value Date Recorded Sex Assigned at Not on file Legal Sex Female 3:30 AM CHARM FILTER OPERATOR HELPER Gender Identity Not on file Sexual Orientation Not on file documented as of this encounter Plan of Treatment Not on file documented as of this encounter Visit Diagnoses Diagnosis Other screening mammogram- Primary documented in this encounter Care Teams Pipefitter Relationship Specialty Start Date End Date Yolie Johnson MD PCP - General 04/24/08 documented as of this encounter
--- OUTSIDE RECORDS SUMMARY | 2025-05-07 07:30 | XMS_ITS | Encounter Summary ---
Author Organization [facility] Address [address] [place] [address] Care Team Providers Care Chief Strategy Officer Name Role Phone Yolie Johnson MD Primary Care Provider [phone] Encounter Details Date Type Department Care Team (Late st Contact Info) Description 12/11/2002 Outpatient Historical [facility] Yolie Johnson MD SCREENING MAMM-MAILG NEOPL-OTHER (Primary Dx) Social History Tobacco Use Types Packs/Day Years Used Date Smoking Tobacco: Never Assessed Comments Unknown Sex and Gender Information Value Date Recorded Sex Assigned at Not on file Legal Sex Female 3:30 AM TRAFFIC SIGN SUPERVISOR Gender Identity Not on file Sexual Orientation Not on file documented as of this encounter Plan of Treatment Not on file documented as of this encounter Visit Diagnoses Diagnosis Other screening mammogram- Primary documented in this encounter Care Teams Chief Strategy Officer Relationship Specialty Start Date End Date Yolie Johnson MD PCP - General 04/24/08 documented as of this encounter
--- OUTSIDE RECORDS SUMMARY | 2025-05-07 07:30 | XMS_ITS | Encounter Summary ---
Author Organization [facility] Address [address] [place] [address] Care Team Providers Care Patient Assessment Coordinator Name Role Phone Yolie Johnson MD Primary Care Provider [phone] Encounter Details Date Type Department Care Team (Late st Contact Info) Description 10/07/2005 Outpatient Historical [facility] Internal Medicine - [facility] [address] [address] [facility] [address] [place] [address] Yolie Johnson MD Social History Tobacco Use Types Packs/Day Years Used Date Smoking Tobacco: Never Assessed Comments Unknown Sex and Gender Information Value Date Recorded Sex Assigned at Not on file Legal Sex Female 3:30 AM REINSTATEMENT CLERK Gender Identity Not on file Sexual Orientation Not on file documented as of this encounter Last Filed Vital Signs Vital Sign Reading Time Taken Comments Blood Pressure 124/76 10/07/2005 2:15 PM REINSTATEMENT CLERK Pulse 68 10/07/2005 2:15 PM REINSTATEMENT CLERK Temperature - - Respiratory Rate - - Oxygen Saturation - - Inhaled Oxygen Concentration - - Weight 74.4 kg (164 lb) 10/07/2005 2:15 PM REINSTATEMENT CLERK Height - - Body Mass Index - - documented in this encounter Plan of Treatment Not on file documented as of this encounter Visit Diagnoses Not on filedocumented in this encounter Care Teams Patient Assessment Coordinator Relationship Specialty Start Date End Date Yolie Johnson MD PCP - General 04/24/08 documented as of this encounter
--- OUTSIDE RECORDS SUMMARY | 2025-05-07 07:30 | XMS_ITS | Encounter Summary ---
Author Organization [facility] Address [address] [place] [address] Care Team Providers Care Customer Assistance Associate Name Role Phone Yolie Johnson MD Primary Care Provider [phone] Encounter Details Date Type Department Care Team (Late st Contact Info) Description 01/12/2003 Outpatient Historical [facility] Internal Medicine - [facility] [address] [address] [facility] [address] [place] [address] Yolie Johnson MD Social History Tobacco Use Types Packs/Day Years Used Date Smoking Tobacco: Never Assessed Comments Unknown Sex and Gender Information Value Date Recorded Sex Assigned at Not on file Legal Sex Female 3:30 AM SENIOR CHEMIST Gender Identity Not on file Sexual Orientation Not on file documented as of this encounter Plan of Treatment Not on file documented as of this encounter Visit Diagnoses Not on filedocumented in this encounter Care Teams Customer Assistance Associate Relationship Specialty Start Date End Date Yolie Johnson MD PCP - General 04/24/08 documented as of this encounter
--- OUTSIDE RECORDS SUMMARY | 2025-05-07 07:30 | XMS_ITS | Encounter Summary ---
Author Organization [facility] Address [address] [place] [address] Care Team Providers Care Fusing Furnace Loader Name Role Phone Yolie Johnson MD Primary Care Provider [phone] Encounter Details Date Type Department Care Team (Latest Contact Info) Description 12/14/2002 Outpatient Historical [facility] Yolie Johnson MD BONE & CARTILAGE DIS NOS (Primary Dx) Social History Tobacco Use Types Packs/Day Years Used Date Smoking Tobacco: Never Assessed Comments Unknown Sex and Gender Information Value Date Recorded Sex Assigned at Not on file Legal Sex Female 3:30 AM A&P MECHANIC Gender Identity Not on file Sexual Orientation Not on file documented as of this encounter Plan of Treatment Not on file documented as of this encounter Visit Diagnoses Diagnosis Disorder of bone and cartilage, unspecified- Primary documented in this encounter Care Teams Fusing Furnace Loader Relationship Specialty Start Date End Date Yolie Johnson MD PCP - General 04/24/08 documented as of this encounter
--- OUTSIDE RECORDS SUMMARY | 2025-05-07 07:30 | XMS_ITS | Encounter Summary ---
Author Organization [employer] [facility] Address [address] [place] [address] Care Team Providers Care Foreign Food Cook Specialty Name Role Phone Yolie Johnson MD Primary Care Provider [phone] Encounter Details Date Type Department Care Team (Late st Contact Info) Description 03/03/2005 Outpatient Historical [facility] Dev Marquez MD [address] [place] [address] [place] [address] SCREENING MAL NEOP-COLON (Primary Dx) Social History Tobacco Use Types Packs/Day Years Used Date Smoking Tobacco: Never Assessed Comments Unknown Sex and Gender Information Value Date Recorded Sex Assigned at Not on file Legal Sex Female 3:30 AM INDUSTRIAL ILLUMINATING ENGINEER Gender Identity Not on file Sexual Orientation Not on file documented as of this encounter Plan of Treatment Not on file documented as of this encounter Visit Diagnoses Diagnosis Special screening for malignant neoplasms, colon- Primary documented in this encounter Care Teams Foreign Food Cook Specialty Relationship Specialty Start Date End Date Yolie Johnson MD PCP - General 04/24/08 documented as of this encounter
--- OUTSIDE RECORDS SUMMARY | 2025-05-07 07:30 | XMS_ITS | Encounter Summary ---
Author Organization [facility] Address [address] [place] [address] Care Team Providers Care Forgesmith Name Role Phone Yolie Johnson MD Primary Care Provider [phone] Encounter Details Date Type Department Care Team (Late st Contact Info) Description 06/08/2003 Outpatient Historical [facility] Internal Medicine - [facility] [address] [address] [facility] [address] [place] [address] Yolie Johnson MD Social History Tobacco Use Types Packs/Day Years Used Date Smoking Tobacco: Never Assessed Comments Unknown Sex and Gender Information Value Date Recorded Sex Assigned at Not on file Legal Sex Female 3:30 AM COMPUTER SCIENCE INSTRUCTOR Gender Identity Not on file Sexual Orientation Not on file documented as of this encounter Plan of Treatment Not on file documented as of this encounter Visit Diagnoses Not on filedocumented in this encounter Care Teams Forgesmith Relationship Specialty Start Date End Date Yolie Johnson MD PCP - General 04/24/08 documented as of this encounter
--- OUTSIDE RECORDS SUMMARY | 2025-05-07 07:30 | XMS_ITS | Encounter Summary ---
Author Organization [facility] Address [address] [place] [address] Care Team Providers Care Rubber Chemist Name Role Phone Yolei Johnson MD Primary Care Provider [phone] Encounter Details Date Type Department Care Team (Late st Contact Info) Description 04/03/2003 Outpatient Historical [facility] Internal Medicine - [facility] [address] [address] [facility] [address] [place] [address] Yolie Johnson MD Social History Tobacco Use Types Packs/Day Years Used Date Smoking Tobacco: Never Assessed Comments Unknown Sex and Gender Information Value Date Recorded Sex Assigned at Not on file Legal Sex Female 3:30 AM GENERAL DOC Gender Identity Not on file Sexual Orientation Not on file documented as of this encounter Plan of Treatment Not on file documented as of this encounter Visit Diagnoses Not on filedocumented in this encounter Care Teams Rubber Chemist Relationship Specialty Start Date End Date Yolie Johnson MD PCP - General 04/24/08 documented as of this encounter
--- OUTSIDE RECORDS SUMMARY | 2025-05-07 07:30 | XMS_ITS | Encounter Summary ---
Author Organization [facility] Address [address] [place] [address] Care Team Providers Care Microphone Operator Name Role Phone Yolie Johnson MD Primary Care Provider [phone] Encounter Details Date Type Department Care Team (Late st Contact Info) Description 10/14/2005 Outpatient Historical [facility] Yolie Ortega MD Social History Tobacco Use Types Packs/Day Years Used Date Smoking Tobacco: Never Assessed Comments Unknown Sex and Gender Information Value Date Recorded Sex Assigned at Not on file Legal Sex Female 3:30 AM STRAW HAT BRUSHER Gender Identity Not on file Sexual Orientation Not on file documented as of this encounter Plan of Treatment Not on file documented as of this encounter Visit Diagnoses Not on filedocumented in this encounter Care Teams Microphone Operator Relationship Specialty Start Date End Date Yolie Johnson MD PCP - General 04/24/08 documented as of this encounter
--- OUTSIDE RECORDS SUMMARY | 2025-05-07 07:30 | XMS_ITS | Encounter Summary ---
Author Organization [facility] Address [address] [place] [address] Care Team Providers Care Biomedical Engineering Aide Name Role Phone Yolie Johnson MD Primary Care Provider Encounter Details Date Type Department Care Team (Late st Contact Info) Description 01/17/1999 Outpatient Historical [facility] Internal Medicine - [facility] [address] [address] [facility] [address] [place] [address] Yolie Johnson MD Social History Tobacco Use Types Packs/Day Years Used Date Smoking Tobacco: Never Assessed Comments Unknown Sex and Gender Information Value Date Recorded Sex Assigned at Not on file Legal Sex Female 3:30 AM BINDERY CHIEF Gender Identity Not on file Sexual Orientation Not on file documented as of this encounter Plan of Treatment Not on file documented as of this encounter Visit Diagnoses Not on filedocumented in this encounter Care Teams Biomedical Engineering Aide Relationship Specialty Start Date End Date Yolie Johnson MD PCP - General 04/24/08 documented as of this encounter
--- OUTSIDE RECORDS SUMMARY | 2025-05-07 07:30 | XMS_ITS | Encounter Summary ---
Author Organization [facility] Address [address] [place] [address] Care Team Providers Care Canal Tender Name Role Phone Yolie Johnson MD Primary Care Provider [phone] Encounter Details Date Type Department Care Team (Late st Contact Info) Description 11/04/2005 Outpatient Historical [facility] Yolie Johnson MD CERVICAL DISC DISPLACMNT (Primary Dx) Social History Tobacco Use Types Packs/Day Years Used Date Smoking Tobacco: Never Assessed Comments Unknown Sex and Gender Information Value Date Recorded Sex Assigned at Not on file Legal Sex Female 3:30 AM EMERGENCY CARE ATTENDANT Gender Identity Not on file Sexual Orientation Not on file documented as of this encounter Plan of Treatment Not on file documented as of this encounter Visit Diagnoses Diagnosis Displacement of cervical intervertebral disc without myelopathy- Primary documented in this encounter Care Teams Canal Tender Relationship Specialty Start Date End Date Yolie Johnson MD PCP - General 04/24/08 documented as of this encounter
--- OUTSIDE RECORDS SUMMARY | 2025-05-07 07:30 | XMS_ITS | Encounter Summary ---
Author Organization [facility] Address [address] [place] [address] Care Team Providers Care Repair Service Dispatcher Name Role Phone Yolie Johnson MD Primary Care Provider [phone] Encounter Details Date Type Department Care Team (Late st Contact Info) Description 11/18/2004 Outpatient Historical [facility] Internal Medicine - [facility] [address] 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
--- OUTSIDE RECORDS SUMMARY | 2025-05-07 07:30 | XMS_ITS | Encounter Summary ---
Author Organization [facility] Address [address] [place] [address] Care Team Providers Care Community Service Officer Name Role Phone Yolie Johnson MD Primary Care Provider [phone] Encounter Details Date Type Department Care Team (Late st Contact Info) Description 01/13/2006 Outpatient Historical [facility] Internal Medicine - [facility] [address] [address] [facility] [address] [place] [address] Yolie Johnson MD Social History Tobacco Use Types Packs/Day Years Used Date Smoking Tobacco: Never Assessed Comments Unknown Sex and Gender Information Value Date Recorded Sex Assigned at Not on file Legal Sex Female 3:30 AM MALT ROASTER Gender Identity Not on file Sexual Orientation Not on file documented as of this encounter Last Filed Vital Signs Vital Sign Reading Time Taken Comments Blood Pressure 130/74 01/13/2006 1:50 PM MALT ROASTER Pulse 76 01/13/2006 1:50 PM MALT ROASTER Temperature - - Respiratory Rate - - Oxygen Saturation - - Inhaled Oxygen Concentration - - Weight 77.1 kg (170 lb) 01/13/2006 1:50 PM MALT ROASTER Height - - Body Mass Index - - documented in this encounter Plan of Treatment Not on file documented as of this encounter Visit Diagnoses Not on filedocumented in this encounter Care Teams Community Service Officer Relationship Specialty Start Date End Date Yolie Johnson MD PCP - General 04/24/08 documented as of this encounter
--- OUTSIDE RECORDS SUMMARY | 2025-05-07 07:30 | XMS_ITS | Encounter Summary ---
Author Organization [employer] Address [address] [place] [address] Care Team Providers Care Dinkey Operator Name Role Phone Yolie Johnson MD Primary Care Provider [phone] Encounter Details Date Type Department Care Team (Late st Contact Info) Description 10/14/2005 Outpatient Historical [facility] [place] [address] [place] [address] [place] [address] [place] [address] Social History Tobacco Use Types Packs/Day Years Used Date Smoking Tobacco: Never Assessed Comments Unknown Sex and Gender Information Value Date Recorded Sex Assigned at Not on file Legal Sex Female 3:30 AM BRICK CATCHER Gender Identity Not on file Sexual Orientation Not on file documented as of this encounter Plan of Treatment Not on file documented as of this encounter Visit Diagnoses Not on filedocumented in this encounter Care Teams Dinkey Operator Relationship Specialty Start Date End Date Yolie Johnson MD PCP - General 04/24/08 documented as of this encounter
--- OUTSIDE RECORDS SUMMARY | 2025-05-07 07:30 | XMS_ITS | Encounter Summary ---
Author Organization [facility] Address [address] [place] [address] Care Team Providers Care Cable Assembler And Swager Name Role Phone Yolie Johnson MD Primary Care Provider [phone] Encounter Details Date Type Department Care Team (Latest Contact Info) Description 10/14/2005 Outpatient Historical [facility] [place] [address] [address] CARPAL TUNNEL SYNDROME (Primary Dx) Social History Tobacco Use Types Packs/Day Years Used Date Smoking Tobacco: Never Assessed Comments Unknown Sex and Gender Information Value Date Recorded Sex Assigned at Not on file Legal Sex Female 3:30 AM LEAD ADVISOR Gender Identity Not on file Sexual Orientation Not on file documented as of this encounter Plan of Treatment Not on file documented as of this encounter Visit Diagnoses Diagnosis Carpal tunnel syndrome- Primary documented in this encounter Care Teams Cable Assembler And Swager Relationship Specialty Start Date End Date Yoile Johnson MD PCP - General 04/24/08 documented as of this encounter
--- OUTSIDE RECORDS SUMMARY | 2025-05-07 07:30 | XMS_ITS | Encounter Summary ---
Author Organization [facility] Address [address] [place] [address] Care Team Providers Care Flute Teacher Name Role Phone Yolie Johnson MD Primary Care Provider [phone] Encounter Details Date Type Department Care Team (Latest Contact Info) Description 10/14/2005 Outpatient Historical [facility] Yolie Johnson MD OSTEOPOROSIS NOS (Primary Dx) Social History Tobacco Use Types Packs/Day Years Used Date Smoking Tobacco: Never Assessed Comments Unknown Sex and Gender Information Value Date Recorded Sex Assigned at Not on file Legal Sex Female 3:30 AM BOTTLED BEVERAGE INSPECTOR Gender Identity Not on file Sexual Orientation Not on file documented as of this encounter Plan of Treatment Not on file documented as of this encounter Visit Diagnoses Diagnosis Osteoporosis, unspecified- Primary documented in this encounter Care Teams Flute Teacher Relationship Specialty Start Date End Date Yolie Johnson MD PCP - General 04/24/08 documented as of this encounter
--- OUTSIDE RECORDS SUMMARY | 2025-05-07 07:30 | XMS_ITS | Encounter Summary ---
Author Organization [facility] Address [address] [place] [address] Care Team Providers Care Binder Coverstitch Name Role Phone Yolie Johnson MD Primary Care Provider [phone] Encounter Details Date Type Department Care Team (Late st Contact Info) Description 06/23/2005 Outpatient Historical [facility] Internal Medicine - [facility] [address] [address] [facility] [address] [place] [address] Yolie Johnson MD Social History Tobacco Use Types Packs/Day Years Used Date Smoking Tobacco: Never Assessed Comments Unknown Sex and Gender Information Value Date Recorded Sex Assigned at Not on file Legal Sex Female 3:30 AM INSIDE SALES ACCOUNT MANAGER Gender Identity Not on file Sexual Orientation Not on file documented as of this encounter Plan of Treatment Not on file documented as of this encounter Visit Diagnoses Not on filedocumented in this encounter Care Teams Binder Coverstitch Relationship Specialty Start Date End Date Yolie Johnson MD PCP - General 04/24/08 documented as of this encounter
--- OUTSIDE RECORDS SUMMARY | 2025-05-07 07:30 | XMS_ITS | Clinical Summary ---
Author Organization [employer] [facility] Address [address] [place] [address] Phone Care Team Providers Care Balance Screwhead Polisher Name Role Phone Yolie Johnson MD Primary Care Provider [phone] Allergies Active Allergy Reactions Criticality Noted Date [...] on file Legal Sex Female 3:30 AM SIGNAL MAINTAINER Gender Identity Not on file Sexual Orientation Not on file Last Filed Vital Signs Vital Sign Reading Time Taken Comments Blood Pressure 126/88 02/16/2011 12:05 PM CDT Pulse 80 02/16/2011 12:05 PM CDT Temperature 37.1 C (98.7 F) 01/13/2011 12:48 PM SIGNAL MAINTAINER Respiratory Rate - - Oxygen Saturation - - Inhaled Oxygen Concentration - - Weight 83.9 kg (185 lb) 02/16/2011 12:05 PM CDT Height 165.1 cm (5' 5) 02/16/2011 12:05 PM CDT Body Mass Index 30.79 02/16/2011 12:05 PM CDT Plan of Treatment Health Maintenance Due Date Last Done Comments PNEUMOCOCCAL VACCINE 50+ YEA RS (1 of 1 - PCV) 1999 ZOSTER VACCINE (1 of 2) 1999 OSTEOPOROSIS SCREENING 12/02/2011 12/02/2009 COLORECTAL SCREENING 10/18/2013 10/18/2010, 11/29/19 03 DTAP/TDAP/TD VACCINES (2 - Td or Tdap) 11/25/2019, 1999 RSV VACCINE (60+ or ) (1 - 1-dose 75+ series) 01/28/2024 INFLUENZA VACCINE (#1) 2024 09/05/2010 Preventative Visit- Commercial 11/29/2024 02/16/2011 , 09/14/2000 Procedures Procedure Name Priority Date/Time Associated Diagnosis Comments XR DEXA BONE DENSITY AXIAL 1 OR MORE SITES Routine 12/02/2009 10:42 AM SIGNAL MAINTAINER Unspecified Osteoporosis from Last 3 Months or Most Recently Relevant to Health Maintenance Results * XR DEXA BONE DENSITY AXIAL 1 OR MORE SITES (12/02/2009 10:42 AM SIGNAL MAINTAINER) Anatomical Region Laterality Modality Digital Radiogra phy 12/02/2009 10:4 1 AM SIGNAL MAINTAINER Impressions 12/02/2009 10:52 AM SIGNAL MAINTAINER IMPRESSION: Lumbar spine: This patient's bone mineral [...] follow. Dictated by Dr. Twin Thao MD [facility] Narrative 12/02/2009 10:52 AM SIGNAL MAINTAINER Examination: Bone Density Study (DEXA) Clinical History: [...] follow. Dictated by Dr. Twin Thao MD [facility] Yolie Johnson MD DIAGNOSTIC IMAGING ORDERABLES Final Result from Last 3 Months or Most Recently Relevant to Health Maintenance Insurance Care Teams Balance Screwhead Polisher Relationship Specialty Start Date End Date Yolie Johnson MD PCP - General 04/24/08
--- OUTSIDE RECORDS SUMMARY | 2025-05-07 07:31 | XMS_ITS | Encounter Summary ---
Author Organization [facility] Address [address] [place] [address] Care Team Providers Care Tassel Maker Name Role Phone Yolie Johnson MD Primary Care Provider [phone] Encounter Details Date Type Department Care Team (Late st Contact Info) Description 01/31/2002 Outpatient Historical [facility] Internal Medicine - [facility] [address] [address] [facility] [address] [place] [address] Yolie Johnson MD Social History Tobacco Use Types Packs/Day Years Used Date Smoking Tobacco: Never Assessed Comments Unknown Sex and Gender Information Value Date Recorded Sex Assigned at Not on file Legal Sex Female 3:30 AM TERRITORY BUSINESS MANAGER Gender Identity Not on file Sexual Orientation Not on file documented as of this encounter Plan of Treatment Not on file documented as of this encounter Visit Diagnoses Not on filedocumented in this encounter Care Teams Tassel Maker Relationship Specialty Start Date End Date Yolie Johnson MD PCP - General 04/24/08 documented as of this encounter
--- OUTSIDE RECORDS SUMMARY | 2025-05-07 07:31 | XMS_ITS | Encounter Summary ---
Author Organization [facility] Address [address] [place] [address] Care Team Providers Care Hot Tamale Man Name Role Phone Yolie Johnson MD Primary Care Provider [phone] Encounter Details Date Type Department Care Team (Late st Contact Info) Description 12/08/2002 Outpatient Historical [facility] Internal Medicine - [facility] [address] [address] [facility] [address] [place] [address] Yolie Johnson MD Social History Tobacco Use Types Packs/Day Years Used Date Smoking Tobacco: Never Assessed Comments Unknown Sex and Gender Information Value Date Recorded Sex Assigned at Not on file Legal Sex Female 3:30 AM RUCHING MACHINE OPERATOR Gender Identity Not on file Sexual Orientation Not on file documented as of this encounter Plan of Treatment Not on file documented as of this encounter Visit Diagnoses Not on filedocumented in this encounter Care Teams Hot Tamale Man Relationship Specialty Start Date End Date Yolie Johnson MD PCP - General 04/24/08 documented as of this encounter
--- OUTSIDE RECORDS SUMMARY | 2025-05-07 07:31 | XMS_ITS | CONTINUITY OF CARE DOCUMENT ---
Author Name gee, sravanser Address Unknown Organization [facility] Address [address] [facility] [facility] [address] [place] [address] Phone [phone] Care Team Providers Care Radiotelegraphist Name Role Phone David Hancock MD Unavailable SHEMAR BETANCOURT MD Unavailable [phone] SHEMAR BETANCOURT MD Unavailable [phone] PROBLEMS Condition Status Date Provider Notes [...] In-person encounter Office Visit David Hancock MD [facility] - In-person encounter Office Visit David Hancock MD [facility] CHEST PAIN-NORMAL STRESS TEST - In-person encounter Office Visit David Hancock MD [facility] CHEST PAIN-NORMAL STRESS TESTHYPERCHOLESTEROLEMIA - In-person encounter Office Visit David Hancock MD [facility] - In-person encounter Office Visit David Hancock MD [facility] - In-person encounter Office Visit David Hancock MD [facility] - In-person encounter Office Visit David Hancock MD [facility] - In-person encounter Office Visit David Hancock MD [facility] HYPOTHYROIDISMVERTIGO-02/05 CAROTID NEGHTN-02/05 NUC NEGSHORTNESS OF [...] G yasmin weight E&M 180 [lb_av] Lian Estefnay lder Body Mass Index (Ratio) 29.56 kg/m2 [...] nikhil Manacop pulse rate 87 /min [facility], oximetry 97 % [facility] respiratory rate E&M 16 /min [facility] weight E&M 188 [lb_av] Blas Zamudio blood [...] Range Interpretation Location platelet count 337 10*3/mm3 [facility] hematocrit, blood 42.7 % [facility] thyroid stimulating hormone, serum 2.730 u[IU]/mL [facility] alanine aminotransferase (SGPT), serum 36 1/L [facility] aspartate aminotransferase (SGOT), serum 47 1/L [facility] blood glucose, random 92 mg/dL [facility] creatinine, serum 0.77 mg/dL [facility] urea nitrogen, blood 16 mg/dL [facility] potassium, serum 4.2 mmol/L [facility] sodium, serum 144 mmol/L [facility] platelet count 289 10*3/mm3 [facility] hematocrit, blood 41.9 % [facility] triglyceride, serum, fasting 110 mg/dL [facility] HDL cholesterol, serum 45 mg/dL [facility] lipoprotein, beta, serum, point, quantitative, calculated 109 mg/dL [facility] cholesterol, serum 176 mg/dL [facility] alanine aminotransferase (SGPT), serum 32 1/L Ciera [...] reviewed David Hancock MD drug use none Daivd Hancock MD smoking status never smoker Lian [...] as a smoker less than 10 years [facility] smoking status Quit [facility] MENTAL STATUS Date Observation Value Provider [...] Payer name Policy type / Coverage type Seco red democrat ID [facility] [id number] TREATMENT PLAN Date Name Performer chest pain [...] MD follow up: O rders: E KG ([id number]) BP today: 126/77 Prior BP: 132/92 (07/04/2012) [...] Prior BP: 137/96 (04/06/2011) Orders: Guy KG ([id number]) David Hancock MD routine: T he following [...]
--- OUTSIDE RECORDS SUMMARY | 2025-05-07 07:31 | XMS_ITS | Encounter Summary ---
Author Organization [facility] Address [address] [place] [address] Care Team Providers Care Manager Forensic Name Role Phone Taz Johnson MD Primary Care Provider [phone] Encounter Details Date Type Department Care Team (Late st Contact Info) Description 12/13/2008 Outpatient Historical [facility] Taz Johnson MD [facility] [place] [address] Other Screening Mammogram Social History Tobacco Use Types Packs/Day Years Used Date Smoking Tobacco: Never Assessed Comments No Sex and Gender Information Value Date Recorded Sex Assigned at Not on file Legal Sex Female 3:30 AM MARKETING ANALYTICS MANAGER Gender Identity Not on file Sexual Orientation Not on file documented as of this encounter Plan of Treatment Not on file documented as of this encounter Procedures Procedure Name Priority Date/Time Associated Diagnosis Comments MAMMO SCREEN BILAT W OR WO CAD Routine 12/13/2008 2:42 PM MARKETING ANALYTICS MANAGER documented in this encounter Results * MAMMO DIGITAL SCREEN BILAT (12/13/2008 2:42 PM MARKETING ANALYTICS MANAGER) Anatomical Region Laterality Modality Breast Bilateral Other 12/13/2008 2:42 PM MARKETING ANALYTICS MANAGER Narrative 12/17/2008 10:50 PM MARKETING ANALYTICS MANAGER [facility] [address], [place] [address] Admit Date: 12/13/2008 VANESSA PAK Sex: F Admit Prov: TAZ JOHNSON Date: 1950 Primary Care Prov: TAZ JOHNSON CMRN: [id number] [id number] Ordering Prov: TAZ JOHNSON Accession Number: [id number] Interpretation BILATERAL SCREENING DIGITAL MAMMOGRAMS WITH COMPUTER [...] AMK Procedure Note Yane Posada - 12/17/[address] [address] Admit Date: 12/13/2008 VANESSA PAK Sex: F Admit Prov: TAZ JOHNSON Date: 1950 Primary Care Prov: TAZ JOHNSON Tamra CMRN: [id number] [id number] [facility] Ordering Prov: TAZ JOHNSON Interpretation [...] mammogram documented in this encounter Care Teams Manager Forensic Relationship Specialty Start Date End Date Taz Johnson MD PCP - General 04/24/08 documented as of this encounter
--- OUTSIDE RECORDS SUMMARY | 2025-05-07 07:31 | XMS_ITS | Patient Health Record ---
Author Organization [employer] Address [address] [facility] [address] [place] [address] Care Team Providers Care Cordwood Cutter Name Role Phone Heath Blackburn MD Primary Care Provider Unavailab le Reason For Referral No Information Plan Of Treatment No Information Insurance Providers Payer Name Payer Address Payer Phone Subscriber Number Group Number Insured Name Patient Relationship to Insured Coverage Start Date Coverage End Date Blue Access PPO E2 [address] [place] [address] [id number] Vanessa Pak Self - patient is the insured
--- OUTSIDE RECORDS SUMMARY | 2025-05-07 07:31 | XMS_ITS | Encounter Summary ---
Author Organization [facility] Address [address] [place] [address] Care Team Providers Care Belt Weaver Name Role Phone Yolie Johnson MD Primary Care Provider [phone] Encounter Details Date Type Department Care Team (Late st Contact Info) Description 06/30/2001 Outpatient Historical [facility] Internal Medicine - [facility] [address] [address] [facility] [address] [place] [address] Yolie Johnson MD Social History Tobacco Use Types Packs/Day Years Used Date Smoking Tobacco: Never Assessed Comments Unknown Sex and Gender Information Value Date Recorded Sex Assigned at Not on file Legal Sex Female 3:30 AM CHILDREN'S SERVICE SUPERVISOR Gender Identity Not on file Sexual Orientation Not on file documented as of this encounter Plan of Treatment Not on file documented as of this encounter Visit Diagnoses Not on filedocumented in this encounter Care Teams Belt Weaver Relationship Specialty Start Date End Date Yolie Johnson MD PCP - General 04/24/08 documented as of this encounter
--- OUTSIDE RECORDS SUMMARY | 2025-05-07 07:31 | XMS_ITS | Encounter Summary ---
Author Organization [employer] Address [address] [place] [address] Care Team Providers Care Staff Radiation Therapist Name Role Phone Yolie Johnson MD Primary Care Provider [phone] Encounter Details Date Type Department Care Team (Late st Contact Info) Description 12/15/2008 Outpatient Historical [facility] Yolie Johnson MD [facility] [place] [address] Abdominal Pain, Epigastric Social History Tobacco Use Types Packs/Day Years Used Date Smoking Tobacco: Never Assessed Comments No Sex and Gender Information Value Date Recorded Sex Assigned at Not on file Legal Sex Female 3:30 AM AQUATICS LIFEGUARD Gender Identity Not on file Sexual Orientation Not on file documented as of this encounter Plan of Treatment Not on file documented as of this encounter Visit Diagnoses Diagnosis Abdominal pain, epigastric documented in this encounter Care Teams Staff Radiation Therapist Relationship Specialty Start Date End Date Yolie Johnson MD PCP - General 04/24/08 documented as of this encounter
--- OUTSIDE RECORDS SUMMARY | 2025-05-07 07:31 | XMS_ITS | Encounter Summary ---
Author Organization [facility] Address [address] [place] [address] Care Team Providers Care Law Office Manager Name Role Phone Yolie Johnson MD Primary Care Provider [phone] Encounter Details Date Type Department Care Team (Late st Contact Info) Description 10/31/2002 Outpatient Historical [facility] Internal Medicine - [facility] [address] [address] [facility] [address] [place] [address] Yolie Johnson MD Social History Tobacco Use Types Packs/Day Years Used Date Smoking Tobacco: Never Assessed Comments Unknown Sex and Gender Information Value Date Recorded Sex Assigned at Not on file Legal Sex Female 3:30 AM CRANE CREW SUPERVISOR Gender Identity Not on file Sexual Orientation Not on file documented as of this encounter Plan of Treatment Not on file documented as of this encounter Visit Diagnoses Not on filedocumented in this encounter Care Teams Law Office Manager Relationship Specialty Start Date End Date Yolie Johnson MD PCP - General 04/24/08 documented as of this encounter
--- OUTSIDE RECORDS SUMMARY | 2025-05-07 07:31 | XMS_ITS | Encounter Summary ---
Author Organization [facility] Address [address] [place] [address] Care Team Providers Care Online Activist Name Role Phone Yolie Johnson MD Primary Care Provider [phone] Encounter Details Date Type Department Care Team (Late st Contact Info) Description 03/16/2001 Outpatient Historical Division of Neurology [address] [place], [place] [id number] Eros Hood MD [address] [facility] [address] [place] [address] Social History Tobacco Use Types Packs/Day Years Used Date Smoking Tobacco: Never Assessed Comments Unknown Sex and Gender Information Value Date Recorded Sex Assigned at Not on file Legal Sex Female 3:30 AM MATERIAL HANDLER 1ST SHIFT Gender Identity Not on file Sexual Orientation Not on file documented as of this encounter Plan of Treatment Not on file documented as of this encounter Visit Diagnoses Not on filedocumented in this encounter Care Teams Online Activist Relationship Specialty Start Date End Date Yolie Johnson MD PCP - General 04/24/08 documented as of this encounter
--- OUTSIDE RECORDS SUMMARY | 2025-05-07 07:31 | XMS_ITS | Encounter Summary ---
Author Organization [employer] Address [address] [place] [address] Care Team Providers Care Hot Mill Tin Roller Name Role Phone Yolie Johnson MD Primary Care Provider [phone] Encounter Details Date Type Department Care Team (Late st Contact Info) Description 12/18/2008 Outpatient Historical [facility] Yolie Johnson MD [facility] [address] Abdominal Pain, Epigastric Social History Tobacco Use Types Packs/Day Years Used Date Smoking Tobacco: Never Assessed Comments No Sex and Gender Information Value Date Recorded Sex Assigned at Not on file Legal Sex Female 3:30 AM CHAMBER WORKER Gender Identity Not on file Sexual Orientation Not on file documented as of this encounter Plan of Treatment Not on file documented as of this encounter Visit Diagnoses Diagnosis Abdominal pain, epigastric documented in this encounter Care Teams Hot Mill Tin Roller Relationship Specialty Start Date End Date Yolie Johnson MD PCP - General 04/24/08 documented as of this encounter
--- OUTSIDE RECORDS SUMMARY | 2025-05-07 07:31 | XMS_ITS | Encounter Summary ---
Author Organization [facility] Address [address] [facility] Attn: Epic Prelude ADT [place] [address] Care Team Providers Care Protein Chemist Name Role Phone Yolie Johnson MD Primary Care Provider [phone] Encounter Details Date Type Department Care Team (Latest Contact Info) Description 04/17/2008 Orders Only Yolie Johnson MD Social History Tobacco Use Types Packs/Day Years Used Date Smoking Tobacco: Never Assessed Comments Unknown Sex and Gender Information Value Date Recorded Sex Assigned at Not on file Legal Sex Female 3:30 AM INFORMATION TECHNOLOGY SECURITY ANALYST Gender Identity Not on file Sexual Orientation Not on file documented as of this encounter Plan of Treatment Not on file documented as of this encounter Visit Diagnoses Not on filedocumented in this encounter Care Teams Protein Chemist Relationship Specialty Start Date End Date Yolie Johnson MD PCP - General 04/24/08 documented as of this encounter
--- OUTSIDE RECORDS SUMMARY | 2025-05-07 07:31 | XMS_ITS | Encounter Summary ---
Author Organization [facility] Address [address] [place] [address] Care Team Providers Care Route Jumper Name Role Phone Taz Johnson MD Primary Care Provider [phone] Encounter Details Date Type Department Care Team (Latest Contact Info) Description 03/28/2008 Outpatient Historical [facility] Taz Johnson MD Dizziness and Giddiness Social History Tobacco Use Types Packs/Day Years Used Date Smoking Tobacco: Never Assessed Comments Unknown Sex and Gender Information Value Date Recorded Sex Assigned at Not on file Legal Sex Female 3:30 AM SCALP TREATMENT OPERATOR Gender Identity Not on file Sexual [...] PM CDT Narrative 03/29/2008 12:55 PM CDT [facility] [address] [place], [place] [address] Admit Date: 03/28/2008 MELLISA VANESSA M Sex: F Admit Prov: TAZ JOHNSON Date: 1950 Primary Care Prov: TAZ JOHNSON CMRN: [id number] Room: [facility] SSN: [id number] IMAGING SERVICES Ordering Prov: N/A Accession Number: [id number] Interpretation MRI OF BRAIN WITHOUT AND WITH [...] SJ Procedure Note Kate Castillo - 03/29/2008 [facility] [address] [place], [place] [address] Admit Date: 03/28/2008 MELLISA VANESSA M Sex: F Admit Prov: TAZ JOHNSON Date: 1950 Primary Care Prov: TAZ JOHNSON CMRN: [id number] [id number] [facility] Ordering Prov: N/A Interpretation MRI [...] CREATININE POC 1.1 0.6 - 1.3 mg/dL [facility] Capillary blood specimen (specimen) 03/28/2008 3:59 PM CDT 03/28/2008 3:59 PM CDT us Taz Johnson MD POINT OF CARE TESTING Final Resu lt [facility] [address] [place] [address] documented in this encounter Visit Diagnoses Diagnosis Dizziness and giddiness documented in this encounter Care Teams Route Jumper Relationship Specialty Start Date End Date Taz Johnson MD PCP - General 04/24/08 documented as of this encounter
--- OUTSIDE RECORDS SUMMARY | 2025-05-07 07:31 | XMS_ITS | Encounter Summary ---
Author Organization [facility] Address [address] [place] [address] Care Team Providers Care Sewing Machine Maintenance Mechanic Name Role Phone Yolie Johnson MD Primary Care Provider [phone] Encounter Details Date Type Department Care Team (Late st Contact Info) Description 12/27/2001 Outpatient Historical [facility] Internal [place] - [place] [address] [address] [facility] [address] [place] [address] Yolie Johnson MD Social History Tobacco Use Types Packs/Day Years Used Date Smoking Tobacco: Never Assessed Comments Unknown Sex and Gender Information Value Date Recorded Sex Assigned at Not on file Legal Sex Female 3:30 AM CONTRACTS ANALYST Gender Identity Not on file Sexual Orientation Not on file documented as of this encounter Plan of Treatment Not on file documented as of this encounter Visit Diagnoses Not on filedocumented in this encounter Care Teams Sewing Machine Maintenance Mechanic Relationship Specialty Start Date End Date Yolie Johnson MD PCP - General 04/24/08 documented as of this encounter
== END 2025-05-07 07:22 | disposition home or self-care (01) ==
PROVIDERS: PCP Internal Medicine; Visit Provider Internal Medicine Cardiovascular Disease
DX: I73.9 Peripheral vascular disease, unspecified (principal)
CPT/HCPCS: 93923

== ENCOUNTER 2025-05-28 14:15 | Outpatient (CLI) | payer MEDICARE, SELFPAY ==
--- NOTE | ~2025-05-28 | MR_ITS ---
MRI of the cervical spine Clinical History: Radiculopathy Technique: Axial T2-weighted and gradient images, and sagittal T1-weighted, T2-weighted, and STIR armen ges were acquired. Findings: No fracture or subluxation of the cervical spine identified. Vertebral bodies maintain norm al height and alignment. No bone marrow signal abnormality seen. At C2-C3, there is no disc bulge or herniation. No spinal canal stenosis, cord compression, or neural foraminal narrowing. At C3-C4, there is minimal disc osteophyte complex and minimal left facet arthropathy. No spinal mag l stenosis, cord compression, or definite neural foraminal narrowing. At C4-C5, there is no disc bulge or herniation. No spinal canal stenosis, cord compression, or neural foraminal narrowing. At C5-C6, there are degenerative disc narrowing with mild disc osteophyte complex. No canal stenosis, cord compression, or definite neural foraminal narrowing. At C6-C7, there are degenerative disc narrowing with disc osteophyte complex. There is left neural fo raminal narrowing. Right neural foramen preserved. No canal stenosis or cord compression. No abnormal signal seen in the spinal cord. Paravertebral soft tissues are unremarkable. Impression: Mild degenerative spondylosis at C5-C6 and C6-C7, as above. Reviewed, dictated and finalized at [facility]. Impression: Mild degenerative spondylosis at C5-C6 and C6-C7, as above.
--- NOTE | ~2025-05-28 | XR_ITS ---
XR cervical spine min 6V Ordering provider: Kathleen Myles History: . M47.812 - Spondylosis without myelopathy or radiculopathy... . Comparison: None. FINDINGS: VERTEBRAL BODIES: Normal height and alignment. No visible fracture or subluxation. The dens is intact . Degenerative changes of the spine. DISK SPACES: Narrowing of the disc C5-C6. Otherwise, Well maintained. Multilevel facet joint disease. Narrowing of the left C4-C5 and C5-C6 intervertebral foramina. Narrowing of the right C5-C6 interver tebral foramen. Multilevel uncovertebral joint osteoarthritic changes. PARASPINOUS SOFT TISSUES: No prevertebral soft tissue swelling. IMPRESSION: No acute osseous abnormality cervical spine. Degenerative disc disease at the level of C5-C6. Bilateral intervertebral foraminal narrowing. Reviewed, dictated and finalized at location A. IMPRESSION: No acute osseous abnormality cervical spine. Degenerative disc disease at the level of C5-C6. Bilateral intervertebral makayla inal narrowing.
== END 2025-05-28 14:16 | disposition home or self-care (01) ==
LOC: GOSHIMG 14:15
PROVIDERS: PCP Internal Medicine
DX: M50.322 Other cervical disc degeneration at C5-C6 level (principal); M48.02 Spinal stenosis, cervical region; M47.812 Spondylosis without myelopathy or radiculopathy, cervical region
CPT/HCPCS: 72052; 72141

== ENCOUNTER 2025-06-06 09:02 | Outpatient (CLI) | payer MEDICARE, SELFPAY ==
--- NOTE | ~2025-06-06 | DEXA_ITS ---
Bone Density Report Name: KRISTOPHER PARRY Age: 75 Sex: Female Ethnicity: White Date of : 1950 Indication: postmenopausal; screening for osteoporosis; height loss; Referring Provider: JIMENA SHEA Study: Bone densitometry was performed. Exam Date: June 06, 2025 Accession number: [id number] Bone Density: Region BMD T-score Z-score Classification AP Spine(L1-L4) 0.781 -2.4 0.1 Osteopenia Femoral Neck (Left) 0.589 -2.3 -0.2 Osteopenia Total Hip (Left) 0.828 -0.9 0.9 Normal Femoral Neck (Right) 0.646 -1.8 0.3 Osteopenia Total Hip (Right) 0.849 -0.8 1.1 Normal Total Hip Mean 0.838 -0.9 1.0 Normal World Health Organization criteria for BMD impression classify patients as: Normal (T-score at or above -1.0), Osteopenia (T-score between -1.0 and -2.5), or Osteoporosis (T-score at or below -2.5). 10-year Fracture Risk(1): Major Osteoporotic Fracture 15% Hip Fracture 4.3% Reported Risk Factors: [place] (), Neck BMD=0.589, BMI=30.5 (1) FRAX(R) Version 3.08. Fracture probability calculated for an untreated patient. Fracture probability may be lower if the patient has received treatment. Clinical Information Provided by Patient: Patient maximum height was 66.0 Menopause Age: 44 No regular weight bearing exercise Does not regularly consume dairy products Onset of menses at age 14 Number of children 1 Impression: The patient has low bone mass, based on the Total Spine T-score. The patient has an estimated ten-year risk of hip fracture of 4.3% and an estimated ten-year risk of major fracture of 15%, based on the WHO FRAX algorithm. Discussion: BONE DENSITY IS LOW AT ONE OR MORE SKELETAL SITES. THE PATIENT'S BMD AND CLINICAL RISK FACTORS CONTRIBUTE TO THIS PATIENT'S INCREASED RISK OF FRACTURE. This patient's lowest T-score is low at one or more skeletal sites. It meets the World Health Organization's (WHO) criteria for ?low bone mass? (T-score between -1.0 and -2.5). The patient's 10-year risk of hip fracture as calculated by FRAX exceeds the threshold where pharmacological therapy is recommended by the National Osteoporosis Foundation (NOF). However, all treatment decisions require clinical judgment and consideration of individual patient factors, including patient preferences, comorbidities, previous drug use, risk factors not captured in the FRAX model (e.g., frailty, falls, vitamin D deficiency, increased bone turnover, interval significant decline in bone density) and possible under or overestimation of fracture risk by FRAX. The patient should follow a healthful lifestyle (good nutrition with adequate calcium and vitamin D, and appropriate weight-bearing exercise). Follow-Up: Consider a repeat BMD and Vertebral Fracture Assessment (VFA) exam in 2 years or sooner if medically necessary, to reassess this patient's status. Reported by: ADONAY on 06/06/2025 9:43:00 AM. Reviewed, dictated and finalized at location A.
--- OUTSIDE RECORDS SUMMARY | 2025-06-06 09:13 | XMS_ITS | Encounter Summary ---
Author Organization [facility] Address [address] Attn: Epic Prelude ADT [place] [address] Care Team Providers Care Taxation Accountant Name Role Phone Yolie Johnson MD Primary Care Provider [phone] Encounter Details Date Type Department Care Team (Latest Contact Info) Description 03/21/2008 Orders Only Yolie Johnson MD Social History Tobacco Use Types Packs/Day Years Used Date Smoking Tobacco: Never Assessed Comments Unknown Sex and Gender Information Value Date Recorded Sex Assigned at Not on file Legal Sex Female 3:30 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 NEUROLOGIC: CRANIAL NERVES: press brake operator II-XII grossly intact. DEEP TENDON REFLEXES: Deep tendon reflexes 2+/4 and symmetrical. No cerebellar signs present. Positive George Alphonso Lillye PSYCHIATRIC: Judgment appropriate. Oriented. Normal memory. Mood and affect appropriate. ASSESSMENT/PLAN: 780.4-VERTIGO/DIZZINESS /tinnitus MEDICATIONS: MECLIZINE HCL ORAL TABLET 25 MG, 1 Every Eight Hours, 30 Dispensed, status: NEW PRESCRIPTION, 03/21/2008. LAB ORDERS: Order number: [id number] Test Ordered: MRI BRAIN W/CONTRAST 599.0-URINARY TRACT INFECTION MEDICATIONS: BACTRIM DS ORAL TABLET 800-160 MG, 1 Two Times A Day, 14 Dispensed, status: NEW PRESCRIPTION, 03/21/2008. Electronically Signed by: Yolie Johnson MD on Friday, March 21, 2008 documented in this encounter Plan of Treatment Not on file documented as of this encounter Visit Diagnoses Not on filedocumented in this encounter Care Teams Taxation Accountant Relationship Specialty Start Date End Date Yolie Johnson MD PCP - General 04/24/08 documented as of this encounter
--- OUTSIDE RECORDS SUMMARY | 2025-06-06 09:13 | XMS_ITS | Encounter Summary ---
Author Organization [facility] Address [address] [place] [address] Care Team Providers Care Home Care Aide Name Role Phone Yolie Johnson MD Primary Care Provider [phone] Encounter Details Date Type Department Care Team (Late st Contact Info) Description 03/21/2008 Outpatient Historical [facility] Internal Medicine - [facility] [address] [id number] [facility] [address] [place] [address] Yolie Johnson MD Social History Tobacco Use Types Packs/Day Years Used Date Smoking Tobacco: Never Assessed Comments Unknown Sex and Gender Information Value Date Recorded Sex Assigned at Not on file 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
--- OUTSIDE RECORDS SUMMARY | 2025-06-06 09:13 | XMS_ITS | Encounter Summary ---
Author Organization [facility] Address 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
--- OUTSIDE RECORDS SUMMARY | 2025-06-06 09:13 | XMS_ITS | Encounter Summary ---
Author Organization [facility] Address 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
--- OUTSIDE RECORDS SUMMARY | 2025-06-06 09:13 | XMS_ITS | Encounter Summary ---
Author Organization [facility] Address [address] [place] [address] Care Team Providers Care Block And Case Maker Name Role Phone Yolie Johnson MD Primary Care Provider [phone] Encounter Details Date Type Department Care Team (Late st Contact Info) Description 03/21/2008 Outpatient Historical [facility] Internal Medicine - [facility] [address] [address] [facility] [address] [place] [address] Yolie Johnson MD Social History Tobacco Use Types Packs/Day Years Used Date Smoking Tobacco: Never Assessed Comments Unknown Sex and Gender Information Value Date Recorded Sex Assigned at Not on file 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
--- OUTSIDE RECORDS SUMMARY | 2025-06-06 09:13 | XMS_ITS | Encounter Summary ---
Author Organization [facility] Address [address] [place] [address] Care Team Providers Care Principal Developer Name Role Phone Yolie Johnson MD Primary Care Provider [phone] Encounter Details Date Type Department Care Team (Late st Contact Info) Description 03/21/2008 Outpatient Historical [facility] Internal Medicine - [facility] [address] [address] [facility] [address] [place] [address] Yolie Johnson MD Proteinuria Social History Tobacco Use Types Packs/Day Years Used Date Smoking Tobacco: Never Assessed Comments Unknown Sex and Gender Information Value Date Recorded Sex Assigned at Not on file Legal Sex Female 3:30 AM BODY WIRER Gender Identity Not on file Sexual Orientation [...] Result [facility] [address] [place] [address] documented in this encounter Visit Diagnoses Diagnosis Proteinuria documented in this encounter Care Teams Principal Developer Relationship Specialty Start Date End Date Yolie Johnson MD PCP - General 04/24/08 documented as of this encounter
--- OUTSIDE RECORDS SUMMARY | 2025-06-06 09:14 | XMS_ITS | Encounter Summary ---
Author Organization [facility] Address [address] [place] [address] Care Team Providers Care Medical Technical Writer Name Role Phone Yolie Johnson MD Primary Care Provider [phone] Encounter Details Date Type Department Care Team (Late st Contact Info) Description 07/19/2000 Outpatient Historical [facility] Internal Medicine - [facility] [address] [address] [facility] [address] [place] [address] Yolie Johnson MD Social History Tobacco Use Types Packs/Day Years Used Date Smoking Tobacco: Never Assessed Comments Unknown Sex and Gender Information Value Date Recorded Sex Assigned at Not on file 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
--- OUTSIDE RECORDS SUMMARY | 2025-06-06 09:14 | XMS_ITS | Clinical Summary ---
Author Organization [facility] Address [facility] [place] [address] Care Team Providers Care Hose Cementer Name Role Phone Anjum Ball PA-C Primary Care Provider [phone] Allergies No known active allergies Medications levothyroxine [...] Comments Blood Pressure 143/81 01/20/2024 2:14 PM COMPUTER FIELD TECHNICIAN Pulse 91 01/20/2024 2:14 PM COMPUTER FIELD TECHNICIAN Temperature 36.2 C (97.1 F) 01/20/2024 2:14 PM COMPUTER FIELD TECHNICIAN Respiratory Rate 18 10/06/2022 1:08 PM COMPUTER FIELD TECHNICIAN Oxygen Saturation 97% 01/20/2024 2:14 PM COMPUTER FIELD TECHNICIAN Inhaled Oxygen Concentration - - Weight 79.4 kg (175 lb) 01/20/2024 2:14 PM COMPUTER FIELD TECHNICIAN Height 167.6 cm (5' 6) 01/20/2024 2:14 PM COMPUTER FIELD TECHNICIAN Body Mass Index 28.25 01/20/2024 2:14 PM COMPUTER FIELD TECHNICIAN Plan of Treatment Health Maintenance Due Date Last Done Comments Hepatitis C 1968 Annual Medicare Wellness Visit 2014 Zoster Vaccines (2 of 3) 09/26/2014 08/01/2014 DTaP, Tdap and Td Vaccines (2 - Td or Tdap) 11/25/2019 11/25/2009, 1999 RSV Immunization or 60+ Years (1 - 1-dose 75+ series) 01/28/2024 COVID-19 Vaccine ( season) 2024 03/16/2022, 09/22/2021, 02/11/2021, Additional history exists PHQ-2 (Physician [place]) 11/29/2024 01/20/2024 Dexa Scan (General) Completed 12/02/2009 Pneumococcal Vaccine: 50+ Years Completed 03/16/2022 Meningococcal B Vaccine Aged Out No l onger eligible based on patient's age to complete this topic Meningococcal Vaccine Aged Out No roderick miguelito eligible based on patient's age to complete this topic RSV Immunizations Under 20 Months Aged Out No longer eligible based on patient's age to complete this topic Insurance AETNA Care Teams Hose Cementer Relationship Specialty Start Date End Date Anjum Ball PA-C [address] [facility] [address] [place], [place] [id number] PCP - General PHYSICIAN BEFORE SCHOOL 07/20/22
--- OUTSIDE RECORDS SUMMARY | 2025-06-06 09:14 | XMS_ITS | Encounter Summary ---
Author Organization [facility] Address 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
--- OUTSIDE RECORDS SUMMARY | 2025-06-06 09:14 | XMS_ITS | Encounter Summary ---
Author Organization [facility] Address [address] [place] [address] Care Team Providers Care Berry Picker Machine Operator Name Role Phone Yolie Johnson MD Primary Care Provider [phone] Encounter Details Date Type Department Care Team (Late st Contact Info) Description 06/30/2006 Outpatient Historical [facility] Internal Medicine - [facility] [address] [address] [facility] [address] [place] [address] Yolie Johnson MD Social History Tobacco Use Types Packs/Day Years Used Date Smoking Tobacco: Never Assessed Comments Unknown Sex and Gender Information Value Date Recorded Sex Assigned at Not on file Legal Sex Female 3:30 AM PUBLIC HEALTH INTERNSHIP Gender Identity Not on file Sexual Orientation [...] on filedocumented in this encounter Care Teams Berry Picker Machine Operator Relationship Specialty Start Date End Date Yolie Johnson MD PCP - General 04/24/08 documented as of this encounter
--- OUTSIDE RECORDS SUMMARY | 2025-06-06 09:14 | XMS_ITS | Encounter Summary ---
Author Organization [facility] Address [address] [place] [address] Care Team Providers Care Doping Supervisor Name Role Phone Yolie Johnson MD Primary Care Provider [phone] Encounter Details Date Type Department Care Team (Latest Contact Info) Description 12/11/1999 Outpatient Historical [facility] Jose Eden Unspecified hearing loss (Primary Dx) Social History Tobacco Use Types Packs/Day Years Used Date Smoking Tobacco: Never Assessed Comments Unknown Sex and Gender Information Value Date Recorded Sex Assigned at Not on file Legal Sex Female 3:30 AM DIE EQUIPMENT OPERATOR Gender Identity Not on file Sexual Orientation Not on file documented as of this encounter Plan of Treatment Not on file documented as of this encounter Visit Diagnoses Diagnosis Unspecified hearing loss- Primary documented in this encounter Care Teams Doping Supervisor Relationship Specialty Start Date End Date Yolie Johnson MD PCP - General 04/24/08 documented as of this encounter
--- OUTSIDE RECORDS SUMMARY | 2025-06-06 09:14 | XMS_ITS | Encounter Summary ---
Author Organization [facility] Address [address] [place] [address] Care Team Providers Care Business Partner Name Role Phone Yolie Johnson MD Primary Care Provider [phone] Encounter Details Date Type Department Care Team (Late st Contact Info) Description 01/24/2007 Outpatient Historical [facility] Yolie Johnson MD Abdominal Pain, Left Upper Quadrant (Primary Dx) Social History Tobacco Use Types Packs/Day Years Used Date Smoking Tobacco: Never Assessed Comments Unknown Sex and Gender Information Value Date Recorded Sex Assigned at Not on file Legal Sex Female 3:30 AM LADLE HANDLER Gender Identity Not on file Sexual Orientation Not on file documented as of this encounter Plan of Treatment Not on file documented as of this encounter Visit Diagnoses Diagnosis Abdominal pain, left upper quadrant- Primary documented in this encounter Care Teams Business Partner Relationship Specialty Start Date End Date Yolie Johnson MD PCP - General 04/24/08 documented as of this encounter
--- OUTSIDE RECORDS SUMMARY | 2025-06-06 09:14 | XMS_ITS | Encounter Summary ---
Author Organization [facility] Address [address] [facility] [place] [place] [address] Care Team Providers Care Childcare Provider Name Role Phone Justin Barreto MD Primary Care Provider Unavail Anjum Grubbs PA-C Primary Care Provide r Encounter Details Date Type Department Care Team (Late st Contact Info) Description 07/29/2022 Lab Requisition [facility] [address] [place] [address] [place] [address] Social History Tobacco Use Types Packs/Day Years Used Date Smoking Tobacco: Never Assessed Comments Unknown Sex and Gender Information Value Date Recorded Sex Assigned at Not on file Legal Sex Female 5:50 AM LURER Gender Identity Not on file Sexual Orientation Not on file documented as of this encounter Plan of Treatment Not on file documented as of this encounter Procedures Procedure Name Priority Date/Time Associated Diagnosis Comments DERMATOPATHOLOGY Routine 07/28/2022 3:33 AM CDT documented in this encounter Results * DERMATOPATHOLOGY (07/28/2022 3:33 AM CDT) Case Report Dermatopathology Report Case: [id number] Authorizing Provider: Milton Burns MD Collected: 07/28/2022 03:33 AM Ordering Location: [facility] Received: 07/29/2022 12:18 PM Pathologist: [...] specimen consists of a shave biopsy measuring [id number]. Jar 0. 2 2:08 PM CDT DERMATOPATHOLOGY [...] characteristic determined by the Dermatopathology Laboratory at [facility], directed by Dr. Koki Benjamin. These tests need not be, and therefore are not, approved by the [place] Food and Drug Administration. The tests are used for clinical purposes. Billing Codes Specimen Charges Stain Charges 72575 1 2 2:08 PM CDT DERMATOPATHOLOGY LABORATORY Embedded Images 2 2:08 PM CDT DERMATOPATHOLOGY LABORATORY Pathology/Cytolo gy TISSUE SPECIMEN FROM SKIN / Unknown 07/28/2022 3:33 AM CDT 07/29/2022 12:18 PM CDT us Milton Burns MD LAB - PATHOLOGY/CYTOLOGY ORD ERABLES Final Result DERMATOPATHOLOGY LABORATORY [facility] - Department of Dermatology [address] [place] [address], [facility] [phone] documented in this encounter Visit Diagnoses Not on filedocumented in this encounter Care Teams Childcare Provider Relationship Specialty Start Date End Date Justin Barreto MD NEED INFORMATION UPDATED PCP - General 12/07/19 03/03/23 Anjum Ball PA-C [address] [place], [place] [id number] PCP - General 03/04/23 documented as of this encounter
--- OUTSIDE RECORDS SUMMARY | 2025-06-06 09:14 | XMS_ITS | Clinical Summary ---
Author Organization [facility] Address [address] [facility] [place] [place] [address] Care Team Providers Care Plant Security Guard Name Role Phone Anjum Ball PA-C Primary Care Provide r Source Comments [facility],non-[facility] Affiliates and Associated Physician Practices is amultiple site organization consisting of ambulatory clinics and hospital sitesin [place], [place], [place] and [place]. This disclosure is being madepursuant to the Care Everywhere program and may not contain all information available regarding this patient. Last updated 18.[facility] [employer] Social History Tobacco Use Types Packs/Day Years Used Date Smoking Tobacco: Never Assessed Comments Unknown Sex and Gender Information Value Date Recorded Sex Assigned at Not on file Legal Sex Female 5:50 AM MELTING OPERATOR Gender Identity Not on file Sexual [...] season) 2024 DEPRESSION SCREENING 11/29/2024 INFLUENZA VACCINE (#1) 2025 HEPATITIS B VACCINE Aged Out No [...] complete this topic Insurance AETNA Care Teams Plant Security Guard Relationship Specialty Start Date End Date Anjum Ball PA-C [address] [place] [address] PCP - General 03/04/23
--- OUTSIDE RECORDS SUMMARY | 2025-06-06 09:14 | XMS_ITS | Encounter Summary ---
Author Organization [facility] Address [address] [place] [address] Care Team Providers Care Apprentice Embalmer Name Role Phone Yolie Johnson MD Primary Care Provider [phone] Encounter Details Date Type Department Care Team (Late st Contact Info) Description 05/18/2000 Outpatient Historical [facility] Internal Medicine - [facility] [address] [id number] [facility] [address] [place] [address] Yolie oJhnson MD Social History Tobacco Use Types Packs/Day Years Used Date Smoking Tobacco: Never Assessed Comments Unknown Sex and Gender Information Value Date Recorded Sex Assigned at Not on file 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
--- OUTSIDE RECORDS SUMMARY | 2025-06-06 09:14 | XMS_ITS | Encounter Summary ---
Author Organization [facility] Address [address] [place] [address] Care Team Providers Care Law Tutor Name Role Phone Yolie Johnson MD Primary Care Provider [phone] Encounter Details Date Type Department Care Team (Late st Contact Info) Description 06/24/2007 Outpatient Historical [facility] Internal Medicine - [facility] [address] [address] [facility] [address] [place] [address] Yolie Johnson MD Social History [...] filedocumented in this encounter Care Teams Law Tutor Relationship Specialty Start Date End Date Yolie Johnson MD PCP - General 04/24/08 documented as of this encounter
--- OUTSIDE RECORDS SUMMARY | 2025-06-06 09:14 | XMS_ITS | Encounter Summary ---
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
--- OUTSIDE RECORDS SUMMARY | 2025-06-06 09:14 | XMS_ITS | Encounter Summary ---
Author Organization [facility] Address [address] [place] [address] Care Team Providers Care Supervisor Pumping Station Name Role Phone Taz Johnson MD Primary Care Provider [phone] Encounter Details Date Type Department Care Team (Late st Contact Info) Description 12/13/2008 Outpatient Historical [facility] Taz Johnson MD [facility] [place] [address] Other Screening Mammogram Social History Tobacco Use Types Packs/Day Years Used Date Smoking Tobacco: Never Assessed Comments No Sex and Gender Information Value Date Recorded Sex Assigned at Not on file Legal Sex Female 3:30 AM INTERNAL SECURITY MANAGER Gender Identity Not on file Sexual Orientation Not on file documented as of this encounter Plan of Treatment Not on file documented as of this encounter Procedures Procedure Name Priority Date/Time Associated Diagnosis Comments MAMMO SCREEN BILAT W OR WO CAD Routine 12/13/2008 2:42 PM INTERNAL SECURITY MANAGER documented in this encounter Results * MAMMO DIGITAL SCREEN BILAT (12/13/2008 2:42 PM INTERNAL SECURITY MANAGER) Anatomical Region Laterality Modality Breast Bilateral Other 12/13/2008 2:42 PM INTERNAL SECURITY MANAGER Narrative 12/17/2008 10:50 PM INTERNAL SECURITY MANAGER [facility] [address] [place], [place] [address] Admit Date: 12/13/2008 VANESSA PAK Sex: F Admit Prov: TAZ JOHNSON Date: 1950 Primary Care Prov: TAZ JOHNSON CMRN: [id number] [id number] Ordering Prov: TAZ JOHNSON Accession Number: [id number] Interpretation BILATERAL SCREENING DIGITAL MAMMOGRAMS WITH COMPUTER [...] AMK Procedure Note Yane Posada - 12/17/[address] [address] Admit Date: 12/13/2008 VANESSA PAK Sex: F Admit Prov: TAZ JOHNSON Date: 1950 Primary Care Prov: TAZ JOHNSON Tamra CMRN: [id number] [id number] [facility] Ordering Prov: TAZ JOHNSON Interpretation [...] mammogram documented in this encounter Care Teams Supervisor Pumping Station Relationship Specialty Start Date End Date Taz Johnson MD PCP - General 04/24/08 documented as of this encounter
--- OUTSIDE RECORDS SUMMARY | 2025-06-06 09:14 | XMS_ITS | Encounter Summary ---
Author Organization [facility] Address [address] [facility] Attn: Epic Prelude ADT [place] [address] Care Team Providers Care Pipe Coverer Name Role Phone Yolie Johnson MD Primary Care Provider [phone] Encounter Details Date Type Department Care Team (Latest Contact Info) Description 04/17/2008 Orders Only Yolie Johnson MD Social History Tobacco Use Types Packs/Day Years Used Date Smoking Tobacco: Never Assessed Comments Unknown Sex and Gender Information Value Date Recorded Sex Assigned at Not on file Legal Sex Female 3:30 AM DIRECTOR GAME Gender Identity Not on file Sexual Orientation Not on file documented as of this encounter Plan of Treatment Not on file documented as of this encounter Visit Diagnoses Not on filedocumented in this encounter Care Teams Pipe Coverer Relationship Specialty Start Date End Date Yolie Johnson MD PCP - General 04/24/08 documented as of this encounter
--- OUTSIDE RECORDS SUMMARY | 2025-06-06 09:14 | XMS_ITS | Encounter Summary ---
Author Organization [employer] Address 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
--- OUTSIDE RECORDS SUMMARY | 2025-06-06 09:14 | XMS_ITS | Patient Health Record ---
Author Organization [employer] Address [address] [facility] [address]. [address] [place] [address] Care Team Providers Care Cnc Manufacturing Engineer Name Role Phone Heath Blackburn MD Primary Care Provider Unavailab le Reason For Referral No Information Plan Of Treatment No Information Insurance Providers Payer Name Payer Address Payer Phone Subscriber Number Group Number Insured Name Patient Relationship to Insured Coverage Start Date Coverage End Date Blue Access PPO E2 [address] [place] [address] [id number] Vanessa Pak Self - patient is the insured
--- OUTSIDE RECORDS SUMMARY | 2025-06-06 09:14 | XMS_ITS | Encounter Summary ---
Author Organization [facility] Address [address] [place] [address] Care Team Providers Care Carcass Washer Name Role Phone Yoile Johnson MD Primary Care Provider [phone] Encounter Details Date Type Department Care Team (Late st Contact Info) Description 01/25/2001 Outpatient Historical [facility] Internal Medicine - [facility] [address] [address] [facility] [address] [place] [address] Yolie Johnson MD Social History Tobacco Use Types Packs/Day Years Used Date Smoking Tobacco: Never Assessed Comments Unknown Sex and Gender Information Value Date Recorded Sex Assigned at Not on file 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
--- OUTSIDE RECORDS SUMMARY | 2025-06-06 09:14 | XMS_ITS | Encounter Summary ---
Author Organization [facility] Address [address] [place] [address] Care Team Providers Care Vegetable Farmer Name Role Phone Taz Johnson MD Primary Care Provider [phone] Encounter Details Date Type Department Care Team (Latest Contact Info) Description 03/28/2008 Outpatient Historical [facility] Taz Johnson MD Dizziness and Giddiness Social History Tobacco Use Types Packs/Day Years Used Date Smoking Tobacco: Never Assessed Comments Unknown Sex and Gender Information Value Date Recorded Sex Assigned at Not on file Legal Sex Female 3:30 AM FAMILY EDUCATOR Gender Identity Not on file Sexual Orientation [...] 03/29/2008 12:55 PM CDT [facility] [address] [place], [place] [address] Admit Date: 03/28/2008 VANESSA PARRY Sex: F Admit Prov: TAZ JOHNSON Date: 1950 Primary Care Prov: TAZ JOHNSON CMRN: [id number] Room: [facility] SSN: [id number] IMAGING SERVICES Ordering Prov: N/A Accession Number: [id number] Interpretation MRI OF BRAIN WITHOUT AND WITH [...] Kate Castillo - 03/29/2008 [facility] [address] [place], [place] [address] Admit Date: 03/28/2008 MELLISA VANESSA M Sex: F Admit Prov: TAZ JOHNSON Date: 1950 Primary Care Prov: TAZ JOHNSON CMRN: [id number] [id number] [facility] Ordering Prov: N/A Interpretation MRI [...] CREATININE POC 1.1 0.6 - 1.3 mg/dL [facility] Capillary blood specimen (specimen) 03/28/2008 3:59 PM CDT 03/28/2008 3:59 PM CDT us Taz Johnson MD POINT OF CARE TESTING Final Resu lt [facility] [address] [place] [address] documented in this encounter Visit Diagnoses Diagnosis Dizziness and giddiness documented in this encounter Care Teams Vegetable Farmer Relationship Specialty Start Date End Date Taz Johnson MD PCP - General 04/24/08 documented as of this encounter
--- OUTSIDE RECORDS SUMMARY | 2025-06-06 09:14 | XMS_ITS | Encounter Summary ---
Author Organization [facility] Address [address] [place] [address] Care Team Providers Care Government Guard Name Role Phone Yolie Johnson MD Primary Care Provider [phone] Encounter Details Date Type Department Care Team (Late st Contact Info) Description 01/13/2006 Outpatient Historical [facility] Internal Medicine - [facility] [address] [address] [facility] [address] [place] [address] Yolie Johnson MD Social History Tobacco Use Types Packs/Day Years Used Date Smoking Tobacco: Never Assessed Comments Unknown Sex and Gender Information Value Date Recorded Sex Assigned at Not on file Legal Sex Female 3:30 AM FIRE ENGINE OPERATOR Gender Identity Not on file Sexual Orientation Not on file documented as of this encounter Last Filed Vital Signs Vital Sign Reading Time Taken Comments Blood Pressure 130/74 01/13/2006 1:50 PM FIRE ENGINE OPERATOR Pulse 76 01/13/2006 1:50 PM FIRE ENGINE OPERATOR Temperature - - Respiratory Rate - - Oxygen Saturation - - Inhaled Oxygen Concentration - - Weight 77.1 kg (170 lb) 01/13/2006 1:50 PM FIRE ENGINE OPERATOR Height - - Body Mass Index - - documented in this encounter Plan of Treatment Not on file documented as of this encounter Visit Diagnoses Not on filedocumented in this encounter Care Teams Government Guard Relationship Specialty Start Date End Date Yolie Johnson MD PCP - General 04/24/08 documented as of this encounter
--- OUTSIDE RECORDS SUMMARY | 2025-06-06 09:14 | XMS_ITS | Encounter Summary ---
Author Organization [employer] Address [address] [place] [address] Care Team Providers Care Vendor Management Specialist Name Role Phone Yolie Johnson MD Primary Care Provider [phone] Encounter Details Date Type Department Care Team (Late st Contact Info) Description 12/15/2008 Outpatient Historical [facility] Yolie Johnson MD [facility] [place] [address] Abdominal Pain, Epigastric Social History Tobacco Use Types Packs/Day Years Used Date Smoking Tobacco: Never Assessed Comments No Sex and Gender Information Value Date Recorded Sex Assigned at Not on file Legal Sex Female 3:30 AM LEAN SIX SIGMA BLACK BELT Gender Identity Not on file Sexual Orientation Not on file documented as of this encounter Plan of Treatment Not on file documented as of this encounter Visit Diagnoses Diagnosis Abdominal pain, epigastric documented in this encounter Care Teams Vendor Management Specialist Relationship Specialty Start Date End Date Yolie Johnson MD PCP - General 04/24/08 documented as of this encounter
--- OUTSIDE RECORDS SUMMARY | 2025-06-06 09:14 | XMS_ITS | Encounter Summary ---
Author Organization [facility] Address [address] [place] [address] Care Team Providers Care Lens Maker Name Role Phone Yolie Johnson MD Primary Care Provider [phone] Encounter Details Date Type Department Care Team (Late st Contact Info) Description 01/17/1999 Outpatient Historical [facility] Internal Medicine - [facility] [address] [address] [facility] [address] [place] [address] Yolie Johnson MD Social History Tobacco Use Types Packs/Day Years Used Date Smoking Tobacco: Never Assessed Comments Unknown Sex and Gender Information Value Date Recorded Sex Assigned at Not on file Legal Sex Female 3:30 AM SHOP MANAGER Gender Identity Not on file Sexual Orientation Not on file documented as of this encounter Plan of Treatment Not on file documented as of this encounter Visit Diagnoses Not on filedocumented in this encounter Care Teams Lens Maker Relationship Specialty Start Date End Date Yolie Johnson MD PCP - General 04/24/08 documented as of this encounter
--- OUTSIDE RECORDS SUMMARY | 2025-06-06 09:14 | XMS_ITS | Encounter Summary ---
Author Organization [facility] Address [address] [place] [address] Care Team Providers Care Labor Standards Director Name Role Phone Yolie Johnson MD Primary Care Provider [phone] Encounter Details Date Type Department Care Team (Latest Contact Info) Description 06/24/2007 Outpatient Historical [facility] Internal Medicine - [facility] [address] [address] [facility] [address] [place] [address] Yolie Johnson MD Other and Unspecified Hyperlipidemia (Primary Dx) Social History Tobacco Use Types Packs/Day Years Used Date Smoking Tobacco: Never Assessed Comments Unknown Sex and Gender Information Value Date Recorded Sex Assigned at Not on file Legal Sex Female 3:30 AM CNC MAINTENANCE TECHNICIAN Gender Identity Not on file Sexual [...] MD URINE ORDERABLES Edited Performing Organization Address [facility] Phone Number INTERFACE SYSTEM Refer to clinic/hospital department * TSH (06/24/2007 9:20 AM CDT) TSH 3.56 0.27 - 4.20 uU/mL INTERFACE SYSTEM 06/24/2007 9:20 AM CDT Yolie Johnson MD CHEMISTRY ORDERABLES Edited Performing Organization Address [facility] Phone Number INTERFACE SYSTEM Refer to clinic/hospital department * (ABNORMAL) GLUCOSE LEVEL (06/24/2007 9:20 AM CDT) GLUCOSE 107(H) 65 - 99 mg/dL INTERFACE SYSTEM 06/24/2007 9:20 AM CDT Yolie Johnson MD CHEMISTRY ORDERABLES Edited Performing Organization Address [facility] Phone Number INTERFACE SYSTEM Refer to clinic/hospital [...] classifications for lipids are available on the [facility] Intranet at: [email or web address] Select: Lab Policies and Procedures Select: Reference Ranges - Lipids 06/24/2007 9:20 AM CDT us Yolie Johnson MD CHEMISTRY ORDERABLES Edited INTERFACE SYSTEM Refer to clinic/hospital department documented in this encounter Visit Diagnoses Diagnosis Other and unspecified hyperlipidemia- Primary documented in this encounter Care Teams Labor Standards Director Relationship Specialty Start Date End Date Yolie Johnson MD PCP - General 04/24/08 documented as of this encounter
--- OUTSIDE RECORDS SUMMARY | 2025-06-06 09:14 | XMS_ITS | Encounter Summary ---
Author Organization [facility] Address [address] [place] [address] Care Team Providers Care Grocery Store Courtesy Clerk Name Role Phone Yolie Johnson MD Primary Care Provider [phone] Encounter Details Date Type Department Care Team (Late st Contact Info) Description 02/21/1999 Outpatient Historical [facility] Internal Medicine - [facility] [address] [address] [facility] [address] [place] [address] Yolie Johnson MD Social History Tobacco Use Types Packs/Day Years Used Date Smoking Tobacco: Never Assessed Comments Unknown Sex and Gender Information Value Date Recorded Sex Assigned at Not on file Legal Sex Female 3:30 AM VP PRODUCT MANAGEMENT Gender Identity Not on file Sexual Orientation Not on file documented as of this encounter Plan of Treatment Not on file documented as of this encounter Visit Diagnoses Not on filedocumented in this encounter Care Teams Grocery Store Courtesy Clerk Relationship Specialty Start Date End Date Yolie Johnson MD PCP - General 04/24/08 documented as of this encounter
--- OUTSIDE RECORDS SUMMARY | 2025-06-06 09:14 | XMS_ITS | Encounter Summary ---
Author Organization [employer] Address [address] [place] [address] Care Team Providers Care Union Carpenter Name Role Phone Yolie Johnson MD Primary Care Provider [phone] Encounter Details Date Type Department Care Team (Late st Contact Info) Description 12/01/1999 Outpatient [facility] Division of Neurology [address] [place] [address]., [address] [address] Jose Penaloza Social History Tobacco Use Types Packs/Day Years Used Date Smoking Tobacco: Never Assessed Comments Unknown Sex and Gender Information Value Date Recorded Sex Assigned at Not on file Legal Sex Female 3:30 AM DIATHERMY EQUIPMENT REPAIRER Gender Identity Not on file Sexual Orientation Not on file documented as of this encounter Plan of Treatment Not on file documented as of this encounter Visit Diagnoses Not on filedocumented in this encounter Care Teams Union Carpenter Relationship Specialty Start Date End Date Yolie Johnson MD PCP - General 04/24/08 documented as of this encounter
--- OUTSIDE RECORDS SUMMARY | 2025-06-06 09:14 | XMS_ITS | Encounter Summary ---
Author Organization [facility] Address [address] [place] [address] Care Team Providers Care Assistant Branch Manager Name Role Phone Yolie Johnson MD Primary Care Provider [phone] Encounter Details Date Type Department Care Team (Latest Contact Info) Description 10/14/2005 Outpatient Historical [facility] [address] [address] CARPAL TUNNEL SYNDROME (Primary Dx) Social History Tobacco Use Types Packs/Day Years Used Date Smoking Tobacco: Never Assessed Comments Unknown Sex and Gender Information Value Date Recorded Sex Assigned at Not on file Legal Sex Female 3:30 AM REGISTERED NURSE PRACTITIONER Gender Identity Not on file Sexual Orientation Not on file documented as of this encounter Plan of Treatment Not on file documented as of this encounter Visit Diagnoses Diagnosis Carpal tunnel syndrome- Primary documented in this encounter Care Teams Assistant Branch Manager Relationship Specialty Start Date End Date Yolie Johnson MD PCP - General 04/24/08 documented as of this encounter
--- OUTSIDE RECORDS SUMMARY | 2025-06-06 09:14 | XMS_ITS | Encounter Summary ---
Author Organization [facility] Address [address] [facility] Attn: Epic Prelude ADT [place] [address] Care Team Providers Care Adult Nurse Practitioner Name Role Phone Taz Johnson MD Primary Care Provider [phone] Encounter Details Date Type Department Care Team (Latest Contact Info) Description 06/24/2007 Orders Only Taz Johnson MD Social History Tobacco Use Types Packs/Day Years Used Date Smoking Tobacco: Never Assessed Comments Unknown Sex and Gender Information Value Date Recorded Sex Assigned at Not on file Legal Sex Female 3:30 AM TRUST OPERATIONS ASSISTANT Gender Identity Not on file Sexual Orientation Not on file documented as of this encounter Progress Notes * Interface, Ramiro Stl Conv Transcriptions - 04/18/2008 12:45 PM CDT CENTRAL TEST SCHEDULING DATE: JUN 24, 2007 Note created by: Vianney Miner 09:21 a Patient Name : VANESSA PAK [address]: [address] [place] [address]. [address] D.O.B: 1950 SSN: [id number] Parent/Guardian if applicable: Patient Insurance: BLUE CROSS BLUE SHIELD ID#: [id number] Group#: ORDER(S) #: [id number] density/mammogram bi-lat-2 views BEST TO CALL WORK. BEST TIME TO CALL: ANYTIME. MAY WE LEAVE MESSAGE AT THAT NUMBER: YES, LEAVE MESSAGE. PLEASE SCHEDULE THE APPOINTMENT AT THE FOLLOWING LOCATION: [facility]. TEST PRIORITY: 2 - 7 DAYS. ORDERING PHYSICIAN: TAZ JOHNSON MD OFFICE OCCUPATIONAL THERAPY AIDE & PHONE: Vianney Miner ORDER PRINTED BY: JUL 05, 2007 Giulia Chopra T 11:41 a FOR SCHEDULING USE ONLY: FIRST ATTEMPT Date:JUL 05, 2007 Giulia Chopra T 12:24 p Spoke with Patient. JUL 05, 2007 Giulia Chopra T 12:24 p TEST SCHEDULE [facility] LOCATION. APPOINTMENT DATE : 08/17/2007 The appointment was scheduled by Giulia Chopra T at [phone] JUL 05, 2007 Giulia Chopra T 12:24 p Pre-authorization number: BC/BS NN documented in this encounter Plan of Treatment Not on file documented as of this encounter Visit Diagnoses Not on filedocumented in this encounter Care Teams Adult Nurse Practitioner Relationship Specialty Start Date End Date Taz Johnson MD PCP - General 04/24/08 documented as of this encounter
--- OUTSIDE RECORDS SUMMARY | 2025-06-06 09:14 | XMS_ITS | Encounter Summary ---
Author Organization [facility] Address [address] [place] [address] Care Team Providers Care Processing Rep Name Role Phone Yolie Johnson MD Primary Care Provider Encounter Details Date Type Department Care Team (Late st Contact Info) Description 05/18/2000 Outpatient Historical [facility] Internal Medicine - [facility] [address] [address] [facility] [address] [place] [address] Yolie Johnson MD Social History Tobacco Use Types Packs/Day Years Used Date Smoking Tobacco: Never Assessed Comments Unknown Sex and Gender Information Value Date Recorded Sex Assigned at Not on file Legal Sex Female 3:30 AM EMT DISPATCHER Gender Identity Not on file Sexual Orientation Not on file documented as of this encounter Plan of Treatment Not on file documented as of this encounter Visit Diagnoses Not on filedocumented in this encounter Care Teams Processing Rep Relationship Specialty Start Date End Date Yolie Johnson MD PCP - General 04/24/08 documented as of this encounter
--- OUTSIDE RECORDS SUMMARY | 2025-06-06 09:14 | XMS_ITS | Encounter Summary ---
Author Organization [facility] Address [address] [place] [address] Care Team Providers Care Manufacturing Analyst Name Role Phone Yolie Johnson MD Primary Care Provider [phone] Encounter Details Date Type Department Care Team (Late st Contact Info) Description 09/14/2000 Outpatient Historical [facility] Internal Medicine - [facility] [address] [address] [facility] [address] [place] [address] Yolie Johnson MD Social History Tobacco Use Types Packs/Day Years Used Date Smoking Tobacco: Never Assessed Comments Unknown Sex and Gender Information Value Date Recorded Sex Assigned at Not on file Legal Sex Female 3:30 AM MEDICAL REGISTRAR Gender Identity Not on file Sexual Orientation Not on file documented as of this encounter Plan of Treatment Not on file documented as of this encounter Visit Diagnoses Not on filedocumented in this encounter Care Teams Manufacturing Analyst Relationship Specialty Start Date End Date Yolie Johnson MD PCP - General 04/24/08 documented as of this encounter
--- OUTSIDE RECORDS SUMMARY | 2025-06-06 09:14 | XMS_ITS | Encounter Summary ---
Author Organization [facility] Address [address] [place] [address] Care Team Providers Care Business Management Consultant Name Role Phone Yolie Johnson MD Primary Care Provider [phone] Encounter Details Date Type Department Care Team (Late st Contact Info) Description 09/10/2000 Outpatient Historical [facility] Internal Medicine - [facility] [address] [address] [facility] [address] [place] [address] Yolie Johnson MD Social History Tobacco Use Types Packs/Day Years Used Date Smoking Tobacco: Never Assessed Comments Unknown Sex and Gender Information Value Date Recorded Sex Assigned at Not on file Legal Sex Female 3:30 AM PALM GATHERER Gender Identity Not on file Sexual Orientation Not on file documented as of this encounter Plan of Treatment Not on file documented as of this encounter Visit Diagnoses Not on filedocumented in this encounter Care Teams Business Management Consultant Relationship Specialty Start Date End Date Yolie Johnson MD PCP - General 04/24/08 documented as of this encounter
--- OUTSIDE RECORDS SUMMARY | 2025-06-06 09:14 | XMS_ITS | Encounter Summary ---
Author Organization [facility] Address [address] [place] [address] Care Team Providers Care Decision Analyst Name Role Phone Yolie Johnson MD Primary Care Provider [phone] Encounter Details Date Type Department Care Team (Late st Contact Info) Description 02/03/2006 Outpatient Historical [facility] Internal Medicine - [facility] [address] [id number] [facility] [address] [place] [address] Yolie Johnson MD Social History Tobacco Use Types Packs/Day Years Used Date Smoking Tobacco: Never Assessed Comments Unknown Sex and Gender Information Value Date Recorded Sex Assigned at Not on file Legal Sex Female 3:30 AM COMMERCIAL GREEN RETROFIT ARCHITECT Gender Identity Not on file Sexual Orientation Not on file documented as of this encounter Last Filed Vital Signs Vital Sign Reading Time Taken Comments Blood Pressure 132/82 02/03/2006 1:50 PM COMMERCIAL GREEN RETROFIT ARCHITECT Pulse 82 02/03/2006 1:50 PM COMMERCIAL GREEN RETROFIT ARCHITECT Temperature - - Respiratory Rate - - Oxygen Saturation - - Inhaled Oxygen Concentration - - Weight 78 kg (172 lb) 02/03/2006 1:50 PM COMMERCIAL GREEN RETROFIT ARCHITECT Height - - Body Mass Index - - documented in this encounter Plan of Treatment Not on file documented as of this encounter Visit Diagnoses Not on filedocumented in this encounter Care Teams Decision Analyst Relationship Specialty Start Date End Date Yolie Johnson MD PCP - General 04/24/08 documented as of this encounter
--- OUTSIDE RECORDS SUMMARY | 2025-06-06 09:14 | XMS_ITS | Encounter Summary ---
Author Organization [facility] Address [address] [place] [address] Care Team Providers Care Community Development Manager Name Role Phone Yolie Johnson MD Primary Care Provider [phone] Encounter Details Date Type Department Care Team (Late st Contact Info) Description 12/20/2006 Orders Only [facility] Internal Medicine - [facility] [address] [id number] [facility] [address] [place] [address] Leila Mackey, ANP [address] [facility] [address] [place] [address] Social History Tobacco Use Types Packs/Day Years Used Date Smoking Tobacco: Never Assessed Comments Unknown Sex and Gender Information Value Date Recorded Sex Assigned at Not on file Legal Sex Female 3:30 AM GRAPHICS PRODUCTION SPECIALIST Gender Identity Not on file Sexual Orientation Not on file documented as of this encounter Progress Notes * Leila Mackey, AJAY - 04/24/2008 1:24 PM CDT TIME:12:25 pm PATIENT`S HOME PHONE: PATIENT`S WORK PHONE: PATIENT`S INSURANCE: [facility] WHO TOOK THE CALL: Adali Delgado GENERAL INFORMATION PATIENT STATUS: Established Patient. LAST VISIT: 11/30/06 ALTERNATIVE PHONE NUMBER: [phone] work WHO CALLED: Patient called. CURRENT ALLERGY [...] filedocumented in this encounter Care Teams Community Development Manager Relationship Specialty Start Date End Date Yolie Johnson MD PCP - General 04/24/08 documented as of this encounter
--- OUTSIDE RECORDS SUMMARY | 2025-06-06 09:14 | XMS_ITS | Encounter Summary ---
Author Organization [facility] Address [address] [place] [address] Care Team Providers Care Tool Room Machinist Name Role Phone Yolie Johnson MD Primary Care Provider [phone] Encounter Details Date Type Department Care Team (Late st Contact Info) Description 11/30/2006 Outpatient Historical [facility] Internal [facility] - [facility] [address] [address] [facility] [address] [place] [address] Yolie Johnson MD Social History Tobacco Use Types Packs/Day Years Used Date Smoking Tobacco: Never Assessed Comments Unknown Sex and Gender Information Value Date Recorded Sex Assigned at Not on file Legal Sex Female 3:30 AM SPECIAL EDUCATION CURRICULUM SPECIALIST Gender Identity Not on file Sexual Orientation Not on file documented as of this encounter Last Filed Vital Signs Vital Sign Reading Time Taken Comments Blood Pressure 130/78 11/30/2006 1:45 PM SPECIAL EDUCATION CURRICULUM SPECIALIST Pulse 84 11/30/2006 1:45 PM SPECIAL EDUCATION CURRICULUM SPECIALIST Temperature - - Respiratory Rate - - Oxygen Saturation - - Inhaled Oxygen Concentration - - Weight 78.9 kg (174 lb) 11/30/2006 1:45 PM SPECIAL EDUCATION CURRICULUM SPECIALIST Height - - Body Mass Index - - documented in this encounter Plan of Treatment Not on file documented as of this encounter Visit Diagnoses Not on filedocumented in this encounter Care Teams Tool Room Machinist Relationship Specialty Start Date End Date Yolie Johnson MD PCP - General 04/24/08 documented as of this encounter
--- OUTSIDE RECORDS SUMMARY | 2025-06-06 09:14 | XMS_ITS | Encounter Summary ---
Author Organization [facility] Address [address] [place] [address] Care Team Providers Care Order Checker Packer Processer Name Role Phone Yolie Johnson MD Primary Care Provider [phone] Encounter Details Date Type Department Care Team (Late st Contact Info) Description 09/30/1999 Outpatient Historical [facility] Internal Medicine - [facility] [address] [address] [facility] [address] [place] [address] Yolie Johnson MD Social History Tobacco Use Types Packs/Day Years Used Date Smoking Tobacco: Never Assessed Comments Unknown Sex and Gender Information Value Date Recorded Sex Assigned at Not on file Legal Sex Female 3:30 AM DATA CAPTURE SPECIALIST Gender Identity Not on file Sexual Orientation Not on file documented as of this encounter Plan of Treatment Not on file documented as of this encounter Visit Diagnoses Not on filedocumented in this encounter Care Teams Order Checker Packer Processer Relationship Specialty Start Date End Date Yolie Johnson MD PCP - General 04/24/08 documented as of this encounter
--- OUTSIDE RECORDS SUMMARY | 2025-06-06 09:14 | XMS_ITS | Encounter Summary ---
Author Organization [facility] Address [address] [place] [address] Care Team Providers Care Hospital Superintendent Name Role Phone Yolie Johnson MD Primary Care Provider [phone] Encounter Details Date Type Department Care Team (Late st Contact Info) Description 03/17/[address] [facility] Internal Medicine - [facility] [address] [address] [facility] [address] [place] [address] Yolie Johnson MD Social History Tobacco Use Types Packs/Day Years Used Date Smoking Tobacco: Never Assessed Comments Unknown Sex and Gender Information Value Date Recorded Sex Assigned at Not on file Legal Sex Female 3:30 AM INSPECTOR FINAL ASSEMBLY CONVEYOR LINE Gender Identity Not on file Sexual Orientation Not on file documented as of this encounter Plan of Treatment Not on file documented as of this encounter Visit Diagnoses Not on filedocumented in this encounter Care Teams Hospital Superintendent Relationship Specialty Start Date End Date Yolie Johnson MD PCP - General 04/24/08 documented as of this encounter
--- OUTSIDE RECORDS SUMMARY | 2025-06-06 09:15 | XMS_ITS | Encounter Summary ---
Author Organization [facility] Address [address] [place] [address] Care Team Providers Care Rock Drill Operator Name Role Phone Yolie Johnson MD Primary Care Provider [phone] Encounter Details Date Type Department Care Team (Late st Contact Info) Description 12/27/2001 Outpatient Historical [facility] Internal Medicine - [facility] [address] [address] [facility] [address] [place] [address] Yolie Johnson MD Social History Tobacco Use Types Packs/Day Years Used Date Smoking Tobacco: Never Assessed Comments Unknown Sex and Gender Information Value Date Recorded Sex Assigned at Not on file Legal Sex Female 3:30 AM ASSOCIATE BUSINESS ANALYST Gender Identity Not on file Sexual Orientation Not on file documented as of this encounter Plan of Treatment Not on file documented as of this encounter Visit Diagnoses Not on filedocumented in this encounter Care Teams Rock Drill Operator Relationship Specialty Start Date End Date Yolie Johnson MD PCP - General 04/24/08 documented as of this encounter
--- OUTSIDE RECORDS SUMMARY | 2025-06-06 09:15 | XMS_ITS | Encounter Summary ---
Author Organization [facility] Address [address] [place] [address] Care Team Providers Care Compounding Assistant Name Role Phone Yolie Johnson MD Primary Care Provider [phone] Encounter Details Date Type Department Care Team (Late st Contact Info) Description 10/14/2005 Outpatient Historical [facility] [address] [place] [address] [place] [address] [place] [address] [place] [address] Social History Tobacco Use Types Packs/Day Years Used Date Smoking Tobacco: Never Assessed Comments Unknown Sex and Gender Information Value Date Recorded Sex Assigned at Not on file Legal Sex Female 3:30 AM MAINTENANCE MECHANIC ELEVATORS Gender Identity Not on file Sexual Orientation Not on file documented as of this encounter Plan of Treatment Not on file documented as of this encounter Visit Diagnoses Not on filedocumented in this encounter Care Teams Compounding Assistant Relationship Specialty Start Date End Date Yolie Johnson MD PCP - General 04/24/08 documented as of this encounter
--- OUTSIDE RECORDS SUMMARY | 2025-06-06 09:15 | XMS_ITS | Encounter Summary ---
Author Organization [facility] Address [address] [place] [address] Care Team Providers Care Cotton Seed Culler Name Role Phone Yolie Johnson MD Primary Care Provider [phone] Encounter Details Date Type Department Care Team (Late st Contact Info) Description 04/17/2005 Outpatient Historical [facility] Internal Medicine - [facility] [address] [address] [facility] [address] [place] [address] Yolie Johnson MD Social History Tobacco Use Types Packs/Day Years Used Date Smoking Tobacco: Never Assessed Comments Unknown Sex and Gender Information Value Date Recorded Sex Assigned at Not on file Legal Sex Female 3:30 AM LAUNDRY OR DRY CLEANERS COUNTER CLERK Gender Identity Not on file Sexual Orientation Not on file documented as of this encounter Plan of Treatment Not on file documented as of this encounter Visit Diagnoses Not on filedocumented in this encounter Care Teams Cotton Seed Culler Relationship Specialty Start Date End Date Yolie Johnson MD PCP - General 04/24/08 documented as of this encounter
--- OUTSIDE RECORDS SUMMARY | 2025-06-06 09:15 | XMS_ITS | Encounter Summary ---
Author Organization [facility] Address [address] [place] [address] Care Team Providers Care Dry Janitor Name Role Phone Yolie Johnson MD Primary Care Provider [phone] Encounter Details Date Type Department Care Team (Late st Contact Info) Description 06/30/2001 Outpatient Historical [facility] Internal Medicine - [facility] [address] [address] [facility] [address] [place] [address] Yolie Johnson MD Social History Tobacco Use Types Packs/Day Years Used Date Smoking Tobacco: Never Assessed Comments Unknown Sex and Gender Information Value Date Recorded Sex Assigned at Not on file Legal Sex Female 3:30 AM PACKAGE WINDER Gender Identity Not on file Sexual Orientation Not on file documented as of this encounter Plan of Treatment Not on file documented as of this encounter Visit Diagnoses Not on filedocumented in this encounter Care Teams Dry Janitor Relationship Specialty Start Date End Date Yolie Johnson MD PCP - General 04/24/08 documented as of this encounter
--- OUTSIDE RECORDS SUMMARY | 2025-06-06 09:15 | XMS_ITS | Encounter Summary ---
Author Organization [facility] Address [address] [place] [address] Care Team Providers Care Radio Performer Name Role Phone Yolie Johnson MD Primary Care Provider [phone] Encounter Details Date Type Department Care Team (Late st Contact Info) Description 10/07/2005 Outpatient Historical [facility] Internal Medicine - [place] [address] [address] [facility] [address] [place] [address] Yolie Johnson MD Social History Tobacco Use Types Packs/Day Years Used Date Smoking Tobacco: Never Assessed Comments Unknown Sex and Gender Information Value Date Recorded Sex Assigned at Not on file Legal Sex Female 3:30 AM ELECTRIC TRUCK OPERATOR Gender Identity Not on file Sexual Orientation Not on file documented as of this encounter Last Filed Vital Signs Vital Sign Reading Time Taken Comments Blood Pressure 124/76 10/07/2005 2:15 PM ELECTRIC TRUCK OPERATOR Pulse 68 10/07/2005 2:15 PM ELECTRIC TRUCK OPERATOR Temperature - - Respiratory Rate - - Oxygen Saturation - - Inhaled Oxygen Concentration - - Weight 74.4 kg (164 lb) 10/07/2005 2:15 PM ELECTRIC TRUCK OPERATOR Height - - Body Mass Index - - documented in this encounter Plan of Treatment Not on file documented as of this encounter Visit Diagnoses Not on filedocumented in this encounter Care Teams Radio Performer Relationship Specialty Start Date End Date Yolie Johnson MD PCP - General 04/24/08 documented as of this encounter
--- OUTSIDE RECORDS SUMMARY | 2025-06-06 09:15 | XMS_ITS | Encounter Summary ---
Author Organization [facility] Address [address] [place] [address] Care Team Providers Care Biological Aide Name Role Phone Yolie Johnson MD Primary Care Provider [phone] Encounter Details Date Type Department Care Team (Late st Contact Info) Description 01/31/2002 Outpatient Historical [facility] Internal Medicine - [facility] [address] [address] [facility] [address] [place] [address] Yolie Johnson MD Social History [...] on filedocumented in this encounter Care Teams Biological Aide Relationship Specialty Start Date End Date Yolie Johnson MD PCP - General 04/24/08 documented as of this encounter
--- OUTSIDE RECORDS SUMMARY | 2025-06-06 09:15 | XMS_ITS | Encounter Summary ---
Author Organization [facility] Address [address] [place] [address] Care Team Providers Care Freight Shipping Agent Name Role Phone Yolie Johnson MD Primary Care Provider Encounter Details Date Type Department Care Team (Late st Contact Info) Description 12/08/2002 Outpatient Historical [facility] Internal Medicine - [facility] [address] [address] [facility] [address] [place] [address] Yolie Johnson MD Social History Tobacco Use Types Packs/Day Years Used Date Smoking Tobacco: Never Assessed Comments Unknown Sex and Gender Information Value Date Recorded Sex Assigned at Not on file Legal Sex Female 3:30 AM PAINTER FOREMAN Gender Identity Not on file Sexual Orientation Not on file documented as of this encounter Plan of Treatment Not on file documented as of this encounter Visit Diagnoses Not on filedocumented in this encounter Care Teams Freight Shipping Agent Relationship Specialty Start Date End Date Yolie Johnson MD PCP - General 04/24/08 documented as of this encounter
--- OUTSIDE RECORDS SUMMARY | 2025-06-06 09:15 | XMS_ITS | Encounter Summary ---
Author Organization [facility] Address [address] [place] [address] Care Team Providers Care Feed Management Advisor Name Role Phone Yolie Johnson MD Primary Care Provider [phone] Encounter Details Date Type Department Care Team (Late st Contact Info) Description 03/03/2005 Outpatient Historical [facility] Dev Marquez MD [address] [place] [address] [place] [address] SCREENING MAL NEOP-COLON (Primary Dx) Social History Tobacco Use Types Packs/Day Years Used Date Smoking Tobacco: Never Assessed Comments Unknown Sex and Gender Information Value Date Recorded Sex Assigned at Not on file Legal Sex Female 3:30 AM ELECTRIC WELDER Gender Identity Not on file Sexual Orientation Not on file documented as of this encounter Plan of Treatment Not on file documented as of this encounter Visit Diagnoses Diagnosis Special screening for malignant neoplasms, colon- Primary documented in this encounter Care Teams Feed Management Advisor Relationship Specialty Start Date End Date Yolie Johnson MD PCP - General 04/24/08 documented as of this encounter
--- OUTSIDE RECORDS SUMMARY | 2025-06-06 09:15 | XMS_ITS | Encounter Summary ---
Author Organization [facility] Address [address] [place] [address] Care Team Providers Care Project Engineering Manager Name Role Phone Yolie Johnson MD Primary Care Provider [phone] Encounter Details Date Type Department Care Team (Late st Contact Info) Description 10/31/2002 Outpatient Historical [facility] Internal Medicine - [facility] [address] [address] [facility] [address] [place] [address] Yolie Johnson MD Social History Tobacco Use Types Packs/Day Years Used Date Smoking Tobacco: Never Assessed Comments Unknown Sex and Gender Information Value Date Recorded Sex Assigned at Not on file Legal Sex Female 3:30 AM FRONT DESK ATTENDANT Gender Identity Not on file Sexual Orientation Not on file documented as of this encounter Plan of Treatment Not on file documented as of this encounter Visit Diagnoses Not on filedocumented in this encounter Care Teams Project Engineering Manager Relationship Specialty Start Date End Date Yolie Johnson MD PCP - General 04/24/08 documented as of this encounter
--- OUTSIDE RECORDS SUMMARY | 2025-06-06 09:15 | XMS_ITS | Encounter Summary ---
Author Organization [facility] Address [address] [place] [address] Care Team Providers Care Ore Washer Name Role Phone Yolie Johnson MD Primary Care Provider [phone] Encounter Details Date Type Department Care Team (Late st Contact Info) Description 06/23/2005 Outpatient Historical [facility] Internal Medicine - [facility] [address] [address] [facility] [address] [place] [address] Yolie Johnson MD Social History Tobacco Use Types Packs/Day Years Used Date Smoking Tobacco: Never Assessed Comments Unknown Sex and Gender Information Value Date Recorded Sex Assigned at Not on file Legal Sex Female 3:30 AM DOT COMPLIANCE COORDINATOR Gender Identity Not on file Sexual Orientation Not on file documented as of this encounter Plan of Treatment Not on file documented as of this encounter Visit Diagnoses Not on filedocumented in this encounter Care Teams Ore Washer Relationship Specialty Start Date End Date Yolie Johnson MD PCP - General 04/24/08 documented as of this encounter
--- OUTSIDE RECORDS SUMMARY | 2025-06-06 09:15 | XMS_ITS | Clinical Summary ---
Author Organization [facility] Address [address] [facility] [place] [address] Phone Care Team Providers Care Dairy And Food Laboratory Assistant Name Role Phone Yolie Johnson MD Primary Care Provider [phone] Allergies Active Allergy Reactions Criticality Noted Date [...] on file Legal Sex Female 3:30 AM SCRAP DEALER Gender Identity Not on file Sexual Orientation Not on file Last Filed Vital Signs Vital Sign Reading Time Taken Comments Blood Pressure 126/88 02/16/2011 12:05 PM CDT Pulse 80 02/16/2011 12:05 PM CDT Temperature 37.1 C (98.7 F) 01/13/2011 12:48 PM SCRAP DEALER Respiratory Rate - - Oxygen Saturation - [...] ) (1 - 1-dose 75+ series) 01/28/2024 Preventative Visit- Commercial 11/29/2024 02/16/2011 , 09/14/2000 INFLUENZA VACCINE (#1) 2025 09/05/2010 Procedures Procedure Name Priority Date/Time Associated Diagnosis Comments XR DEXA BONE DENSITY AXIAL 1 OR MORE SITES Routine 12/02/2009 10:42 AM SCRAP DEALER Unspecified Osteoporosis from Last 3 Months or Most Recently Relevant to Health Maintenance Results * XR DEXA BONE DENSITY AXIAL 1 OR MORE SITES (12/02/2009 10:42 AM SCRAP DEALER) Anatomical Region Laterality Modality Digital Radiogra phy 12/02/2009 10:4 1 AM SCRAP DEALER Impressions 12/02/2009 10:52 AM SCRAP DEALER IMPRESSION: Lumbar spine: This patient's bone mineral [...] follow. Dictated by Dr. Twin Thao MD [facility] Narrative 12/02/2009 10:52 AM SCRAP DEALER Examination: Bone Density Study (DEXA) Clinical History: [...] follow. Dictated by Dr. Twin Thao MD [facility] Yolie Johnson MD DIAGNOSTIC IMAGING ORDERABLES Final Result from Last 3 Months or Most Recently Relevant to Health Maintenance Insurance Care Teams Dairy And Food Laboratory Assistant Relationship Specialty Start Date End Date Yolie Johnson MD PCP - General 04/24/08
--- OUTSIDE RECORDS SUMMARY | 2025-06-06 09:15 | XMS_ITS | Encounter Summary ---
Author Organization [facility] Address [address] [place] [address] Care Team Providers Care Decal Maker Name Role Phone Yolie Johnson MD Primary Care Provider [phone] Encounter Details Date Type Department Care Team (Late st Contact Info) Description 05/22/2003 Outpatient Historical [facility] Internal Medicine - [facility] [address] [address] [facility] [address] [place] [address] Yolie Johnson MD Social History Tobacco Use Types Packs/Day Years Used Date Smoking Tobacco: Never Assessed Comments Unknown Sex and Gender Information Value Date Recorded Sex Assigned at Not on file Legal Sex Female 3:30 AM ELECTRONICS ASSEMBLER AND TESTER Gender Identity Not on file Sexual Orientation Not on file documented as of this encounter Plan of Treatment Not on file documented as of this encounter Visit Diagnoses Not on filedocumented in this encounter Care Teams Decal Maker Relationship Specialty Start Date End Date Yolie Johnson MD PCP - General 04/24/08 documented as of this encounter
--- OUTSIDE RECORDS SUMMARY | 2025-06-06 09:15 | XMS_ITS | Encounter Summary ---
Author Organization [facility] Address [address] [place] [address] Care Team Providers Care Hotel Assistant Manager Name Role Phone Yolie Johnson MD Primary Care Provider [phone] Encounter Details Date Type Department Care Team (Latest Contact Info) Description 12/14/2002 Outpatient Historical [facility] Yolie Johnson MD BONE & CARTILAGE DIS NOS (Primary Dx) Social History Tobacco Use Types Packs/Day Years Used Date Smoking Tobacco: Never Assessed Comments Unknown Sex and Gender Information Value Date Recorded Sex Assigned at Not on file Legal Sex Female 3:30 AM RECORDIST Gender Identity Not on file Sexual Orientation Not on file documented as of this encounter Plan of Treatment Not on file documented as of this encounter Visit Diagnoses Diagnosis Disorder of bone and cartilage, unspecified- Primary documented in this encounter Care Teams Hotel Assistant Manager Relationship Specialty Start Date End Date Yolie Johnson MD PCP - General 04/24/08 documented as of this encounter
--- OUTSIDE RECORDS SUMMARY | 2025-06-06 09:15 | XMS_ITS | Encounter Summary ---
Author Organization [facility] Address [address] [place] [address] Care Team Providers Care Rotary Shear Operator Name Role Phone Yolie Johnson MD Primary Care Provider [phone] Encounter Details Date Type Department Care Team (Late st Contact Info) Description 11/18/2004 Outpatient Historical [facility] Internal Medicine - [facility] [address] [id number] [facility] [address] [place] [address] Yolie Johnson MD Social History Tobacco Use Types Packs/Day Years Used Date Smoking Tobacco: Never Assessed Comments Unknown Sex and Gender Information Value Date Recorded Sex Assigned at Not on file Legal Sex Female 3:30 AM REEXAMINER Gender Identity Not on file Sexual Orientation Not on file documented as of this encounter Plan of Treatment Not on file documented as of this encounter Visit Diagnoses Not on filedocumented in this encounter Care Teams Rotary Shear Operator Relationship Specialty Start Date End Date Yolie Johnson MD PCP - General 04/24/08 documented as of this encounter
--- OUTSIDE RECORDS SUMMARY | 2025-06-06 09:15 | XMS_ITS | Encounter Summary ---
Author Organization [facility] Address [address] [place] [address] Care Team Providers Care Packing Room Supervisor Name Role Phone Yolie Johnson MD Primary Care Provider [phone] Encounter Details Date Type Department Care Team (Late st Contact Info) Description 03/16/2001 Outpatient Historical Division of Neurology [address] [place], [place] [id number] Eros Hood MD [address] [facility] [address] [place] [address] Social History Tobacco Use Types Packs/Day Years Used Date Smoking Tobacco: Never Assessed Comments Unknown Sex and Gender Information Value Date Recorded Sex Assigned at Not on file Legal Sex Female 3:30 AM ENGAGEMENT SPECIALIST Gender Identity Not on file Sexual Orientation Not on file documented as of this encounter Plan of Treatment Not on file documented as of this encounter Visit Diagnoses Not on filedocumented in this encounter Care Teams Packing Room Supervisor Relationship Specialty Start Date End Date Yolie Johnson MD PCP - General 04/24/08 documented as of this encounter
--- OUTSIDE RECORDS SUMMARY | 2025-06-06 09:15 | XMS_ITS | Encounter Summary ---
Author Organization [facility] Address 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
--- OUTSIDE RECORDS SUMMARY | 2025-06-06 09:15 | XMS_ITS | Encounter Summary ---
Author Organization [facility] Address [address] [place] [address] Care Team Providers Care Ethylene Plant Operator Name Role Phone Yolie Johnson MD Primary Care Provider [phone] Encounter Details Date Type Department Care Team (Late st Contact Info) Description 01/12/2003 Outpatient Historical [facility] Internal Medicine - [facility] [address] [address] [facility] [address] [place] [address] Yolie Johnson MD Social History Tobacco Use Types Packs/Day Years Used Date Smoking Tobacco: Never Assessed Comments Unknown Sex and Gender Information Value Date Recorded Sex Assigned at Not on file 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
--- OUTSIDE RECORDS SUMMARY | 2025-06-06 09:15 | XMS_ITS | Encounter Summary ---
Author Organization [facility] Address 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
--- OUTSIDE RECORDS SUMMARY | 2025-06-06 09:15 | XMS_ITS | Encounter Summary ---
Author Organization [facility] Address [address] [place] [address] Care Team Providers Care Cemetery Vault Installer Name Role Phone Yolie Johnson MD Primary Care Provider [phone] Encounter Details Date Type Department Care Team (Late st Contact Info) Description 05/16/2004 Outpatient Historical [facility] Internal Medicine - [facility] [address] [id number] [facility] [address] [place] [address] Yolie Johnson MD Social History Tobacco Use Types Packs/Day Years Used Date Smoking Tobacco: Never Assessed Comments Unknown Sex and Gender Information Value Date Recorded Sex Assigned at Not on file 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
--- OUTSIDE RECORDS SUMMARY | 2025-06-06 09:15 | XMS_ITS | Encounter Summary ---
Author Organization [facility] Address [address] [place] [address] Care Team Providers Care Development Intern Name Role Phone Yolie Johnson MD Primary Care Provider Encounter Details Date Type Department Care Team (Late st Contact Info) Description 06/08/2003 Outpatient Historical [facility] Internal Medicine - [facility] [address] [address] [facility] [address] [place] [address] Yolie Johnson MD Social History Tobacco Use Types Packs/Day Years Used Date Smoking Tobacco: Never Assessed Comments Unknown Sex and Gender Information Value Date Recorded Sex Assigned at Not on file 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
--- OUTSIDE RECORDS SUMMARY | 2025-06-06 09:15 | XMS_ITS | Encounter Summary ---
Author Organization [facility] Address 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
--- OUTSIDE RECORDS SUMMARY | 2025-06-06 09:15 | XMS_ITS | Encounter Summary ---
Author Organization [facility] Address 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
--- OUTSIDE RECORDS SUMMARY | 2025-06-06 09:15 | XMS_ITS | Encounter Summary ---
Author Organization [facility] Address [address] [place] [address] Care Team Providers Care Box Sorter Name Role Phone Yolie Johnson MD Primary Care Provider [phone] Encounter Details Date Type Department Care Team (Late st Contact Info) Description 04/03/2003 Outpatient Historical [facility] Internal Medicine - [facility] [address] [address] [facility] [address] [place] [address] Yolie Johnson MD Social History Tobacco Use Types Packs/Day Years Used Date Smoking Tobacco: Never Assessed Comments Unknown Sex and Gender Information Value Date Recorded Sex Assigned at Not on file Legal Sex Female 3:30 AM SOCIAL WORK THERAPIST Gender Identity Not on file Sexual Orientation Not on file documented as of this encounter Plan of Treatment Not on file documented as of this encounter Visit Diagnoses Not on filedocumented in this encounter Care Teams Box Sorter Relationship Specialty Start Date End Date Yolie Johnson MD PCP - General 04/24/08 documented as of this encounter
--- OUTSIDE RECORDS SUMMARY | 2025-06-06 09:15 | XMS_ITS | Encounter Summary ---
Author Organization [facility] Address 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
== END 2025-06-06 09:03 | disposition home or self-care (01) ==
LOC: ANHIMG 09:07
PROVIDERS: PCP Internal Medicine; Visit Provider Nurse Practitioner
DX: M85.89 Other specified disorders of bone density and structure, multiple sites (principal); Z78.0 Asymptomatic menopausal state
CPT/HCPCS: 77080

== ENCOUNTER 2025-11-20 06:49 | Outpatient (CLI) | payer MEDICARE, SELFPAY ==
--- NOTE | ~2025-11-20 | MR_ITS ---
EXAMINATION: MR knee RT wo con DATE: 11/20/2025 07:32 INDICATION: Other tear of medial meniscus, current injury. Right knee pain. TECHNIQUE: Magnetic resonance imaging (MRI) of the right knee was performed without intravenous contrast. Sequences included axial PD-weighted FS FSE, coronal PD-weighted FSE and PD-weighted FS FSE, sagittal PD-weighted FSE, and sagittal T2-weighted FS FSE. COMPARISON: Right knee radiographs 10/13/2025 FINDINGS: Medial compartment: There is a radial tear of posterior horn of medial meniscus. There is shallow partial-thickness cartilage loss of tibial condyle. There is deep partial- thickness cartilage loss of femoral condyle involving the central articular surface. There is a subchondral insufficiency fracture of femoral condyle i nvolving the central articular surface with low signal fracture line and surrounding edema-like marrow signal intensity. Osteophytes are noted. Lateral compartment: Lateral meniscus is normal. There is cartilage surface irregularity of tibial condyle. There is shallow partial-thickness cartilage loss of femoral condyle involving the central articular surface. Osteophytes are noted. Patellofemoral compartment: There is full-thickness cartilage loss of patellar median ridge and lateral facet with mild subchondral edema-like marrow signal intensity. There is deep partial-thickness cartilage loss of patellar medial facet. There is full- thickness cartilage loss of lateral trochlea. Osteophytes are noted. Ligaments and tendons: The anterior and posterior cruciate ligaments are normal. There are changes of prior sprains of medial collateral ligament and lateral collateral ligament characterized by thickening and increased signal intensity proximally. There is mild patellar tendinopathy. Fluid: There is a small knee joint effusion. There is trace fluid in a Anderson's cyst. There is mild prepatellar and superficial infrapatellar bursitis. IMPRESSION: 1. Severe chondrosis of patellofemoral compartment, moderate chondrosis of medial compartment, and mild chondrosis of lateral compartment. 2. Subchondral insufficiency fracture of medial femoral condyle. 3. Tear of medial meniscus. 4. Small knee joint effusion. Reviewed, dictated and finalized at location E. SCHOOL SOCIAL SCIENCE TEACHER IMPRESSION: 1. Severe chondrosis of patellofemoral compartment, moderate chondrosis of medi al compartment, and mild chondrosis of lateral compartment. 2. Subchondral insufficiency fracture of medial femoral condyle. 3. Tear of medial meniscus. 4. Small knee joint effusion.
== END 2025-11-20 06:50 | disposition home or self-care (01) ==
LOC: MICIMG 06:50
PROVIDERS: PCP Internal Medicine; Visit Provider Orthopaedic Surgery
DX: M94.261 Chondromalacia, right knee (principal); S72.431A Displaced fracture of medial condyle of right femur, initial encounter for closed fracture; S83.241A Other tear of medial meniscus, current injury, right knee, initial encounter; X58.XXXA Exposure to other specified factors, initial encounter; M25.461 Effusion, right knee
CPT/HCPCS: 73721